=== PATIENT | female | born 1940 | race Caucasian/White ===

== ENCOUNTER 2022-10-08 09:03 | Outpatient (CLI) | payer MEDICARE, SELFPAY ==
--- OUTSIDE RECORDS SUMMARY | 2022-10-08 09:06 | XMS_ITS | Encounter Summary ---
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 [address] [place] [phone] Referral ID Status Reason Start Date Expiration Date Visits Requ ested Visits Authorized [id number] Closed 01/01/2022 01/01/2023 6 1 Encounter Details Date Type Department Care Team Description 01/09/2022 Hospital Encounter Department of Haresh Sims Neurocognitive Radiology, Efrain Ramirez M.D., Ph. D. Disorder Without Building, in [address] Behavior Disturbance [place], [place] ([facility]) [place] [address] 200 [facility] [phone] [place], [place] (Work) [phone] Social History Tobacco Use Types Packs/Day Years Used Date Smoking Tobacco: Former Smokeless Tobacco: Never Comments: in college years Alcohol Use Standard Drinks/Week Comments Yes 1 (1 standard drink = 0.6 oz pure alcoho l) per day Alcohol Habits Answer Date Recorded How often do you have a drink containing 4 or more times a w [place] 01/01/2022 alcohol? How many drinks containing alcohol do you have 1 or 2 01/01/2022 on a typical day when you are drinking? How often do you have six or more drinks on one Never 01/01/2022 occasion? Social Isolation Answer Date Recorded In a typical week, how many times do you More than three jack es a week 01/01/2022 talk on the phone with family, friends, or neighbors? How often do you get together with friends More than three t imes a week 01/01/2022 or relatives? How often do you attend pentecostalism or More than 4 times per year 01/01/2022 catholic services? Do you belong to any clubs or Yes 01/01/2022 organizations such as pentecostalism groups, unions, fraternal or athletic groups, or school groups? How often do you attend meetings of the 1 to 4 times per yea r 01/01/2022 clubs or organizations you belong to? Are you now , , , 01/01/2022 , never or living with a partner? Physical Activity Answer Date Recorded On average, how many days per week do you engage in moderate to 7 days 01/01/2022 strenuous exercise (like walking fast, running, jogging, dancing, swimming, biking, or other activities that cause a light or heavy sweat)? On average, how many minutes do you engage in exercise at th is 50 min 01/01/2022 level? Stress Answer Date Recorded Do you feel stress - tense, restless, nervous, or Only a lit tle 01/01/2022 anxious, or unable to sleep at night because your mind is troubled all the time - these days? Financial Resource Strain Answer Date Recorded How hard is it for you to pay for the very basics like Not h bindu at all 01/01/2022 food, housing, medical care, and heating? Intimate Partner Violence Answer Date Recorded Within the last year, have you been afraid of your partner o r No 01/01/2022 ex-partner? Within the last year, have you been humiliated or emotionall y No 01/01/2022 abused in other ways by your partner or ex-partner? Within the last year, have you been kicked, hit, slapped, or No 01/01/2022 otherwise physically hurt by your partner or ex-partner? Within the last year, have you been raped or forced to have any No 01/01/2022 kind of sexual activity by your partner or ex-partner? Food Insecurity Answer Date Recorded Within the past 12 months, you worried that your food would Never true 01/01/2022 run out before you got money to buy more. Within the past 12 months, the food you bought just didn't N ever true 01/01/2022 last and you didn't have money to get more. Transportation Needs Answer Date Recorded In the past 12 months, has lack of transportation kept you f rom Yes 01/01/2022 medical appointments or from getting medications? In the past 12 months, has lack of transportation kept you f rom Yes 01/01/2022 meetings, work, or getting things needed for daily living? Housing Stability Answer Date Recorded In the last 12 months, was there a time when you were not ab le No 01/01/2022 to pay the mortgage or rent on time? In the last 12 months, how many places have you lived? 1 01/01/2022 In the last 12 months, was there a time when you did not hav e a No 01/01/[address] or slept in a chcf (including now)? Education Answer Date Recorded What is the highest level of school Master's degree (e.g., M A, MS, 01/01/2022 you have completed or the highest Olivia, MEd, BI TRI OPERATOR, TUSHAR) degree you have received? 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 Take 2 tablets up to four times daily for pain albuterol 90 Inhale 2 puffs as 0 01/16/2015 mcg/actuation inhaler needed. ALPRAZolam (XANAX) 0.25 Take 0.25 mg by 0 015 mg tablet mouth as needed. aspirin [address] tablet Take 81 mg by mouth 0 10/2021 daily. donepeziL (ARICEPT) 5 mg Take 5 mg by mouth 0 tablet every morning. levothyroxine (SYNTHROID, Take 100 mcg by 0 LEVOTHROID) 100 mcg mouth every morning tablet before breakfast. mirtazapine (REMERON) 30 Take 60 mg by mouth 0 mg tablet at bedtime. multivitamin tablet Take 1 tablet by 0 01/16/2015 mouth daily. sennosides (senna) 8.6 mg Take 1 tablet (8.6 14 tablet 0 tablet mg total) by mouth daily. simvastatin (ZOCOR) 20 mg Take 20 mg by mouth 0 0 05/08/2021 tablet at bedtime. venlafaxine XR Take 225 mg by 0 03/04/2021 (EFFEXOR-XR) 150 mg 24 hr mouth daily. capsule tamoxifen (NOLVADEX) 20 Take 1 tablet (20 90 tablet 3 07/1708/17/2022 mg tablet mg total) by mouth daily for 100 doses. Take with or without food. Start 3-4 weeks after end of radiation. documented as of this encounter Plan of Treatment Not on filedocumented as of this encounter Procedures Procedure Name Priority Date/Time Associated Diagnosis Comme nts PET CT BRAIN RAD - Routine 01/09/2022 11:32 Major Neurocognitive Re sults for METABOLIC (most inpatients AM AERONAUTICAL ENGINEERING TECHNOLOGIST Disorder Without this pr ocedure EVALUATION and all Behavior Disturbance are in the outpatients) ([facility]) results section. documented in this encounter Results PET CT Brain Metabolic Evaluation (01/09/2022 11:32 AM AERONAUTICAL ENGINEERING TECHNOLOGIST) Anatomical Region Laterality Modality Brain, Nuclear Medicine PET RST LOS, N/A Pos itron Emission Tomography (PET), PET ARZ LOS, Nuclear Medicine PET FLA Po sitron Emission Tomography (PET) LOS, Nuclear Medicine Specimen (Source) Anatomical Collection Method Collection Time Re ceived Time Location / / Volume Laterality 01/09/2022 11:34 AM AERONAUTICAL ENGINEERING TECHNOLOGIST Impressions 01/09/2022 11:40 AM AERONAUTICAL ENGINEERING TECHNOLOGIST Diffuse cortical hypometabolism is a nonspecific finding. The worst areas including the superior parietal lobe and posterior pricila gulate gyri could indicate a superimposed pattern compatible with a clinical diagnosis of Alzheimer's disease. Narrative 01/09/2022 11:40 AM AERONAUTICAL ENGINEERING TECHNOLOGIST EXAM: ??PET CT BRAIN METABOLIC EVALUATION Serum glucose at time of F-18 FDG inject ion was 117 mg/dL. RADIOPHARMACEUTICAL/MEDS: Route: intravenous fludeoxyglucose F 18 injection RETIREMENT (FDG F-18),12.04 millicurie TECHNIQUE: F-18 FDG PET/CT scan was perf ormed of the brain with low dose, non-contrast, free-breathing CT images for attenuation correction and anatomic localization (AC/AL), with imaging beginning at approximately [address] radiotracer injection. Cortex ID performed. COMPARISON: ??No prior PET brain INDICATION: ??AD vs FTD FINDINGS: Diffuse severe cortical hypome tabolism, most pronounced in the superior parietal lobe including the posterior cingulate gyri. No unexpected CT findings. Procedure Note Casey Serna M.D. - 01/09/2022Formatti ng of this note might be different from the original. EXAM: PET CT BRAIN METABOLIC EVALUATION Serum glucose at time of F-18 FDG inject ion was 117 mg/dL. RADIOPHARMACEUTICAL/MEDS: Route: intravenous fludeoxyglucose F 18 injection RETIREMENT (FDG F-18),12.04 millicurie TECHNIQUE: F-18 FDG PET/CT scan was perf ormed of the brain with low dose, non-contrast, free-breathing CT images for attenuation correction and anatomic localization (AC/AL), with imaging beginning at approximately [address] radiotracer injection. Cortex ID performed. COMPARISON: No prior PET brain INDICATION: AD vs FTD FINDINGS: Diffuse severe cortical hypome tabolism, most pronounced in the superior parietal lobe including the posterior cingulate gyri. No unexpected CT findings. IMPRESSION: Diffuse cortical hypometabolism is a non specific finding. The worst areas including the superior parietal lobe and posterior pricila gulate gyri could indicate a superimposed pattern compatible with a clinical diagnosis of Alzheimer's disease. Haresh Sims M.D., Ph.D. 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
--- OUTSIDE RECORDS SUMMARY | 2022-10-08 09:06 | XMS_ITS | Clinical Summary ---
:1940 Author Organization [facility] [place] [address] Care Team Providers Name Role Phone Annie Rojas MD Primary Care Provider Allergies No known active allergies Medications Medication Sig Dispensed Refills Start Date End Date Status ALPRAZolam (XANAX) 0.25 Take 1 tablet by 0 5 Active mg tablet mouth at bedtime if needed. mirtazapine (REMERON) 30 Take 1 tablet by 0 01/16/20 15 Active mg tablet mouth at bedtime. albuterol HFA Inhale 2 Puffs 0 01/16/2015 Active (PRO-AIR,VENTOLIN,PROVEN by mouth 4 times TIL) 90 mcg/actuation daily if needed. inhaler multivitamin (MULTI-DAY) Take 1 tablet by 0 01/16/20 15 Active tablet mouth once daily. vitamin a-vitamin Take 1 tablet by 0 01/16/2015 Active c-vitamin e-minerals mouth once (OCUVITE) tablet daily. Ginkgo Biloba 120 mg Take by mouth. 0 01/16/2015 Active tablet omega-3 fatty Take by mouth. 0 01/16/2015 Active acids-vitamin E (FISH OIL) 1,000 mg cap [id number] Take by mouth. 0 01/16/2015 Active t c-mn (GLUCOSAMINE-CHONDROITIN COMPLX) cap Calcium Carb-Magnesium Take by mouth. 0 01/16/2015 Active Carb 250-300 mg tab cyanocobalamin (VITAMIN Take 1 tablet by 0 5 Active B-12) 1,000 mcg tablet mouth once daily. ascorbic acid (VITAMIN Take 1 tablet by 0 01/16/2015 Active C) 500 mg tablet mouth once daily. cholecalciferol (VITAMIN Take 1 capsule 0 01/16/2015 Active D) 1,000 unit capsule by mouth once daily. alendronate (FOSAMAX) 35 TK 1 T PO WEEKLY 0 03/07/20 19 Active mg tablet busPIRone (BUSPAR) 15 mg TK 1 T PO BID 0 08/23/2020 Active tablet Active Problems Not on file Immunizations Name Administration Dates Next Due Influenza, High-dose Inactivated 12/11/2017, 10/15/2016, , 08/26/2015, 01/02/2015 Influenza, Inactivated IIV3 (Age 65+ 10/18/2018 Years) Preserv Free Pneumococcal conj 13-Valent (Prevnar 08/26/2015, 01/02/2015 13) Tdap 08/26/2015 Zoster (Shingrix-RZV, recombinant) 12/14/2018, 08/10/2018 Social History Tobacco Use Types Packs/Day Years Used Date Never Smoker Smokeless Tobacco: Never Used Tobacco Cessation: Counseling Given: Yes Alcohol Use Standard Drinks/Week Comments Yes 0 (1 standard drink = 0.6 oz pure alcoho l) occas Alcohol Habits Answer Date Recorded How often do you have a drink containing alcohol? Not asked How many drinks containing alcohol do you have on a typical Not asked day when you are drinking? How often do you have six or more drinks on one occasion? No t asked Comment: occas 01/16/2015 Sex Assigned at Date Recorded Not on file Obstetrics History Last Filed Vital Signs Vital Sign Reading Time Taken Comments Blood Pressure 106/71 10/30/2020 10:44 AM RN LACTATION Pulse 80 10/30/2020 10:44 AM RN LACTATION Temperature 36.9 ??C (98.5 ??F) 04/13/2019 8:39 AM CDT Respiratory Rate - - Oxygen Saturation 99% 10/30/2020 10:44 AM RN LACTATION Inhaled Oxygen Concentration - - Weight 61.1 kg (134 lb 12.8 oz) 10/30/2020 10:44 AM RN LACTATION Height 160.5 cm (5' 3.19) 04/13/2019 8:39 AM CDT Body Mass Index 23.74 04/13/2019 8:39 AM CDT Plan of Treatment Health Maintenance Due Date Last Done Comments COVID-19 vaccine series (#1) 1940 DEXA/DXA scan for age 65+ 2005 Medicare Wellness for age 65+ 2005 Pneumococcal series for age 65+ (2 08/26/2016 08/26/2015, 0 01/02/2015 - PPSV23 if available, else PCV20) BMI (ht and wt on same day) for 04/13/2020 04/13/2019, 0201/2017 age 18+ Depression screening for age 12+ 04/13/2020 04/13/2019, 01/2017 Influenza for age 65+ 07/30/2022 10/18/2018, 12/11/2017, 10/15/2016, Additional history exists Tetanus booster 08/26/2025 08/26/2015 Tdap Completed 08/26/2015 Zoster (shingles) series for age Completed 12/14/2018, 10/2018 50+ Results Not on filefrom Last 3 Months Insurance Payer Benefit Plan / Subscriber ID Effective Dates Phone Addre ss Type Group MEDICARE PFFS MR AETNA MR [id number] 2018-Present [address] [place] [address] Care Teams Sharebroker Relationship Specialty Start Date End Date Annie Rojas MD PCP - General Internal Medicine 01/16/151999 [place] [address]
--- OUTSIDE RECORDS SUMMARY | 2022-10-08 09:06 | XMS_ITS | Encounter Summary ---
:1940 Author Organization [facility] Address [address] [place] [address] Care Team Providers Name Role Phone Unavailable Primary Care Provider Unavailable Reason for Visit Reason Comments Med Refill Tamoxifen Encounter Details Date Type Department Care Team Description 08/17/2022 Clinical Communication Department of Jose, Med Refill Oncology in [facility] Rivera (Tamoxifen ) Dorene Grissom [place] [address] [facility] [address] [place] [phone] Social History Tobacco Use Types Packs/Day Years Used Date Smoking Tobacco: Former Smokeless Tobacco: Never Comments: in college years Alcohol Use Standard Drinks/Week Comments Yes 1 (1 standard drink = 0.6 oz pure alcoho l) per day Alcohol Habits Answer Date Recorded How often do you have a drink containing 4 or more times a w [place] 01/01/2022 alcohol? How many drinks containing alcohol [...] or relatives? How often do you attend scientologist or More than 4 times per year 01/01/2022 shinto services? Do you belong to any clubs or Yes 01/01/2022 organizations such as scientologist groups, unions, fraternal or athletic groups, or [...] place to sleep or slept in a penitentiary (including now)? Education Answer Date Recorded What is the highest level of school Master's degree (e.g., M A, MS, 01/01/2022 you have completed or the highest Olivia, MEd, E BUSINESS CONSULTANT, TUSHAR) degree you have received? 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 - 08/26/2022 5:29 PM CDT Thanks for the heads up. Doesn't look like I need to take any action now and will see if another provider contacts us. Telephone Encounter - Usha Rubalcava R.N. - 08/17/2022 1:57 PM CDT Pt last seen by Dr. Garcia in September 2021. This message was sent to the pt. Huber afternoon, Luisito. We received a refill request for tamoxifen. In reviewing your records, I see that you are overdue for a follow up visit in the Breast [facility]. In order to provide the safest and most effective recommendations, it is necessary that you be seen from time to time. Please call our appointment office at [phone] to schedule at your earliest convenience. We will prescribe a small supply of tamoxifen to get you through to that visit. If you have any questions or concerns, please contact us at [phone] or through the patient portal. Thank you. Kind regards, Usha Rubalcava, RN Cancer Vibrator Equipment Tester [facility] Team Telephone Encounter - Annalee Muñoz C.Ph.T. - 08/17/2022 1:20 PM CDT Received refill request for: tamoxifen 20mg Previous dose prescribed: 20mg Last date prescribed: 07/17/2021 Last date filled: 07/15/2022 Pharmacy: [facility] [id number] [place] [address] ph#[phone] fax#[phone] documented in this encounter Plan of Treatment Not on filedocumented as of this encounter Visit Diagnoses Not on filedocumented in this encounter
--- OUTSIDE RECORDS SUMMARY | 2022-10-08 09:06 | XMS_ITS ---
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 Past Plans No past plan information found. Radiation Treatments Plan Last Treated Elapsed Days Fractions Prescribed Prescribed Total On Treated Fraction Dose Dose F1 Rt Breast 09/03/2021 35 25 of 25 200 cGy 5,000 cGy Reference Point Last Treated On Elapsed Days Session Dose Total Dos e [id number] 09/03/2021 35 200 cGy 5,000 cGy
--- OUTSIDE RECORDS SUMMARY | 2022-10-08 09:06 | XMS_ITS | Encounter Summary ---
:1940 Author Organization [facility] Address [address] [place] [id number] Care Team Providers Name Role Phone Unavailable Primary Care Provider Unavailable Reason for Referral Outpatient (Routine) - Closed Specialty Diagnoses / Procedures Referred By Contact Refer red To Contact Neurology Haresh Sims M. D., Ph.D. [facility] [address] [place], [place] [phone] Referral ID Status Reason Start Date Expiration Date Visits Requ ested Visits Authorized [id number] Closed 01/01/2022 01/01/2023 1 1 ON INSTALLER Outpatient (Routine) - Closed Specialty Diagnoses / Procedures Referred By Contact Refer red To Contact Diagnoses Unspecified Dementia Unspecified Severity Without Behavioral Disturbance Psychotic disturbance Mood Disturbance And Anxiety (HCC) Haresh Sims M.D., [facility] Procedures PET CT Brain Metabolic Evaluation PA PET BRAIN METABOLIC EVAL Ph.D. [address] [place] [phone] Referral ID Status Reason Start Date Expiration Date Visits Requ ested Visits Authorized [id number] Closed 01/01/2022 01/01/2023 6 1 ON INSTALLER Reason for Visit Outpatient (Routine) - Closed Specialty Diagnoses / Procedures Referred By Contact Refer red To Contact Neurology Diagnoses Impairment Cognitive Mild Jose, Benjamin V., M.D. [facility] [address] [place] [phone] Referral ID Status Reason Start Date Expiration Date Visits Requ ested Visits Authorized [id number] Closed 10/10/2021 10/10/2022 1 1 Encounter Details Date Type Department Care Team Description 01/01/2022 Comprehensive Visit Department of Desmond Sims eurocognitive Disorder Without Behavior Disturbance (HCC); Neurology in [place] Ospina M.D., Ph.D. [place] [address] [address] [facility] [address] [place] [phone] Social History Tobacco Use Types Packs/Day Years Used Date Smoking Tobacco: Former Smokeless Tobacco: Never Comments: in college years Alcohol Use Standard Drinks/Week Comments Yes 1 (1 standard drink = 0.6 oz pure alcoho l) per day Alcohol Habits Answer Date Recorded How often do you have a drink containing 4 or more times a w [place] 01/01/2022 alcohol? How many drinks containing alcohol [...] or relatives? How often do you attend pentecostal or More than 4 times per year 01/01/2022 mormonism services? Do you belong to any clubs or Yes 01/01/2022 organizations such as pentecostal groups, unions, fraternal or athletic groups, or [...] have completed or the highest Olivia, MEd, NEEDLE LOOM OPERATOR, TUSHAR) degree you have received? Sex Assigned at Date Recorded Female 01/01/2022 8:43 AM ACTION INSTALLER documented as of this encounter Last Filed Vital Signs Vital Sign Reading Time Taken Comments Blood Pressure 130/60 01/01/2022 8:58 AM ACTION INSTALLER Pulse 99 01/01/2022 8:58 AM ACTION INSTALLER Temperature - - Respiratory Rate - - Oxygen Saturation - - Inhaled Oxygen Concentration - - Weight 58.3 kg (128 lb 6.7 oz) 01/01/2022 8:58 AM ACTION INSTALLER Height 162.6 cm (5' 4.02) 01/01/2022 8:58 AM ACTION INSTALLER Body Mass Index 22.03 01/01/2022 8:58 AM ACTION INSTALLER documented in this encounter Consult Notes Haresh Sims M.D., Ph.D. - 01/01/2022 9:00 AM CST Supervisory note. I interviewed the patient, performed doyle elements of the examination, and reviewedand discussed the history and management plan with the resident and patient. Please see the resident's note of this date for additional details. This 81-year-old woman was referred by oncology providers (she has a right breast carcinoma and is on tamoxifen) for cognitive decline, present for 5-7 years and mostly related to short-term memory. She lives at home alone in [place] and reports handling IADLs without difficulty including driving loc ally, though friends have apparently commented on more memory troubles over time and her son (here today) lives in [place] and sees her intermittently. She has some anxiety and has been on daily Xanax. She was started on donepezil 5 mg daily previously which she seems to be tolerating. Other familymembers were felt to have dementia including her mother. She scored 23/38 on the Kokmen STMS. TSH was minimally elevated with normal T4. B12 was within normal range. Brain MRI shows T2/FLAIR white matter hyperintensities consistent with microvascular diseaseincluding some likely clinically silent lacunar infarcts, along with a few foci of microhemorrhage. To our review the MRI also shows atrophy in the parietal and temporal regions including the hippocampi (statistically estimated at 1st percentile for age). #1 Mild cognitive impairment versus mild dementia #2 Anxiety She had evident struggles on office cognitive screening which, as we discussed, would typically be in keeping with a dementia syndrome and as such I would have at least some concern about home functioning in instrumental activities of daily living. As to the etiology for her cognitive decline, she certainly has some signs of chronic cerebrovascular disease, but with the insidious course and signs of atrophy on MRI I would also have concern for anunderlying neurodegenerative process, with Alzheimer's disease and/or a frontotemporal disorder being well within the differential. To further evaluate this to guide counseling and management, I recommended obtaining a brain FDG PETscan to differentiate AD vs. FTD. We had some introductory discussions about aspects of safety including driving (I recommended that she have a formal evaluation through an organization such as [facility], and we discussed the rationale) and will return to these and pharmacologic and other management after her testing. ON INSTALLER Annalee Costa M.D., Ph.D. - 01/01/2022 9:00 AM CST BEHAVIORAL NEUROLOGY - NEW PATIENT CONSULTATION Patient Name: NURY JORGE Medical Record Number (MRN): [id number] Date of (): 1940 Encounter Date: 01/01/2022 Referring MD: Dr. Benjamin Garcia M.D. Primary Care Practitioner: Dr. Seymour primary care provider on file. CHIEF COMPLAINT Ms. Nury Jorge is referred by Dr. Benjamin Garcia M.D. for the assessment of progressive memory changes. INTRODUCTION Ms. Jorge is a 81 y.o. 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 The patient lives alone in her private town home (one level with a loft) with significant support from hervery close friends in [place]. She is in generally good health. SUBJECTIVE HISTORY OF PRESENTING ILLNESS Memory and thinking problems were first noticed at least 6-7 years ago. The first problems noted were repeating stories or statements during phone conversations or misplacing phones. Problems began gradually and have progressed gradually. These symptoms are now present consistently. Currently she has minimal difficulty managing medications, she has made several errors when medications have changed or new medications have been added, and per Ms. Jorge this is compounded by multiple providers managing different her prescriptions as well titration schedules. Her pillbox has been checked by son and found to be accurate. She does not require assistance managing appointments. She is reliable in recalling details of recent events. She will repeat questions, stories and statements. Concerning orientation, she usually knows the day of the week, month and year. She is able to navigate in familiar areas only. She has developed compensatory strategies for navigation, remembering landmarks to find her way around. She has to put more effort into remembering where the car. She does notwander. She has multiple strategies in place to assist with executive function. Her bills are on autopaymentand coordination between her savings and checking account is also automated to avoid overdrawing accounts. Son is a signer on her financial accounts and has been for several years, though this was reportedly not due to concerns with memory. She is not impulsive. She is not driving as frequently and only shorter distances to familiar places, though she is driving less because of COVID. She is appropriate in social situations. Her function at home is preserved, though she has assistance for many required tasks. She is able tomanage simple chores such as laundry. She has a cleaning service. Meals and the responsibility of making meals is shared with her close friends/near family. She eats dinner with others nightly. She generates a list of things for home maintenance for her son to do during his visits. Technology is hard,even with passwords written down, she sometimes locks herself out of accounts. She does remember common passwords. She is independent in personal care. She states that mood is good, though she occasionally in anxious and takes 0.25 mg of alprazolam several times a week for anxiety. She has also been taking donepezil 5 mg, though it unclear when this was started. She does not recall significant change in her cognition with this medication. No recent changes in her motor function. She has had longstanding difficulties with coordination of her right hand for multiple years. She has last seen in Neurology by Dr. 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 She continues to have difficulty with writing as well as opening jars that has been more frequent over recent years and also worsens with anxiety. Her gait is unchanged and she walks frequently. She cannot recall falls. She sleeps approximately 8-10 hours a night, she does snore. No reported dream enactment behavior. No hallucinations. No anosmia. No change in bowel or bladder habits. No constipation. REVIEW OF REFERRAL RECORDS Available referral records were personally reviewed in anticipation of today's assessment (01/01/22). Pertinent results are summarized below. Summary of referral records and diagnostic testing: Labs ??? B12 336 ??? TSH 10.1 Imaging ??? Bilateral hippocampal atrophy (1% for age) as well a parietal and temporal artery with several small areas of right frontal hemosiderin deposition. Bilateral leukoaraiosis with multiple areas concerning for small lacunar infarcts, such as right thalamus ACTIVE PROBLEMS Patient Active Problem List Diagnosis ??? 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 Anxiety ??? Cancer Lung Primary Personal History 2012 ??? Depression Personal History ??? Depressive Disorder ??? Malignant Primary Neoplasm (Unknown Site) Unspecified (HCC) breast, lung ??? Sickness Motion Personal History PAST SURGICAL HISTORY Past Surgical History: Procedure Laterality Date ??? BIOPSY SENTINEL LYMPH NODE AXILLARY - PREOPERATIVE LYMPHOSCINTIGRAPHY Right 05/29/2021 Procedure: RIGHT LYMPH NODE AXILLARY SENTINAL LYMPH NODE BIOPSY, PREOPERATIVE LYMPHOSCINTIGRAPHY.; Surgeon: Trini Cedillo D.O.; Location: [facility] OR ??? CATARACT EXTRACTION, BILATERAL Bilateral ??? INTRA-OPERATIVE ULTRASONOGRAPHY N/A 05/29/2021 Procedure: INTRA-OPERATIVE ULTRASONOGRAPHY.; Surgeon: Trini Cedillo D.O.; Location: [facility] OR ??? LUMPECTOMY BREAST Right 05/29/2021 Procedure: RIGHT BREAST LUMPECTOMY; Surgeon: Trini Cedillo D.O.; Location: [facility] OR ??? LUNG CANCER SURGERY Left 2013 ??? TONSILLECTOMY ALLERGIES No Known Allergies MEDICATIONS Current Outpatient Medications: ??? acetaminophen (TYLENOL) 500 mg tablet, Take 2 tablets (1,000 mg total) by mouth every 6 (six) hours as needed for pain (pain). Take 2 tablets up to four times daily for pain, Disp: 100 tablet, Rfl:0 ??? ALPRAZolam (XANAX) 0.25 mg tablet, Take 0.25 mg by mouth as needed., Disp: , Rfl: ??? aspirin [address] tablet, Take 81 mg by mouth daily., Disp: , Rfl: ??? donepeziL (ARICEPT) 5 mg tablet, Take 5 mg by mouth every morning., Disp: , Rfl: ??? levothyroxine (SYNTHROID, LEVOTHROID) 100 mcg tablet, Take 100 mcg by mouth every morning beforebreakfast., Disp: , Rfl: ??? mirtazapine (REMERON) 30 mg tablet, Take 60 mg by mouth at bedtime., Disp: , Rfl: ??? multivitamin tablet, Take 1 tablet by mouth daily., Disp: , Rfl: ??? simvastatin (ZOCOR) 20 mg tablet, Take 20 mg by mouth at bedtime., Disp: , Rfl: ??? venlafaxine XR (EFFEXOR-XR) 150 mg 24 hr capsule, Take 225 mg by mouth daily., Disp: , Rfl: ??? albuterol 90 mcg/actuation inhaler, Inhale 2 puffs as needed., Disp: , Rfl: ??? sennosides (senna) 8.6 mg tablet, Take 1 tablet (8.6 mg total) by mouth daily. (Patient not taking: Reported on 01/01/2022), Disp: 14 tablet, Rfl: 0 ??? tamoxifen (NOLVADEX) 20 mg tablet, Take 1 tablet (20 mg total) by mouth daily for 100 doses. Take with or without food. Start 3-4 weeks after end of radiation., Disp: 90 tablet, Rfl: 3 FAMILY & SOCIAL HISTORY Family History Problem Relation Age of Onset ??? Colon cancer Father ??? Liver cancer Brother ??? 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 Former smoker, minimal alcohol use. REVIEW OF SYSTEMS Constitutional: Positive for fatigue. Respiratory: Positive for dry cough. Neurological: Positive for light-headedness and excessive daytime sleepiness. Psychiatric/Behavioral: Positive for excessive daytime sleepiness/tiredness, snores loudly and feeling nervous, anxious, or on edge in past two weeks. The following systems were negative: Skin, Eyes, ENT, CV, GI, , Hematologic, Musculoskeletal OBJECTIVE PHYSICAL EXAMINATION Vitals: 01/01/22 0858 BP: 130/60 Pulse: 99 Short test of mental status (Kokmen) score: 23/38 Orientation: 07/06 Attention: 06/04 Registration: 03/02 (2 trials) Calculation: 0/4 Similarities: 3/3 Construction: 0/4 Knowledge: 2/4 Recall: 0/4; recalled apple when cued General Assessment The patient appeared of average build and of stated age. She was dressed appropriately, and behaved normally throughout the interview, with euthymic affect. Her thought process was tangential with multiple vague statements. She was not able to directly answer multiple questions. No sensory intrusions / misperceptions were noted (i.e., no delusions and/or hallucinations). Cranial Nerves Visual ramon were full with no extinction on double simultaneous stimulation. Pupils were equal, round and reactive to light. Extraocular movements were full with normal smooth pursuit and saccadic eye movements. Facial sensation was intact in all three divisions of the trigeminal nerve. Facial movement was symmetric. Hearing was intact. Palate elevation was symmetric. Shoulder shrug and head turning were symmetric. Tongue protrusion was midline. Motor Axial tone was normal. Motor exam revealed normal bulk, tone and strength throughout. Fine finger movements were symmetric. No involuntary movements were detected. Rapid-alternating movements were initially slowed at the right fingers, but improved with repetition; otherwise normal. No decrement. Reflexes Reflexes were symmetric at the biceps, triceps, brachioradialis and brisk at the knees with cross abductor spread. Sensation Sensation was intact to light touch. Coordination Jbolfl-cfjm-[id number] and shzy-bqbp-zjbb testing were normal. Higher Cortical Function and Special Tests Ideomotor apraxia was not noted. Gait Gait was normal, including tandem gait. ADDITIONAL SUMMARY OF RELEVANT MEDICAL RECORDS & TESTING Lab Results Component Value Date TSH 10.1 (H) 12/22/2021 THYROIDAB 0.7 12/22/2021 Lab Results Component Value Date WBC 9.3 12/22/2021 HGB 13.3 12/22/2021 HCT 40.7 12/22/2021 MCV 100.5 (H) 12/22/2021 Lab Results Component Value Date CREATININE 1.13 (H) 12/22/2021 EEG (Last result in the past 365 days) None DIAGNOSIS AND ASSESSMENT # Mild dementia vs mild cognitive impairment. Ms. Jorge is a 81 y.o. female with a family history of dementia (her mother), who presents with slowly progressive cognitive decline over the past 6-7 years most prominent in short term recall. The pattern of decline, neuroimaging, and exam today are suggestive of mild dementia vs mild cognitive impairment with most likely etiology of Alzheimer's disease. I do suspect that her strong local support network is likely assisting with her abilities to complete her daily responsibilities at home. She does have evidence of chronic vascular disease on her MRI, though her clinical course is most fitting with a neurodegenerative process. There may also be contributions of cognitive inefficiencies from benzo diazepine usage as well as obstructive sleep apnea. Her cerebrovascular risk factors can continue edie followed by her primary care provider and modified as needed. Her incoordination in the right hand is likely a manifestation of previous focal dystonia, no weakness, ataxia, or apraxia on exam. In order to further investigate will pursue FDG-PET scan with follow up with Dr. Sims. Given her impairment on the Kokmen testing today, we also discussed the importance of continued oversight for higher order functions such as money and medication management as well as driving. If she wishes to continue to drive, would recommend formal occupational therapy evaluation for driving. [facility]. This patient was seen with Dr. Sims. Annalee Costa M.D., Ph.D. ON INSTALLER documented in this encounter Plan of Treatment Scheduled Referrals Name Type Priority Associated Diagnoses Order S [facility] Neurology office Outpatient Referral Routine Expe cted: visit (clinic) 01/01/2022 (Approximate), Expires: 03/31/2023 documented as of this encounter Results PET CT Brain Metabolic Evaluation (01/09/2022 11:32 AM ACTION INSTALLER) Anatomical Region Laterality Modality Brain, Nuclear Medicine PET RST LOS, N/A Pos itron Emission Tomography (PET), PET ARZ LOS, Nuclear Medicine PET FLA Po sitron Emission Tomography (PET) LOS, Nuclear Medicine Specimen (Source) Anatomical Collection Method Collection Time Re ceived Time Location / / Volume Laterality 01/09/2022 11:34 AM ACTION INSTALLER Impressions 01/09/2022 11:40 AM ACTION INSTALLER Diffuse cortical hypometabolism is a nonspecific finding. The worst areas including the superior parietal lobe and posterior pricila gulate gyri could indicate a superimposed pattern compatible with a clinical diagnosis of Alzheimer's disease. Narrative 01/09/2022 11:40 AM ACTION INSTALLER EXAM: ??PET CT BRAIN METABOLIC EVALUATION Serum glucose at time of F-18 FDG inject ion was 117 mg/dL. RADIOPHARMACEUTICAL/MEDS: Route: intravenous fludeoxyglucose F 18 injection FCI (FDG F-18),12.04 millicurie TECHNIQUE: F-18 FDG PET/CT [...] RADIOPHARMACEUTICAL/MEDS: Route: intravenous fludeoxyglucose F 18 injection FCI (FDG F-18),12.04 millicurie TECHNIQUE: F-18 FDG PET/CT [...] Psychotic disturbance Mood Disturbance And Anxiety (HCC) Anxiety Unspecified Dementia Unspecified Severit y Without Behavioral Disturbance Psychotic disturbance Mood Disturbance And Anxiety (HCC) documented in this encounter
--- OUTSIDE RECORDS SUMMARY | 2022-10-08 09:06 | XMS_ITS | Encounter Summary ---
:1940 Author Organization [facility] Address [address] [place] [address] Care Team Providers Name Role Phone Unavailable Primary Care Provider Unavailable Reason for Visit Outpatient (Routine) - Closed Specialty Diagnoses / Procedures Referred By Contact Refer red To Contact Neurology Haresh Sims M. D., Ph.D. 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 [address] [place] [phone] Social History Tobacco Use Types Packs/Day Years Used Date Smoking Tobacco: Former Smokeless Tobacco: Never Comments: in college years Alcohol Use Standard Drinks/Week Comments Yes 1 (1 standard drink = 0.6 oz pure alcoho l) per day Alcohol Habits Answer Date Recorded How often do you have a drink containing 4 or more times a w [place] 01/01/2022 alcohol? How many drinks containing alcohol [...] or relatives? How often do you attend gnosticist or More than 4 times per year 01/01/2022 restorationist services? Do you belong to any clubs or [facility] 01/01/2022 organizations such as gnosticist groups, unions, fraternal or athletic groups, or [...] place to sleep or slept in a half-way (including now)? Education Answer Date Recorded What is the highest level of school Master's degree (e.g., M A, MS, 01/01/2022 you have completed or the highest Olivia, MEd, DIRECTOR NUR[employer]ERY [employer]CHO[employer], TUSHAR) degree you have received? 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 - 01/09/2022 3:00 PM CST Images from the original note were not included. Adrienne Jorge returns for follow-up of test results, with her longtime friend Berta (not present at our initial visit). Brain FDG PET was abnormal as below with left slightly worse than right parietal and temporal hypometabolism, including some mesial temporal hypometabolism. 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 woman seen for 5-7 years of amnestic-predominant cognitive decline, with clear impairment on office cognitive screening ( SMS) Given the extent of her troubles on office exam as discussed before I would have some concerns abouthome independent functioning. I recommended an occupational therapy evaluation to assist with clarifying this further to identify potential safety-relevant areas. As to the etiology for her cognitive decline, Alzheimer's disease would be very likely to be a driving force given the findings of focal patterned atrophy and hypometabolism on imaging. Coexistent cerebrovascular disease is likely to be a factor though not in isolation. At her age admixed other degenerative disease cannot be ruled out. We discussed the following about neurodegenerative diseases: -Alzheimer's disease is the most common, but many types/forms/variants exist, and it is not uncommonfor multiple degenerative pathologies to be present together in some cases -They develop over decades prior to symptom onset -They are expected to cause slow worsening of symptoms over time -More abrupt changes are typically not related to disease progression and more likely due to other factors (e.g., new medications/side effects, systemic infections, electrolyte abnormalities, dehydration, etc.) which should prompt a PCP/general medical evaluation -All patients are different and a wide range of features/progression can be seen -Past trajectory on an individualized basis is generally the best guide for future trajectory -At present there are no cures which reverse these diseases -Options exist to help manage some symptoms of these diseases and optimize function, and disease-modifying therapies are under active investigation -Although unequivocal diagnosis can only be made by post-mortem autopsy, clinical evaluation and diagnostic testing can often yield a high confidence diagnosis during life -Most cases of these diseases are thought due to a complex mix of multiple genetic and environmental/lifestyle factors, only some of which are known Plan 1. She was at one point started on donepezil 5 mg daily. Typically if tolerated the target dose is 10 mg every morning. If an EKG was not previously checked to evaluate for heart block or bradycardia Iwould recommend that this be done. If not tolerated due to nausea, diarrhea, or other side effects, the rivastigmine patch initiated at 4.6 mg/24 hrs and increased after 4 weeks to 9.5 mg/24 hrs could be utilized. We discussed the aim under best circumstances of a modest symptomatic effect on memory. She will follow up with local physicians in these regards. 2. For brain health, I recommended participating in cognitively and socially stimulating activities,regular physical exercise, ensuring quality sleep including treatment of any sleep apnea, control ofany cerebrovascular disease risk factors (such as blood pressure, diabetes, cholesterol, and avoidance of tobacco) and systemic medical and psychiatric conditions, at most moderate consumption of alcohol, modulation and management of stress, mindfulness techniques, and use of a healthy and balanced diet. 3. We discussed that individuals with this diagnosis are at a substantially higher risk for unsafe driving and thus it would be my recommendation that she stop driving. If they feel strongly that driving is potentially able to continue, then a formal driving safety evaluation (e.g., through an organization such as [employer]) should be obtained and repeated every 6 months. I would also recommend that a family member or other designated individual be available to assist with complex legal, medical, and financial decision-making, just to ensure no big items are missed and limit vulnerabilities, and that individual should also supervise medications to ensure adherence. 4. They had inquired about some generalized tremulousness intermittently observed and moreso over the last few months. Though not the focus of our evaluation, I would wonder about anxiety and/or medications (e.g., venlafaxine which can cause a fine tremulousness) as potential factors. I encouraged herto continue working with a local psychotherapist here. It would also be optimal from a cognitive standpoint if she were able to be weaned off benzodiazepines (in favor of other avenues to assist with symptom control) as these can have some negative effects in older individuals with cognitive impairment. 5. We briefly discussed the recent FDA approval of aducanumab for mild stages of Alzheimer's diseasebased on its ability to remove amyloid plaques from the brain (a hallmark feature of Alzheimer's disease). It is still not conclusively known whether this drug leads to any benefit on cognitive decline, and there are nontrivial potential side effects (including brain swelling and brain bleeding), needs for frequent MRI scans for safety monitoring, and other considerations (including patient-specific goals of care among others) in judging potential candidacy and fit of this option. Additional information regarding its precise indications and other details including cost and coverage are continuing to be clarified. We discussed that other similar agents are in late stages of clinical trials and thusthere may be additional options for certain patients with Alzheimer's disease over the coming years.In addition, biomarker testing (through lumbar puncture or amyloid PET) would be required for any ofthese agents if pursued at a later date. They greatly appreciated the visit and agreed with the plan. I have completed my evaluation and made my recommendations. The patient will follow up with their primary provider. NEY BUILDER BRICK documented in this encounter Plan of Treatment Not on filedocumented as of this encounter Visit Diagnoses Diagnosis Major Neurocognitive Disorder Due To Alz heimer's Without Behavior Disturbance (HCC) - Primary Anxiety documented in this encounter
--- OUTSIDE RECORDS SUMMARY | 2022-10-08 09:06 | XMS_ITS | Clinical Summary ---
:1940 Author Organization [facility] Address [address] [place] [address] Care Team Providers Name Role Phone Unavailable Primary Care Provider Unavailable Source Comments Patient records contain information from all sites at [facility]. For routine questions regarding patient records, call [phone] during business hours, M-F 8:00 AM - 5:00 PM Central Time. Record requests for emergency care only can be directed to [phone] at any time.[facility] Allergies No known active allergies Medications Medication Sig Dispensed Refills Start Date End Date Status albuterol 90 Inhale 2 puffs 0 01/16/2015 A ctive mcg/actuation inhaler as needed. ALPRAZolam (XANAX) 0.25 Take 0.25 mg by 0 01/16/2015 Active mg tablet mouth as needed. aspirin [address] tablet Take 81 mg by 0 05/10/2021 Active mouth daily. mirtazapine (REMERON) Take 60 mg by 0 05/06/2021 Active 30 mg tablet mouth at bedtime. multivitamin tablet Take 1 tablet by 0 01/16/2015 Active mouth daily. simvastatin (ZOCOR) 20 Take 20 mg by 0 05/08/2021 Active mg tablet mouth at bedtime. venlafaxine XR Take 225 mg by 0 03/04/2021 Active (EFFEXOR-XR) 150 mg 24 mouth daily. hr capsule acetaminophen (TYLENOL) Take 2 tablets 100 tablet 0 05/29/2021 Active 500 mg tablet (1,000 mg total) by mouth every 6 (six) hours as needed for pain (pain). Take 2 tablets up to four times daily for pain sennosides (senna) 8.6 Take 1 tablet 14 tablet 0 05/29/2021 Active mg tablet (8.6 mg total) by mouth daily. Additional Information Patient not taking. Reported on 01/01/2022 donepeziL (ARICEPT) 5 mg Take 5 mg by mouth 0 Active tablet every morning. levothyroxine (SYNTHROID, Take 100 mcg by 0 Active LEVOTHROID) 100 mcg mouth every morning tablet before breakfast. tamoxifen (NOLVADEX) 20 Take 1 tablet (20 90 tablet 0 08/17/20 22 08/17/2023 Active mg tablet mg total) by mouth daily. Take with or without food. 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 Cancer Staging: Pathologic stage from 05/29/2021: Stage IIA (pT2, pN1a(sn), cM0, G3, ER+, LA+, HER2-, Oncotype DX score: 15) - Unsigned Encounters Date Type Specialty Care Team Description 08/17/2022 Clinical Communication Oncology Benjamin Garcia Med Refill (Tamoxifen Doerne Rivera ) from Last 3 Months Immunizations Name Administration Dates Next Due Influenza TIV (IM) 10/18/2018 Influenza high dose QV(65 years or 10/31/2020 older) (PF) PCV13 08/26/2015, 01/02/2015 PPSV23 05/19/2021 (Deferred: Other - WILL CHECK WITH PCP) RZV (SHINGRIX) 12/14/2018, 08/10/2018 Tdap 08/26/2015 influenza high dose (65 years or 12/11/2017, 10/15/2016, , older) (PF) 08/26/2015, 01/02/2015 influenza vaccine QV(FLUBLOK) (18 09/18/2019 years or older) (PF) Family History Medical History Relation Name Comments Liver cancer Brother 1 Multiple myeloma Brother 2 Colon cancer Father Relation Name Status Comments Brother 1 Brother 2 Father Social History Tobacco Use Types Packs/Day Years Used Date Smoking Tobacco: Former Smokeless Tobacco: Never Comments: in college years Alcohol Use Standard Drinks/Week Comments Yes 1 (1 standard drink = 0.6 oz pure alcoho l) per day Alcohol Habits Answer Date Recorded How often do you have a drink containing 4 or more times a w [place] 01/01/2022 alcohol? How many drinks containing alcohol [...] or relatives? How often do you attend confucianism or More than 4 times per year 01/01/2022 muslim services? Do you belong to any clubs or Yes 01/01/2022 organizations such as confucianism groups, unions, fraternal or athletic groups, or [...] place to sleep or slept in a retirement (including now)? Education Answer Date Recorded What is the highest level of school Master's degree (e.g., M A, MS, 01/01/2022 you have completed or the highest Olivia, MEd, LAMINATING MACHINE OFFBEARER, TUSHAR) degree you have received? Sex Assigned at Date Recorded Female 01/01/2022 8:43 AM TOUR NARRATOR Last Filed Vital Signs Vital Sign Reading Time Taken Comments Blood Pressure 130/60 01/01/2022 8:58 AM TOUR NARRATOR Pulse 99 01/01/2022 8:58 AM TOUR NARRATOR Temperature 35.3 ??C (95.5 ??F) 10/10/2021 1:07 PM TOUR NARRATOR Respiratory Rate 16 07/16/2021 1:17 PM CDT Oxygen Saturation 96% 10/10/2021 1:07 PM TOUR NARRATOR Inhaled Oxygen Concentration - - Weight 58.3 kg (128 lb 6.7 oz) 01/01/2022 8:58 AM TOUR NARRATOR Height 162.6 cm (5' 4.02) 01/01/2022 8:58 AM TOUR NARRATOR Body Mass Index 22.03 01/01/2022 8:58 AM TOUR NARRATOR Plan of Treatment Health Maintenance Due Date Last Done Comments COVID-19 Vaccine (5 - Booster for 05/15/2022 03/20/2022, , Pfizer series) 01/25/2021, Additional history exists Influenza Vaccine (#1) 2022 11/20/2021, 10/31/2020, 09/18/2019, Additional history exists Thyroid Stimulating Hormone (TSH) 12/22/2022 12/22/2021 test for thyroid function DTaP,Tdap,and Td Vaccines (2 - Td 08/26/2025 08/26/2015 or Tdap) Zoster Vaccines Completed 12/14/2018, 08/10/2018 Pneumococcal vaccine (65+ years) Completed 05/19/2021, , 01/02/2015 Fall Risk Screen (Annual) Completed 01/01/2022 Medical Devices Implanted Type Area Founder Chairman And Chief Creative Officer Device Identifier Shelf Model / Expiration Serial / Date Lot Clp Hrzn Ti 6 Clp Sm Red - [id number] Hardware Telefl ex [employer] [id number] 10/01/2025 [id number] / Implanted: Qty: 1 on 05/29/2021 by Trini Black D.O. at [facility] e.g. / pins/screws [id number] /rods Imaging Marker-05/01/2021 Imaging Right: Implanted: 05/01/2021 (Quantity not on file) Marker Breast Insurance Payer Benefit Plan / Subscriber ID Effective Dates Phone Addre ss Type Group AETNA AETNA MEDICARE [id number] 2021-Present [phone] [address] PPO PLAN AVIL[place]OUSA [id number] Advance Directives For more information, please contact: [phone] Latest Code Status on File Code Status Date Activated Date Inactivated Comments Full Code 05/29/2021 7:25 AM 05/29/2021 5:02 PM Question Answer Comments Full Code: Not Discussed Due to: Not medically appropriate
--- OUTSIDE RECORDS SUMMARY | 2022-10-08 09:07 | XMS_ITS | Encounter Summary ---
:1940 Author Organization [facility] Address [address] [place] [address] Care Team Providers Name Role Phone Unavailable Primary Care Provider Unavailable Reason for Visit Radiation Therapy (Routine) - Closed Specialty Diagnoses / Procedures Referred By Contact Refer red To Contact Diagnoses Malignant Neoplasm Of Breast Upper Inner Quadrant Female Right (HCC) Hernan Mcwilliams M.D. [facility] Radiation Oncology Procedures Prior Auth Rad Tx [place] IMRT SIMPLE [address] [place] [phone] [facility] [place] [address] Referral ID Status Reason Start Date Expiration Date Visits Requ ested Visits Authorized [id number] Closed 07/28/2021 07/18/2022 30 30 Encounter Details Date Type Department Care Team Description 08/27/2021 Hospital Encounter Department of Radiation Derek Mcwilliams, [place]cology [place] [address] [facility] [address] [place] [phone] Social History Tobacco Use Types Packs/Day Years Used Date Smoking Tobacco: Former Smokeless Tobacco: Never Comments: in college years Alcohol Use Standard Drinks/Week Comments Yes 1 (1 standard drink = 0.6 oz pure alcoho l) per day Alcohol Habits Answer Date Recorded How often do you have a drink containing 4 or more times a w [place] 01/01/2022 alcohol? How many drinks containing alcohol [...] or relatives? How often do you attend orthodoxy or More than 4 times per year 01/01/2022 christian services? Do you belong to any clubs or Yes 01/01/2022 organizations such as orthodoxy groups, unions, fraternal or athletic groups, or [...] place to sleep or slept in a halfway (including now)? Sex Assigned at Date Recorded Female 01/01/2022 8:43 AM LATH TIER documented as of this encounter Medications at [...] 81 mg by mouth 0 10/2021 daily. mirtazapine (REMERON) 30 Take 60 mg by [...] Start 3-4 weeks after end of radiation. traMADoL (ULTRAM) 50 mg Take 1-2 tablets 12 tablet 0 202001/01/2022 tabletIndications: Acute (50-100 mg total) Pain by mouth 4 (four) times a day as needed for pain Indications: acute pain. venlafaxine XR Take 75 mg by mouth 0 04/18/2021 0 01/01/2022 (EFFEXOR-XR) 75 mg 24 hr daily. capsule documented as of this encounter Plan of Treatment Not on filedocumented as of this encounter Visit Diagnoses Not on filedocumented in this encounter
--- OUTSIDE RECORDS SUMMARY | 2022-10-08 09:07 | XMS_ITS | Encounter Summary ---
:1940 Author Organization [facility] Address [address] [place] [address] Care Team Providers Name Role Phone Unavailable Primary Care Provider Unavailable Reason for Visit Radiation Therapy (Routine) - Closed Specialty Diagnoses / Procedures Referred By Contact Refer red To Contact Diagnoses Malignant Neoplasm Of Breast Upper Inner Quadrant Female Right (HCC) Hernan Mcwilliams M.D. [facility] Radiation Oncology Procedures Prior Auth Rad Tx [place] IMRT SIMPLE [address] [place] [phone] [phone] [facility] [address] Referral ID Status Reason Start Date Expiration Date Visits Requ ested Visits Authorized [id number] Closed 07/28/2021 07/18/2022 30 30 Encounter Details Date Type Department Care Team Description 09/02/2021 Hospital Encounter Department of Radiation Deerk Mcwilliams, [place] [address] [facility] [address] [place] [phone] Social History Tobacco Use Types Packs/Day Years Used Date Smoking Tobacco: Former Smokeless Tobacco: Never Comments: in college years Alcohol Use Standard Drinks/Week Comments Yes 1 (1 standard drink = 0.6 oz pure alcoho l) per day Alcohol Habits Answer Date Recorded How often do you have a drink containing 4 or more times a w [place] 01/01/2022 alcohol? How many drinks containing alcohol [...] or relatives? How often do you attend gnosticism or More than 4 times per year 01/01/2022 mormonism services? Do you belong to any clubs or Yes 01/01/2022 organizations such as gnosticism groups, unions, fraternal or athletic groups, or [...] place to sleep or slept in a prison (including now)? 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
--- OUTSIDE RECORDS SUMMARY | 2022-10-08 09:07 | XMS_ITS | Encounter Summary ---
:1940 Author Organization [facility] Address [address] [place] [address] Care Team Providers Name Role Phone Unavailable Primary Care Provider Unavailable Reason for Visit Radiation Therapy (Routine) - Closed Specialty Diagnoses / Procedures Referred By Contact Refer red To Contact Diagnoses Malignant Neoplasm Of Breast Upper Inner Quadrant Female Right (HCC) Hernan Mcwilliams M.D. [facility] Radiation Oncology Procedures Prior Auth Rad Tx [place] IMRT SIMPLE [address] [place] [address] [address] [facility] [place] [address] Referral ID Status Reason Start Date Expiration Date Visits Requ ested Visits Authorized [id number] Closed 07/28/2021 07/18/2022 30 30 Encounter Details Date Type Department Care Team Description 09/03/2021 Hospital Encounter Department of Radiation Derek Mcwilliams, [place]cology [place] [address] [facility] [address] [place] [phone] Social History Tobacco Use Types Packs/Day Years Used Date Smoking Tobacco: Former Smokeless Tobacco: Never Comments: in college years Alcohol Use Standard Drinks/Week Comments Yes 1 (1 standard drink = 0.6 oz pure alcoho l) per day Alcohol Habits Answer Date Recorded How often do you have a drink containing 4 or more times a w [employer] [place] 01/01/2022 alcohol? How many drinks containing alcohol [...] or relatives? How often do you attend taoist or More than 4 times per year 01/01/2022 judaism services? Do you belong to any clubs or Yes 01/01/2022 organizations such as taoist groups, unions, fraternal or athletic groups, or [...] place to sleep or slept in a detention (including now)? Sex Assigned at Date Recorded Female 01/01/2022 8:43 AM RANGE MANAGER documented as of this encounter Medications at [...]
--- OUTSIDE RECORDS SUMMARY | 2022-10-08 09:07 | XMS_ITS | Encounter Summary ---
:1940 Author Organization [facility] Address [address] [place] [address] Care Team Providers Name Role Phone Unavailable Primary Care Provider Unavailable Reason for Visit Radiation Therapy (Routine) - Closed Specialty Diagnoses / Procedures Referred By Contact Refer red To Contact Diagnoses Malignant Neoplasm Of Breast Upper Inner Quadrant Female Right (HCC) Hernan Mcwilliams M.D. [facility] Radiation Oncology Procedures Prior Auth Rad Tx [place] IMRT SIMPLE [address] [place] [phone] [facility] [address] Referral ID Status Reason Start Date Expiration Date Visits Requ ested Visits Authorized [id number] Closed 07/28/2021 07/18/2022 30 30 Encounter Details Date Type Department Care Team Description 08/26/2021 Hospital Encounter Department of Radiation Derek Mcwilliams, [place] [address] [facility] [address] [place] [phone] Social History Tobacco Use Types Packs/Day Years Used Date Smoking Tobacco: Former Smokeless Tobacco: Never Comments: in college years Alcohol Use Standard Drinks/Week Comments Yes 1 (1 standard drink = 0.6 oz pure alcoho l) per day Alcohol Habits Answer Date Recorded How often do you have a drink containing 4 or more times a w [place] 01/01/2022 alcohol? How many drinks containing alcohol [...] or relatives? How often do you attend denominational or More than 4 times per year 01/01/2022 yazidi services? Do you belong to any clubs or Yes 01/01/2022 organizations such as denominational groups, unions, fraternal or athletic groups, or [...] or slept in a half-way (including now)? Sex Assigned at Date Recorded Female 01/01/2022 8:43 AM DRYWALL SANDER documented as of this encounter Medications at [...]
--- OUTSIDE RECORDS SUMMARY | 2022-10-08 09:07 | XMS_ITS | Encounter Summary ---
:1940 Author Organization [facility] Address [address] [place] [address] Care Team Providers Name Role Phone Unavailable Primary Care Provider Unavailable Reason for Visit Radiation Therapy (Routine) - Closed Specialty Diagnoses / Procedures Referred By Contact Refer red To Contact Diagnoses Malignant Neoplasm Of Breast Upper Inner Quadrant Female Right (HCC) Hernan Mcwilliams M.D. [facility] Radiation Oncology Procedures Prior Auth Rad Tx NM IMRT SIMPLE [address] [place] [address] [address] [place] [address] Referral ID Status Reason Start Date Expiration Date Visits Requ ested Visits Authorized [id number] Closed 07/28/2021 07/18/2022 30 30 Encounter Details Date Type Department Care Team Description 08/22/2021 Hospital Encounter Department of Radiation Derek Mcwilliams, Oncology in [place] [address] [facility] [address] [place] [phone] Social History Tobacco Use Types Packs/Day Years Used Date Smoking Tobacco: Former Smokeless Tobacco: Never Comments: in college years Alcohol Use Standard Drinks/Week Comments Yes 1 (1 standard drink = 0.6 oz pure alcoho l) per day Alcohol Habits Answer Date Recorded How often do you have a drink containing 4 or more times a w [place] 01/01/2022 alcohol? How many drinks containing alcohol [...] or relatives? How often do you attend islam or More than 4 times per year 01/01/2022 confucianist services? Do you belong to any clubs or Yes 01/01/2022 organizations such as islam groups, unions, fraternal or athletic groups, or [...] place to sleep or slept in a fpc (including now)? Sex Assigned at Date Recorded Female 01/01/2022 8:43 AM RECRUITING CONSULTANT documented as of this encounter Medications at [...]
--- OUTSIDE RECORDS SUMMARY | 2022-10-08 09:07 | XMS_ITS | Encounter Summary ---
:1940 Author Organization [facility] Address [address] [place] [address] Care Team Providers Name Role Phone Unavailable Primary Care Provider Unavailable Reason for Visit Reason Comments Intake Assessment Encounter Details Date Type Department Care Team Description 10/07/2021 Clinical Communication Department of Laureen Garcia Oncology in Jaciel Alberto M.D. [address] [place] [phone] Social History Tobacco Use Types Packs/Day Years Used Date Smoking Tobacco: Former Smokeless Tobacco: Never Comments: in college years Alcohol Use Standard Drinks/Week Comments Yes 1 (1 standard drink = 0.6 oz pure alcoho l) per day Alcohol Habits Answer Date Recorded How often do you have a drink containing 4 or more times a w [place] 01/01/2022 alcohol? How many drinks containing alcohol [...] or relatives? How often do you attend methodist or More than 4 times per year 01/01/2022 quaker services? Do you belong to any clubs or Yes 01/01/2022 organizations such as methodist groups, unions, fraternal or athletic groups, or [...] place to sleep or slept in a long-term (including now)? 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
--- OUTSIDE RECORDS SUMMARY | 2022-10-08 09:07 | XMS_ITS | Encounter Summary ---
:1940 Author Organization [facility] Address [address] [place] [address] Care Team Providers Name Role Phone Unavailable Primary Care Provider Unavailable Reason for Visit Reason Comments Appointment Encounter Details Date Type Department Care Team Description 10/10/2021 Clinical Communication Department of Benjamin Garcia Appointment Oncology klaus Rivera M.D. [place], [place] [address] [place] [address] [address] [place] [phone] [phone] Social History Tobacco Use Types Packs/Day Years Used Date Smoking Tobacco: Former Smokeless Tobacco: Never Comments: in college years Alcohol Use Standard Drinks/Week Comments Yes 1 (1 standard drink = 0.6 oz pure alcoho l) per day Alcohol Habits Answer Date Recorded How often do you have a drink containing 4 or more times a w [place] 01/01/2022 alcohol? How many drinks containing alcohol [...] or relatives? How often do you attend mormonism or More than 4 times per year 01/01/2022 holiness services? Do you belong to any clubs or Yes 01/01/2022 organizations such as mormonism groups, unions, fraternal or athletic groups, or [...] place to sleep or slept in a correction (including now)? 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 - 10/10/2021 11:57 AM MONUMENT MASON Fine to do as video, thanks! MENT MASON documented in this encounter Plan of Treatment Not on filedocumented as of this encounter Visit Diagnoses Not on filedocumented in this encounter
--- OUTSIDE RECORDS SUMMARY | 2022-10-08 09:07 | XMS_ITS | Encounter Summary ---
:1940 Author Organization [facility] Address [address] [place] [address] Care Team Providers Name Role Phone Unavailable Primary Care Provider Unavailable Encounter Details Date Type Department Care Team Description 09/10/2021 Clinical Communication Department of Oncology Usha Rubalcava in [facility] [address] [place] [address] Social History Tobacco Use Types Packs/Day Years Used Date Smoking Tobacco: Former Smokeless Tobacco: Never Comments: in college years Alcohol Use Standard Drinks/Week Comments Yes 1 (1 standard drink = 0.6 oz pure alcoho l) per day Alcohol Habits Answer Date Recorded How often do you have a drink containing 4 or more times a w [place] 01/01/2022 alcohol? How many drinks containing alcohol [...] or relatives? How often do you attend evangelical or More than 4 times per year 01/01/2022 alevism services? Do you belong to any clubs or Yes 01/01/2022 organizations such as evangelical groups, unions, fraternal or athletic groups, or [...] minutes do you engage in exercise at is 50 min 01/01/2022 level? 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 - 09/10/2021 5:18 PM CDT Will do this depending on my September visit, thanks! Telephone Encounter - Usha Rubalcava R.N. - 09/10/2021 4:26 PM CDT ----- Message from Layla Quick R.N. sent at 09/10/2021 1:30 PM CDT ----- Regarding: survivorship Hi Mrs. Luisito Kerr has completed radiation here in [place]. She will be seeing Med Onc in [place] in follow up, will survivorship be done during follow up as well? Layla Sharpe ----- Message ----- From: Shital Morgan P.A.-C., M.S. Sent: 06/20/2021 2:54 PM CDT To: Whitney Nelson, I just looked quickly, but it looks like she is ER+, so if she goes on hormone therapy then she willlikely be followed by Medical Oncology long-term. I would just wait for now and we will address follow-up during her treatment as we always do. Shital Sharpe ----- Message ----- From: Layla Quick R.N. Sent: 06/20/2021 2:48 PM CDT To: Shitalraffaele Morgan P.A.-C., M.S. Leah, I know I have seen HARPAL take over follow up on rare occasion after breast treatment. Something we could discuss further at time of consult visit? Thanks, Layla ----- Message ----- From: Nelly Hogue APRN C.N.PDavid, D.N.PDavid Sent: 06/12/2021 12:22 PM CDT To: Layla Quick R.N., Katie M Kallstrom, R.N. Thank you so much Layla Camarena does the survivorship visits in [place] so I am just letting her know. Thank you for much for the coordination, Nelly ----- Message ----- From: Nicol Madsen R.N. Sent: 06/12/2021 12:02 PM CDT To: Nelly Hogue APRN, C.N.PDavid, D.N.PDavid Hi Nelly, This jos lady is going to be receiving radiation in [place], she would like all her follow up done in [place]. I shared that you have a Survivorship program as well and would let you know she would like all her follow up with your team! Thank you, DEBRA Camarena documented in this encounter Plan of Treatment Not on filedocumented as of this encounter Visit Diagnoses Not on filedocumented in this encounter
--- OUTSIDE RECORDS SUMMARY | 2022-10-08 09:07 | XMS_ITS | Encounter Summary ---
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 [facility] Radiation Oncology Procedures Prior Auth Rad Tx OR IMRT SIMPLE [address] [place] [address] [address] [place] [address] Referral ID Status Reason Start Date Expiration Date Visits Requ ested Visits Authorized [id number] Closed 07/28/2021 07/18/2022 30 30 Encounter Details Date Type Department Care Team Description 08/20/2021 Hospital Encounter Department of Radiation Derek Mcwilliams, Oncology in [place] [address] [facility] [address] [place] [phone] Social History Tobacco Use Types Packs/Day Years Used Date Smoking Tobacco: Former Smokeless Tobacco: Never Comments: in college years Alcohol Use Standard Drinks/Week Comments Yes 1 (1 standard drink = 0.6 oz pure alcoho l) per day Alcohol Habits Answer Date Recorded How often do you have a drink containing 4 or more times a w [place] 01/01/2022 alcohol? How many drinks containing alcohol [...] or relatives? How often do you attend caodaism or More than 4 times per year 01/01/2022 baptist services? Do you belong to any clubs or Yes 01/01/2022 organizations such as caodaism groups, unions, fraternal or athletic groups, or [...] place to sleep or slept in a intermediate (including now)? 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
--- OUTSIDE RECORDS SUMMARY | 2022-10-08 09:07 | XMS_ITS | Encounter Summary ---
:1940 Author Organization [facility] Address [address] [place] [address] Care Team Providers Name Role Phone Unavailable Primary Care Provider Unavailable Encounter Details Date Type Department Care Team Description 09/03/2021 Documentation Department of Radiation Hernan Mcwilliams, Oncology in [facility] [address] [facility] [address] [place] [phone] (Wo rk) Social History Tobacco Use Types Packs/Day Years Used Date Smoking Tobacco: Former Smokeless Tobacco: Never Comments: in college years Alcohol Use Standard Drinks/Week Comments Yes 1 (1 standard drink = 0.6 oz pure alcoho l) per day Alcohol Habits Answer Date Recorded How often do you have a drink containing 4 or more times a w [place] 01/01/2022 alcohol? How many drinks containing alcohol [...] or relatives? How often do you attend scientology or More than 4 times per year 01/01/2022 restorationist services? Do you belong to any clubs or Yes 01/01/2022 organizations such as scientology groups, unions, fraternal or athletic groups, or [...] place to sleep or slept in a fci (including now)? 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 - 09/03/2021 11:59 PM CDT DIAGNOSIS: 1. 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 Attending Physician: Hernan Mcwilliams M.D. ([phone]) Treatment Intent: Curative Concomitant Therapy: None Single Plan Treatment Course: 1x R BREAST Plan ID Fractions Dose / Fraction (cGy) Dose Treated (cGy) Dose Planned (cGy) First Treatment Last Treatment Elapsed Days F1 Rt Breast / 200 5000 5000 07/30/2021 09/03/2021 35 Course Summary 07/30/2021 09/03/2021 35 Radiation Modality: Photons Whole right breast and regional rush radiation CLINICAL SUMMARY Ms. Adrienne Jorge completed radiation treatment as planned without interruptions. The course of treatment was tolerated well. The patient experienced toxicities of grade grade 2 radiation dermatitis,grade 1 non-cardiac chest pain, and grade 1 hyperpigmentation during radiation treatment. TREATMENT RESPONSE: Response to treatment will be determined by post-treatment imaging and/or laboratory work. RECOMMENDED FOLLOW UP: Primary Medical Oncologist. She will follow-up with Dr. Garcia on October 10, 2021. Signed by: Christine Benson R.N., 09/23/2021 1:31 PM CDT [facility] [address] [place] [id number] documented in this encounter Plan of Treatment Not on filedocumented as of this encounter Visit Diagnoses Not on filedocumented in this encounter
--- OUTSIDE RECORDS SUMMARY | 2022-10-08 09:07 | XMS_ITS | Encounter Summary ---
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 [facility] Procedures Management Visit [address] [place], [place] [address] Referral ID Status Reason Start Date Expiration Date Visits Requ ested Visits Authorized [id number] Closed 07/18/2021 07/18/2022 1 1 Encounter Details Date Type Department Care Team Description 08/27/2021 Hospital Encounter Department of Natalie Ortiz Neoplasm Radiation Oncology [facility] in [place], [address] [place], [place] Female Right (HCC) [address] [facility] [address] [place], [place] [phone] [address] (Work) [phone] Social History Tobacco Use Types Packs/Day Years Used Date Smoking Tobacco: Former Smokeless Tobacco: Never Comments: in college years Alcohol Use Standard Drinks/Week Comments Yes 1 (1 standard drink = 0.6 oz pure alcoho l) per day Alcohol Habits Answer Date Recorded How often do you have a drink containing 4 or more times a w [place] 01/01/2022 alcohol? How many drinks containing alcohol [...] or relatives? How often do you attend synagogue or More than 4 times per year 01/01/2022 lutheran services? Do you belong to any clubs or Yes 01/01/2022 organizations such as synagogue groups, unions, fraternal or athletic groups, or [...] place to sleep or slept in a senior living (including now)? 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 capsule documented as of this encounter Progress Notes Natalie Ortiz M.D. - 08/27/2021 11:30 AM CDT Diagnosis: Right breast cancer Radiation Treatment Progress Summary Treatment Course: 1x R BREAST Plan ID Fractions Dose / Fraction (cGy) Dose Treated (cGy) Dose Planned (cGy) First Treatment Last Treatment Elapsed Days F1 Rt Breast 200 4000 5000 07/30/2021 08/27/2021 28 Course Summary 07/30/2021 08/27/2021 28 SUBJECTIVE Ms. Adrienne Jorge a 81 y.o. reports that she feels well with no complaints. She notes no pain, itching, fevers/chills, or cough. She is using lotion on her skin. OBJECTIVE There were no vitals taken for this visit. PHYSICAL EXAM General appearance: alert, appears stated age, cooperative, no distress and she was seen on the treatment machine. Breasts: She has moderate erythema and a slight maculopapular rash medially in the upper right breast. 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 The patient is tolerating radiotherapy well. We discussed using either Benadryl cream or a 1% OTC steroid cream if her rash would get itchy. It is not itchy now. She is doing very well and will see next week as she completes her treatments. We will continue as planned. Signed by: Natalie Ortiz M.D. 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
--- OUTSIDE RECORDS SUMMARY | 2022-10-08 09:07 | XMS_ITS | Encounter Summary ---
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 [facility] Radiation Oncology Procedures Prior Auth Rad Tx ID IMRT SIMPLE [address] [place] [address] [address] [facility] [address] Referral ID Status Reason Start Date Expiration Date Visits Requ ested Visits Authorized [id number] Closed 07/28/2021 07/18/2022 30 30 Encounter Details Date Type Department Care Team Description 08/19/2021 Hospital Encounter Department of Radiation Derek Mcwilliams, Oncology in [place] [address] [facility] [address] [place] [phone] Social History Tobacco Use Types Packs/Day Years Used Date Smoking Tobacco: Former Smokeless Tobacco: Never Comments: in college years Alcohol Use Standard Drinks/Week Comments Yes 1 (1 standard drink = 0.6 oz pure alcoho l) per day Alcohol Habits Answer Date Recorded How often do you have a drink containing 4 or more times a w [place] 01/01/2022 alcohol? How many drinks containing alcohol [...] or relatives? How often do you attend oriental orthodox or More than 4 times per year 01/01/2022 episcopalian services? 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
--- OUTSIDE RECORDS SUMMARY | 2022-10-08 09:07 | XMS_ITS | Encounter Summary ---
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 [facility] Procedures Management Visit [address] [place], [place] [phone] Referral ID Status Reason Start Date Expiration Date Visits Requ ested Visits Authorized [id number] Closed 07/18/2021 07/18/2022 1 1 Encounter Details Date Type Department Care Team Description 08/20/2021 Hospital Encounter Department of Hernan Mcwilliams Neoplasm Radiation Oncology [facility] [place], [address] [place], [place] Female Right (HCC) [address] [facility] [id number] KRISTIN TELLO [phone] (Work) [phone] Social History Tobacco Use Types Packs/Day Years Used Date Smoking Tobacco: Former Smokeless Tobacco: Never Comments: in college years Alcohol Use Standard Drinks/Week Comments Yes 1 (1 standard drink = 0.6 oz pure alcoho l) per day Alcohol Habits Answer Date Recorded How often do you have a drink containing 4 or more times a w [place] 01/01/2022 alcohol? How many drinks containing alcohol [...] or relatives? How often do you attend sabianism or More than 4 times per year 01/01/2022 confucianism services? Do you belong to any clubs or Yes 01/01/2022 organizations such as sabianism groups, unions, fraternal or athletic groups, or [...] place to sleep or slept in a snf (including now)? 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 - 08/20/2021 10:00 AM CDT SUBJECTIVE REASON FOR VISIT Evaluation for side effects while receiving radiation treatment for 1. 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 Adrienne Jorge is an 81 y.o. female with stage IIA (pT2, pN1a(sn), cM0, G3, ER+, DC+, HER2-, Oncotype DX score: 15) right breast cancer. She is currently undergoing adjuvant whole breast and regional rush radiation. Treatment Course: 1x R BREAST Plan ID Fractions Dose / Fraction (cGy) Dose Treated (cGy) Dose Planned (cGy) First Treatment Last Treatment Elapsed Days F1 Rt Breast 200 3000 5000 07/30/2021 08/20/2021 21 Course Summary 07/30/2021 08/20/2021 21 The patient reports she is tolerating radiation well overall. She rates her a fatigue at a 0/10 overall. She is applying topical moisturizing cream to her right breast in armpit area 2 to 3 times a day. She has noted some very mild discomfort in her right axilla that she rates at 1/10 in severity. Shedenies any pruritus, shortness of breath, or pain with swallowing. PATIENT REPORTED SYMPTOM SCREEN FATIGUE (Scale: 0 = no fatigue; 10 = worst fatigue you can imagine): 0 PAIN (Scale: 0 = no pain; 10 = worst pain you can imagine): 1 in the right axilla OVERALL QUALITY OF LIFE (Scale: 0 = as bad as can be; 10 = as good as can be): 10 OBJECTIVE Temp 36.3 ??C (Temporal) Wt 61.4 kg BMI 23.40 kg/m?? PHYSICAL EXAM General: Alert and oriented in no apparent distress. She was examined with the satellite communications operator of [address] [place]. Skin: Mild erythema of the right breast with some areas of punctate folliculitis in the upper medialaspect of the right breast. No areas of desquamation. ASSESSMENT / PLAN #1 Stage IIA (pT2, [...] 2021; anticipated completion on September 03, 2021 The patient is tolerating radiation treatment well. She can apply topical hydrocortisone or Benadrylcream to the areas of folliculitis if they become pruritic. She will continue with treatment as planned. Signed by: Hernan Mcwilliams M.D. 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
--- OUTSIDE RECORDS SUMMARY | 2022-10-08 09:07 | XMS_ITS | Encounter Summary ---
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 [address] [place] [address] Referral ID Status Reason Start Date Expiration Date Visits V isits Requested Authorized [id number] Authorized 10/10/2021 10/10/2022 1 1 ION FORMER MRI/CAT/PET Scan (Routine) - Closed Specialty Diagnoses / Procedures Referred By Contact Refer red To Contact Radiology Diagnoses Impairment Cognitive Mild Benjamin Garcia M.D. [facility] Procedures MR Brain Dementia without IV Contrast KS MRI BRAIN WO CNTRST [address] [place], [place] [phone] Referral ID Status Reason Start Date Expiration Date Visits Requ ested Visits Authorized [id number] Closed 10/10/2021 10/10/2022 1 1 ION FORMER Outpatient (Routine) - Closed Specialty Diagnoses / Procedures Referred By Contact Refer red To Contact Neurology Diagnoses Impairment Cognitive Mild Benjamin Garcia M.D. [facility] [address] [place] [phone] Referral ID Status Reason Start Date Expiration Date Visits Requ ested Visits Authorized [id number] Closed 10/10/2021 10/10/2022 1 1 ION FORMER Reason for Visit Outpatient (Routine) - Closed Specialty Diagnoses / Procedures Referred By Contact Refer red To Contact Oncology Benjamin Garcia M.D. 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 Impairment Cognitive Mild [address] [place] [phone] Social History Tobacco Use Types Packs/Day Years Used Date Smoking Tobacco: Former Smokeless Tobacco: Never Comments: in college years Alcohol Use Standard Drinks/Week Comments Yes 1 (1 standard drink = 0.6 oz pure alcoho l) per day Alcohol Habits Answer Date Recorded How often do you have a drink containing 4 or more times a w [place] 01/01/2022 alcohol? How many drinks containing alcohol [...] or relatives? How often do you attend temple or More than 4 times per year 01/01/2022 restorationism services? Do you belong to any clubs or Yes 01/01/2022 organizations such as temple groups, unions, fraternal or athletic groups, or [...] at Date Recorded Female 01/01/2022 8:43 AM CUSHION FORMER documented as of this encounter Last Filed Vital Signs Vital Sign Reading Time Taken Comments Blood Pressure 122/78 10/10/2021 1:07 PM CUSHION FORMER Pulse 93 10/10/2021 1:07 PM CUSHION FORMER Temperature 35.3 ??C (95.5 ??F) 10/10/2021 1:07 PM CUSHION FORMER Respiratory Rate - - Oxygen Saturation 96% 10/10/2021 1:07 PM CUSHION FORMER Inhaled Oxygen Concentration - - Weight 59.2 kg (130 lb 8.2 oz) 10/10/2021 1:07 PM CUSHION FORMER Height 159.5 cm (5' 2.8) 10/10/2021 1:07 PM CUSHION FORMER Body Mass Index 23.27 10/10/2021 1:07 PM CUSHION FORMER documented in this encounter Progress Notes Benjamin Garcia M.D. - 10/10/2021 1:20 PM CST SUBJECTIVE REFERRAL Benjamin Garcia M.D. CHIEF COMPLAINT / REASON FOR VISIT Primary Staff: Dr. Benjamin Garcia Hormone receptor positive breast cancer HISTORY OF PRESENT ILLNESS Adrienne Jorge is a 81 y.o. female with the following history. Oncology History Overview Note 80-year-old female from [place], [place], who presented with an abnormal screening mammogram on 04/23/21. She did not have one in 2019 because of the COVID pandemic. The mammogram identified a mass in theUIQ of the right breast. Calcifications located anterior to the mass appeared to have benign characte ristics but were new and were not further evaluated with diagnostic mammography. 05/01/21 Focused right breast US revealed a 1.3 x 1.9 x 1.5-cm hypoechoic irregular mass at 2 o'clock4 cm from the nipple. US of the right axilla was negative. 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 Therewas associated DCIS. 05/06/21 Bilateral breast MRI showed the following: Right Breast: Non-mass enhancement with associated clip artifact in the upper inner right breast middle depth measuring 1.7 cm transverse by 3.4 cm AP by 1.3 cm SI. This represents the biopsy-proven malignancy, though by mammography the AP extent is somewhat less (~1.8 cm). No other abnormal enhancement within the right breast. Right Axilla: No lymphadenopathy. Left Breast: No masses or abnormal enhancement. Left Axilla: No lymphadenopathy. Chest Wall: Possible enlarged right internal mammary lymph node measuring 1.2 cm near the first rib.Possible left supraclavicular/cervical lymphadenopathy partially included in the [id number] on some series. Questionable left lung nodule anteriorly (series 5, image 79). 05/19/20 CT of the neck and chest showed: 1. No convincing left supraclavicular/cervical lymphadenopathy. 2. Irregular intramedullary right greater than left subclavian veins consistent with small varices. 3. A few scattered indeterminate solid noncalcified 1 mm pulmonary nodules. 4. Patchy ill-defined posterior medial left lower lobe opacities, likely of infectious/inflammatory etiology, such as from aspiration given small sliding esophageal hiatal hernia and patulous esophagus. 5. Additional peripheral right upper lobe infectious/inflammatory bronchiolitis. 6. Scattered mucous plugs. 05/29/21: Right breast lumpectomy and SLNBx. Final pathology revealed grade 3 IDC, measuring 2.6 cm. No LVI. Margins negative to 0.[address] cm[address] positive, the largest measuring 0.5 cm without extranodal extension. Surgical stage: pT2, N1a. Oncotype score returned at 15. 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 Adrienne Jorge is a 81 year-old woman accompanied by her friend from [place], [place] presenting in follow-up for hormone receptor positive, HER2 negative, node positive breast cancer. Since our last visit, she finished adjuvant radiation started tamoxifen approximately 2 weeks ago. She is not having any hot flashes or any clear symptoms related to tamoxifen. She does not have medication bottles with her. She was unable to recall the name of the medication, but was aware the reason s he is taking this is for her breast cancer. She continues to have memory changes that her friend notes are worsening. She has not followed up with neurology closer to home. She does not have a clear diagnosis. She shared and experience well at the grocery store, she suddenly fell loss and like she was wondering. She does live independently. There is no on else in the home. She does manage household in daily activities. This is been a major concern for her. In terms of prior neurology assessment: I was able to see the brain MRI which showed [id number] chronic microvascular ischemic changesand chronic lacunar infarcts. Additionally noted were mild diffuse cerebral volume loss with slightly more pronounced atrophy of the frontoparietal convexities. I see in office note dated April 22, 2021. Here at highlights the details of her cognitive decline in short-term memory loss for the past 8 months. The following were reviewed and updated as appropriate: allergies, current medications, family history, medical history, social history, surgical history, and problem list. MEDICATIONS Current Outpatient Medications Medication Sig Dispense Refill ??? acetaminophen (TYLENOL) 500 mg tablet Take 2 tablets (1,000 mg total) by mouth every 6 (six) hours as needed for pain (pain). Take 2 tablets up to four times daily for pain 100 tablet 0 ??? albuterol 90 mcg/actuation inhaler Inhale 2 puffs as needed. ??? ALPRAZolam (XANAX) 0.25 mg tablet Take 0.25 mg by mouth as needed. ??? aspirin [address] tablet Take 81 mg by mouth daily. ??? mirtazapine (REMERON) 30 mg tablet Take 60 mg by mouth at bedtime. ??? multivitamin tablet Take 1 tablet by mouth daily. ??? sennosides (senna) 8.6 mg tablet Take 1 tablet (8.6 mg total) by mouth daily. 14 tablet 0 ??? simvastatin (ZOCOR) 20 mg tablet Take 20 mg by mouth at bedtime. ??? tamoxifen (NOLVADEX) 20 mg tablet Take 1 tablet (20 mg total) by mouth daily for 100 doses. Takewith or without food. Start 3-4 weeks after end of radiation. 90 tablet 3 ??? traMADoL (ULTRAM) 50 mg tablet Take 1-2 tablets (50-100 mg total) by mouth 4 (four) times a day as needed for pain Indications: acute pain. 12 tablet 0 ??? venlafaxine XR (EFFEXOR-XR) 150 mg 24 hr capsule Take 150 mg by mouth daily. ??? venlafaxine XR (EFFEXOR-XR) 75 mg 24 hr capsule Take 75 mg by mouth daily. Vitals: 10/10/21 1307 BP: 122/78 Pulse: 93 Temp: (!) 35.3 ??C SpO2: 96% General: Pleasant, well-appearing woman, ECOG 1. Skin: No rashes, ecchymosis or petechia. HEENT: Anicteric sclerae. Extremities: No lower extremity edema. Neuro: Oriented to date as 2020, September, , Wednesday. Aware she is in [facility], noted flooras 6th floor (we are on 10th floor). 3/3 immediate recall, 1/3 delayed recall. Inaccurate clock draw. ASSESSMENT / PLAN #1 ER-positive (100%), KS-weak(2%), HER-2 negative, grade III invasive ductal carcinoma of the RIGHTbreast, (pT2, pN1, cMX), Ki-67 24%, Oncotype 15 #2 Cognitive impairment, query vascular demetnia #3 Osteopenia previously on alendronate Ms. Jorge returns accompanied by friend Berta. We did this short-term visit to make sure there is no significant toxicity from tamoxifen. This is reasonable to continue while her health is okay and she will follow up in future with breast clinic. She failed a minimental exam today. I will place a referral to neurology. As she lives independently, though with good friend support, this is my highest concern today. I've not placed planned follow up in medical oncology. TOTAL TIME: 20 minutes ION FORMER documented in this encounter Plan of Treatment Scheduled Referrals Name Type Priority Associated Diagnoses Order S chedule Neurology - Outpatient Referral Routine Impairment Cognitive Expected: Cognitive and Mild 10/10/2021 dementia consult (Approximat e), (clinic) Expires: 10/10/2024 Breast Clinic - Outpatient Referral Routine Malignant Neoplasm Expected: General consult Of Breast Upper 2 (clinic) Inner Quadrant (Approximate) , Female Right (HCC) Expires: 10/10/2024 documented as of this encounter Results MR Brain Dementia without IV Contrast (12/22/2021 2:05 PM CUSHION FORMER) Anatomical Region Laterality Modality Head, Brain, Neuroradiology RST LOS, Neuroradiology ARZ N/A Magnetic Resonance LOS Specimen (Source) Anatomical Collection Method Collection Time Re ceived Time Location / / Volume Laterality 12/22/2021 2:18 PM CUSHION FORMER Impressions 12/22/2021 2:40 PM CUSHION FORMER No acute intracranial findings. Quantita tive analysis, as described. Narrative 12/22/2021 2:40 PM CUSHION FORMER EXAM: MR BRAIN DEMENTIA WITHOUT IV CONTRAST COMPARISON: No recent relevant priors av ailable for comparison FINDINGS: Age commensurate brain parench ymal volume loss. Chronic microvascular angiopathic change. Chronic right thalam ic and bilateral deep white matter lacunar infarcts. No acute infarct, acut e hemorrhage, or mass effect. There are foci of hemosiderin involving the right superior frontal gyrus and the right middle frontal gyrus, possibly reflectiv e of chronic hypertensive related microhemorrhages. No siderosis. Pontine chronic microvascular angiopathic change. Remote bilateral cerebellar sascha sphere infarcts. Mild volume loss the cerebellar vermis and hemispheres. Brain stem and cerebellum otherwise intact. Suspected hypoplastic right V4 segment. Remaining intracranial arterial flow voids intact. Minor mucosal thickening i nvolving the frontal sinuses, ethmoid air cells, and left maxillary sinus. Lef t middle turbinate aryan bullosa. No significant intrasinus fluid evident. Image post-processing for quantitative s egmental volume reporting and assessment was performed on an independent computer seismic prospecting observer using NeuroQuant software. The clinical indication for performing the p ost-processing was memory impairment. Review of the quality control lab tech images dem onstrates good segmentation of the hippocampi. ?? Left hippocampal volume: ??1.95cm3 Right hippocampal volume: ??2.22cm3 Hippocampal asymmetry index: ??-13.15% ? ? Combined hippocampal volume: ??4.17cm3 ? ? Combined hippocampal volume age-adjusted percentile: ??1 Combined inferior lateral ventricles (te mporal horns) volume: ??3.32cm3 Combined inferior lateral ventricles (te mporal horns) age-adjusted percentile: 77 Procedure Note Ryan Nuno M.D. - 12/22/2021Form atting of this note might be different from the original. EXAM: MR BRAIN DEMENTIA WITHOUT IV CONTR AST COMPARISON: No recent relevant priors av ailable for comparison FINDINGS: Age commensurate brain parench ymal volume loss. Chronic microvascular angiopathic change. Chronic right thalam ic and bilateral deep white matter lacunar infarcts. No acute infarct, acut e hemorrhage, or mass effect. There are foci of hemosiderin involving the right superior frontal gyrus and the right middle frontal gyrus, possibly reflectiv e of chronic hypertensive related microhemorrhages. No siderosis. Pontine chronic microvascular angiopathic change. Remote bilateral cerebellar sascha sphere infarcts. Mild volume loss the cerebellar vermis and hemispheres. Brain stem and cerebellum otherwise intact. Suspected hypoplastic right V4 segment. Remaining intracranial arterial flow voids intact. Minor mucosal thickening i nvolving the frontal sinuses, ethmoid air cells, and left maxillary sinus. Lef t middle turbinate aryan bullosa. No significant intrasinus fluid evident. Image post-processing for quantitative s egmental volume reporting and assessment was performed on an independent computer seismic prospecting observer using NeuroQuant software. The clinical indication for performing the p ost-processing was memory impairment. Review of the quality control lab tech images dem onstrates good segmentation of the hippocampi. Left hippocampal volume: 1.95cm3 Right hippocampal volume: 2.22cm3 Hippocampal asymmetry index: -13.15% Combined hippocampal volume: 4.17cm3 Combined hippocampal volume age-adjusted percentile: 1 Combined inferior lateral ventricles (te mporal horns) volume: 3.32cm3 Combined inferior lateral ventricles (te mporal horns) age-adjusted percentile: 77 IMPRESSION: No acute intracranial findings. Quantita tive analysis, as described. Benjamin Garcia M.D. IMG MRI PROCEDURES (ABNORMAL) CBC with Differential, Blood (12/22/2021 12:42 PM CUSHION FORMER) [facility] gist Method Time Signature Hemoglobin 13.3 11.6 - 12/22/2021 DTL 15.0 g/dL 1:11 PM CUSHION FORMER Hematocrit 40.7 35.5 - 12/22/2021 DTL 44.9 % 1:11 PM CUSHION FORMER Erythrocytes 4.05 3.92 - 12/22/2021 DTL 5.13 1:11 PM CUSHION FORMER x10(12)/L MCV 100.5 (H) 78.2 - 12/22/2021 DTL 97.9 fL 1:11 PM CUSHION FORMER RBC Distrib Width 13.3 12.2 - 12/22/2021 DTL 16.1 % 1:11 PM CUSHION FORMER Platelet Count 279 157 - 371 12/22/2021 DTL x10(9)/L 1:11 PM CUSHION FORMER Leukocytes 9.3 3.4 - 9.6 12/22/2021 DTL x10(9)/L 1:11 PM CUSHION FORMER Neutrophils 7.11 (H) 1.56 - 12/22/2021 DTL 6.45 1:11 PM CUSHION FORMER x10(9)/L Lymphocytes 1.35 0.95 - 12/22/2021 DTL 3.07 1:11 PM CUSHION FORMER x10(9)/L Monocytes 0.77 0.26 - 12/22/2021 DTL 0.81 1:11 PM CUSHION FORMER x10(9)/L Eosinophils 0.04 0.03 - 12/22/2021 DTL 0.48 1:11 PM CUSHION FORMER x10(9)/L Basophils 0.06 0.01 - 12/22/2021 DTL 0.08 1:11 PM CUSHION FORMER x10(9)/L Specimen Anatomical Collection Method Collection Time Receive d Time (Source) Location / / Volume Laterality Blood (Blood, 12/22/2021 12:42 12/22/2021 1:00 Venous) PM CUSHION FORMER PM CUSHION FORMER Benjamin Garcia M.D. LAB BLOOD ADD-ON Performing Organization Address City/[facility]/ZIP Code Phon e Number [facility] - [address] [place], [place] [address] [place] [address] [place], [place] [id number] [place] [address] (ABNORMAL) Creatinine with Estimated GFR (12/22/2021 12:41 PM CUSHION FORMER) Analysis Performed At Patho logist Time Signature Creatinine 1.13 (H) 0.59 - 12/22/2021 DTL 1.04 mg/dL 1:48 PM CUSHION FORMER eGFR-Non 46 (L) >=60 12/22/2021 DTL Black/ mL/min/BSA 1:48 PM CUSHION FORMER [place]ian Comment: ----ADDITIONAL INFORMATION---- Estimated GFR calculated using the 2009 CKD_EPI creatinine equation. eGFR-Black/ 53 (L) >=60 mL/min/BSA 2021 1:48 PM CUSHION FORMER DTL Comment: ----ADDITIONAL INFORMATION---- Estimated GFR calculated using the 2009 CKD_EPI creatinine equation. Specimen Anatomical Collection Method Collection Time Receive d Time (Source) Location / / Volume Laterality Blood (Blood, 12/22/2021 12:41 12/22/2021 1:18 Venous) PM CUSHION FORMER PM CUSHION FORMER Benjamin Garcia M.D. LAB BLOOD ADD-ON Performing Organization Address City/[facility]/ZIP Code Phon e Number [facility] - [address] [place], [place] [address] [address] [facility] [place] [address] [facility] Folate (12/22/2021 12:41 PM CUSHION FORMER) P athologist Signature Folate, S 14.2 >=4.0 mcg/L 12/23/2021 7:47 DTL AM CUSHION FORMER Specimen Anatomical Collection Method Collection Time Receive d Time (Source) Location / / Volume Laterality Blood (Blood, 12/22/2021 12:41 12/22/2021 1:18 Venous) PM CUSHION FORMER PM CUSHION FORMER Benjamin Garcia M.D. LAB BLOOD ADD-ON Performing Organization Address City/[facility]/ZIP Code Phon e Number [facility] - [address] Vitamin B12 Assay (12/22/2021 12:41 PM CUSHION FORMER) [facility] Vitamin B12 336 180 - 914 12/23/2021 DT Assay, S ng/L 7:48 AM CUSHION FORMER Comment: ----ADDITIONAL INFORMATION---- In patients being evaluated for vitamin B12 deficiency who have intrinsic factor blocking antibodie s (IFBA), false elevations of B12 may occur due to IFBA interference thus potentially obscuring a physiological de ficiency of B12. If observed B12 concentrations are disco rdant with clinical presentation, measurement of methylmalon ic acid (MMA) should be considered. Specimen Anatomical Collection Method Collection Time Receive d Time (Source) Location / / Volume Laterality Blood (Blood, 12/22/2021 12:41 12/22/2021 1:18 Venous) PM CUSHION FORMER PM CUSHION FORMER Benjamin Garcia M.D. LAB BLOOD ADD-ON Performing Organization Address City/State/ZIP Code Phon e Number [facility] - [phone] [place] [address] (ABNORMAL) Thyroid Function [place] (12/22/2021 12:41 PM CUSHION FORMER) [facility] TSH, Sensitive 10.1 (H) 0.3 - 4.2 12/22/2021 [facility] mIU/L 1:48 PM CUSHION FORMER Specimen Anatomical Collection Method Collection Time Receive d Time (Source) Location / / Volume Laterality Blood (Blood, 12/22/2021 12:41 12/22/2021 1:18 Venous) PM CUSHION FORMER PM CUSHION FORMER Benjamin Garcia M.D. LAB BLOOD ADD-ON Performing Organization Address City/State/ZIP Code Phon e Number [facility] - [phone] [place] [address] Potassium (12/22/2021 12:41 PM CUSHION FORMER) [facility] Potassium, S 4.3 3.6 - 5.2 12/22/2021 DTL mmol/L 1:48 PM CUSHION FORMER Specimen Anatomical Collection Method Collection Time Receive d Time (Source) Location / / Volume Laterality Blood (Blood, 12/22/2021 12:41 12/22/2021 1:18 Venous) PM CUSHION FORMER PM CUSHION FORMER Benjamin Garcia M.D. LAB BLOOD ADD-ON Performing Organization Address City/[facility] Phon e Number [facility] - [address] Sodium (12/22/2021 12:41 PM CUSHION FORMER) P athologist Signature Sodium, S 141 135 - 145 12/22/2021 1:48 DTL mmol/L PM CUSHION FORMER Specimen Anatomical Collection Method Collection Time Receive d Time (Source) Location / / Volume Laterality Blood (Blood, 12/22/2021 12:41 12/22/2021 1:18 Venous) PM CUSHION FORMER PM CUSHION FORMER Benjamin Garcia M.D. 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
--- OUTSIDE RECORDS SUMMARY | 2022-10-08 09:07 | XMS_ITS | Encounter Summary ---
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 [facility] Radiation Oncology Procedures Prior Auth Rad Tx [place] IMRT SIMPLE [address] [place] [phone] [facility] [place] [address] Referral ID Status Reason Start Date Expiration Date Visits Requ ested Visits Authorized [id number] Closed 07/28/2021 07/18/2022 30 30 Encounter Details Date Type Department Care Team Description 08/29/2021 Hospital Encounter Department of Radiation Derek Mcwilliams, [place] [address] [facility] [address] [place] [phone] Social History Tobacco Use Types Packs/Day Years Used Date Smoking Tobacco: Former Smokeless Tobacco: Never Comments: in college years Alcohol Use Standard Drinks/Week Comments Yes 1 (1 standard drink = 0.6 oz pure alcoho l) per day Alcohol Habits Answer Date Recorded How often do you have a drink containing 4 or more times a w [place] 01/01/2022 alcohol? How many drinks containing alcohol [...] or relatives? How often do you attend mandaeism or More than 4 times per year 01/01/2022 scientology services? 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
--- OUTSIDE RECORDS SUMMARY | 2022-10-08 09:07 | XMS_ITS | Encounter Summary ---
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 [facility] Radiation Oncology Procedures Prior Auth Rad Tx [place] IMRT SIMPLE [address] [place] [address] [address] [facility] [place] [address] Referral ID Status Reason Start Date Expiration Date Visits Requ ested Visits Authorized [id number] Closed 07/28/2021 07/18/2022 30 30 Encounter Details Date Type Department Care Team Description 08/21/2021 Hospital Encounter Department of Radiation Derek Mcwilliams, [place]cology [place] [address] [facility] [address] [place] [phone] [phone] Social History Tobacco Use Types Packs/Day Years Used Date Smoking Tobacco: Former Smokeless Tobacco: Never Comments: in college years Alcohol Use Standard Drinks/Week Comments Yes 1 (1 standard drink = 0.6 oz pure alcoho l) per day Alcohol Habits Answer Date Recorded How often do you have a drink containing 4 or more times a w [place] 01/01/2022 alcohol? How many drinks containing alcohol [...] or relatives? How often do you attend jainism or More than 4 times per year 01/01/2022 druze services? Do you belong to any clubs or Yes 01/01/2022 organizations such as jainism groups, unions, fraternal or athletic groups, or [...] place to sleep or slept in a group home (including now)? 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
--- OUTSIDE RECORDS SUMMARY | 2022-10-08 09:07 | XMS_ITS | Encounter Summary ---
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 [facility] Radiation Oncology Procedures Prior Auth Rad Tx [place] IMRT SIMPLE [address] [place] [address] [address] [facility] [place] [address] Referral ID Status Reason Start Date Expiration Date Visits Requ ested Visits Authorized [id number] Closed 07/28/2021 07/18/2022 30 30 Encounter Details Date Type Department Care Team Description 08/28/2021 Hospital Encounter Department of Radiation Derek Mcwilliams, [place]cology [place] [address] [facility] [address] [place] [phone] Social History Tobacco Use Types Packs/Day Years Used Date Smoking Tobacco: Former Smokeless Tobacco: Never Comments: in college years Alcohol Use Standard Drinks/Week Comments Yes 1 (1 standard drink = 0.6 oz pure alcoho l) per day Alcohol Habits Answer Date Recorded How often do you have a drink containing 4 or more times a w [place] 01/01/2022 alcohol? How many drinks containing alcohol [...] More than 4 times per year 01/01/2022 sabianism services? Do you belong to any clubs [...] place to sleep or slept in a nursing home (including now)? 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
--- OUTSIDE RECORDS SUMMARY | 2022-10-08 09:07 | XMS_ITS | Encounter Summary ---
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 [facility] Radiation Oncology Procedures Prior Auth Rad Tx [place] IMRT SIMPLE [address] [place] [address] [address] [facility] [place] [address] Referral ID Status Reason Start Date Expiration Date Visits Requ ested Visits Authorized [id number] Closed 07/28/2021 07/18/2022 30 30 Encounter Details Date Type Department Care Team Description 08/25/2021 Hospital Encounter Department of Radiation Derek Mcwilliams, [place]cology [place] [address] [facility] [address] [place] [phone] Social History Tobacco Use Types Packs/Day Years Used Date Smoking Tobacco: Former Smokeless Tobacco: Never Comments: in college years Alcohol Use Standard Drinks/Week Comments Yes 1 (1 standard drink = 0.6 oz pure alcoho l) per day Alcohol Habits Answer Date Recorded How often do you have a drink containing 4 or more times a w [place] 01/01/2022 alcohol? How many drinks containing alcohol [...] or relatives? How often do you attend amish or More than 4 times per year 01/01/2022 voodoo services? Do you belong to any clubs or Yes 01/01/2022 organizations such as amish groups, unions, fraternal or athletic groups, or [...] place to sleep or slept in a [facility] (including now)? 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
--- OUTSIDE RECORDS SUMMARY | 2022-10-08 09:07 | XMS_ITS | Encounter Summary ---
:1940 Author Organization [facility] Address [address] [place] [address] Care Team Providers Name Role Phone Unavailable Primary Care Provider Unavailable Reason for Referral MRI/CAT/PET Scan (Routine) - Closed Specialty Diagnoses / Procedures Referred By Contact Refer red To Contact Radiology Diagnoses Impairment Cognitive Mild Benjamin Garcia M.D. [facility] Procedures MR Brain Dementia without IV Contrast SD MRI BRAIN WO CNTRST [address] [place] [phone] Referral ID Status Reason Start Date Expiration Date Visits Requ ested Visits Authorized [id number] Closed 10/10/2021 10/10/2022 1 1 PRESIDENT OF NEWS Reason for Visit MRI/CAT/PET Scan (Routine) - Closed Specialty Diagnoses / Procedures Referred By Contact Refer red To Contact Radiology Diagnoses Impairment Cognitive Mild Benjamin Garcia M.D. [facility] Procedures MR Brain Dementia without IV Contrast SD MRI BRAIN WO CNTRST [address] [place] [phone] Referral ID Status Reason Start Date Expiration Date Visits Requ ested Visits Authorized [id number] Closed 10/10/2021 10/10/2022 1 1 Encounter Details Date Type Department Care Team Description 12/22/2021 Hospital Encounter Department of Heena Garcia Cognitive Radiology, [place] Xie, in [address] [facility] [address] 200 [facility] [phone] [place], [place] (Work) [address] [phone] Social History Tobacco Use Types Packs/Day Years Used Date Smoking Tobacco: Former Smokeless Tobacco: Never Comments: in college years Alcohol Use Standard Drinks/Week Comments Yes 1 (1 standard drink = 0.6 oz pure alcoho l) per day Alcohol Habits Answer Date Recorded How often do you have a drink containing 4 or more times a w [place] 01/01/2022 alcohol? How many drinks containing alcohol [...] or relatives? How often do you attend religion or More than 4 times per year 01/01/2022 rastafari services? 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 documented in this encounter Results MR Brain Dementia without IV Contrast (12/22/2021 2:05 PM VICE PRESIDENT OF NEWS) Anatomical Region Laterality Modality Head, Brain, Neuroradiology RST LOS, Neuroradiology ZENA N/A Magnetic Resonance LOS Specimen (Source) Anatomical Collection Method Collection Time Re ceived Time Location / / Volume Laterality 12/22/2021 2:18 PM VICE PRESIDENT OF NEWS Impressions 12/22/2021 2:40 PM VICE PRESIDENT OF NEWS No acute intracranial findings. Quantita tive analysis, as described. Narrative 12/22/2021 2:40 PM VICE PRESIDENT OF NEWS EXAM: MR BRAIN DEMENTIA WITHOUT IV CONTRAST [...] on an independent computer seismic prospecting observer helper using [employer]Fi[employer] software. The clinical indication for performing the p ost-processing was memory impairment. Review of the lead quality control technician images dem onstrates good segmentation of the [...] on an independent computer seismic prospecting observer helper using HiFiKidd[employer] software. The clinical indication for performing the p ost-processing was memory impairment. Review of the lead quality control technician images dem onstrates good segmentation of the hippocampi. Left hippocampal volume: 1.95cm3 Right hippocampal volume: 2.22cm3 Hippocampal asymmetry index: -13.15% Combined hippocampal volume: 4.17cm3 Combined hippocampal volume age-adjusted percentile: 1 Combined inferior lateral ventricles (te mporal horns) volume: 3.32cm3 Combined inferior lateral ventricles (te mporal horns) age-adjusted percentile: 77 IMPRESSION: No acute intracranial findings. Quantita tive analysis, as described. Benjamin LOBO MRI PROCEDURES documented in this encounter Visit Diagnoses Diagnosis Impairment Cognitive Mild documented in this encounter
--- OUTSIDE RECORDS SUMMARY | 2022-10-08 09:07 | XMS_ITS | Encounter Summary ---
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 [facility] Procedures Management Visit [address] [place], [place] [address] Referral ID Status Reason Start Date Expiration Date Visits Requ ested Visits Authorized [id number] Closed 07/18/2021 07/18/2022 1 1 Encounter Details Date Type Department Care Team Description 09/03/2021 Hospital Encounter Department of Hernan Mcwilliams Neoplasm Radiation Oncology [place]ne Avendaño Of Breast [facility] [address] in [place], [address] [place], [place] Female Right (HCC) [address] [facility] [address] KRISTIN TELLO [phone] [address] (Work) [phone] Social History Tobacco Use Types Packs/Day Years Used Date Smoking Tobacco: Former Smokeless Tobacco: Never Comments: in college years Alcohol Use Standard Drinks/Week Comments Yes 1 (1 standard drink = 0.6 oz pure alcoho l) per day Alcohol Habits Answer Date Recorded How often do you have a drink containing 4 or more times a w [place] 01/01/2022 alcohol? How many drinks containing alcohol [...] or relatives? How often do you attend mandaen or More than 4 times per year 01/01/2022 spiritism services? Do you belong to any clubs or Yes 01/01/2022 organizations such as mandaen groups, unions, fraternal or athletic groups, or [...] place to sleep or slept in a jail (including now)? 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 - 09/03/2021 11:30 AM CDT SUBJECTIVE SUPERVISED BY: Dr. Mcwilliams REASON FOR VISIT Evaluation for side effects while receiving radiation treatment for 1. 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 Adrienne Jorge is an 81 y.o. female with stage IIA (pT2, pN1a(sn), cM0, G3, ER+, WI+, HER2-, Oncotype DX score: 15) right breast cancer. She is completed adjuvant whole breast and regional rush radiation today, September 03, 2021. Treatment Course: 1x R BREAST Plan ID Fractions Dose / Fraction (cGy) Dose Treated (cGy) Dose Planned (cGy) First Treatment Last Treatment Elapsed Days F1 Rt Breast 200 5000 5000 07/30/2021 09/03/2021 35 Course Summary 07/30/2021 09/03/2021 35 Her oncologic history is as follows: 1. April 23, 2021: ??Bilateral screening mammogram demonstrated scattered fibroglandular densities present bilaterally. ??There was a spiculated mass within the medial right breast, 4 cm from the nipple,measuring 1.1 cm. ??Associated architectural distortion was present. ??Left breast mammogram was normal. ??BI-RADS 0. ?? 2. May 01, 2021: ??Ultrasound of the right breast at the 2 o'clock position, 4 cm from the nipple demonstrated a solid, hypoechoic, taller than wide, spiculated mass with distal acoustic shadowing measuring 1.5 x 1.3 x 1.9 cm. ??Normal right axillary lymph node. ??BI-RADS 5. 3. May 01, 2021: ??Ultrasound-guided core biopsy of the right breast at the 2 o'clock position, 4 cmfrom the nipple was performed. ??Pathology demonstrated invasive ductal carcinoma, Costa grade 3. ??Angiolymphatic invasion was absent. ??Associated DCIS was present, solid, grade 3. ??Estrogen receptor positive (100%). ??Progesterone receptor positive (2%). ??HER2 by IHC negative (1+). ??KI-67 24% 4. May 06, 2021: ??MRI of the bilateral breasts demonstrated in the right breast at the 1-2 o'clock position, middle depth, there was an irregular mass and heterogeneous non mass enhancement which spanned approximately 2.6 x 1.5 x 1.6 cm. ??There were no additional suspicious areas of enhancement in the right breast. ??There were no suspicious areas of enhancement in the left breast. ??There was no suspicious lymphadenopathy. ??BI-RADS 6. ?? 5. May 16, 2021: ??[facility] review of outside imaging demonstrated calcifications located approximately 1.3 cm anterior to the known malignancy. ??Possible enlarged right internal mammary lymph node measuring 1.2 cm near the first rib. ??Possible left supraclavicular/cervical lymphadenopathy partially included in the field of view. ??Questionable left lung nodule anteriorly. 6. May 19, 2021: ??CT scan of the neck soft tissue demonstrated no convincing cervical adenopathy in the visualized neck. ??Irregular intramedullary right greater than left subclavian veins consistentwith small varices. ??Additional suspected varix arising from the lateral right external jugular vein. 7. May 19, 2021: ??CT scan of the chest demonstrated a few scattered solid noncalcified 1 mm pulmonary nodules, indeterminate. ??Patchy ill-defined posterior medial left lower lobe opacities, likely of infectious/inflammatory etiology. ??Additional peripheral right upper lobe infectious/inflammatory b ronchiolitis. ??Scattered mucus plugs. 8. May 26, 2021: ??PET/CT scan demonstrated focal FDG uptake associated with the small right breastnodule which contained a metallic biopsy clip, SUV max 1.7. ??No additional FDG avid lesions within the breast tissue. ??Low level uptake in nonenlarged bilateral axillary lymph nodes should be physiolo gic/reactive. ??No convincing FDG avid internal mammary lymph nodes. ??Mild FDG uptake in the previously noted clustered nodularity of the peripheral right upper lobe, consistent with infectious/inflammatory process. ??Likewise, probable infectious/inflammatory opacities in the medial left lower lobe. 9. May 29, 2021: ??Right breast lumpectomy and right axillary sentinel lymph node biopsy was performed by Dr. Trini Cedillo. ??Pathology of the right breast demonstrated invasive ductal carcinoma with lobular growth pattern, Fely grade 3, measuring 26 x 23 x 16 mm. ??Ductal carcinoma in situ was not identified. ??Invasive carcinoma was located 4 mm from the closest anterior margin. ??Two of four right axillary sentinel lymph nodes were positive for macrometastatic carcinoma measuring 3 mm and 5 mm, extranodal extension was not identified (2/4). ??pT2 pN1a(sn) 10. June 12, 2021: ??Radiation Oncology appointment with Dr. Vivek Perez who recommended adjuvant radiotherapy including targeting the right internal mammary lymph node noted on outside MRI scan measuring 1.2 cm. ??Referral to Radiation Oncology in [place]. 11. July 08, 2021: ??Oncotype DX recurrence score result 15. ??No apparent benefit for chemotherapy. 12. July 16, 2021: ??Appointment with Dr. Benjamin Garcia who did not recommend chemotherapy. ??Tentative plan for tamoxifen to start after radiation therapy. ??If her neurology notes indicate worryfor large vessel stroke, they may re-assess. ??Follow-up in 3-4 months. 13. July 30, 2021 through September 03, 2021: Patient treated with radiotherapy to the right breastand regional lymph nodes to a dose of 5000 cGy in 25 fractions. Patient seen and evaluated today with Dr. Mcwilliams The patient reports she is tolerating radiation well overall. She is applying topical moisturizing cream and Aquaphor to her right breast in armpit area 2 to 3 times a day. She has noted some very milddiscomfort in her right axilla/chest that she rates at 2/10 in severity. She denies any pruritus, shortness of breath, or pain with swallowing. PATIENT REPORTED SYMPTOM SCREEN FATIGUE (Scale: 0 = no fatigue; 10 = worst fatigue you can imagine): 9 PAIN (Scale: 0 = no pain; 10 = worst pain you can imagine): 2 OVERALL QUALITY OF LIFE (Scale: 0 = as bad as can be; 10 = as good as can be): 9 OBJECTIVE Temp 36.7 ??C (Temporal) Wt 60.5 kg BMI 23.05 kg/m?? PHYSICAL EXAM General: Alert and oriented in no apparent distress. Skin: Brisk erythema of the right breast with large area of punctate folliculitis in the upper medial aspect of the right breast and to small area to the right upper back. No areas of desquamation. Slight darkening of the skin to the upper medial aspect of the right breast. 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 Radiation related skin changes should start to heal in the coming weeks. I have reviewed Breast Self Examination [id number] and Moist Skin Reaction [id number] pamphlets with patient today. I have provided her samples of skin care products today as well as ordering information. She will meet with our scheduling desk today to schedule Medical Oncology follow up appointment for September 2021. We will not order formal Radiation Oncology follow up. We can be contacted at anytime for any questions or concerns. Toxicities reviewed with Dr. Mcwilliams today. Signed by: Layla Quick R.N. 09/03/2021 1:00 PM CDT I saw and evaluated the patient and participated in the doyle portions of the service. I reviewed the documentation of Layla Quick R.N. and agree with the findings and plan. The patient appears well onexam. She has tolerated treatment well. Treatment side effects include grade 2 radiation dermatitis,grade 1 non- cardiac chest pain, and grade 1 hyperpigmentation. She will follow-up with Dr. Garcia on October 10, 2021. She verbalized satisfaction with this plan. Signed by: Hernan Mcwilliams M.D. 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
--- OUTSIDE RECORDS SUMMARY | 2022-10-08 09:07 | XMS_ITS | Encounter Summary ---
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 [facility] Radiation Oncology Procedures Prior Auth Rad Tx [place] IMRT SIMPLE [address] [place] [phone] [facility] [place] [address] Referral ID Status Reason Start Date Expiration Date Visits Requ ested Visits Authorized [id number] Closed 07/28/2021 07/18/2022 30 30 Encounter Details Date Type Department Care Team Description 09/01/2021 Hospital Encounter Department of Radiation Derek Mcwilliams, [place] [address] [facility] [address] [place] [phone] Social History Tobacco Use Types Packs/Day Years Used Date Smoking Tobacco: Former Smokeless Tobacco: Never Comments: in college years Alcohol Use Standard Drinks/Week Comments Yes 1 (1 standard drink = 0.6 oz pure alcoho l) per day Alcohol Habits Answer Date Recorded How often do you have a drink containing 4 or more times a w [place] 01/01/2022 alcohol? How many drinks containing alcohol [...] or relatives? How often do you attend bahai or More than 4 times per year 01/01/2022 zoroastrian services? 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
--- OUTSIDE RECORDS SUMMARY | 2022-10-08 09:08 | XMS_ITS | Encounter Summary ---
:1940 Author Organization [facility] Address [address] [place] [address] Care Team Providers Name Role Phone Unavailable Primary Care Provider Unavailable Reason for Referral Specialty Diagnoses / Procedures Referred By Contact Refer red To Contact Shital Morgan P.A.-C ., M.S. [facility] Region [address] [place] [phone] Referral ID Status Reason Start Date Expiration Date Visits Requ ested Visits Authorized Encounter Details Date Type Department Care Team Description 08/11/2021 Hospital Encounter Department of Hernan Mcwilliams Neoplasm Radiation Oncology Dorene Avendaño Of Breast Upper in [address] Female Right (HCC) [address] [facility] [address] [place], [place] [phone] [address] (Work) [phone] Social History Tobacco Use Types Packs/Day Years Used Date Smoking Tobacco: Former Smokeless Tobacco: Never Comments: in college years Alcohol Use Standard Drinks/Week Comments Yes 1 (1 standard drink = 0.6 oz pure alcoho l) per day Alcohol Habits Answer Date Recorded How often do you have a drink containing 4 or more times a w [place] 01/01/2022 alcohol? How many drinks containing [...] or relatives? How often do you attend jewish or More than 4 times per year 01/01/2022 druze services? 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 Take 2 tablets up to four times daily for pain albuterol 90 mcg/actuation Inhale 2 puffs as 0 inhaler needed. ALPRAZolam (XANAX) 0.25 mg Take 0.25 mg by 0 12/30 tablet mouth as needed. aspirin [address] tablet Take 81 mg by 0 1 mouth daily. mirtazapine (REMERON) 30 Take 60 mg by 0 05/06/20 21 mg tablet mouth at bedtime. multivitamin tablet Take 1 tablet by 0 01/16/2015 mouth daily. sennosides (senna) 8.6 mg Take 1 tablet (8.6 14 tablet 0 tablet mg total) by mouth daily. simvastatin (ZOCOR) 20 mg Take 20 mg by 0 021 tablet mouth at bedtime. venlafaxine XR Take 225 mg by 0 03/04/2021 (EFFEXOR-XR) 150 mg 24 hr mouth daily. capsule ascorbic acid, vitamin C, Take 1 tablet by 0 12/3008/15/2021 (VITAMIN C) 500 mg tablet mouth daily. cholecalciferol (VITAMIN Take 1,000 Units 0 01/1608/15/2021 D3) 25 mcg (1,000 Unit) by mouth daily. capsule cyanocobalamin (VITAMIN Take 1 tablet by 0 201408/15/2021 B12) 1,000 mcg tablet mouth daily. tamoxifen (NOLVADEX) 20 mg Take 1 tablet (20 90 tablet 3 08/17/2022 tablet mg total) by mouth daily for 100 doses. Take with or without food. Start 3-4 weeks after end of radiation. traMADoL (ULTRAM) 50 mg Take 1-2 tablets 12 tablet 0 202001/01/2022 tabletIndications: Acute (50-100 mg total) Pain by mouth 4 (four) times a day as needed for pain Indications: acute pain. venlafaxine XR Take 75 mg by 0 04/18/2021 022 (EFFEXOR-XR) 75 mg 24 hr mouth daily. 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
--- OUTSIDE RECORDS SUMMARY | 2022-10-08 09:08 | XMS_ITS | Encounter Summary ---
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 [facility] Radiation Oncology Procedures Prior Auth Rad Tx [place] IMRT SIMPLE [address] [place] [address] [address] [facility] [place] [address] Referral ID Status Reason Start Date Expiration Date Visits Requ ested Visits Authorized [id number] Closed 07/28/2021 07/18/2022 30 30 Encounter Details Date Type Department Care Team Description 08/15/2021 Hospital Encounter Department of Radiation Derek Mcwilliams, [place] [address] [facility] [address] [place] [address] [phone] Social History Tobacco Use Types Packs/Day Years Used Date Smoking Tobacco: Former Smokeless Tobacco: Never Comments: in college years Alcohol Use Standard Drinks/Week Comments Yes 1 (1 standard drink = 0.6 oz pure alcoho l) per day Alcohol Habits Answer Date Recorded How often do you have a drink containing 4 or more times a w [place] 01/01/2022 alcohol? How many drinks containing alcohol [...] clubs or Yes 01/01/2022 organizations such as gnosticist groups, unions, [...] to sleep or slept in a senior care (including now)? 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
--- OUTSIDE RECORDS SUMMARY | 2022-10-08 09:08 | XMS_ITS | Encounter Summary ---
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 [facility] Radiation Oncology Procedures Prior Auth Rad Tx [place] IMRT SIMPLE [address] [place] [address] [address] [facility] [place] [address] Referral ID Status Reason Start Date Expiration Date Visits Requ ested Visits Authorized [id number] Closed 07/28/2021 07/18/2022 30 30 Encounter Details Date Type Department Care Team Description 08/07/2021 Hospital Encounter Department of Radiation Derek Mcwilliams, [place]cology [place] [address] [facility] [address] [place] [phone] Social History Tobacco Use Types Packs/Day Years Used Date Smoking Tobacco: Former Smokeless Tobacco: Never Comments: in college years Alcohol Use Standard Drinks/Week Comments Yes 1 (1 standard drink = 0.6 oz pure alcoho l) per day Alcohol Habits Answer Date Recorded How often do you have a drink containing 4 or more times a w [place] 01/01/2022 alcohol? How many drinks containing alcohol [...] or relatives? How often do you attend alevism or More than 4 times per year 01/01/2022 roman catholic services? Do you belong to any clubs or Yes 01/01/2022 organizations such as alevism groups, unions, fraternal or athletic groups, or [...] or slept in a retirement (including now)? 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
--- OUTSIDE RECORDS SUMMARY | 2022-10-08 09:08 | XMS_ITS | Encounter Summary ---
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 [facility] Procedures Management Visit [address] [place], [place] [address] Referral ID Status Reason Start Date Expiration Date Visits Requ ested Visits Authorized [id number] Closed 07/18/2021 07/18/2022 1 1 Encounter Details Date Type Department Care Team Description 08/12/2021 Hospital Encounter Department of Natalie Ortiz Neoplasm Radiation Oncology Dorene [facility] in [place], [address] [place], [place] Female Right (HCC) [address] [facility] [address] [place], [place] [phone] (Work) [phone] Social History Tobacco Use Types Packs/Day Years Used Date Smoking Tobacco: Former Smokeless Tobacco: Never Comments: in college years Alcohol Use Standard Drinks/Week Comments Yes 1 (1 standard drink = 0.6 oz pure alcoho l) per day Alcohol Habits Answer Date Recorded How often do you have a drink containing 4 or more times a w [place] 01/01/2022 alcohol? 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 - 08/12/2021 1:45 PM CDT Diagnosis: Right sided breast cancer Radiation Treatment Progress Summary Treatment Course: 1x R BREAST Plan ID Fractions Dose / Fraction (cGy) Dose Treated (cGy) Dose Planned (cGy) First Treatment Last Treatment Elapsed Days F1 Rt Breast [phone] 07/30/2021 08/12/2021 13 Course Summary 07/30/2021 08/12/2021 13 SUBJECTIVE Ms. Adrienne Jorge a 81 y.o. reports that she feels fairly well except for some fatigue. She deniesfevers/chills, pain or lumps/masses. She has no other concerns today. OBJECTIVE There were no vitals taken for this visit. PHYSICAL EXAM General appearance: alert, appears stated age, cooperative, no distress and she was seen on the treatment machine. Breasts: No erythema in the treatment field. 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 We will continue as planned. Signed by: Natalie Ortiz M.D. 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
--- OUTSIDE RECORDS SUMMARY | 2022-10-08 09:08 | XMS_ITS | Encounter Summary ---
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 [facility] Radiation Oncology Procedures Prior Auth Rad Tx [place] IMRT SIMPLE [address] [place] [address] [address] [facility] [place] [address] Referral ID Status Reason Start Date Expiration Date Visits Requ ested Visits Authorized [id number] Closed 07/28/2021 07/18/2022 30 30 Encounter Details Date Type Department Care Team Description 08/11/2021 Hospital Encounter Department of Radiation Derek Mcwilliams, [place]cology [place] [address] [facility] [address] [place] [phone] Social History Tobacco Use Types Packs/Day Years Used Date Smoking Tobacco: Former Smokeless Tobacco: Never Comments: in college years Alcohol Use Standard Drinks/Week Comments Yes 1 (1 standard drink = 0.6 oz pure alcoho l) per day Alcohol Habits Answer Date Recorded How often do you have a drink containing 4 or more times a w [place] 01/01/2022 alcohol? How many drinks containing alcohol [...] place to sleep or slept in a alf (including now)? 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
--- OUTSIDE RECORDS SUMMARY | 2022-10-08 09:08 | XMS_ITS | Encounter Summary ---
:1940 Author Organization [facility] Address [address] [place] [address] Care Team Providers Name Role Phone Unavailable Primary Care Provider Unavailable Reason for Visit Reason Comments Care Coordination Covid-19 Vaccine Encounter Details Date Type Department Care Team Description 07/23/2021 Clinical Communication Department of [place], Care Coordination Oncology in Usha Reed R.N. (Covid-19 Vacc ine) [place], [place] [address] [place] [address] Social History Tobacco Use Types Packs/Day Years Used Date Smoking Tobacco: Former Smokeless Tobacco: Never Comments: in college years Alcohol Use Standard Drinks/Week Comments Yes 1 (1 standard drink = 0.6 oz pure alcoho l) per day Alcohol Habits Answer Date Recorded How often do you have a drink containing 4 or more times a w [place] 01/01/2022 alcohol? How many drinks containing alcohol [...] or relatives? How often do you attend sikhism or More than 4 times per year 01/01/2022 scientologist services? Do you belong to any clubs or Yes 01/01/2022 organizations such as sikhism groups, unions, fraternal or athletic groups, or [...] at Date Recorded Female 01/01/2022 8:43 AM RN ADVICE documented as of this encounter Miscellaneous Notes Telephone Encounter - Melba Almendarez - 07/23/2021 1:53 PM CDT Do we have a valid auth to speak with caller? patient Reason for call: She returned the call and I relayed the message. She was appreciative and did not have any further questions. Thank you, Melba Almnedarez Rst Onc [facility] Med AA Pod 2 Telephone Encounter - Usha Rubalcava R.N. - 07/23/2021 1:41 PM CDT Left generic message on unidentified voicemail. She recently received the portal message indicating that she was a candidate to a receive a COVID vaccine booster shot. She was included in this group as she was noted as currently receiving ???active cancer treatment?? . However, she is on tamoxifen and this is not known to cause immunosuppression. We apologize for the confusion. The recommendation for the booster vaccine would be the same as recommended for the general public. Telephone Encounter - Melba Almendarez - 07/23/2021 12:06 PM CDT Do we have a valid auth to speak with caller? patient Reason for call: She is calling to see if Dr. Garcia thinks she needs/should get the third covid-19 vaccine. She has not received a portal notice stating she was a candidate. She will be starting radiation on 07/30 and thinks she should get it due to this, but is wanting input. She wants oncology's input. Thank you, Melba Almendarez Rst Onc [facility] Med AA Pod 2 documented in this encounter Plan of Treatment Not on filedocumented as of this encounter Visit Diagnoses Not on filedocumented in this encounter
--- OUTSIDE RECORDS SUMMARY | 2022-10-08 09:08 | XMS_ITS | Encounter Summary ---
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 [facility] Radiation Oncology Procedures Prior Auth Rad Tx [place] IMRT SIMPLE [address] [place] [address] [address] [place] [address] Referral ID Status Reason Start Date Expiration Date Visits Requ ested Visits Authorized [id number] Closed 07/28/2021 07/18/2022 30 30 Encounter Details Date Type Department Care Team Description 08/18/2021 Hospital Encounter Department of Radiation Derek Mcwilliams, [place]cology [place] [address] [facility] [address] [place] [phone] [phone] Social History Tobacco Use Types Packs/Day Years Used Date Smoking Tobacco: Former Smokeless Tobacco: Never Comments: in college years Alcohol Use Standard Drinks/Week Comments Yes 1 (1 standard drink = 0.6 oz pure alcoho l) per day Alcohol Habits Answer Date Recorded How often do you have a drink containing 4 or more times a w [place] 01/01/2022 alcohol? 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
--- OUTSIDE RECORDS SUMMARY | 2022-10-08 09:08 | XMS_ITS | Encounter Summary ---
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 [facility] Radiation Oncology Procedures Prior Auth Rad Tx [place] IMRT SIMPLE [address] [place] [address] [address] [facility] [place] [place] [address] Referral ID Status Reason Start Date Expiration Date Visits Requ ested Visits Authorized [id number] Closed 07/28/2021 07/18/2022 30 30 Encounter Details Date Type Department Care Team Description 07/31/2021 Hospital Encounter Department of Radiation Deerk Mcwilliams, [place]cology [place] [address] [facility] [address] [place] [phone] [phone] Social History Tobacco Use Types Packs/Day Years Used Date Smoking Tobacco: Former Smokeless Tobacco: Never Comments: in college years Alcohol Use Standard Drinks/Week Comments Yes 1 (1 standard drink = 0.6 oz pure alcoho l) per day Alcohol Habits Answer Date Recorded How often do you have a drink containing 4 or more times a w [place] 01/01/2022 alcohol? How many drinks containing alcohol [...] More than 4 times per year 01/01/2022 adventism services? Do you belong to any clubs [...] place to sleep or slept in a assisted (including now)? 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
--- OUTSIDE RECORDS SUMMARY | 2022-10-08 09:08 | XMS_ITS | Encounter Summary ---
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 [facility] Radiation Oncology Procedures Prior Auth Rad Tx [place] IMRT SIMPLE [address] [place] [address] [address] [facility] [place] [address] Referral ID Status Reason Start Date Expiration Date Visits Requ ested Visits Authorized [id number] Closed 07/28/2021 07/18/2022 30 30 Encounter Details Date Type Department Care Team Description 07/30/2021 Hospital Encounter Department of Radiation Derek Mcwilliams, Oncology in [place] [address] [facility] [address] [place] [phone] [phone] Social History Tobacco Use Types Packs/Day Years Used Date Smoking Tobacco: Former Smokeless Tobacco: Never Comments: in college years Alcohol Use Standard Drinks/Week Comments Yes 1 (1 standard drink = 0.6 oz pure alcoho l) per day Alcohol Habits Answer Date Recorded How often do you have a drink containing 4 or more times a w [place] 01/01/2022 alcohol? 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
--- OUTSIDE RECORDS SUMMARY | 2022-10-08 09:08 | XMS_ITS | Encounter Summary ---
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 [facility] Radiation Oncology Procedures Prior Auth Rad Tx [place] IMRT SIMPLE [address] [place] [address] [address] [place] [address] Referral ID Status Reason Start Date Expiration Date Visits Requ ested Visits Authorized [id number] Closed 07/28/2021 07/18/2022 30 30 Encounter Details Date Type Department Care Team Description 08/12/2021 Hospital Encounter Department of Radiation Derek Mcwilliams, [place]cology [place] [address] [facility] [address] [place] [phone] [phone] Social History Tobacco Use Types Packs/Day Years Used Date Smoking Tobacco: Former Smokeless Tobacco: Never Comments: in college years Alcohol Use Standard Drinks/Week Comments Yes 1 (1 standard drink = 0.6 oz pure alcoho l) per day Alcohol Habits Answer Date Recorded How often do you have a drink containing 4 or more times a w [place] 01/01/2022 alcohol? 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
--- OUTSIDE RECORDS SUMMARY | 2022-10-08 09:08 | XMS_ITS | Encounter Summary ---
:[address] 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 [facility] Procedures Management Visit [address] [place], [place] [address] Referral ID Status Reason Start Date Expiration Date Visits Requ ested Visits Authorized [id number] Closed 07/18/2021 07/18/2022 1 1 Encounter Details Date Type Department Care Team Description 08/06/2021 Hospital Encounter Department of Hernan Mcwilliams Neoplasm Radiation Oncology Dorene Avendaño Of Breast [facility] in [place], [address] [place], [place] Female Right (HCC) [address] [facility] [address] (Primary Dx) KRISTIN TELLO [phone] [address] (Work) [phone] Social History Tobacco Use Types Packs/Day Years Used Date Smoking Tobacco: Former Smokeless Tobacco: Never Comments: in college years Alcohol Use Standard Drinks/Week Comments Yes 1 (1 standard drink = 0.6 oz pure alcoho l) per day Alcohol Habits Answer Date Recorded How often do you have a drink containing 4 or more times a w [place] 01/01/2022 alcohol? How many drinks containing alcohol [...] More than 4 times per year 01/01/2022 yarsanism services? 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 mirtazapine (REMERON) 30 Take 60 [...] encounter Progress Notes Hernan Mcwilliams M.D. - 08/06/2021 2:15 PM CDT SUBJECTIVE SUPERVISED BY: Hernan Mcwilliams M.D. REASON FOR VISIT Evaluation for side effects while receiving radiation treatment for 1. 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 Adrienne Jorge is a 81 y.o. 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 She is currently undergoing adjuvant whole breast and regional rush radiation. Treatment Course: 1x R BREAST Plan ID Fractions Dose / Fraction (cGy) Dose Treated (cGy) Dose Planned (cGy) First Treatment Last Treatment Elapsed Days F1 Rt Breast 200 1000 5000 07/30/2021 08/06/2021 7 Course Summary 07/30/2021 08/06/2021 7 The patient was seen and examined today with Dr. Mcwilliams. The patient reports she is tolerating radiation well overall. She rates her a fatigue at a 6/10 overall. She states she takes one or two naps during the day and they are less than 1 hour in length. Shestates that she usually walks up to 2 miles a day but has not felt like walking since the start of radiation. She has not been putting lotion on the treatment field. She denies pain, fever or chills. She states that she has been eating well but is not very consistent with drinking adequate fluids. Today she complains that she feels constipated although she had a large soft bowel movement this morning. PATIENT REPORTED SYMPTOM SCREEN FATIGUE (Scale: 0 = no fatigue; 10 = worst fatigue you can imagine): 6 PAIN (Scale: 0 = no pain; 10 = worst pain you can imagine): 0-4 OVERALL QUALITY OF LIFE (Scale: 0 = as bad as can be; 10 = as good as can be): 8 OBJECTIVE Temp 36.4 ??C (Temporal) Wt 61.8 kg BMI 23.55 kg/m?? PHYSICAL EXAM General: Alert and oriented in no apparent distress. Skin: slight erythema to right breast treatment field. ASSESSMENT / PLAN #1 Stage IIA (pT2, pN1a(sn), cM0, G3, ER+, [place]+, HER2-, Oncotype DX score: 15) invasive ductal [...] The patient is tolerating radiation treatment well. Patient was instructed to apply lotion to the treatment field three times a day. She was encouraged to continue her walking routine or break it into 2 shorter walks a day. We discussed options for constipation including walking, adequate fluid intakeand high fiber foods. She was also provided with instructions on how to take 2 tablets of Senna-S daily or MiraLAX once daily as needed for constipation. She will continue with radiation treatment as planned. Patient states understanding of the plan of care discussed today. Signed by: Inna Victor R.N. 08/06/21 2:26 PM CDT I saw and evaluated the patient and participated in the doyle portions of the service. I reviewed the documentation of Inna Victor R.N. and agree with the findings and plan. The patient appears well on exam. She is tolerating treatment well. She will continue with treatment as planned. Signed by: Hernan Mcwilliams M.D. 08/06/2021 7:[address] 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
--- OUTSIDE RECORDS SUMMARY | 2022-10-08 09:08 | XMS_ITS | Encounter Summary ---
:1940 Author Organization 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 [facility] Radiation Oncology Procedures Prior Auth Rad Tx [place] IMRT SIMPLE [address] [place] [phone] [facility] [place] [address] Referral ID Status Reason Start Date Expiration Date Visits Requ ested Visits Authorized [id number] Closed 07/28/2021 07/18/2022 30 30 Encounter Details Date Type Department Care Team Description 08/08/2021 Hospital Encounter Department of Radiation Derek Mcwilliams, [place]cology [place] [address] [facility] [address] [place] [address] [phone] Social History Tobacco Use Types Packs/Day Years Used Date Smoking Tobacco: Former Smokeless Tobacco: Never Comments: in college years Alcohol Use Standard Drinks/Week Comments Yes 1 (1 standard drink = 0.6 oz pure alcoho l) per day Alcohol Habits Answer Date Recorded How often do you have a drink containing 4 or more times a w [place] 01/01/2022 alcohol? How many drinks containing alcohol [...] or relatives? How often do you attend adventism or More than 4 times per year 01/01/2022 episcopalian services? Do you belong to any clubs or Yes 01/01/2022 organizations such as adventism groups, unions, fraternal or athletic groups, or [...] place to sleep or slept in a residential (including now)? 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
--- OUTSIDE RECORDS SUMMARY | 2022-10-08 09:08 | XMS_ITS | Encounter Summary ---
:1940 Author Organization [facility] Address [address] [place] [address] Care Team Providers Name Role Phone Unavailable Primary Care Provider Unavailable Encounter Details Date Type Department Care Team Description 08/15/2021 Hospital Encounter Department of Loki Mcwilliams M.D. [address] [place] [phone] Malignant Neoplasm Radiation Oncology Layla Quick R.N. [address] [place] [phone] Of Breast Upper in [facility] Female Right (HCC) [address] [facility] (Primary Dx) [place] [phone] Social History Tobacco Use Types Packs/Day Years [...] More than 4 times per year 01/01/2022 religion services? Do you belong to any clubs [...] or slept in a [facility] (including now)? 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
--- OUTSIDE RECORDS SUMMARY | 2022-10-08 09:08 | XMS_ITS | Encounter Summary ---
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 [facility] Radiation Oncology Procedures Prior Auth Rad Tx [place] IMRT SIMPLE [address] [place] [phone] [facility] [place] [address] Referral ID Status Reason Start Date Expiration Date Visits Requ ested Visits Authorized [id number] Closed 07/28/2021 07/18/2022 30 30 Encounter Details Date Type Department Care Team Description 08/14/2021 Hospital Encounter Department of Radiation Derek Mcwilliams, Oncology [place] [address] [facility] [address] [place] [phone] Social History Tobacco Use Types Packs/Day Years Used Date Smoking Tobacco: Former Smokeless Tobacco: Never Comments: in college years Alcohol Use Standard Drinks/Week Comments Yes 1 (1 standard drink = 0.6 oz pure alcoho l) per day Alcohol Habits Answer Date Recorded How often do you have a drink containing 4 or more times a w [place] 01/01/2022 alcohol? How many drinks containing alcohol [...] More than 4 times per year 01/01/2022 advent services? 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
--- OUTSIDE RECORDS SUMMARY | 2022-10-08 09:08 | XMS_ITS | Encounter Summary ---
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 [facility] Radiation Oncology Procedures Prior Auth Rad Tx [place] IMRT SIMPLE [address] [place] [address] [address] [facility] [place] [address] Referral ID Status Reason Start Date Expiration Date Visits Requ ested Visits Authorized [id number] Closed 07/28/2021 07/18/2022 30 30 Encounter Details Date Type Department Care Team Description 08/13/2021 Hospital Encounter Department of Radiation Derek Mcwilliams, Oncology in [place] [address] [facility] [address] [place] [phone] Social History Tobacco Use Types Packs/Day Years Used Date Smoking Tobacco: Former Smokeless Tobacco: Never Comments: in college years Alcohol Use Standard Drinks/Week Comments Yes 1 (1 standard drink = 0.6 oz pure alcoho l) per day Alcohol Habits Answer Date Recorded How often do you have a drink containing 4 or more times a w [place] 01/01/2022 alcohol? How many drinks containing alcohol [...] or relatives? How often do you attend taoism or More than 4 times per year 01/01/2022 yazidism services? 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
--- OUTSIDE RECORDS SUMMARY | 2022-10-08 09:08 | XMS_ITS | Encounter Summary ---
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 [facility] Radiation Oncology Procedures Prior Auth Rad Tx [place] IMRT SIMPLE [address] [place] [phone] [facility] [address] Referral ID Status Reason Start Date Expiration Date Visits Requ ested Visits Authorized [id number] Closed 07/28/2021 07/18/2022 30 30 Encounter Details Date Type Department Care Team Description 08/05/2021 Hospital Encounter Department of Radiation Derek Mcwilliams, Oncology [place] [address] [facility] [address] [place] [phone] Social History Tobacco Use Types Packs/Day Years Used Date Smoking Tobacco: Former Smokeless Tobacco: Never Comments: in college years Alcohol Use Standard Drinks/Week Comments Yes 1 (1 standard drink = 0.6 oz pure alcoho l) per day Alcohol Habits Answer Date Recorded How often do you have a drink containing 4 or more times a w [place] 01/01/2022 alcohol? How many drinks containing alcohol [...] or relatives? How often do you attend hoahaoism or More than 4 times per year 01/01/2022 baptist services? Do you belong to any clubs or Yes 01/01/2022 organizations such as hoahaoism groups, unions, fraternal or athletic groups, or [...] place to sleep or slept in a fdc (including now)? 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
--- OUTSIDE RECORDS SUMMARY | 2022-10-08 09:08 | XMS_ITS | Encounter Summary ---
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 [facility] Radiation Oncology Procedures Prior Auth Rad Tx [place] IMRT SIMPLE [address] [place] [phone] [place] [address] Referral ID Status Reason Start Date Expiration Date Visits Requ ested Visits Authorized [id number] Closed 07/28/2021 07/18/2022 30 30 Encounter Details Date Type Department Care Team Description 08/06/2021 Hospital Encounter Department of Radiation Derek Mcwilliams, [place]cology [place] [address] [facility] [address] [place] [phone] Social History Tobacco Use Types Packs/Day Years Used Date Smoking Tobacco: Former Smokeless Tobacco: Never Comments: in college years Alcohol Use Standard Drinks/Week Comments Yes 1 (1 standard drink = 0.6 oz pure alcoho l) per day Alcohol Habits Answer Date Recorded How often do you have a drink containing 4 or more times a w [place] 01/01/2022 alcohol? How many drinks containing alcohol [...] or relatives? How often do you attend mosque or More than 4 times per year 01/01/2022 advent services? 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
--- OUTSIDE RECORDS SUMMARY | 2022-10-08 09:08 | XMS_ITS | Encounter Summary ---
:1940 Author Organization [facility] Address [address] [place] [address] Care Team Providers Name Role Phone Unavailable Primary Care Provider Unavailable Encounter Details Date Type Department Care Team Description 08/08/2021 Orders Only [facility] Sa pepito Bonilla M.D. [address] [place], [place] [phone] (Wo rk) Social History Tobacco Use Types Packs/Day Years Used Date Smoking Tobacco: Former Smokeless Tobacco: Never Comments: in college years Alcohol Use Standard Drinks/Week Comments Yes 1 (1 standard drink = 0.6 oz pure alcoho l) per day Alcohol Habits Answer Date Recorded How often do you have a drink containing 4 or more times a w [place] 01/01/2022 alcohol? How many drinks containing alcohol [...] More than 4 times per year 01/01/2022 gnosticism services? 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
--- OUTSIDE RECORDS SUMMARY | 2022-10-08 09:08 | XMS_ITS | Encounter Summary ---
:1940 Author Organization [facility] Address [address] [place] [address] Care Team Providers Name Role Phone Unavailable Primary Care Provider Unavailable Reason for Referral Outpatient (Routine) - Canceled Specialty Diagnoses / Procedures Referred By Contact Refer red To Contact Hernan Cordero M .D. [facility] Region [address] [place] [phone] Referral ID Status Reason Start Date Expiration Date Visits V isits Requested Authorized [id number] Canceled 07/22/2021 07/22/2022 1 1 Reason for Visit Outpatient (Routine) - Canceled Specialty Diagnoses / Procedures Referred By Contact Refer red To Contact Hernan Cordero M .D. [facility] Region [address] [place] [phone] Referral ID Status Reason Start Date Expiration Date Visits V isits Requested Authorized [id number] Canceled 07/22/2021 07/22/2022 1 1 Encounter Details Date Type Department Care Team Description 08/06/2021 Hospital Encounter Department of Ara Araiza Malign ant Neoplasm Of Radiation Oncology L.G.S.W. Breast Upper Inner in [place], Quadrant Fema le Right [place] (Work) (HCC) (Primary Dx) [address] [place] [phone] Social History Tobacco Use Types Packs/Day Years Used Date Smoking Tobacco: Former Smokeless Tobacco: Never Comments: in college years Alcohol Use Standard Drinks/Week Comments Yes 1 (1 standard drink = 0.6 oz pure alcoho l) per day Alcohol Habits Answer Date Recorded How often do you have a drink containing 4 or more times a w [place] 01/01/2022 alcohol? How many drinks containing alcohol [...] or relatives? How often do you attend jain or More than 4 times per year 01/01/2022 pentecostalism services? 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 capsule documented as of this encounter Consult Notes Ara Araiza L.G.S.W. - 08/06/2021 2:45 PM CDT Psychosocial Assessment SUBJECTIVE DEMOGRAPHIC INFORMATION Referral by: Dr. Mcwilliams Person(s) present during interview: Ms. Jorge and her friend, Berta Primary care clinic and provider: No primary care provider on file. 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 Radiation therapy was initiated on 07/22/21, with an anticipated completion after 25 treatments. Past Medical History: Diagnosis Date ??? Anxiety ??? Cancer Lung Primary Personal History 2012 ??? Depression Personal History ??? Depressive Disorder ??? Malignant Primary Neoplasm (Unknown Site) Unspecified breast, lung ??? Sickness Motion Personal History Past Surgical History: Procedure Laterality Date ??? [...] BREAST LUMPECTOMY; Surgeon: Trini Cedillo D.O.; Location: [facility] ??? LUNG CANCER SURGERY Left 2013 ??? TONSILLECTOMY SOCIAL HISTORY Marital Status / Family / Household Status: Support Systems: friends in [place] and [place], family Primary caregiver: Berta Handley We have not received permission to contact them. 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 Past: None reported. ENVIRONMENTAL SUPPORTS Current Living Situation: Ms. Jorge resides in [facility] in [place] Patient's Home Environment: No concerns noted FUNCTIONAL STATUS (ADL's and IADL's) It is anticipated that the patient will need assistance with tasks appropriate to the patient's age/development, but there are no concerns noted by Ms. Jorge or her friend. MANAGER TRANSPORTATION Formal and Informal Resources: FriendBerta, is a psychologist, and has a family that she shares with Ms. Jorge. FINANCES/INSURANCE Primary insurance: [employer] MEDICARE PLAN Secondary insurance: N/A ADVANCE DIRECTIVES Ms. Jorge reports that she believes she created one in [place] but may want to look into creating a new document. OBJECTIVE MENTAL HEALTH Mental Health History: Ms. Jorge reports history of depression, and there is also a history of anxiety and panic disorder documented in her chart. Mental Status Exam: Appearance: Dressed appropriately in street clothing. Well groomed. Good eye contact. Appears statedage. Behavior: Calm and interactive. Cooperation: Cooperative and forthcoming. Appears reliable. Consciousness/Orientation: Alert and oriented to person, place and time. Memory/Attention: Conversationally intact. Fund of knowledge: Consistent with education and experiences as evidenced by vocabulary. Insight: Good. Judgment: Good. Safety: Denies current suicidal or homicidal ideation. No safety concerns. Motivation to pursue treatment: Good. Current psychological symptoms: No significant symptoms noted. Other Mental Health Assessments PHQ 2 Score: 2 SUBSTANCE USE Alcohol: yes a few drinks per week Tobacco: no Ms. Jorge reports no history of nor present concerns related to alcohol or other substance use. Current Stressors: Stressors noted related to restraints of pandemic. Coping skills/strengths: Self-talk, Distraction through reading books, [place], Family support, Time with friends and Time with pets Discussion: Ms. Jorge met with this social media strategist today for an initial social work consult and psychosocial assessment. She was open and forthright in sharing her overall life context and current experience with radiation therapy. She has lived in [place] for 7-8 years. She states she is well supported by [facility]/family/psychologists in both [place] and [place], is feeling as well as possible through her treatment, but is interested in completing a new health care directive if she determines that she is not satisfied with hers. Ms. Jorge was receptive to the packet of information offered and intends to review the materials. IMPRESSION Ms. Jorge understands her diagnosis, prognosis and recommended treatment, and demonstrates motivation to comply with her treatment plan. She is self- sufficient and able to communicate her own wishes, questions, and concerns. Friend, Berta, appears quite supportive, and Ms. Jorge appears aware of coping strategies that are helpful. INTERVENTIONS Introduction to medical social work services, assessment of coping, support, and resources, reflective listening, and supportive counseling were provided. Patient is coping well with treatment, is well-supported by family and community resources, and identifies only one gap in resources related to a health care directive (of which two copies are being left for her at the motel front desk attendant per her request). She is aware of the availability of social work assistance throughout radiation treatment, and is aware how to request this assistance if any needs or concerns arise. PLAN Written materials regarding medical social work services, online information and support resources, adjustment/coping with treatment, and caregiving were provided. 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
--- OUTSIDE RECORDS SUMMARY | 2022-10-08 09:08 | XMS_ITS | Encounter Summary ---
:1940 Author Organization [facility] Address [address] [place] [address] Care Team Providers Name Role Phone Unavailable Primary Care Provider Unavailable Reason for Visit Radiation Therapy (Routine) - Closed Specialty Diagnoses / Procedures Referred By Contact Refer red To Contact Diagnoses Malignant Neoplasm Of Breast Upper Inner Quadrant Female Right (HCC) Hernan Mcwilliams M.D. [facility] Radiation Oncology Procedures Prior Auth Rad Tx [place] IMRT SIMPLE [address] [place] [phone] [address] [facility] [place] [address] Referral ID Status Reason Start Date Expiration Date Visits Requ ested Visits Authorized [id number] Closed 07/28/2021 07/18/2022 30 30 Encounter Details Date Type Department Care Team Description 08/01/2021 Hospital Encounter Department of Radiation Derek Mcwilliams, [place] [address] [facility] [address] [place] [phone] Social History Tobacco Use Types Packs/Day Years Used Date Smoking Tobacco: Former Smokeless Tobacco: Never Comments: in college years Alcohol Use Standard Drinks/Week Comments Yes 1 (1 standard drink = 0.6 oz pure alcoho l) per day Alcohol Habits Answer Date Recorded How often do you have a drink containing 4 or more times a w [place] 01/01/2022 alcohol? How many drinks containing alcohol [...] or relatives? How often do you attend religious or More than 4 times per year 01/01/2022 alevism services? Do you belong to any clubs or Yes 01/01/2022 organizations such as religious groups, unions, fraternal or athletic groups, or [...] place to sleep or slept in a [place] [facility] [place] (including now)? 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
--- OUTSIDE RECORDS SUMMARY | 2022-10-08 09:09 | XMS_ITS | Encounter Summary ---
:1940 Author Organization [facility] Address [address] [place] [address] Care Team Providers Name Role Phone Unavailable Primary Care Provider Unavailable Encounter Details Date Type Department Care Team Description 06/12/2021 Education Breast Diagnostic Trini Cedillo D.O. [address] [place] [phone] Malignant Neoplasm Of Clinic in [place], Nicol Madsen, RDavidN. [address] [place] [phone] Breast Female Right [place] (HCC) [address] [place] [phone] Social History Tobacco Use Types Packs/Day Years Used Date Smoking Tobacco: Former Smokeless Tobacco: Never Comments: in college years Alcohol Use Standard Drinks/Week Comments Yes 1 (1 standard drink = 0.6 oz pure alcoho l) per day Alcohol Habits Answer Date Recorded How often do you have a drink containing 4 or more times a w [place] 01/01/2022 alcohol? How many drinks containing alcohol [...] or relatives? How often do you attend shinto or More than 4 times per year 01/01/2022 uatsdin services? 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 - 06/12/2021 10:30 AM CDT SUBJECTIVE CHIEF COMPLAINT/REASON FOR VISIT Introduction to Survivorship Consult RN Visit OBJECTIVE Discussion included: purpose and goals of Breast Cancer Survivorship Clinic; future appointment withadvanced practice provider; survivorship care plan document which is encouraged to be shared with primary provider; Patient Online Services; monitoring of additional treatment recommendations by BreastClinic RN; how and when future Survivorship Clinic appointment will be scheduled (approximately 3 to6 months following completion of treatment); review of Menu for Breast Cancer Survivorship supportive care appointments; calling the Breast Clinic appointment line ([phone]) to request appointments. Patient would like to have all her follow up in [place] as it is more convenient for her. I didsend Nelly Hoyt DIGITAL LIBRARIAN a message to relay she would like all her follow up in [place] as she doesSurvivorship Clinic. Patient also shared she was having cognitive issues with word finding and memory worse after anesthesia. I shared she could have her PCP evaluate and refer appropriately and that Iwould send her PCP Dr. Rojas regarding her concerns. documented in this encounter Plan of Treatment Not on filedocumented as of this encounter Visit Diagnoses Diagnosis Malignant Neoplasm Of Breast Female Righ t (HCC) documented in this encounter
--- OUTSIDE RECORDS SUMMARY | 2022-10-08 09:09 | XMS_ITS | Encounter Summary ---
:1940 Author Organization [facility] Address [address] [place] [address] Care Team Providers Name Role Phone Unavailable Primary Care Provider Unavailable Reason for Referral Outpatient (Routine) - Closed Specialty Diagnoses / Procedures Referred By Contact Refer red To Contact Oncology Benjamin Gacria M.D. [facility] [address] [place] [phone] Referral ID Status Reason Start Date Expiration Date Visits Requ ested Visits Authorized [id number] Closed 07/09/2021 07/09/2022 1 1 Scheduling Instructions Please use open slot, thanks! Encounter Details Date Type Department Care Team Description 07/09/2021 Orders Only Department of Oncology in [place], [place] Dorene [address] [place] [address] [place] [phone] [place], [place] [phone] (Wo rk) Social History Tobacco Use Types Packs/Day Years Used Date Smoking Tobacco: Former Smokeless Tobacco: Never Comments: in college years Alcohol Use Standard Drinks/Week Comments Yes 1 (1 standard drink = 0.6 oz pure alcoho l) per day Alcohol Habits Answer Date Recorded How often do you have a drink containing 4 or more times a w [place] 01/01/2022 alcohol? How many drinks containing alcohol [...] or relatives? How often do you attend buddhist or More than 4 times per year 01/01/2022 sabianism services? Do you belong to any clubs or Yes 01/01/2022 organizations such as buddhist groups, unions, fraternal or athletic groups, or [...] place to sleep or slept in a care home (including now)? 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
--- OUTSIDE RECORDS SUMMARY | 2022-10-08 09:09 | XMS_ITS | Encounter Summary ---
:1940 Author Organization [facility] Address [address] [place] [address] Care Team Providers Name Role Phone Unavailable Primary Care Provider Unavailable Reason for Visit Reason Comments Care Coordination Encounter Details Date Type Department Care Team Description 07/15/2021 Clinical Communication Department of Usha Rubalcava Coordination Oncology in J, R.N. [place], [place] [address] [place] [address] Social History Tobacco Use Types Packs/Day Years Used Date Smoking Tobacco: Former Smokeless Tobacco: Never Comments: in college years Alcohol Use Standard Drinks/Week Comments Yes 1 (1 standard drink = 0.6 oz pure alcoho l) per day Alcohol Habits Answer Date Recorded How often do you have a drink containing 4 or more times a w [place] 01/01/2022 alcohol? How many drinks containing alcohol [...] or relatives? How often do you attend congregational or More than 4 times per year 01/01/2022 caodaism services? Do you belong to any clubs or Yes 01/01/2022 organizations such as congregational groups, unions, fraternal or athletic groups, or [...] place to sleep or slept in a [facility] (including now)? 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 patient Reason for call: She has an upcoming visit and is trying to have her neurology visit notes sent to us. She was having a difficult time and asked for assistance. She can't remember the timeframes but remembers that she only went to [facility] twice between 2019 and 2020. I called [facility] and was asked to fax a request. I have faxed that request for all visit notes from to them. Thank you, Melba Almendarez Rst Onc Rogo Med AA Pod 2 documented in this encounter Plan of Treatment Not on filedocumented as of this encounter Visit Diagnoses Not on filedocumented in this encounter
--- OUTSIDE RECORDS SUMMARY | 2022-10-08 09:09 | XMS_ITS | Encounter Summary ---
:1940 Author Organization [facility] Address [address] [place] [address] Care Team Providers Name Role Phone Unavailable Primary Care Provider Unavailable Encounter Details Date Type Department Care Team Description 06/25/2021 Lab RST RO Augustin Monae M.D., Malignant Neoplasm Of [address] [place] [address] Ph.D. Breast Female Right (HCC) [place] [address] [place] [phone] (Wo rk) Social History Tobacco Use Types Packs/Day Years Used Date Smoking Tobacco: Former Smokeless Tobacco: Never Comments: in college years Alcohol Use Standard Drinks/Week Comments Yes 1 (1 standard drink = 0.6 oz pure alcoho l) per day Alcohol Habits Answer Date Recorded How often do you have a drink containing 4 or more times a w [place] 01/01/2022 alcohol? 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 documented in this encounter Results Oncotype DX Breast Cancer Assay-Sent Out Lab (05/29/2021 11:22 AM CDT) [facility] gist Method Time Signature Oncotype DX SEE COMMENT 07/23/2021 [facility] Breast Cancer 8:41 AM CDT Assay Comment: For final report, select Lab-Send Out L ab Results hyperlink below. Specimen Anatomical Collection Method Collection Time Receive d Time (Source) Location / / Volume Laterality Varies (Breast) 05/29/2021 11:22 07/01/20 9:10 AM CDT AM CDT Narrative This result has an attachment that is no t available. Augustin Ortega M.D., Ph.D. LAB GENETIC TESTING Performing Organization Address City/State/ZIP Code Phon e Number [facility] [address] [place] [phone] [facility] [place] [address] [phone] documented in this encounter Visit Diagnoses Diagnosis Malignant Neoplasm Of Breast Female Rig[place] t (HCC) documented in this encounter
--- OUTSIDE RECORDS SUMMARY | 2022-10-08 09:09 | XMS_ITS | Encounter Summary ---
:1940 Author Organization [facility] Address [address] [place] [address] Care Team Providers Name Role Phone Unavailable Primary Care Provider Unavailable Reason for Visit Outpatient (Routine) - Closed Specialty Diagnoses / Procedures Referred By Contact Refer red To Contact Oncology Benjamin Garcia M.D. [facility] [address] [place], [place] [phone] Referral ID Status Reason Start Date Expiration Date Visits Requ ested Visits Authorized [id number] Closed 06/20/2021 06/20/2022 1 1 Encounter Details Date Type Department Care Team Description 07/09/2021 Virtual Visit Department of Benjamin Garcia Neoplasm Of Oncology klaus Rivera M.D. Breast Upper [place], [place] [address] [facility] Quadrant Female Right [address] [place], [place] ([facility] [place] [phone] Social History Tobacco Use Types Packs/Day Years [...] More than 4 times per year 01/01/2022 anglican services? Do you belong to any clubs or Yes 01/01/2022 organizations such as alevism groups, unions, fraPowertech Technology or athletic groups, or school groups? 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 Jorge to share we did not have the results of the Oncotype back yet. We will postpone our planned visit today. I answered her questions about the Oncotype timeline and reiterated the rationale. We will plan to see her back on 07/21 to review results. Total time spent: 5 minutes, no charge filed. documented in this encounter Plan of Treatment Not on filedocumented as of this encounter Visit Diagnoses Diagnosis Malignant Neoplasm Of Breast Upper Inner Quadrant Female Right (HCC) documented in this encounter
--- OUTSIDE RECORDS SUMMARY | 2022-10-08 09:09 | XMS_ITS | Encounter Summary ---
:1940 Author Organization [facility] Address [address] [place] [address] Care Team Providers Name Role Phone Unavailable Primary Care Provider Unavailable Reason for Visit Outpatient (Routine) - Closed Specialty Diagnoses / Procedures Referred By Contact Refer red To Contact General Surgery Trini Cdeillo D.O. [place] [facility] [address] [place], [place] [address] Referral ID Status Reason Start Date Expiration Date Visits Requ ested Visits Authorized [id number] Closed 05/22/2021 05/22/2022 1 1 Encounter Details Date Type Department Care Team Description 06/12/2021 Office Visit Division of Breast and Nedra Mclaughlin Ma lignant Neoplasm Of Melanoma Surgical Violetta Avendaño, M. S. 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 - 06/12/2021 2:30 PM CDT SUBJECTIVE CHIEF COMPLAINT/REASON FOR VISIT Breast Carcinoma Post Operative Visit Source of consultation: Trini Cedillo D.O. HISTORY OF PRESENT ILLNESS Adrienne Jorge is a 81 y.o. female seen in postoperative follow-up. The operation performed was right lumpectomy with right sentinel lymph node biopsy. Final histology showed: Laterality: right Size: 2.6 (With lobular growth patern) cm Histology: Invasive ductal carcinoma Closest final margin (mm): 4-4.9 Lymph nodes: 2/4 sentinel lymph nodes positive for metastasis. History well, she denies any pain. Patient states that she does have some areas of discomfort underneath her arm. Patient is wearing a sports bra for support. Patient denies any erythema or drainage at the incision site. OBJECTIVE PHYSICAL EXAM Incision findings: Clean and intact Incisions are clean, dry, intact, and well approximated. There is no erythema, increased skin warmth, drainage from the incisions or odor noted. No obvious signs of hematoma, seroma, cellulitis or necrosis. Area of ecchymosis measuring 5 cm on the superior medial edge of the incision site. 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 We discussed the use of a supportive bra, which may be a sports bra, regular bra or a prescription bra. Patient will continue to monitor her incisions and operative sites for signs and symptoms concerningfor infection or fluid collection. If she would note erythema, warmth, drainage or order, a rapid onset of swelling or firmness, note the presence of fluid collection, develop a fever over 100.4?? F, or note any other concerning findings she needs to contact our surgical team. We recommend no soaking in hot tubs, pools or lakes for 3 weeks after surgery. We discussed the recommended follow-up and surveillance and she expressed understanding. All of her questions were answered to her stated satisfaction. She will contact us if she has any questions or concerns. 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
--- OUTSIDE RECORDS SUMMARY | 2022-10-08 09:09 | XMS_ITS | Encounter Summary ---
:1940 Author Organization [facility] Address [address] [place] [address] Care Team Providers Name Role Phone Unavailable Primary Care Provider Unavailable Reason for Referral Outpatient (Routine) - Closed Specialty Diagnoses / Procedures Referred By Contact Refer red To Contact Oncology Benjamin Garcia M.D. [facility] [address] [place] [phone] Referral ID Status Reason Start Date Expiration Date Visits Requ ested Visits Authorized [id number] Closed 07/17/2021 07/17/2022 1 1 Scheduling Instructions Return in 3-4 months, thanks! Reason for Visit Outpatient (Routine) - Closed Specialty Diagnoses / Procedures Referred By Contact Devin red To Contact Oncology Benjamin Garcia M.D. [address] [phone] Referral ID Status Reason Start Date Expiration Date Visits Requ ested Visits Authorized [id number] Closed 07/09/2021 07/09/2022 1 1 Encounter Details Date Type Department Care Team Description 07/16/2021 Office Visit Department of Benjamin Garcia Malignant Neoplasm Of Oncology klaus Rivera M.D. Breast Upper [place], [place] [address] [facility] Quadrant Female Right [address] [place], [place] (HCC) (Primary Dx) [place] [address] [phone] Social History Tobacco Use Types Packs/Day Years Used Date Smoking Tobacco: Former Smokeless Tobacco: Never Comments: in college years Alcohol Use Standard Drinks/Week Comments Yes 1 (1 standard drink = 0.6 oz pure alcoho l) per day Alcohol Habits Answer Date Recorded How often do you have a drink containing 4 or more times a w [place] 01/01/2022 alcohol? How many drinks containing alcohol [...] or relatives? How often do you attend restorationist or More than 4 times per year 01/01/2022 faith services? 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 - 07/16/2021 1:20 PM CDT SUBJECTIVE REFERRAL Benjamin Garcia M.D. CHIEF COMPLAINT / REASON FOR VISIT Primary Staff: Dr. Benjamin Garcia Hormone receptor positive breast cancer HISTORY OF PRESENT ILLNESS Adrienne Jorge is a 81 y.o. female with the following history. Oncology History Overview Note 80-year-old female from [place], [place], who presented with an abnormal screening [...] grade 3 invasive ductal carcinoma, ER 100%, HI 2%, HER2 negative (1+), Ki-67 pending. Therewas [...] left supraclavicular/cervical lymphadenopathy partially included in the [id number] on some series. Questionable left lung nodule [...] Breast Upper Inner Quadrant Female Right (HCC) Interval History Ms. Adrienne Jorge is a 81 year-old woman accompanied by her friend from [place], [place] presenting in follow-up for hormone receptor positive, HER2 negative, node positive breast cancer. Most of Ms. Jorge's questions were surrounding memory changes. She has been undergoing assessment in [place] and I don't have these results. We looked in the media files at more than 100 records and could not find the MRI. She shares that for the last several months she has been having word finding difficulties. This has been a gradual decline. This had not come out did any of our prior visits. She does live independently. There is no on else in the home. She does manage household in daily activities. This is been a major concern for her. The following were reviewed and updated as [...] Take 81 mg by mouth daily. ??? cholecalciferol (VITAMIN D3) 25 mcg (1,000 Unit) capsule Take 1,000 Units by mouth daily. ??? mirtazapine (REMERON) 30 mg tablet Take 60 mg by mouth at bedtime. ??? multivitamin tablet Take 1 tablet by mouth daily. ??? sennosides (senna) 8.6 mg tablet Take 1 tablet (8.6 mg total) by mouth daily. 14 tablet 0 ??? simvastatin (ZOCOR) 20 mg tablet Take 20 mg by mouth at bedtime. ??? traMADoL (ULTRAM) 50 mg tablet Take 1-2 tablets (50-100 mg total) by mouth 4 (four) times a day as needed for pain Indications: acute pain. (Patient not taking: Reported on 07/07/2021 ) 12 tablet 0 ??? venlafaxine XR (EFFEXOR-XR) 150 mg 24 hr capsule Take 150 mg by mouth daily. ??? venlafaxine XR (EFFEXOR-XR) 75 mg 24 hr capsule Take 75 mg by mouth daily. 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 Jorge returns accompanied by friend Berta. We shared the good news that the Oncotype score returned at 15. This means there is no role for adjuvant chemotherapy. We had a lengthy discussion aboutthe role for adjuvant endocrine therapy. We utilized the Oncotype score to estimate her risk of distant recurrence at 9 years to be 14%. That is assuming she is taking endocrine therapy. Without endocrine therapy, that number would be closer to 30%. Given her cognitive impairment, existing osteopenia, I did not want to utilize an aromatase inhibitor. I viewed either observation or tamoxifen as reasonable. She is quite interested in trialing tamoxifen. I want to make sure she did not have any contraindications to as there is a possible small stroke risk. She will move forward with connecting to radiation oncologists in [place]. We will tentatively plan for tamoxifen to start after radiation. If her neurology notes indicate worry for large vessel stroke, we may reassess. We'll plan to see her back once in 3-4 months. IF things are going well, we will transition to breast clinic at that time. ADDENDUM ON 07/17 I was able to see the brain MRI which showed halg-jp-unlignbr chronic microvascular ischemic changesand chronic lacunar infarcts. Additionally noted were mild diffuse cerebral volume loss with slightly more pronounced atrophy of the frontoparietal convexities. I see in office note dated April 22, 2021. Here at highlights the details of her cognitive decline in short-term memory loss for the past 8 months. I don't see a diagnosis labeled, but the MRI descriptions seems consistent with vascular dementia. 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
--- OUTSIDE RECORDS SUMMARY | 2022-10-08 09:09 | XMS_ITS | Encounter Summary ---
:1940 Author Organization [facility] Address [address] [place] [address] Care Team Providers Name Role Phone Unavailable Primary Care Provider Unavailable Reason for Visit Reason Comments Intake Assessment Encounter Details Date Type Department Care Team Description 07/07/2021 Clinical Communication Department of Laureen Garcia Oncology in Jaciel Alberto M.D. [address] [place] [phone] Social History Tobacco Use Types Packs/Day Years Used Date Smoking Tobacco: Former Smokeless Tobacco: Never Comments: in college years Alcohol Use Standard Drinks/Week Comments Yes 1 (1 standard drink = 0.6 oz pure alcoho l) per day Alcohol Habits Answer Date Recorded How often do you have a drink containing 4 or more times a w [place] 01/01/2022 alcohol? How many drinks containing alcohol [...] or relatives? How often do you attend yazdanism or More than 4 times per year 01/01/2022 anabaptist services? 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
--- OUTSIDE RECORDS SUMMARY | 2022-10-08 09:09 | XMS_ITS | Encounter Summary ---
:1940 Author Organization [facility] Address [address] [place] [address] Care Team Providers Name Role Phone Unavailable Primary Care Provider Unavailable Encounter Details Date Type Department Care Team Description 07/16/2021 Clinical Communication Department of Hernan Mcwilliams Radiation Oncology Dorene [facility] [address] [facility] [address] [place] [address] [phone] Social History Tobacco Use Types Packs/Day Years Used Date Smoking Tobacco: Former Smokeless Tobacco: Never Comments: in college years Alcohol Use Standard Drinks/Week Comments Yes 1 (1 standard drink = 0.6 oz pure alcoho l) per day Alcohol Habits Answer Date Recorded How often do you have a drink containing 4 or more times a w [place] 01/01/2022 alcohol? How many drinks containing alcohol [...] or relatives? How often do you attend mu-ism or More than 4 times per year 01/01/2022 anabaptist services? 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
--- OUTSIDE RECORDS SUMMARY | 2022-10-08 09:09 | XMS_ITS | Encounter Summary ---
:1940 Author Organization [facility] Address [address] [place] [address] Care Team Providers Name Role Phone Unavailable Primary Care Provider Unavailable Encounter Details Date Type Department Care Team Description 06/12/2021 Orders Only Department of Oncology Bailey Rivas Clinical Research Exam in [place] [address] [facility] (Primary Dx) [place], [place] [address] [facility] [address] [place], [place] [phone] (Work) [phone] Social History Tobacco Use Types Packs/Day Years Used Date Smoking Tobacco: Former Smokeless Tobacco: Never Comments: in college years Alcohol Use Standard Drinks/Week Comments Yes 1 (1 standard drink = 0.6 oz pure alcoho l) per day Alcohol Habits Answer Date Recorded How often do you have a drink containing 4 or more times a w [place] 01/01/2022 alcohol? How many drinks containing alcohol [...] or relatives? How often do you attend christianity or More than 4 times per year 01/01/2022 lutheran services? Do you belong to any clubs or Yes 01/01/2022 organizations such as christianity groups, unions, fraternal or athletic groups, or [...] place to sleep or slept in a longterm (including now)? Sex Assigned at Date Recorded Female 01/01/2022 8:43 AM REHAB AID documented as of this encounter Plan of Treatment Not on filedocumented as of this encounter Results Miscellaneous Research, B (06/12/2021 12:12 PM CDT) athologist Signature Number of 1 06/12/2021 [facility] Specimens 12:12 PM CDT Specimen Anatomical Collection Method Collection Time Receive d Time (Source) Location / / Volume Laterality Varies (Blood, 06/12/2021 12:12 1 Venous) PM CDT 12:12 PM CDT Kandy Low M.D. LAB RESEARCH NO RESULT KEISHA WARNER Performing Organization Address City/State/ZIP Code Phon e Number [facility] - [address] [place], [place] [address] [place] [address] [facility] [place] [address] documented in this encounter Visit Diagnoses Diagnosis Clinical Research Exam - Primary documented in this encounter
--- OUTSIDE RECORDS SUMMARY | 2022-10-08 09:09 | XMS_ITS | Encounter Summary ---
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 [facility] Procedures Initial Rad Onc Treatment Planning CT Simulation [address] [place] [address] Referral ID Status Reason Start Date Expiration Date Visits Requ ested Visits Authorized [id number] Closed 07/18/2021 07/18/2022 1 1 Encounter Details Date Type Department Care Team Description 07/22/2021 Hospital Encounter Department of Hernan Mcwilliams Neoplasm Radiation Oncology Dorene Avendaño [facility], [address] [facility] [place] Female Right (HCC) [address] [facility] [address] [place], [place] [phone] (Work) [phone] Social History Tobacco Use Types Packs/Day Years Used Date Smoking Tobacco: Former Smokeless Tobacco: Never Comments: in college years Alcohol Use Standard Drinks/Week Comments Yes 1 (1 standard drink = 0.6 oz pure alcoho l) per day Alcohol Habits Answer Date Recorded How often do you have a drink containing 4 or more times a w [place] 01/01/2022 alcohol? How many drinks containing alcohol [...] or relatives? How often do you attend baptism or More than 4 times per year 01/01/2022 confucianist services? 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 Authorized by: Hernan Mcwilliams M.D. Simulation was performed under physician supervision based on physician order in preparation for radiation therapy. Physician was immediately available to provide assistance and direction throughout the procedure. Written consent for treatment was completed or confirmed. The patient was appropriately identified and placed in the treatment position using the necessary immobilization to ensure a reproducible treatment position. Reference goodrich were placed to facilitate marking of isocenter. Area scanned:Chest Contrast used for the simulation procedure: None Patient position: Head first supine Custom immobilization: Vac-haley Motion management: None Bolus: No CT guidance: Following positioning of the patient, a series of slices was obtained to be utilized intreatment planning. CT images were transferred to the Health Data Minder treatment planning system, after a reference isocenter was determined and marked. Segmentation and treatment planning will take place priorto treatment delivery. Patient set up and imaging was appropriate and completed without incident. Mass Communications Professor use:No documented in this encounter Plan of Treatment Not on filedocumented as of this encounter Procedures Procedure Name Priority Date/Time Associated Comments Diagnosis INITIAL RAD ONC Routine 07/22/2021 10:09 AM Malignant Neoplasm Results for this TREATMENT PLANNING CDT Of Breast Upper proced ure are in CT SIMULATION Inner Quadrant the results Female Right (HCC) section. documented in this encounter Results Initial Rad Onc Treatment Planning CT Simulation (07/22/2021 10:09 AM CDT) Specimen (Source) Anatomical Location Collection Method / Collectio n Time Received Time / Laterality Volume Narrative PHOEBE ELIZONDO - 07/22/2021 10:09 AM CDT Carleen Cha, RTT ? 07/22/2021 10:09 AM Initial Rad Onc Treatment Planning CT Si mulation Date/Time: 07/22/2021 10:09 AM Performed by: Hernan Mcwilliams M.D. Authorized by: Hernan Mcwilliams M.D. Hernan Mcwilliams M.D. 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
--- OUTSIDE RECORDS SUMMARY | 2022-10-08 09:09 | XMS_ITS | Encounter Summary ---
:1940 Author Organization [facility] Address [address] [place] [address] Care Team Providers Name Role Phone Unavailable Primary Care Provider Unavailable Reason for Referral Specialty Diagnoses / Procedures Referred By Contact Refer red To Contact Shital Morgan P.A.-C ., M.S. 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 [facility] Procedures Initial Rad Onc Treatment Planning CT Simulation [address] [place] [address] Referral ID Status Reason Start Date Expiration Date Visits Requ ested Visits Authorized [id number] Closed 07/18/2021 07/18/2022 1 1 Encounter Details Date Type Department Care Team Description 07/18/2021 Orders Only Department of Radiation Shital Morgan Mal ignant Neoplasm Of Oncology in [place], P.Hawk., M.S. Breast Upper [facility] [address] [facility] Quadrant Female Right [address] [place], [place] (HCC) (Primary Dx) [place] [phone] Social History Tobacco Use Types Packs/Day Years Used Date Smoking Tobacco: Former Smokeless Tobacco: Never Comments: in college years Alcohol Use Standard Drinks/Week Comments Yes 1 (1 standard drink = 0.6 oz pure alcoho l) per day Alcohol Habits Answer Date Recorded How often do you have a drink containing 4 or more times a w [place] 01/01/2022 alcohol? How many drinks containing alcohol [...] or relatives? How often do you attend faith or More than 4 times per year 01/01/2022 baptism services? 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 Plan of Treatment Scheduled Orders Name Type Priority Associated Order Schedule Diagnoses Prior Auth Rad Tx Radiation Oncology Routine Malignant Neoplas m Ordered: 07/18/2021 Of Breast Upper Inner Quadrant Female Right (HCC) Management Visit Radiation Oncology Routine Malignant Neoplasm 10 Occurrences Of Breast Upper starting Inner Quadrant until 022 Female Right (HCC) Scheduled Referrals Name Type Priority Associated Diagnoses Order S chedule Radiation Oncology Outpatient Referral Routine Malignant Neopl asm Expected: - Nurse education Of Breast Upper 021 visit (clinic) Inner Quadrant (Approximat e), Female Right (HCC) Expires: 07/18/2022 documented as of this encounter Results Initial Rad Onc Treatment Planning CT Simulation (07/22/2021 10:09 AM CDT) Specimen (Source) Anatomical Location Collection Method / Collectio n Time Received Time / Laterality Volume Narrative SANDHU JUNIORA - 07/22/2021 10:09 AM CDT Carleen Cha, RTT ? 07/22/2021 10:09 AM Initial Rad Onc Treatment Planning CT Si mulation Date/Time: 07/22/2021 10:09 AM Performed by: Hernan Mcwilliams M.D. Authorized by: Hernan Mcwilliams M.D. Hernan Mcwilliams M.D. 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
--- OUTSIDE RECORDS SUMMARY | 2022-10-08 09:09 | XMS_ITS | Encounter Summary ---
:1940 Author Organization [facility] Address [address] [place] [address] Care Team Providers Name Role Phone Unavailable Primary Care Provider Unavailable Reason for Visit Reason Comments Follow-up Encounter Details Date Type Department Care Team Description 06/04/2021 Clinical Communication Division of Breast, [place], [place] a Follow-up Endocrine, Metabolic, and A, D.O . Gastrointestinal Surgery [address] [facility] in [place], [place] [address] [place] [phone] [place] [address] [phone] Social History Tobacco Use Types Packs/Day Years Used Date Smoking Tobacco: Former Smokeless Tobacco: Never Comments: in college years Alcohol Use Standard Drinks/Week Comments Yes 1 (1 standard drink = 0.6 oz pure alcoho l) per day Alcohol Habits Answer Date Recorded How often do you have a drink containing 4 or more times a w [place] 01/01/2022 alcohol? How many drinks containing alcohol [...] or relatives? How often do you attend moravian or More than 4 times per year 01/01/2022 jainism services? 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 - 06/04/2021 10:36 AM CDT PLAN The following information was provided: Patient questioned when she would be able to return back to the chiropractor and have full body massages. Informed patient that it is important to reduce trauma to the area of the incisions and that she can receive palliative care physician as long as she is not placed on her chest. Instructed patient to avoid massage to the breast and axilla, but she can receive massages to the surrounding areas of her body. Patient questioned how long these restrictions would be in place to which I informed her is typically 2-3 weeks or when the incisions are fully healed. Patient stated she had no additional questions or concerns and was appreciative of the phone call. Information/Education: patient/caller able to teach back The following references were used: nursing clinical judgement documented in this encounter Plan of Treatment Not on filedocumented as of this encounter Visit Diagnoses Not on filedocumented in this encounter
--- OUTSIDE RECORDS SUMMARY | 2022-10-08 09:09 | XMS_ITS | Encounter Summary ---
:1940 Author Organization [facility] Address [address] [place] [address] Care Team Providers Name Role Phone Unavailable Primary Care Provider Unavailable Encounter Details Date Type Department Care Team Description 06/12/2021 Hospital Encounter Department of [facility] Research Laboratory Medicine Dorene Reed Exam and Pathology, [address] [place] [address] [phone] [place] [address] (Work) [place], [place] [phone] (Fax) [phone] Social History Tobacco Use Types Packs/Day Years Used Date Smoking Tobacco: Former Smokeless Tobacco: Never Comments: in college years Alcohol Use Standard Drinks/Week Comments Yes 1 (1 standard drink = 0.6 oz pure alcoho l) per day Alcohol Habits Answer Date Recorded How often do you have a drink containing 4 or more times a w [place] 01/01/2022 alcohol? 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 traMADoL (ULTRAM) 50 mg Take 1-2 tablets [...] Name Priority Date/Time Associated Diagnosis Comme nts [facility] RESEARCH Routine 06/12/2021 12:12 PM Clinical Research Re sults for this ORDER, B CDT Exam procedure are i n the results section. documented in this encounter Results Miscellaneous Research, B (06/12/2021 12:12 PM CDT) athologist Signature Number of 1 06/12/2021 [facility] Specimens 12:12 PM CDT Specimen Anatomical Collection Method Collection Time Receive d Time (Source) Location / / Volume Laterality Varies (Blood, 06/12/2021 12:12 Venous) PM CDT 12:12 PM CDT Kandy Low M.D. LAB RESEARCH NO RESULT KEISHA WARNER Performing Organization Address City/State/ZIP Code Phon e Number [facility] [address] [place], [place] [address] [facility] [place] [address] [facility] [address] documented in this encounter Visit Diagnoses Diagnosis Clinical Research Exam documented in this encounter
--- OUTSIDE RECORDS SUMMARY | 2022-10-08 09:09 | XMS_ITS | Encounter Summary ---
:1940 Author Organization [facility] Address [address] [place] [address] Care Team Providers Name Role Phone Unavailable Primary Care Provider Unavailable Reason for Referral Outpatient (Routine) - Closed Specialty Diagnoses / Procedures Referred By Contact Refer red To Contact Radiation Oncology Hernan Mcwilliams M .D. [facility] [address] [place] [address] Referral ID Status Reason Start Date Expiration Date Visits Requ ested Visits Authorized [id number] Closed 07/21/2021 07/21/2022 1 1 Scheduling Instructions Prior to sim to answer questions and sig n consent Outpatient (Routine) - Closed Specialty Diagnoses / Procedures Referred By Contact Refer red To Contact Radiation Oncology Diagnoses Malignant Neoplasm Of Breast Upper Inner Quadrant Female Right (HCC) Shital Christian [facility] P.[facility] [address] [place] [address] Referral ID Status Reason Start Date Expiration Date Visits Requ ested Visits Authorized [id number] Closed 06/12/2021 06/12/2022 1 1 Scheduling Instructions Schedule in [place] Reason for Visit Outpatient (Routine) - Closed Specialty Diagnoses / Procedures Referred By Contact Refer red To Contact Radiation Oncology Diagnoses Malignant Neoplasm Of Breast Upper Inner Quadrant Female Right (HCC) Sameera Christianah Saturnino, [facility] [address] [place] [address] Referral ID Status Reason Start Date Expiration Date Visits Requ ested Visits Authorized [id number] Closed 06/12/2021 06/12/2022 1 1 Encounter Details Date Type Department Care Team Description 07/21/2021 Hospital Encounter Department of Hernan Mcwilliams Neoplasm Radiation Oncology Dorene Avendaño Of Breast Upper in [place], [address] [place], [place] Female Right (HCC) [address] [facility] [address] (Primary Dx) [place], [place] [phone] [address] (Work) [phone] Social History Tobacco Use Types Packs/Day Years Used Date Smoking Tobacco: Former Smokeless Tobacco: Never Comments: in college years Alcohol Use Standard Drinks/Week Comments Yes 1 (1 standard drink = 0.6 oz pure alcoho l) per day Alcohol Habits Answer Date Recorded How often do you have a drink containing 4 or more times a w [place] 01/01/2022 alcohol? How many drinks containing alcohol [...] More than 4 times per year 01/01/2022 gnosticist services? 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 capsule cholecalciferol (VITAMIN Take 1,000 Units 0 01/1608/15/2021 D3) 25 mcg (1,000 Unit) by mouth daily. capsule tamoxifen (NOLVADEX) 20 mg Take 1 tablet [...] 75 mg 24 hr mouth daily. capsule ascorbic acid, vitamin C, Take 1 tablet by 0 12/3008/15/2021 (VITAMIN C) 500 mg tablet mouth daily. cyanocobalamin (VITAMIN Take 1 tablet by 0 201408/15/2021 B12) 1,000 mcg tablet mouth daily. documented as of this encounter Consult Notes Hernan Mcwilliams M.D. - 07/21/2021 9:15 AM CDT SUBJECTIVE REQUESTING PROVIDER Shital Christian P.A.-C. REASON FOR CONSULT 1. 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 Adrienne Jorge is a 81 y.o. female with stage IIA (pT2, pN1a(sn), cM0, G3, ER+, DC+, HER2-) invasive ductal carcinoma of the right breast. I am asked by Shital Christian P.A.-C. and Dr. Perez to evaluate the patient for radiotherapy. Her oncologic history is as follows: 1. April 23, 2021: Bilateral screening mammogram demonstrated scattered fibroglandular densities present bilaterally. There was a spiculated mass within the medial right breast, 4 cm from the nipple, measuring 1.1 cm. Associated architectural distortion was present. Left breast mammogram was normal. BI-RADS 0. 2. May 01, 2021: Ultrasound of the right breast at the 2 o'clock position, 4 cm from the nipple demonstrated a solid, hypoechoic, taller than wide, spiculated mass with distal acoustic shadowing measuring 1.5 x 1.3 x 1.9 cm. Normal right axillary lymph node. BI-RADS 5. 3. May 01, 2021: Ultrasound-guided core biopsy of the right breast at the 2 o'clock position, 4 cm from the nipple was performed. Pathology demonstrated invasive ductal carcinoma, [place] grade 3. Angiolymphatic invasion was absent. Associated DCIS was present, solid, grade 3. Estrogen receptor positive (100%). Progesterone receptor positive (2%). HER2 by IHC negative (1+). KI-67 24% 4. May 06, 2021: MRI of the bilateral breasts demonstrated in the right breast at the 1-2 o'clock position, middle depth, there was an irregular mass and heterogeneous non mass enhancement which spanned approximately 2.6 x 1.5 x 1.6 cm. There were no additional suspicious areas of enhancement in the right breast. There were no suspicious areas of enhancement in the left breast. There was no suspicious lymphadenopathy. BI-RADS 6. 5. May 16, 2021: [facility] review of outside imaging demonstrated calcifications located approximately 1.3 cm anterior to the known malignancy. Possible enlarged right internal mammary lymph node measuring 1.2 cm near the first rib. Possible left supraclavicular/cervical lymphadenopathy partially in cluded in the field of view. Questionable left lung nodule anteriorly. 6. May 19, 2021: CT scan of the neck soft tissue demonstrated no convincing cervical adenopathy in the visualized neck. Irregular intramedullary right greater than left subclavian veins consistent with small varices. Additional suspected varix arising from the lateral right external jugular vein. 7. May 19, 2021: CT scan of the chest demonstrated a few scattered solid noncalcified 1 mm pulmonary nodules, indeterminate. Patchy ill-defined posterior medial left lower lobe opacities, likely of infectious/inflammatory etiology. Additional peripheral right upper lobe infectious/inflammatory bronchiolitis. Scattered mucus plugs. 8. May 26, 2021: PET/CT scan demonstrated focal FDG uptake associated with the small right breast nodule which contained a metallic biopsy clip, SUV max 1.7. No additional FDG avid lesions within the breast tissue. Low level uptake in nonenlarged bilateral axillary lymph nodes should be physiologic/reactive. No convincing FDG avid internal mammary lymph nodes. Mild FDG uptake in the previously notedclustered nodularity of the peripheral right upper lobe, consistent with infectious/inflammatory process. Likewise, probable infectious/inflammatory opacities in the medial left lower lobe. 9. May 29, 2021: Right breast lumpectomy and right axillary sentinel lymph node biopsy was performedby Dr. Trini Cedillo. Pathology of the right breast demonstrated invasive ductal carcinoma with lobular growth pattern, [place] grade 3, measuring 26 x 23 x 16 mm. Ductal carcinoma in situ was not identified. Invasive carcinoma was located 4 mm from the closest anterior margin. Two of four right axillary sentinel lymph nodes were positive for macrometastatic carcinoma measuring 3 mm and 5 mm, extranodal extension was not identified (2/4). pT2 pN1a(sn) 10. June 12, 2021: Radiation Oncology appointment with Dr. Vivek Perez who recommended adjuvant radiotherapy including targeting the right internal mammary lymph node noted on outside MRI scan measuring 1.2 cm. Referral to Radiation Oncology in [place]. 11. July 08, 2021: Oncotype DX recurrence score result 15. No apparent benefit for chemotherapy. 12. July 16, 2021: Appointment with Dr. Benjamin Garcia who did not recommend chemotherapy. Tentative plan for tamoxifen to start after radiation therapy. If her neurology notes indicate worry for large vessel stroke, they may re-assess. Follow-up in 3-4 months. INTERVAL HISTORY The patient reports that she is currently feeling well. She has occasional discomfort in her right axilla that she rates at up to 6/10 in severity. It lasts for just a few seconds and then resolves. She is not taking any analgesics for it. She has no pain currently. The pain had occurred approximately5 times in the past week. Otherwise she is feeling well. She had no antecedent breast symptoms priorto her mammography. She denies any current fever, chills, nausea, vomiting, or shortness of breath. She denies a history of prior radiation therapy, connective tissue disorders, or inflammatory bowel disease. Her ECOG performance status is 0. REVIEW OF SYSTEMS Review of systems was negative except as documented above. PATIENT REPORTED SYMPTOM SCREEN PAIN (Scale: 0 = no pain; 10 = worst pain you can imagine): 0 PAST MEDICAL HISTORY 1. 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 EGFR and KRAS wild type, ALK negative. 2. Anxiety 3. Depression 4. Asthma 5. Insomnia 6. Osteopenia 7. Panic disorder 8. GERD 9. Adenoma of colon 10. Hyperlipidemia 11. GI bleed 12. Hiatal hernia 13. Cognitive impairment 14. Stage IIA (pT2, pN1a(sn), cM0, G3, ER+, DC+, HER2-) invasive ductal carcinoma of the right breast PAST SURGICAL HISTORY Past Surgical History: Procedure [...] SURGERY Left 2013 ??? TONSILLECTOMY SOCIAL HISTORY She lives in [place], [place]. She lives independently and alone. She is . 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 She has one child in [place]. She is a never smoker. She did have secondhand smoke exposure for 11 years or more. She is not currently exposed. She drinks 3-5 alcoholic beverages per week. She has a number of supportive friends in the area. FAMILY HISTORY Negative for breast cancer. Family History Problem Relation Age of Onset ??? Colon cancer Father ??? Liver cancer Brother ??? Multiple myeloma Brother OBJECTIVE BP (!) 104/45 (BP Location: Right arm, Patient Position: Sitting, Cuff Size: Small) Pulse 100 Temp 36.9 ??C (Temporal) Ht 162 cm Wt 61 kg BMI 23.24 kg/m?? PHYSICAL EXAM General: Patient is awake, alert, and oriented to person, place, and time. She admitted to feeling quite anxious at the beginning of our visit but seemed calm by visit completion. She is here today by herself. Exam was chaperoned by LANE [place]. ENT: Pupils equal, round, and reactive to light with changes of cataract extractions bilateral. Sclera anicteric. Oral cavity inspection reveals moist mucous membranes and no visible lesions. Neck: Supple. Lymph: No palpable cervical, supraclavicular, infraclavicular, or axillary adenopathy. Spine: There is no tenderness to palpation of the spine. Lungs: Clear to auscultation bilaterally. Heart: Regular rate and rhythm. Normal S1 and S2. No murmurs. Abdomen: Soft, non-tender, non-distended. Normal active bowel sounds are present. Extremities: No edema. Neurologic: Gait is normal. Breasts: Examined in the sitting and supine positions. The right breast has an everted nipple with well-healed surgical incisional scar in the upper inner aspect from the 1:00 to 2:00 positions a.m. some scarring deep to this but no palpable masses, no overlying skin changes, and no expressible nippledischarge. There was also well-healed incisional scar in the right axilla. The left breast has an everted nipple with no palpable masses, no overlying skin changes, and no expressible nipple discharge. DIAGNOSTICS I reviewed the patient's imaging as listed above in the numbered items of the HPI. I specifically went over her PET/CT imaging with her and her MRI. I also reviewed her pathology reports. 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 I reviewed the NCCN guidelines in formulating my recommendations. I went over these with the patient. We discussed standard fractionation whole breast radiotherapy to a dose [id number] cGy in 25 fractions with or without a boost of 1000 cGy in 4 fractions to the lumpectomy cavity. I recommend treatment to the right breast and regional lymph nodes to a dose of 5000 cGy in 25 fractions with an integrated boost of 5625 cGy in 25 fractions to the enlarged internal mammary lymph node seen on the preoperative MRI and no boost to the lumpectomy cavity. I discussed the logistics as well as the acute and chronic side effects of treatment in detail. The acute side effects are common and include breast erythema, swelling, discomfort, and possible peelingof the skin, possible mild sore throat, and fatigue. Long-term side effects could include radiation p neumonitis (lung inflammation, <1% risk), pulmonary scarring (typically of no clinical significance), skin changes and texture changes of the breast, possible breast asymmetry, increased risk of ribfracture with significant trauma, lymphedema (12% risk), hypothyroidism, and a very small risk of secondary malignancy (less than 0.2%). After this discussion, I provided the patient with a written summary of my recommendations. Her questions were answered to her verbalized satisfaction. The patient would like to contemplate treatment overnight tonight. I will meet with her tomorrow to go over the consent form. If she agrees, she will undergo a CT simulation tomorrow. We will endeavor to begin treatment on Thursday, July 29, 2021. My thanks to Ms. Christian and Drs. Perez, Jose, Nguyen, and Bob for the opportunity to participate in this patient's care. EDUCATION Ready to learn, no apparent learning barriers were identified; learning preferences include listening. Explained diagnosis and treatment plan; patient expressed understanding of the content. CONSENT Discussed the risks, benefits, alternatives, and the necessity of other members of the healthcare team participating in the procedure. All questions answered and consent given. I have spent 60 minutes with this patient today with 55 minutes spent in counseling the patient. Signed by: Hernan Mcwilliams M.D. 07/21/2021 5:30 PM CDT Radiation Oncology [facility] [address] [place] [address] documented in this encounter Miscellaneous Notes Addendum Note - Lata Rosario - 07/21/2021 9:15 AM CDT Encounter addended by: Lata Rosario on: 07/22/2021 8:26 AM Actions taken: Letter saved documented in this encounter Plan of Treatment Scheduled Referrals Name Type Priority Associated Order Schedule Diagnoses Radiation Oncology Outpatient Referral Routine Malignant Neopl asm Once for 1 - Breast consult Of Breast Upper Occurren mina starting (clinic) Inner Quadrant 07/21/2021 un til Female Right (HCC) Radiation Oncology Outpatient Referral Routine Ex pected: office visit 07/22/2021, Exp ires: (clinic) 07/21/2022 documented as of this encounter Visit Diagnoses Diagnosis Malignant Neoplasm Of Breast Upper Inner Quadrant Female Right (HCC) - Primary documented in this encounter
--- OUTSIDE RECORDS SUMMARY | 2022-10-08 09:09 | XMS_ITS | Encounter Summary ---
:1940 Author Organization [facility] Address [address] [place] [address] Care Team Providers Name Role Phone Unavailable Primary Care Provider Unavailable Encounter Details Date Type Department Care Team Description 07/10/2021 Clinical Communication Department of Benjamin Garcia Oncology klaus Rivera M.D. [place], [place] [address] [facility] [address] [place] [phone] [phone] Social History Tobacco Use Types Packs/Day Years Used Date Smoking Tobacco: Former Smokeless Tobacco: Never Comments: in college years Alcohol Use Standard Drinks/Week Comments Yes 1 (1 standard drink = 0.6 oz pure alcoho l) per day Alcohol Habits Answer Date Recorded How often do you have a drink containing 4 or more times a w [place] 01/01/2022 alcohol? How many drinks containing alcohol [...] or relatives? How often do you attend hinduism or More than 4 times per year 01/01/2022 oriental orthodox services? 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 - 07/14/2021 11:47 AM CDT Appt moved to 07/16. DOS to notify pt. Telephone Encounter - Benjamin Garcia M.D. - 07/14/2021 9:02 AM CDT Looks like I have an opening on Wednesday, let's try to use this, thanks! documented in this encounter Plan of Treatment Not on filedocumented as of this encounter Visit Diagnoses Not on filedocumented in this encounter
--- OUTSIDE RECORDS SUMMARY | 2022-10-08 09:09 | XMS_ITS | Encounter Summary ---
:1940 Author Organization [facility] Address [address] [place] [address] Care Team Providers Name Role Phone Unavailable Primary Care Provider Unavailable Encounter Details Date Type Department Care Team Description 07/08/2021 Clinical Communication Department of Benjamin Garcia Oncology klaus Rivera M.D. [place], [place] [address] [facility] [address] [place] [address] [phone] Social History Tobacco Use Types Packs/Day Years Used Date Smoking Tobacco: Former Smokeless Tobacco: Never Comments: in college years Alcohol Use Standard Drinks/Week Comments Yes 1 (1 standard drink = 0.6 oz pure alcoho l) per day Alcohol Habits Answer Date Recorded How often do you have a drink containing 4 or more times a w [place] 01/01/2022 alcohol? How many drinks containing [...] or relatives? How often do you attend christian or More than 4 times per year 01/01/2022 buddhism services? 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 - 07/09/2021 12:36 PM CDT Rhiannonterosy -- we need to postpone this visit. Hope you can check [employer] portal for timeline onthis. Audra-- hope you can change visit for 4:20 today for a phone visit. I've already spoken to the patient and she is aware not to come in, thanks! Please see new order for visit that we will tentatively plan for next week, thanks! documented in this encounter Plan of Treatment Not on filedocumented as of this encounter Visit Diagnoses Not on filedocumented in this encounter
--- OUTSIDE RECORDS SUMMARY | 2022-10-08 09:09 | XMS_ITS | Encounter Summary ---
:1940 Author Organization [facility] Address [address] [place] [address] Care Team Providers Name Role Phone Unavailable Primary Care Provider Unavailable Encounter Details Date Type Department Care Team Description 06/09/2021 Clinical Communication Department of Vivek Perez Radiation Oncology in [place], [place] [address] [facility] [address] [place] [phone] Social History Tobacco Use Types Packs/Day Years [...] More than 4 times per year 01/01/2022 nondenominational services? Do you belong to any clubs [...] place to sleep or slept in a skilled nursing (including now)? 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
--- OUTSIDE RECORDS SUMMARY | 2022-10-08 09:09 | XMS_ITS | Encounter Summary ---
:1940 Author Organization [facility] Address [address] [place] [address] Care Team Providers Name Role Phone Unavailable Primary Care Provider Unavailable Reason for Visit Reason Comments Follow-up Encounter Details Date Type Department Care Team Description 07/01/2021 Documentation Division of Breast, Endocrine, [place], M hamida A, Follow-up Metabolic, and D.O. Gastrointestinal Surgery in [address] [place] [address] [place] [address] [place] [address] [phone] Social History Tobacco Use Types Packs/Day Years Used Date Smoking Tobacco: Former Smokeless Tobacco: Never Comments: in college years Alcohol Use Standard Drinks/Week Comments Yes 1 (1 standard drink = 0.6 oz pure alcoho l) per day Alcohol Habits Answer Date Recorded How often do you have a drink containing 4 or more times a w [place] 01/01/2022 alcohol? How many drinks containing alcohol [...] More than 4 times per year 01/01/2022 moravian services? 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 - 07/01/2021 1:52 PM CDT 30 Day Breast Surgery Follow-Up: Source of information: Chart review and phone call to patient Did patient have any complication(s)?: No Information Discussed Standard postoperative follow-up phone call. Surgical service of [facility]. Status post right breast lumpectomy and right axillary sentinel lymph node biopsy on 05/29/2021. Patient was contacted to follow-up on postoperative status >30 days after surgery. Patient states overall she is doing well. She denies any signs or symptoms of infection at this time. She denies any pain and is thus not taking anything for it. She reports she has almost returned back to her normal activities. She questions if she is able to have her information from her local primary care provider transferred to [facility] as this is where she would like to proceed with all of her care. Informed patient that she will ask her PCP to send the information to [place] using Dr. Cedillo'sfax number and our workers compensation legal secretary will upload the information directly to her chart. Encouraged patient to contact Dr. Cedillo's team with any future surgical questions or concerns. Patient denies any at this time and is appreciative of the phone call. The following potential postoperative complications were discussed: surgical site infection, wound dehiscence, hematoma, skin necrosis, seroma, and other potential postoperative issues including respiratory complications, urinary tract infection, and DVT. PLAN Disposition/Recommendation: self-care is appropriate at this time, patient encouraged to call back with questions Information/Education: patient/caller able to teach back Caller agreeable to plan of care: yes The following references were used: nursing clinical judgement documented in this encounter Plan of Treatment Not on filedocumented as of this encounter Visit Diagnoses Not on filedocumented in this encounter
--- OUTSIDE RECORDS SUMMARY | 2022-10-08 09:09 | XMS_ITS | Encounter Summary ---
:1940 Author Organization [facility] Address [address] [place] [address] Care Team Providers Name Role Phone Unavailable Primary Care Provider Unavailable Reason for Referral Outpatient (Routine) - Closed Specialty Diagnoses / Procedures Referred By Contact Refer red To Contact Radiation Oncology Hernan Mcwilliams M .D. [facility] [address] [phone] Referral ID Status Reason Start Date Expiration Date Visits Requ ested Visits Authorized [id number] Closed 07/21/2021 07/21/2022 1 1 Scheduling Instructions Prior to sim to answer questions and sig n consent Reason for Visit Outpatient (Routine) - Closed Specialty Diagnoses / Procedures Referred By Contact Refer red To Contact Radiation Oncology Hernan Mcwilliams M .D. [address] [phone] Referral ID Status Reason Start Date Expiration Date Visits Requ ested Visits Authorized [id number] Closed 07/21/2021 07/21/2022 1 1 Encounter Details Date Type Department Care Team Description 07/22/2021 Hospital Encounter Department of Hernan Mcwilliams Neoplasm Radiation Oncology Dorene Tripp Of Breast Upper in [address] Female Right (HCC) [address] 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 documented as of this encounter Progress Notes Hernan Mcwilliams M.D. - 07/22/2021 9:00 AM CDT SUBJECTIVE REASON FOR VISIT 1. 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 Adrienne Jorge is a 81 y.o. female with stage IIA (pT2, pN1a(sn), cM0, G3, ER+, VA+, HER2-) invasive ductal carcinoma of the right breast. I saw her in consultation yesterday. She returns for CT simulation today. She is doing well. OBJECTIVE BP (!) 113/51 (BP Location: Right arm, Patient Position: Sitting, Cuff Size: Regular) Pulse 93 Temp 36.3 ??C (Temporal) Wt 60.8 kg BMI 23.17 kg/m?? PHYSICAL EXAM General: Patient is awake, alert, and oriented to person, place, and time. She is in no apparent distress. 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 The patient's questions were answered to her verbalized satisfaction. She stated that she would liketo proceed with treatment and signed the consent form. We will endeavor to begin treatment on Friday July 30, 2021. CONSENT Discussed the risks, benefits, alternatives, and the necessity of other members of the healthcare team participating in the procedure. All questions answered and consent given. I have spent 10 minutes with this patient today with 10 minutes spent in counseling the patient. Signed by: Hernan Mcwilliams M.D. 07/22/2021 11:21 AM CDT Radiation Oncology [facility] Radiation Therapy [facility] documented in this encounter Miscellaneous Notes Addendum Note - Hernan Mcwilliams M.D. - 07/22/2021 9:00 AM CDT Encounter addended by: Hernan Mcwilliams M.D. on: 07/24/2021 12:57 PM Actions taken: Flowsheet accepted documented in this encounter Plan of Treatment Scheduled Referrals Name Type Priority Associated Order Schedule Diagnoses Radiation Oncology Outpatient Referral Routine On ce for 1 office visit Occurrences sta rting (clinic) 07/22/2021 untjessica tripp 07/22/2021 documented as of this encounter Visit Diagnoses Diagnosis Malignant Neoplasm Of Breast Upper Inner Quadrant Female Right (HCC) - Primary documented in this encounter
--- OUTSIDE RECORDS SUMMARY | 2022-10-08 09:09 | XMS_ITS | Encounter Summary ---
:1940 Author Organization [facility] Address [address] [place] [address] Care Team Providers Name Role Phone Unavailable Primary Care Provider Unavailable Reason for Referral Outpatient (Routine) - Closed Specialty Diagnoses / Procedures Referred By Contact Refer red To Contact Oncology Benjamin Garcia M.D. [facility] [address] [place] [phone] Referral ID Status Reason Start Date Expiration Date Visits Requ ested Visits Authorized [id number] Closed 06/20/2021 06/20/2022 1 1 Scheduling Instructions Please use open virt, thanks! Reason for Visit Outpatient (Routine) - Closed Specialty Diagnoses / Procedures Referred By Contact Refer red To Contact Medical Oncology / Diagnoses Malignant Neoplasm Of Breast Female Right (HCC) Trini Cedillo D.O. [facility] Oncology [address] [place] [phone] Referral ID Status Reason Start Date Expiration Date Visits Requ ested Visits Authorized [id number] Closed 05/22/2021 05/22/2022 1 1 Encounter Details Date Type Department Care Team Description 06/20/2021 Office Visit Department of Benjamin Garcia Malignant Neoplasm Of Oncology in [place] Breast Female Right [place], [place] [address] [facility] (HCC) [address] [place] [phone] Social History Tobacco Use Types Packs/Day Years [...] or relatives? How often do you attend sabianist or More than 4 times per year 01/01/2022 scientology services? 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 - 06/20/2021 1:20 PM CDT SUBJECTIVE REFERRAL Trini Cedillo D.O. CHIEF COMPLAINT / REASON FOR VISIT Primary Staff: Dr. Benjamin Garcia Hormone receptor positive breast cancer HISTORY OF PRESENT ILLNESS Adrienne Jorge is a 81 y.o. female with the following history. Oncology History Overview Note 80-year-old female from [place], [place], who presented with an abnormal screening [...] grade 3 invasive ductal carcinoma, ER 100%, NJ 2%, HER2 negative (1+), Ki-67 pending. Therewas [...] left supraclavicular/cervical lymphadenopathy partially included in the [id number] on some series. Questionable left lung nodule [...] without extranodal extension. Surgical stage: pT2, N1a. RIGHT (UIQ) cT2 ?N2b grade 3 invasive ductal carcinoma, ER 100%, NJ 2%, HER2 negative (1+), Ki-67 pending BREAST CANCER RISK PROFILE: She has had 1 with 1 live . She was 30 at first parity. She did breast feed. She was 14 at menarche and 50 at menopause. She maintains her uterus and ovaries. She has not taken control. She denies hormone replacement therapy. She has not taken fertility medications. She is unsure of JAIMIE exposure. She is having breast pain from the biopsy. She has only had the biopsy for this diagnosis. She has not received radiation. She is a never smoker but did have secondhand smoke exposure for 11 years or more. She is not currently exposed. She drinks 3-5 alcoholic beverages per week. She exercises 30 minutes or more at least 3 days per week by walking. Weight is stable at 134 pounds. Maximum adult height is 5 feet 4 inches. She describes herself as white, not , and not adopted. 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 Family history: Her father had colon cancer over the age of 50. She had 1 brother with multiple myeloma over the age of 50, and another brother with liver cancer over the age of 50. No other family history of cancer. Social history: No tobacco. She drinks 3-5 alcoholic beverages per week. Malignant Neoplasm Of Breast Upper Inner Quadrant Female Right (HCC) 05/21/2021 Initial Diagnosis Malignant Neoplasm Of Breast Upper Inner Quadrant Female Right (HCC) Interval History Ms. Adrienne Jorge is a 81 year-old woman accompanied by her friend from [place], [place] presenting in follow-up for hormone receptor positive, HER2 negative, node positive breast cancer. She reports feeling quite well after her surgery on May 29. She notes some ongoing discomfort in herright axillary area but denies any drainage or warmth at the site or constitutional symptoms. The following were reviewed and updated as [...] mg by mouth daily. REVIEW OF SYSTEMS REVIEW OF SYSTEMS Reviewed encounter review of systems and pertinent responses are noted in the history. PAST MEDICAL/SURGICAL HISTORY Patient Active Problem List Diagnosis ??? Malignant Neoplasm Of Breast Upper Inner Quadrant Female Right (HCC) SOCIAL HISTORY Social History Tobacco Use ??? Smoking status: Former Smoker ??? Smokeless tobacco: Never Used ??? Tobacco comment: in college years Vaping Use ??? Vaping Use: never used Substance Use Topics ??? Alcohol use: Yes Alcohol/week: 1.0 standard drink Types: 1 Glasses of wine per week Comment: per day ??? Drug use: Never FAMILY HISTORY family history includes Colon cancer in her father; Liver cancer in her brother; Multiple myeloma inher brother. VITALS Vitals: 06/20/21 1312 BP: 122/81 Pulse: 86 Resp: 16 Temp: 36.2 ??C SpO2: 99% Wt Readings from Last 3 Encounters: 06/20/21 60.9 kg 06/12/21 61.3 kg 05/29/21 59.8 kg BMI Readings from Last 3 Encounters: 06/20/21 23.03 kg/m?? 06/12/21 24.25 kg/m?? 05/29/21 23.65 kg/m?? PHYSICAL EXAM General: Patient is in no acute distress, sitting comfortably on the couch, very pleasant HEENT: Pupils are equal and reactive to light, extraocular movements intact, sclera are clear Skin: Sites of right axillary dissection and lumpectomy are clean, dry and intact. The right axillary site has minimal erythema, is not cold to touch and does not have any significant underlying induration or fluctuance. Lymph: No cervical or supraclavicular lymphadenopathy Cardiovascular: Regular rate and rhythm, no murmurs appreciated, no pedal edema. Respiratory: No increased work of breathing, clear to auscultation bilaterally. Gastrointestinal: Abdomen is non-distended, non-tender to palpation, normoactive bowel sounds with no organomegaly. Musculoskeletal: No evidence of active synovitis Psychiatric: Alert and oriented with appropriate mood and affect. ECOG Performance Status: 0 ASSESSMENT / PLAN #1 ER-positive (100%), NJ-weak(2%), HER-2 negative, grade III invasive ductal carcinoma of the RIGHTbreast, (pT2, pN1, cMX), Ki-67 24% Ms. Adrienne Jorge is a 81 year-old woman accompanied by her friend from [place], [place] presenting in follow-up for hormone receptor positive, HER2 negative, node positive breast cancer. Clinically, Ms. Jorge is doing quite well. She was a bit unsure what she was meeting with us for today and understandably overwhelmed when discussing the role of systemic therapy for the management ofher breast cancer. We extensively discussed her pathology results from surgery. The more concerning features include the fact that her disease is node positive, Ki-67 is rather high and she has grade III disease. These all point to a more aggressive phenotype. To that end, we recommended adjuvant endocrine therapy with either anastrozole or letrozole after completion of her radiation therapy, which she plans to receive locally in [place]. However, it is possible that adjuvant chemotherapy may also be beneficial especially given Ms. Jorge's lack of signif icant comorbidities and excellent performance status. To more precisely determine its potential benefit we will perform Oncotype testing. PLAN ?? We will send her tumor sample for Oncotype DX testing to assess benefit of adjuvant chemotherapy.We would not anticipate offering chemotherapy unless her score is 30 or greater. ?? We will see her back in approximately three weeks to discuss these results and implications. - Oncology - Medical, breast consult (clinic) - Oncotype DX Breast Cancer Assay-Sent Out Lab; Future; Expected date: 06/20/2021 Other orders - Oncology office visit (clinic); Future; Expected date: 07/09/2021 This case was discussed with Dr. Benjamin Garcia who agrees with the above plan. PATIENT EDUCATION: Ready to learn, no apparent learning barriers were identified; learning preferences include listening. Explained diagnosis and treatment plan; patient expressed understanding of the content. I personally spent >50% of a total 45 minutes with the patient in counseling and coordination of care. Benjamin Garcia M.D. - 06/20/2021 1:20 PM CDT I have seen the patient and concur with the assessment, evaluation, and recommendations of Dr. Ortega,PGY-6. We will see her back with Oncotype in 3 weeks on July 09. documented in this encounter Plan of Treatment Scheduled Referrals Name Type Priority Associated Diagnoses Order S [facility] Oncology office Outpatient Referral Routine Expec gayle: visit (clinic) 07/09/2021 (Approximate), Expires: 06/20/2024 documented as of this encounter Results Oncotype DX Breast Cancer Assay-Sent Out Lab (05/29/2021 11:22 AM CDT) [facility] gist Method Time Signature Oncotype DX SEE COMMENT 07/23/2021 [facility] Breast Cancer 8:41 AM CDT Assay Comment: For final report, select Lab-Send Out L ab Results hyperlink below. Specimen Anatomical Collection Method Collection Time Receive d Time (Source) Location / / Volume Laterality Varies (Breast) 05/29/2021 11:22 07/01/20 21 9:10 AM CDT AM CDT Narrative This result has an attachment that is no t available. Augustin Ortega M.D., Ph.D. LAB GENETIC TESTING Performing Organization Address City/State/ZIP Code Phon e Number [employer] [address] [place] [id number] [facility] [employer] [address] [phone] documented in this encounter Visit Diagnoses Diagnosis Malignant Neoplasm Of Breast Female Righ t (HCC) documented in this encounter
--- OUTSIDE RECORDS SUMMARY | 2022-10-08 09:09 | XMS_ITS | Encounter Summary ---
:1940 Author Organization 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 Mutter, Robert W, [address] [place] [address] [place] [phone] [place] [address] Phone: Fax: Referral ID Status Reason Start Date Expiration Date Visits Requ ested Visits Authorized [id number] Closed 05/22/2021 05/22/2022 1 1 Reason for Visit Outpatient (Routine) - Closed Specialty Diagnoses / Procedures Referred By Contact Refer red To Contact Radiation Oncology Trini Cedillo D.O. Mutter, Robert W, [address] [facility] [place], [place] [address] [place] [phone] [place] [address] Phone: Fax: Referral ID Status Reason Start Date Expiration Date Visits Requ ested Visits Authorized [id number] Closed 05/22/2021 05/22/2022 1 1 Encounter Details Date Type Department Care Team Description 06/12/2021 - Hospital Encounter Department of Vivek Perez Malign ant Neoplasm 06/13/2021 Radiation Oncology Dorene Hannah Of Breast Upper in [address] Female Right (HCC) [address] [facility] [phone] (Primary Dx) [place], [place] [phone] (Work) [phone] Social History Tobacco Use Types Packs/Day Years Used Date Smoking Tobacco: Former Smokeless Tobacco: Never Comments: in college years Alcohol Use Standard Drinks/Week Comments Yes 1 (1 standard drink = 0.6 oz pure alcoho l) per day Alcohol Habits Answer Date Recorded How often do you have a drink containing 4 or more times a w council 01/01/2022 alcohol? How many drinks containing alcohol [...] or relatives? How often do you attend zoroastrianism or More than 4 times per year 01/01/2022 christianity services? 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 Perez ?? SUBJECTIVE ?? REQUESTING PROVIDER Trini Cedillo D.O. ?? REASON FOR CONSULT There were no encounter diagnoses. ?? STAGING: pT2N1a ?? HISTORY OF PRESENT ILLNESS Ms. Adrienne Jorge is a 81 y.o. female who presents today to discuss radiotherapy for her condition. She is accompanied by her son, Blas. ?? Cancer History 04/23/2021: Bilateral screening mammogram identified a mass in the upper inner quadrant of the rightbreast middle to posterior depth. Calcifications located anterior to the mass appeared to have benign characteristics but were new and were not further evaluated with diagnostic mammography. 05/01/2021: Focused right breast ultrasound revealed a hypoechoic irregular mass in the 2 o'clock position of the right breast 4 cm from the nipple measuring 1.3 x 1.9 x 1.5 cm and corresponding with the mammographic mass. Images labeled right axilla showed normal lymph nodes. 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 There was associated DCIS. 05/06/2021: Bilateral breast MRI revealed non-mass enhancement with associated clip artifact in the upper inner right breast middle depth measuring 1.7 cm transverse by 3.4 cm AP by 1.3 cm SI. This represented the biopsy-proven malignancy, though by mammography the AP extent was somewhat less (~1.8 cm). No other abnormal enhancement within the right breast. No lymphadenopathy of right or left axilla.No masses or abnormal enhancement in the left breast. Possible enlarged right internal mammary lymphnode measuring 1.2 cm near the first rib. Possible left supraclavicular/cervical lymphadenopathy partially included in the [id number] on some series. Questionable left lung nodule anteriorly. 05/19/2021: CT neck soft tissue demonstrated no convincing cervical adenopathy in the visualized neck. Irregular intramedullary right greater than left subclavian veins consistent with small varices. Additional suspected varix arising from the lateral right external jugular vein. 05/19/2021: CT chest demonstrated a few scattered solid noncalcified 1 mm pulmonary nodules that were indeterminate. Patchy ill-defined posterior medial left lower lobe opacities, likely of infectious/inflammatory etiology, such as from aspiration given small sliding esophageal hiatal hernia and patulous esophagus. Additional peripheral right upper lobe infectious/inflammatory bronchiolitis. Scattered mucous plugs. 05/26/2021: Focal FDG uptake in biopsy-proven right breast malignancy. No convincing evidence for FDG avid metastatic disease. Probable infectious/inflammatory uptake in the right upper and left lower lobes. 05/29/2021: Right breast lumpectomy and sentinel lymph node biopsy were performed under the supervision of Dr. Trini Cedillo. Final pathology confirmed invasive ductal carcinoma, grade III, ER positive (100%), MT positive (2%), HER2 negative, Ki67 24%, measuring 2.6 cm in greatest dimension. 2 of 4 sentinel lymph nodes were positive for macrometastatic carcinoma (3 mm and 5 mm). All margins were negative for tumor. Distance from closest margin was 4 mm. Pathologically staged as pT2N1a. ?? Ms. Jorge was seen in our department on 05/22 for discussion of her disease. At that time, the decision was made to see her back following surgery once final pathology was available. She is scheduled to see Medical Oncology on 06/20. ?? Upon evaluation today, Ms. Jorge states that she is recovering well from surgery. She has started taking walks again. She is hoping to undergo radiation therapy in [place]. ?? Ms. Jorge declines any history of scleroderma or lupus. 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 She declines any prior radiation history. She denies tobacco use. She consumes 3-5 alcoholic drinks per week. Family history is significant for colon cancer in her father, multiple myeloma in her brother, and liver cancer in another brother. ?? REVIEW OF SYSTEMS Review of systems as noted in HPI. ?? Medications, Allergies, Pertinent Past Medical History, Past Surgical History, Social History, and Family History were reviewed. ?? PRIOR RADIOTHERAPY: None. ?? OBJECTIVE Wt 61.3 kg BMI 24.25 kg/m? PHYSICAL EXAM ECOG score: 0 - Fully active, able to carry on all pre-disease performance without restriction. General: Pleasant, in no acute distress. Head: Normocephalic, atraumatic. Eyes: Sclera anicteric, extraocular movements intact. Breast: Surgical scars healing nicely without discharge. Mild swelling and induration of the right breast around the incision sites. No redness of erythema. Right breast feels slightly warmer than leftbreast. Breasts appear symmetrical. Lungs: Normal work of breathing on room air. Skin: Warm, dry. Neuro: Alert and oriented. Mental: Appropriate mood and affect. Extremities: No significant edema. ?? ASSESSMENT AND PLAN Ms. Jorge is a 81 y.o. female with right breast invasive ductal carcinoma, grade III; ER positive (100%), MT positive (2%), HER2 negative, Ki67 24%; pT2N1a s/p right breast lumpectomy and sentinel lymph node biopsy under the supervision of Dr. Trini Cedillo on 05/29/2021. She presents to the Departmentof Radiation Oncology to discuss radiation treatment. ?? It was a pleasure to meet with Ms. Jorge and her son today regarding the role of radiotherapy in the management of her condition. We reviewed the pertinent clinical, radiographic, and pathologic features of her disease. ?? We discussed with Ms. Jorge the role of radiation therapy in the management of her disease. We discussed the role of protons vs. photons given the anatomic location of a suspicious right internal mammary lymph node. Given her preference to undergo radiation therapy in [place], we recommend whole breast with comprehensive regional lymph node irradiation with 15 or 25 total photon treatments over 3or [address] Perez will reach out to the [place] team to discuss the right internal mammary lymph node. If photon planning proves to be challenging, we can revisit proton planning here in [place]. ?? We discussed the logistics of radiation simulation, planning, and daily treatment. We discussed techniques to minimize toxicities to non-targeted tissues. ?? We also reviewed the acute toxicities associated with treatment including, but not limited to fatigue, radiation skin changes, and damage to surrounding structures. The risk of late toxicities and expected long-term oncologic outcomes were also discussed. ?? After the above discussion, Ms. Jorge??indicated her desire to proceed with the radiation planning session followed by treatment as discussed in [place]. ?? The patient and her son asked several questions which were answered to their satisfaction. Our departmental contact information was provided and she was encouraged to contact the Department of Radiation Oncology with further questions or concerns. ?? Consent We discussed the goals, risks, alternatives, and the necessity of other members of the healthcare team participating in the procedure. A course of radiation therapy planning and treatment is to be performed by radiation therapists, physician(s) and other health care providers including dosimetrists and physicists, under the direction of the radiation oncologist.??Other physicians or health care providers may provide supervision in the primary radiation oncologist's absence.??The parts of this consent form that refer to surgery and related procedures are not applicable to patients that will not havesurgery. All questions answered. Ms. Jorge would like to proceed with treatment as recommended. Patient seen for the service of Dr. Perez. ?? Maxim Yen, MS4 Department of Radiation Oncology Pager [phone] Associated attestation - Vivek Perez M.D. - 06/12/2021 12:24 PM CDT I saw and evaluated the patient and participated in the doyle portions of the service. I reviewed the documentation of Maxim Yen and agree with the findings and plan. Mrs. Jorge returns to clinic with her son, Mario, having undergone a right breast wide local excision on May 29, 2021, and right sentinel lymph node biopsy. Final pathology revealed grade 3 invasive ductal carcinoma with lobular features measuring 2.6 cm, and 2 of 4 lymph nodes were positive for metastatic carcinoma. The patient's postoperative course has been unremarkable today. On physical exam the axillary and lumpectomy incisionsare healing well with expected postoperative change in bruising. No extremity edema. In summary, this is an 80-year-old woman with pT2 N1a M0 grade 3 invasive ductal carcinoma. Of note,on the outside MRI scan there is a possible enlarged right internal mammary lymph node measuring 1.2cm near the first rib. Given the positive axillary nodes and upper inner quadrant location of the primary I favor targeting this node. The patient lives in [place] and is interested in receiving hercare there. Therefore, we are facilitating a consultation with 1 of my colleagues there. If normal tissue exposure is prohibitive due to the location of the internal mammary node we could certainly consider proton therapy however this would be much more burdensome logistically on the patient. We discussed the potential option of conventional or hypofractionated breast and regional radiation and that I would defer to Dr. Mcwilliams and Dr. Ortiz in that regard. All questions were answered to the best my abilities. It has been a privilege and honor playing a small role in Mrs. Jorge's care. She has my contact information knows to be in touch in the future should any questions or concerns arise. 40 minutes were spent in the care of this patient today. This includes both [id number] in on [id number] patient care. 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
--- OUTSIDE RECORDS SUMMARY | 2022-10-08 09:09 | XMS_ITS | Encounter Summary ---
:1940 Author Organization [facility] Address [address] [place] [id number] Care Team Providers Name Role Phone Unavailable Primary Care Provider Unavailable Reason for Visit Reason Comments Breast Cancer Chart Review Encounter Details Date Type Department Care Team Description 06/19/2021 Clinical Communication Division of Yaya Osman Breast Cancer Chart Internal Medicine [facility] Review in [address] [place] [phone] [place], [place] [phone] (Work) [phone] Social History Tobacco Use Types Packs/Day Years Used Date Smoking Tobacco: Former Smokeless Tobacco: Never Comments: in college years Alcohol Use Standard Drinks/Week Comments Yes 1 (1 standard drink = 0.6 oz pure alcoho l) per day Alcohol Habits Answer Date Recorded How often do you have a drink containing 4 or more times a w [place] 01/01/2022 alcohol? How many drinks containing alcohol [...] or relatives? How often do you attend quaker or More than 4 times per year 01/01/2022 yarsani services? 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 - 06/19/2021 10:13 AM CDT SUBJECTIVE REASON FOR COMMUNICATION Chart Review OBJECTIVE Date of surgery: 05/29/21 Type of procedure: Procedure(s): Right breast procedure: Lumpectomy Right axilla procedure: SLN Biopsy Medical Oncology Consultation: Done 05/22/21 Follow up plan: Per Benjamin Garcia M.D. they are planning to Oncotype the surgical specimen toclarify the value of adjuvant chemotherapy. He explained to the patient that they will be planning for adjuvant endocrine therapy. He did view the patient fit enough to handle chemotherapy if there is a benefit. Radiation Oncology Consultation: Done 05/22/21 Follow up plan: ??Per Radiation Oncology, they recommend whole breast with comprehensive regional lymph node irradiation with 15 or 25 total photon treatments over 3 or 5 weeks. Ms.??Hollen??would liketo proceed with treatment as recommended. ??She would like to undergo radiation therapy in [place]. RN survivorship appointment: Done 06/12/21 documented in this encounter Plan of Treatment Not on filedocumented as of this encounter Visit Diagnoses Not on filedocumented in this encounter
--- OUTSIDE RECORDS SUMMARY | 2022-10-08 09:09 | XMS_ITS | Encounter Summary ---
:1940 Author Organization [facility] Address [address] [place] [address] Care Team Providers Name Role Phone Unavailable Primary Care Provider Unavailable Encounter Details Date Type Department Care Team Description 06/03/2021 Clinical Communication Division of Breast and Piltin, Trini A, Melanoma Surgical D.O. Oncology in [place] [address] [address] [place], [place] [address] [facility] [address] [place], [place] [phone] (Work) [phone] Social History Tobacco Use Types Packs/Day Years Used Date Smoking Tobacco: Former Smokeless Tobacco: Never Comments: in college years Alcohol Use Standard Drinks/Week Comments Yes 1 (1 standard drink = 0.6 oz pure alcoho l) per day Alcohol Habits Answer Date Recorded How often do you have a drink containing 4 or more times a w [place] 01/01/2022 alcohol? How many drinks containing alcohol [...] or relatives? How often do you attend presybeterian or More than 4 times per year 01/01/2022 hinduism services? 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 - 06/03/2021 6:31 PM CDT Called and spoke with the patient. She states that she is currently healing well. She has no concerns or questions regarding her incision. Her pain is well controlled. I was able to review her final pathology. All questions were answered. She was appreciative of the phone call. documented in this encounter Plan of Treatment Not on filedocumented as of this encounter Visit Diagnoses Not on filedocumented in this encounter
--- OUTSIDE RECORDS SUMMARY | 2022-10-08 09:10 | XMS_ITS | Encounter Summary ---
:1940 Author Organization [facility] Address [address] [place] [address] Care Team Providers Name Role Phone Unavailable Primary Care Provider Unavailable Reason for Referral Outpatient (Routine) - Closed Specialty Diagnoses / Procedures Referred By Contact Refer red To Contact Diagnoses Malignant Neoplasm Of Breast Female Right (HCC) Trini Cedillo D.O. [facility] Procedures NM Sunny Side Node Injection Only [address] [place] [address] [phone] Referral ID Status Reason Start Date Expiration Date Visits Requ ested Visits Authorized [id number] Closed 05/22/2021 05/22/2022 6 6 Reason for Visit Outpatient (Routine) - Closed Specialty Diagnoses / Procedures Referred By Contact Refer red To Contact Diagnoses Malignant Neoplasm Of Breast Female Right (HCC) Trini Cedillo D.O. [facility] Procedures NM Sunny Side Node Injection Only [address] [place] [address] [phone] Referral ID Status Reason Start Date Expiration Date Visits Requ ested Visits Authorized [id number] Closed 05/22/2021 05/22/2022 6 6 Encounter Details Date Type Department Care Team Description 05/28/2021 Hospital Encounter Department of Trini Cedillo Neoplasm Of Radiology, Efrain Terrazas D.O. Breast Female Right Building, in [address] [place] [address] ([facility]ERLY [facility]) [place], [place] [address] [place] [phone] [place], [place] [phone] (Work) [phone] Social History Tobacco Use Types Packs/Day Years Used Date Smoking Tobacco: Former Smokeless Tobacco: Never Comments: in college years Alcohol Use Standard Drinks/Week Comments Yes 1 (1 standard drink = 0.6 oz pure alcoho l) per day Alcohol Habits Answer Date Recorded How often do you have a drink containing 4 or more times a w [place] 01/01/2022 alcohol? How many drinks containing alcohol [...] or relatives? How often do you attend tenriism or More than 4 times per year 01/01/2022 jewish services? 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 calcium carb-magnesium Take by mouth. 0 5 05/29/2021 carb 250-300 mg tablet cholecalciferol (VITAMIN Take 1,000 Units 0 01/1608/15/2021 D3) 25 mcg (1,000 Unit) by mouth daily. capsule cyanocobalamin (VITAMIN Take 1 tablet by 0 201408/15/2021 B12) 1,000 mcg tablet mouth daily. ginkgo biloba 120 mg Take by mouth. 0 01/16/2015 05/29/2021 tablet traMADoL (ULTRAM) 50 mg Take 1-2 tablets 12 tablet 0 202001/01/2022 tabletIndications: Acute (50-100 mg total) Pain by mouth 4 (four) times a day as needed for pain Indications: acute pain. venlafaxine XR Take 75 mg by 0 04/18/2021 022 (EFFEXOR-XR) 75 mg 24 hr mouth daily. capsule vitamin A-vitamin C-vit Take 1 tablet by 0 201405/29/2021 E-min tablet mouth as needed. documented as of this encounter Plan of Treatment Not on filedocumented as of this encounter Procedures Procedure Name Priority Date/Time Associated Comments Diagnosis NM SENTINEL NODE RAD - Routine 05/28/2021 1:22 Malignant Results for this INJECTION ONLY (most inpatients PM CDT Neoplasm Of procedure are in and all Breast Female the results outpatients) Right (HCC) section. documented in this encounter Results NM Sunny Side Node Injection Only (05/28/2021 1:22 PM CDT) Anatomical Region Laterality Modality Body, Nuclear Medicine RST LOS, Nuclear Medicine ARZ LOS, N/ A Nuclear Medicine Nuclear Medicine FLA LOS, Nuclear Medicine Specimen (Source) Anatomical Collection Method Collection Time Re ceived Time Location / / Volume Laterality 05/28/2021 1:26 PM CDT Impressions 05/28/2021 1:27 PM CDT Right breast injection for intraoperative sentinel lymph node localization. Narrative 05/28/2021 1:27 PM CDT EXAM: ??NM SENTINEL NODE INJECTION ONLY RADIOPHARMACEUTICAL/MEDS: Route: intradermal lidocaine-sodium bicarbonate (buffered) 0.9%-8.4% injection 2 mL,2 mL Route: intradermal technetium Tc 99m filtered sulfur colloi d injection (Tc-99m FILTERED SULFUR COLLOID) , 1.9 millicurie TECHNIQUE: Following injection of a smal l amount of lidocaine for local anesthetic, the patient was injected int radermally with Tc-99m filtered sulfur colloid in the right breast(s) for probe localization of lymph nodes in surgery. No images obtained per Dr. TRINI CEDILLO. The location for the sentinel lymph node injections was confirmed with the patien t during a preprocedural pause. Injections performed by KB. ?? INDICATION: ?? Breast Cancer, Surgical Guidance sentinel lymph node biopsy Procedure Note Jhonathan Gilbert M.D., Ph.D. - 021 EXAM: NM SENTINEL NODE INJECTION ONLY RADIOPHARMACEUTICAL/MEDS: Route: intradermal lidocaine-sodium bicarbonate (buffered) 0.9%-8.4% injection 2 mL,2 mL Route: intradermal technetium Tc 99m filtered sulfur colloi d injection (Tc-99m FILTERED SULFUR COLLOID) , 1.9 millicurie TECHNIQUE: Following injection of a smal l amount of lidocaine for local anesthetic, the patient was injected int radermally with Tc-99m filtered sulfur colloid in the right breast(s) for probe localization of lymph nodes in surgery. No images obtained per Dr. TRINI CEDILLO. The location for the sentinel lymph node injections was confirmed with the augustin darling during a preprocedural pause. Injections performed by MONIQUE. INDICATION: Breast Cancer, Surgical Guidance sentinel lymph node biopsy IMPRESSION: Right breast injection for intraoperativ e sentinel lymph node localization. Trini Cedillo D.O. IMG NM PROCEDURES documented in this encounter Visit Diagnoses Diagnosis Malignant Neoplasm Of Breast Female Righ t (HCC) documented in this encounter Administered Medications Inactive Administered Medications - up to 3 most recent administrations Medication Order MAR Action Action Date Dose Rate Site lidocaine-sodium bicarbonate Given 05/28/2021 1:24 PM CDT 2 mL (buffered) 0.9%-8.4% injection 2 mL 2 mL, intradermal, Once, On Wed05/28/21 at 1330, For 1 dose, Final lidocaine concentration is 0.9% (9 mg/mL) technetium Tc 99m filtered sulfur Given 05/28/2021 1:24 PM CDT 1 .9 millicuries colloid injection (Tc-99m FILTERED SULFUR COLLOID) 1.9 millicurie, intradermal, Once, On Wed05/28/21 at 1330, For 1 dose documented in this encounter
--- OUTSIDE RECORDS SUMMARY | 2022-10-08 09:10 | XMS_ITS | Encounter Summary ---
:1940 Author Organization [facility] Address [address] [place] [address] Care Team Providers Name Role Phone Unavailable Primary Care Provider Unavailable Reason for Visit Outpatient (Routine) - Closed Specialty Diagnoses / Procedures Referred By Contact Refer red To Contact Medical Oncology / Diagnoses Malignant Neoplasm Of Breast Female Right (HCC) Eun Summers [facility] [place] [address] [place] [address] Referral ID Status Reason Start Date Expiration Date Visits Requ ested Visits Authorized [id number] Closed 05/19/2021 05/19/2022 1 1 Encounter Details Date Type Department Care Team Description 05/22/2021 Comprehensive Visit Department of Petrona Garcia Neoplasm Oncology in Benjamin Rivera M.D. Of Breast Female Tell, [address] [place] [address] Right (HCC) [place], [place] [address] [place] [phone] [place], [place] [phone] (Work) [phone] Social History Tobacco Use Types Packs/Day Years [...] place to sleep or slept in a usp (including now)? Sex Assigned at Date Recorded Female 01/01/2022 8:43 AM SOLE TIER documented as of this encounter Consult Notes Giorgio Alejandre M.D., Ph.D. - 05/22/2021 8:30 AM CDT PRIMARY CARE PHYSICIAN No primary care provider on file. LOCAL ONCOLOGIST No care care team assistant to display PRIMARY [place] ONCOLOGIST Benjamin Garcia MD Advanced Breast Fellow Giorgio Alejandre M.D., Ph.D. CHIEF COMPLAINT / REASON FOR VISIT Adrienne Jorge is a 80 y.o. female who presents for evaluation of her recently diagnosed right breast cancer HISTORY OF PRESENT ILLNESS Oncology History Overview Note 80-year-old female from [place], [place], who presented with an abnormal screening [...] grade 3 invasive ductal carcinoma, ER 100%, NV 2%, HER2 negative (1+), Ki-67 pending. Therewas [...] left supraclavicular/cervical lymphadenopathy partially included in the levcm-sd-elcl on some series. Questionable left lung nodule [...] lobe infectious/inflammatory bronchiolitis. 6. Scattered mucous plugs. RIGHT (UIQ) cT2 ?N2b grade 3 invasive ductal carcinoma, ER 100%, NV 2%, HER2 negative (1+), Ki-67 pending BREAST [...] Breast Upper Inner Quadrant Female Right (HCC) The following portions of the patient's history were reviewed and updated as appropriate: allergies,current medications, family history, medical history, social history, surgical history and problem list. REVIEW OF SYSTEMS Constitutional: No weight loss, fatigue, fevers, weakness or chills. Eyes and Vision: No pain, redness, double vision, blurred vision, flashing lights. Ears and Hearing: No decreased hearing, vertigo, tinnitus. Nose and Sinuses: No rhinorrhea, epistaxis. Mouth and Throat: No sore throat, dry mouth, hoarseness. Cardiovascular: No chest pain, palpitations, paroxysmal nocturnal dyspnea, orthopnea, dyspnea, or edema. Respiratory: No cough, shortness of breath, wheezing, hemoptysis, sputum. Gastrointestinal: No nausea, vomiting, melena, change in bowel habits, or abdominal pain. Genitourinary: No urinary pain, incontinence, or frequency. Musculoskeletal: No muscle, joint or back pain. Skin: No rashes or skin changes Neurologic: No headaches, syncope, seizures, focal weakness or neuropathies Psychiatric: No depression or anxiety. Hematologic: No easy bruisability, easy bleeding, swollen glands in neck. All other systems reviewed and negative. PAST MEDICAL HISTORY Past Medical History: Diagnosis Date ??? Anxiety ??? Cancer Lung Primary Personal History 2012 ??? Depression Personal History Current Outpatient Medications on File Prior to Visit Medication Sig Dispense Refill ??? albuterol 90 mcg/actuation inhaler Inhale 2 [...] Take 1 tablet by mouth daily. ??? simvastatin (ZOCOR) 20 mg tablet Take 20 mg by mouth at bedtime. ??? venlafaxine XR (EFFEXOR-XR) 150 mg 24 hr capsule Take 150 mg by mouth daily. ??? venlafaxine XR (EFFEXOR-XR) 75 mg 24 hr capsule Take 75 mg by mouth daily. ??? vitamin A-vitamin C-vit E-min tablet Take 1 tablet by mouth as needed. No current facility-administered medications on file prior to visit. SOCIAL HISTORY Social History Social History Narrative ??? Not on file FAMILY HISTORY Breast-Relevant Family History Problem Relation Age of Onset Comments Colon cancer Father VITALS There were no vitals taken for this visit. No data recorded PHYSICAL EXAM General: Pleasant, well appearing woman, ECOG 0 Skin: No rashes, ecchymosis or petechia. HEENT: Oral and pharyngeal mucosa moist and clear. No thyromegaly or jugular venous distention. Nodes: No cervical, supraclavicular, infraclavicular or axillary lymphadenopathy. Breasts: Tthe breasts appear symmetric in size. Nipples are everted. No significant skin discoloration, lesions, retractions or dimpling. No dominant mass in the left breast. In the right breast at 02:00 o'clock, 3 cm from the nipple is a 3.5 cm palpable mass with extensive bruising over it. No nipple discharge elicited from either side. Lungs: Clear to auscultation bilaterally without wheezes, rubs or crackles. Heart: Regular rate and rhythm. Normal S1/S2. No murmurs, rubs or gallops. Abdomen: Soft, nontender, nondistended. No hepatosplenomegaly or palpable masses. Extremities: No pedal edema bilaterally. Neuro: Normal gait. Normal strength and sensation in all limbs. Psych: Normal mood and affect. LABORATORY DATA Lab data as charted in the EMR and reviewed in detail. RADIOLOGICAL DATA Radiology data personally reviewed in QReads. ASSESSMENT AND PLAN RIGHT (UIQ) cT2 ?cN2b grade 3 invasive ductal carcinoma, ER 100%, NV 2%, HER2 negative (1+), Ki-67 pending I had a long discussion with Mrs. Jorge about her diagnosis and therapeutic options. At this point, we would recommend biopsying the right internal mammary lymph node. If a biopsy is not possible, she should at least have a PET CT. Regardless of what the biopsy or PET CT show, we would recommend surgery first. We will meet again after surgery to review the pathology and decide the next steps in treatment. She wants to have a lumpectomy. She understands that after that has been done, she may need radiation therapy. If the axillary and/or internal mammary lymph nodes are involved, she may also need regional node irradiation. She has an appointment with Dr. Perez later this morning. If she needs chemotherapy, she will receive it before radiation therapy. After radiation therapy is complete, she will receive endocrine therapy with an aromatase plus or minus Zometa. All questions answered. ADMINISTRATIVE BILLING I personally spent over half of a total 90 minutes face to face with the patient in counseling and discussion and/or coordination of care as described above. Benjamin Garcia M.D. - 05/22/2021 8:30 AM CDT I have seen the patient and concur with the assessment, evaluation, and recommendations as outlined by Advanced Breast Oncology Fellow, Dr. Giorgio Alejandre. Brief History Ms. Adrienne Jorge is a 80 y.o. female who presents for evaluation of grade 3 invasive ductal carcinoma, luminal B-like and history of prior lung cancer. I agree with the PMH, Social History, Family History, Review of Systems, and Exam performed by Advanced Breast Oncology Fellow, Dr. Giorgio Alejandre . The patient lives independently and alone. She has one child in [place]. She is active, manages all her household activities and drives. She shares she mows her lawn and can walk 2 miles without difficulty. She does note longevity in her family, her mother lived until age 92. Assessment #1 ER-positive (100%), NV-weak(2%), HER-2 negative, grade III invasive ductal carcinoma of the RIGHTbreast, cT2Nx, Ki-67 pending #2 Indeterminate right internal mammary lymph node We have the pleasure of seeing Ms. Adrienne Jorge for the diagnosis of early stage, hormone receptor positive, HER2-negative breast cancer. She presented with a screen detected mass. We reviewed her case with Dr. Cedillo and Dr. Perez. The tumor size is up to 3.4 cm on MRI end where clinically calling this a T2. We note the luminal B like phenotype, with grade 3 and low NV expression, with a Ki-67 that is pending. Critical to our systemic therapy decision making is indeterminate internal mammary ipsilateral node.On MRI, done locally, this measured 1.2 cm. This did not appear particularly abnormal on the CT scan. If this were positive, she would into disease, and would heavily influence our systemic therapy and radiation oncology approach here. Dr. Cedillo noted that this seemed contiguous with the vessel, and would be challenging to try an axis during surgery. We will see if this is amenable to ultrasound-guided biopsy, and Dr. Angy BarnettDavid Shasta looking into this. If we do not think ultrasound-guided biopsy is possible, we will try for a PET-CT to make a clinical decision on this. If the PET-CT shows avidityin this lymph node, we would have enough suspicion that this truly represents disease to warrant further intervention. In either case, we are planning for an approach of upfront surgery as neoadjuvant systemic therapy is not necessarily going to influence her surgical plan for lumpectomy. We will plan to Oncotype the surgical specimen to clarify the value of adjuvant chemotherapy. I explained to the patient that we will be planning for adjuvant endocrine therapy. I do view her fit enough to handle chemotherapy if there is a benefit. ADMINISTRATIVE BILLING Per Dr. Alejandre. documented in this encounter Plan of Treatment Not on filedocumented as of this encounter Visit Diagnoses Diagnosis Malignant Neoplasm Of Breast Female Righ t (HCC) documented in this encounter
--- OUTSIDE RECORDS SUMMARY | 2022-10-08 09:10 | XMS_ITS | Encounter Summary ---
:1940 Author Organization [facility] Address [address] [place] [address] Care Team Providers Name Role Phone Unavailable Primary Care Provider Unavailable Reason for Referral Outpatient (Routine) - Closed Specialty Diagnoses / Procedures Referred By Contact Refer red To Contact Radiation Oncology Diagnoses Malignant Neoplasm Of Breast Female Right (HCC) Eun Summers [place] [facility] [place] M.D. [address] [place] [address] Referral ID Status Reason Start Date Expiration Date Visits Requ ested Visits Authorized [id number] Closed 05/20/2021 05/20/2022 1 1 Encounter Details Date Type Department Care Team Description 05/20/2021 Orders Only Breast Diagnostic Eun Summers [facility] Neoplasm Of Clinic in [place] Breast Female Right [place] 200 [facility] (HCC) (Primary Dx) [address] [place] [phone] Social History Tobacco Use Types Packs/Day Years Used Date Smoking Tobacco: Former Smokeless Tobacco: Never Comments: in college years Alcohol Use Standard Drinks/Week Comments Yes 1 (1 standard drink = 0.6 oz pure alcoho l) per day Alcohol Habits Answer Date Recorded How often do you have a drink containing 4 or more times a w [place] 01/01/2022 alcohol? How many drinks containing alcohol [...] or relatives? How often do you attend samaritan or More than 4 times per year 01/01/2022 latter-day services? Do you belong to any clubs or Yes 01/01/2022 organizations such as samaritan groups, unions, fraM-Factor or athletic groups, or school groups? How [...] at Date Recorded Female 01/01/2022 8:43 AM FINANCIAL SPECIALIST documented as of this encounter Plan of Treatment Scheduled Referrals Name Type Priority Associated Diagnoses Order S [facility] Radiation Oncology Outpatient Referral Routine Malignant Neopl asm Expected: - Of Breast Female 05/20/2021 Multi-Disiciplinary Right (HCC) (Approxi mate), breast clinic Expires: consult (clinic) 05/20/2024 documented as of this encounter Visit Diagnoses Diagnosis Malignant Neoplasm Of Breast Female Lluvia darling (HCC) - Primary documented in this encounter
--- OUTSIDE RECORDS SUMMARY | 2022-10-08 09:10 | XMS_ITS | Encounter Summary ---
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 [address] [place] [address] [place], [place] [phone] (Wo rk) Anesthesia Record Procedure Summary Procedure Name Responsible Anesthesia Start Anesthesia Stop Anesthesiologist Time Time RIGHT LYMPH NODE Urban Barber M.D. 05/29/21 0808 05/29/21 104 5 AXILLARY SENTINAL LYMPH NODE BIOPSY, PREOPERATIVE LYMPHOSCINTIGRAPHY. (Right) Events Date Time Event Comment 05/29/2021 0808 An Start Machine/Equipmen t Checked Infection Precautions Foll owed Procedure/Site Verified NPO Sta tus Verified Supine Standard ASA Mon itors Applied 0815 An Induction 0817 An Intubation 0819 Turnover to Proceduralist 0853 Proc Start 1013 Proc Fin 1013 Turnover to ANE Staff 1027 Airway Removal Criteria Met 1027 Extubation/Airway Removed 1029 an stop data 1045 An End I completed my h andoff to the receiving staff during [facility] we 1. Identified the patient 2. Ident ified the responsible provider 3. Revi ewed the pertinent medical history 4. Discussed the surgical course 5. Review ed intra-op anesthesia management and i ssues during anesthesia 6. Set expectati ons for post-procedure period 7. Allowe d opportunity for questions and ac knowledgement of understanding. Name Total fentanyl injection 50 mcg/mL 100 mcg lidocaine 2% (mg) injection 100 mg propofol 10 mg/mL 220 mg propofol 10 mg/mL infusion 716.4 mg succinylcholine 20 mg/mL injection 100 mg phenylephrine 100 mcg/mL injection 600 mcg ePHEDrine PF 5 mg/mL syringe injection 70 mg ondansetron 4 mg/2 mL injection 4 mg ceFAZolin injection 2,000 mg (ANCEF) 2 g albumin human bottle 5% 250 mL dexamethasone 4 mg/mL injection 4 mg Lactated Ringers Free Drip 900 mL Agents No agents on file. Blood No blood administrations on file. Lines, Drains, and Airways Type Details Placement Removal Peripheral IV Placement Date: 05/29/21; 05/29/21 0740 by 05/29 1456 by Placement Time: 0740; Lorie Mcintosh, Blas Bernard, R.N. Catheter Size: 22 G; R.N. Orientation: Left; Location: Forearm; Removal Date: 05/29/21; Removal Time: 1456 ETT Placement Date: 05/29/21; 05/29/21 0817 by 05/29 1027 by Placement Time: 0817 Lorie Mcintosh Willia ms, Jessica L, (created via procedure R.N. R.N. documentation); Mask Ventilation: Oral/Nasal airway needed; Type: Standard ETT; Single Lumen Tube Size: 6.5 mm; Cuffed: Yes; Location: Oral; Grade View: Grade 1; Insertion Attempts: 1; Placement Verification: Bilateral breath sounds, Positive ETCO2, Symmetrical chest wall movement; Removal Date: 05/29/21; Removal Time: 1027 (RETIRED) Incision 05/29/21; 1005; No; 05/29/21 1005 by 10/09/21 1140 by Breast; Lower, Right; Wendy Bryan Mayo-Cli yoel-Backgroun Mastisol, Steri-strips, R.N. d, Sched uling Fluffs, Binder; 10/09/21 Automat ed Batch Job (Removed Automatically via Background Job); 1140 (Removed Automatically via Background Job) (RETIRED) Incision 05/29/21; 1006; No; 05/29/21 1006 by 10/09/21 1140 by Axilla; Lateral, Right; Wendy Bryan, Baljinder linic-Backgroun Mastisol, Steri-strips, R.N. d, Sched uling Fluffs, Binder; 10/09/21 Automat ed Batch Job (Removed Automatically via Background Job); 1140 (Removed Automatically via Background Job) documented in this encounter Social History Tobacco Use Types Packs/Day Years Used Date Smoking Tobacco: Former Smokeless Tobacco: Never Comments: in college years Alcohol Use Standard Drinks/Week Comments Yes 1 (1 standard drink = 0.6 oz pure alcoho l) per day Alcohol Habits Answer Date Recorded How often do you have a drink containing 4 or more times a w [place] 01/01/2022 alcohol? 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 - 05/29/2021 11:03 AM CDT Patient: Adirenne Jorge Procedure Summary Date: 05/29/21 Room / Location: [place] [address] / [facility] [place] in [place], [place] Anesthesia Start: 08 Anesthesia Stop: 1044 Procedures: RIGHT LYMPH NODE AXILLARY SENTINAL LYMPH NODE BIOPSY, PREOPERATIVE LYMPHOSCINTIGRAPHY. (Right ) INTRA-OPERATIVE ULTRASONOGRAPHY. 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 Responsible Provider: Urban Barber M.D. Anesthesia Type: general ASA Status: 3 Anesthesia Type: general Last vitals Vitals Value Taken Time BP 120/65 05/29/21 1100 Temp 36.3 ??C 05/29/21 1045 Pulse 73 05/29/21 1103 Resp 15 05/29/21 1103 SpO2 99 % 05/29/21 1103 Vitals shown include unvalidated device data. Please reference Vitals flowsheet for most recent vital signs. Anesthesia Post Evaluation Patient Disposition: dismissal Cardiovascular status: hemodynamics (HR & BP) acceptable Respiratory status: patent airway with spontaneous effort Temperature: normothermic Oxygen requirements: room air Level of consciousness: awake Pain score: pain adequately controlled and/or at baseline Post Op nausea/vomiting: none Hydration status: euvolemic Comments: Pt pleased with anesthetic today. Such a nice patient! Anesthesia Procedure Notes - Lorie Mcintosh RAda - 05/29/2021 8:35 AM CDT Associated Order(s): Airway Airway Date/Time: 05/29/2021 8:17 AM Performed by: Lorie Mcintosh R.N. Authorized by: Urban Barber M.D. Patient location during procedure: OR / Procedure Area PROCEDURE DETAILS: Mask difficulty assessment: oral/nasal airway needed Final airway type: video laryngoscope Laryngeal Manipulation: no Final best view of glottic structures - Cormack/Lehane Score: grade 1 ETT location: oral VL device: glide scope [place] scope blade size: 3 Adult tube size: 6.5 Adult ETT distance at teeth/gum: 23 Oral tube type: standard ETT Cuffed: yes Number of attempt to successful placement: 1 Airway confirmation: bilateral breath sounds, positive ETCO2 and bilateral chest rise Other previous techniques attempted: none PRE PROCEDURE DETAILS: Pre evaluation for airway management: procedure Urgency: elective Preop assessment of probable difficulty: no difficulty anticipated Preoxygenation: bag valve mask SEDATION / ANESTHESIA Anesthesia method: anesthesia POST PROCEDURE DETAILS: Procedure outcome: successful Airway event: no complications Anesthesia Preprocedure Evaluation - Urban Barber M.D. - 05/29/2021 6:23 AM CDT Preprocedure Anesthesia & H&P Assessment Procedure Summary Date/Time: 05/29/21 0800 Procedures: SIMPLE MASTECTOMY. (Right ) RIGHT LYMPH NODE AXILLARY SENTINAL LYMPH NODE BIOPSY, PREOPERATIVE LYMPHOSCINTIGRAPHY. (Right ) DISSECTION LYMPH NODE AXILLARY, POSSIBLE RIGHT. (Right ) INTRA-OPERATIVE ULTRASONOGRAPHY. 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 Location: [place] [address] / [facility] [place] in [place], [place] Providers: Trini Cedillo D.O. Pertinent components of the patient's history including current problem list, medical history, surgical history, family history, social history, medications and allergies were reviewed. Present illnessand pre-op diagnosis were confirmed. The planned surgery / procedure was verified with the patient /legal guardian. 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 Risks/Benefits/Alternatives of Blood transfusion discussed with patient / legal guardian, including an opportunity to ask questions and/or decline some or all transfusion therapies. The patient / legalguardian consented to the use of all blood products, as deemed medically necessary Approval to Proceed: approved for anesthesia documented in this encounter Plan of Treatment Not on filedocumented as of this encounter Procedures Procedure Name Priority Date/Time Associated Comments Diagnosis LDA ANE ENDOTRACHEAL Routine 05/29/2021 8:17 AM R esults for this AIRWAY CDT procedure are i n the results section. documented in this encounter Results LDA ANE ENDOTRACHEAL AIRWAY (05/29/2021 8:17 AM CDT) Narrative Lorie Mcintosh R.N. - 05/29/2021 8 :17 AM CDT Lorie Mcintosh R.N. ? 05/29/2021 ??8:43 AM Airway Date/Time: 05/29/2021 8:17 AM Performed by: Lorie Mcintosh R.N. Authorized by: Urban Barber M.D. Patient location during procedure: OR / Procedure Area PROCEDURE DETAILS: Mask difficulty assessment: oral/nasal a irway needed Final airway type: video laryngoscope Laryngeal Manipulation: no ?? Final best view of glottic structures - Cormack/Lehane Score: grade 1 ETT location: oral VL device: glide scope [place] scope blade size: 3 Adult tube size: 6.5 Adult ETT distance at teeth/gum: 23 Oral tube type: standard ETT Cuffed: yes Number of attempt to successful placemen t: 1 Airway confirmation: bilateral breath so unds, positive ETCO2 and bilateral chest rise Other previous techniques attempted: non e PRE PROCEDURE DETAILS: Pre evaluation for airway management: pr ocedure Urgency: elective Preop assessment of probable difficulty: no difficulty anticipated Preoxygenation: bag valve mask SEDATION / ANESTHESIA Anesthesia method: anesthesia POST PROCEDURE DETAILS: ? Procedure outcome: successful ?? Airway event: no complications Urban Barber M.D. ANESTHESIA ORDERABLES documented in this encounter Visit Diagnoses Not on filedocumented in this encounter Administered Medications Inactive Administered Medications - up to 3 most recent administrations Medication Order MAR Action Action Date Dose Rate Site albumin human 5 % injection Given 05/29/2021 9:08 AM CDT 250 mL intravenous, As needed, Starting on Celine 05/29/21 at 0908, Anesthesia Intra-op ceFAZolin injection 2,000 mg (ANCEF) Given 05/29/2021 8:35 AM CDT 2 g 2,000 mg (rounded from 1,520 mg = 25 mg/ kg ? 60.8 kg), intravenous, Once, On Celine 05/29/21 at 0715, For 1 dose, Intra-Op, Preoperatively within 1 hour prior to surgical incision If needed, reconstitute vial per package insert instructions. See IVAG for administration guidelines. , Drug Monitoring Program: Pharmacist to adjust medication dosing based on indication and drug clearance factors., Indications: Prophylaxis, surgical dexAMETHasone injection (DECADRON) Given 05/29/2021 8:50 AM CDT 4 mg intravenous, As needed, Starting on Celine 05/29/21 at 0850, Anesthesia Intra-op ePHEDrine (PF) injection Given 05/29/2021 10:17 AM CDT 15 mg intravenous, As needed, Starting on Celine 05/29/21 at 0826, Anesthesia Intra-op Given 05/29/2021 10:11 AM CDT 5 mg Given 05/29/2021 9:43 AM CDT 5 mg fentaNYL injection (SUBLIMAZE) Given 05/29/2021 8:53 AM CDT 25 mcg intravenous, As needed, Starting on Celine 05/29/21 at 0816, Anesthesia Intra-op Given 05/29/2021 8:16 AM CDT 75 mcg lactated ringers New Bag 05/29/2021 8:15 AM CDT intravenous, Continuous Infusion: Per Instructions PRN, Starting on Celine 05/29/21 at 0815, Anesthesia Intra-op lidocaine (PF) (cardiac) injection Given 05/29/2021 8:16 AM CDT 100 mg intravenous, As needed, Starting on Celine 05/29/21 at 0816, Anesthesia Intra-op ondansetron (PF) injection (ZOFRAN) Given 05/29/2021 10:25 AM CDT 4 mg intravenous, As needed, Starting on Celine 05/29/21 at 1025, Anesthesia Intra-op phenylephrine injection Given 05/29/2021 10:17 AM CDT 100 mcg intravenous, As needed, Starting on Celine 05/29/21 at 0839, Anesthesia Intra-op Given 05/29/2021 9:43 AM CDT 100 mcg Given 05/29/2021 9:00 AM CDT 100 mcg propofol 10 mg/mL infusion Rate/Dose 05/29/2021 100 mcg/kg/min 35.88 (DIPRIVAN) Change 10:09 AM CDT mL/hr intravenous, Continuous Infusion: Per Instructions PRN, Starting on Celine 05/29/21 at 0830, Anesthesia Intra-op Rate/Dose Change 05/29/2021 10:04 AM CDT 60 mcg/kg/min 21.528 mL/hr Rate/Dose Change 05/29/2021 9:58 AM CDT 80 mcg/kg/min 28.704 mL/hr propofoL injection (DIPRIVAN) Given 05/29/2021 10:09 AM CDT 50 mg intravenous, As needed, Starting on Celine 05/29/21 at 0816, Anesthesia Intra-op Given 05/29/2021 8:40 AM CDT 10 mg Given 05/29/2021 8:30 AM CDT 10 mg succinylcholine (PF) injection (ANECTINE ) Given 05/29/2021 8:16 AM CDT 100 mg intravenous, As needed, Starting on Celine 05/29/21 at 0816, Anesthesia Intra-op documented in this encounter
--- OUTSIDE RECORDS SUMMARY | 2022-10-08 09:10 | XMS_ITS | Encounter Summary ---
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
--- OUTSIDE RECORDS SUMMARY | 2022-10-08 09:10 | XMS_ITS | Encounter Summary ---
:1940 Author Organization [facility] Address [address] [place] [address] Care Team Providers Name Role Phone Unavailable Primary Care Provider Unavailable Encounter Details Date Type Department Care Team Description 05/20/2021 Clinical Communication Breast Diagnostic Joy Summers [facility] [place] M.D. [place] [address] [facility] [address] [place] [phone] Social History Tobacco Use Types Packs/Day Years Used Date Smoking Tobacco: Former Smokeless Tobacco: Never Comments: in college years Alcohol Use Standard Drinks/Week Comments Yes 1 (1 standard drink = 0.6 oz pure alcoho l) per day Alcohol Habits Answer Date Recorded How often do you have a drink containing 4 or more times a w [place] 01/01/2022 alcohol? How many drinks containing alcohol [...] or relatives? How often do you attend zoroastrian or More than 4 times per year 01/01/2022 yarsani services? 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 - 05/20/2021 11:31 AM CDT I was able to reach Ms. Jorge . I gave her the results of the CT scan. Telephone Encounter - Eun Summers M.D. - 05/20/2021 10:15 AM CDT I called Ms. Jorge to go over results. Everything looks okay. She is in a restaurant I will call her back later today to go over more details. documented in this encounter Plan of Treatment Not on filedocumented as of this encounter Visit Diagnoses Not on filedocumented in this encounter
--- OUTSIDE RECORDS SUMMARY | 2022-10-08 09:10 | XMS_ITS | Encounter Summary ---
:1940 Author Organization [facility] Address [address] [place] [address] Care Team Providers Name Role Phone Unavailable Primary Care Provider Unavailable Reason for Visit Auth/Cert Specialty Diagnoses / Procedures Referred By Contact Refer red To Contact Diagnoses Malignant Neoplasm Of Breast Female Right (HCC) Malignant Neoplasm Of Breast Female Right (HCC) [C50.911] Procedures TX MASTECT RADICAL MODIFIED TX INTRAOP SENTINL LYMPH NODE INJ SIMPLE MASTECTOMY RIGHT LYMPH NODE AXILLARY SENTINAL LYMPH NODE BIOPSY - PREOPERATIVE LYMPHOSCINTIGRAPHY DISSECTION LYMPH NODE AXILLARY; POSSIBLE RIGHT Referral ID Status Reason Start Date Expiration Date Visits Requ ested Visits Authorized [id number] 1 1 Encounter Details Date Type Department Care Team Description 05/29/2021 Surgery [facility]ST YANIRA GRANADO OR Trini Cedillo, RIGHT LYMPH NODE AXILLARY [address] SENTIN[place] [address] [address] [facility] BIOPSY, PREOPERATIVE [phone] [place], [place] LYMPHOSCINTIGR APHY. [id number] Social History Tobacco Use Types Packs/Day Years Used Date Smoking Tobacco: Former Smokeless Tobacco: Never Comments: in college years Alcohol Use Standard Drinks/Week Comments Yes 1 (1 standard drink = 0.6 oz pure alcoho l) per day Alcohol Habits Answer Date Recorded How often do you have a drink containing 4 or more times a w wainwright 01/01/2022 alcohol? How many drinks containing alcohol [...] 01/01/2022 organizations such as shinto groups, unions, fraIntoo or athletic groups, or school groups? How [...] at Date Recorded Female 01/01/2022 8:43 AM [employer] documented as of this encounter Last Filed Vital Signs Vital Sign Reading Time Taken Comments Blood Pressure 110/53 05/29/2021 6:00 AM CDT Pulse 76 05/29/2021 6:00 AM CDT Temperature 36.6 ??C (97.9 ??F) 05/29/2021 6:00 AM CDT Respiratory Rate 16 05/29/2021 6:00 AM CDT Oxygen Saturation 100% 05/29/2021 6:00 AM CDT Inhaled Oxygen Concentration - - Weight 59.8 kg (131 lb 13.4 oz) 05/29/2021 6:00 AM CDT Height 159 cm (5' 2.6) 05/29/2021 6:00 AM CDT Body Mass Index 23.65 05/29/2021 6:00 AM CDT documented in this [...] daily. capsule documented as of this encounter OR Notes Op Note - Trini Cedillo D.O. - 05/29/2021 8:53 AM CDT Pre-op Diagnosis Malignant Neoplasm Of Breast Female Right (HCC) Post-op Diagnosis Malignant Neoplasm Of Breast Female Right (HCC) Breast Cancer Op Note: A digital assistant actively participated and was necessary for one or more of the following: opening,exposure and visualization during the case, maintaining hemostasis, wound closure resulting in its safe and expeditious completion. Cobb Operative Findings: Margins: Negative by intraoperative pathology Lymph nodes: Positive by frozen section Complications: None Indications for Operation: Neoadjuvant therapy: None Procedure(s): Right breast procedure: Lumpectomy Right axilla procedure: SLN Biopsy Right Segmental Mastectomy: Localization: Ultrasound Incision type: Along skin lines Incision Location: Upper-inner quadrant Extent of dissection: Wide excision and including portion skin Specimen orientation by surgeon: Marked with suture and oriented in person for pathologist Specimen radiograph: Demonstrated clip, microcalcifications and mass Intraoperative pathologic margin assessment: Negative Cavity management: Marked with clips for radiation, breast parenchyma closed and after mobilizationof surrounding breast tissue Skin closure: Multiple layers with absorbable suture Local anesthetic: Bupivacaine and lidocaine Additional incision care: SteriStrip(s) Right Opp Lymph Node Biopsy: SLN mapping agents: Tc-99 sulfur colloid periareolar by radiology day prior to operation and methylene blue (diluted 1 to 7 with dextrose and injected subareolar by surgeon intraoperatively Incision: Separate axillary incision Number of axillary sentinel lymph nodes identified and resected from the deep tissues of the axilla: 4 Number and description of the axillary sentinel lymph nodes identified and resected from the deep tissues of the axilla: 4 #1: Blue and radioactive Ex vivo gamma count: 543 #2: Blue and radioactive Ex vivo gamma count: 2221 #3: Blue and radioactive Ex vivo gamma count: 243 #4: Radioactive Ex vivo gamma count: 271 Analysis of sentinel nodes: Frozen section positive Frozen section positive for SLN(s) numbered: 2 Largest SLN metastasis: 3 mm Skin closure: Multiple layers with absorbable suture Additional incision care: SteriStrip(s) Comments: After informed consent was obtained, the patient was taken to the operating room, placed supine on the operating room table and placed under general endotracheal anesthesia. The patient received preoperative antibiotics. Under sterile conditions, 0.5 cc of methylene blue mixed with 3.5 cc of dextrose was injected in the right subareolar location. The right breast and axilla were prepped and draped inthe usual sterile fashion. The patient had undergone preoperative biopsy with clip placement of the lesion in the right breast upper inner quadrant. Ultrasound guidance was utilized to identify the depth and location of the lesion and seed and 2 orthogonal views were submitted to the patient's chart. Local anesthesia of 1% lidocaine with 0.25% bupivacaine was infiltrated in the skin overlying the lesion, and an incision was made with a scalpel. Bovie cautery was used to dissect circumferentially around the lesion. Orienting sutures were placed and the resection completed. Ultrasound was utilized toexamine the specimen to evaluate margins. Image was taken and stored to the chart. Specimen radiograph revealed that the the clip, the calcifications and the mass lesion were contained within the specimen. Pathological analysis revealed a 2.4 cm invasive ductal carcinoma, all margins were negative. Final closest margins 4 mm anterior and 10 mm lateral. After irrigating and assuring hemostasis, clips were placed to cora the lumpectomy cavity and closure was performed with interrupted 3-0 Vicryl sutures in the deep tissue of the breast to close down the space. The skin was then closed with interrupted 3-0 Vicryl in the deep dermis and running subcuticular 4-0 Monocryl. Attention was then turned to the right axilla where an area of increased radioactivity was detected with the gamma probe at the inferior aspect of the axillary hair line. Local anesthesia was infiltrated and an incision made. Focused dissection was performed directed by the gamma probe to identify the sentinel lymph nodes. Opp lymph node No. 1 was blue in color and had a radioactivity count of 543. Opp lymph node No. 2 was blue in color and had a radioactivity count of 2221. Opp lymphnode No. 3 was blue in color and had a radioactivity count of 243. Opp lymph node No. 4 was notblue in color and had a radioactivity count of 271. Further evaluation of the axilla confirmed therewere no other radioactive nodes, no blue lymph nodes and no palpably abnormal lymph nodes. The sentinel nodes were submitted to Pathology for intraoperative frozen section analysis. This revealed that sentinel lymph node 2 was positive with a macro metastasis measuring greater than 2 mm, no extranodal extension identified. The remaining lymph nodes were negative for tumor. The wound was irrigated, hemostasis obtained, and the incision was closed with interrupted 3-0 Vicryl and a running subcuticular 4-0 Monocryl. The patient tolerated the procedure well and was transferred to the recoveryroom in satisfactory condition. The patient's family was updated on the intraoperative findings. Trini Cedillo D.O. Brief Op Note - Farzana Cardenas M.D., M.P.H. - 05/29/2021 8:53 AM CDT Pre-op Diagnosis Malignant Neoplasm Of Breast Female Right (HCC) Post-op Diagnosis Malignant Neoplasm Of Breast Female Right (HCC) Ms. Jorge is s/p right US guided lumpectomy and SLNB for IDC, margins clear on intraop pathology and 1/4 lymph nodes positive for malignancy. No complications. Patient tolerated the procedure well. Pain control prn Dc home later today Follow up as scheduled Farzana Cardenas M.D., M.P.H. documented in this encounter Plan of Treatment Not on filedocumented as of this encounter Procedures Procedure Name Priority Date/Time Associated Comments Diagnosis ADULT OXYGEN THERAPY Routine 05/29/2021 10:49 AM CDT DX SURGICAL SPECIMEN RAD - Routine 05/29/2021 9:18 Res ults for (most inpatients AM CDT this proced ure and all are in the outpatients) results section. SURGICAL PATHOLOGY, Routine 05/29/2021 9:10 Malignant Resul ts for [facility] AM CDT Neoplasm Of this procedure Breast Female are in the Right (HCC) results section. LUMPECTOMY BREAST 05/29/2021 7:48 Malignant AM CDT Neoplasm Of Breast Female Right (HCC) INTRA-OPERATIVE 05/29/2021 7:48 Malignant ULTRASONOGRAPHY AM CDT Neoplasm Of Breast Female Right (HCC) BIOPSY SENTINEL LYMPH 05/29/2021 7:48 Malignant NODE AXILLARY - AM CDT Neoplasm Of PREOPERATIVE Breast Female LYMPHOSCINTIGRAPHY Right (HCC) documented in this encounter Results DX Surgical Specimen (05/29/2021 9:18 AM CDT) Anatomical Region Laterality Modality N/A Computed Tomography Specimen (Source) Anatomical Collection Method Collection Time Re ceived Time Location / / Volume Laterality 05/29/2021 9:23 AM CDT Impressions 05/29/2021 9:26 AM CDT Surgical specimen radiograph demonstrates the clipped mass and calcifications within the surgical speci men. Results called to the OR and discussed with Dr. Cedillo on 05/29/2021 a t 9:24 am. Narrative 05/29/2021 9:26 AM CDT EXAM: ??DX SURGICAL SPECIMEN Procedure Note Eun Terrazas M.D., J.D. - 11/2020 EXAM: DX SURGICAL SPECIMEN IMPRESSION: Surgical specimen radiograph demonstrate s the clipped mass and calcifications within the surgical speci men. Results called to the OR and discussed with Dr. Cedillo on 05/29/2021 a t 9:24 am. Trini Cedillo D.O. IMG DIAGNOSTIC IMAGING [facility] Surgical Pathology, Frozen Lab (05/29/2021 9:10 AM CDT) Component Value Ref Test Analysis Performed Pathologis t Range Method Time At Signature 06/03/2021 [facility] 4:31 PM CDT Participated in BOWEN [place], 06/03/2021 [facility] the [facility].-Pathology 4:31 PM Interpretation Resident CDT Report Henry MccarthyB.S., Ph.D. [phone] 06/03/2021 [facility] electronically 4:31 PM signed by CDT I verify that I have examined all relevant slides/materials for the specimen(s) and rendered or confirmed the diagnosis. Frozen A. ??Breast, right, lumpectomy: ??Invasive ductal carc inoma. 06/03/2021 [facility] Intraoperative All margins negative for tumor (closest margin is an terior 4:31 PM Report at 4 mm). ??Lateral margin is 10 mm from tumor. CDT B. ??Lymph node, right axillary No. 1, sentinel biopsy: ??A single (1) lymph node is negative for metastatic carcinoma. C. ??Lymph node, right axillary No. 2, sentinel biopsy: ??A single (1 of 1) lymph node is positive for macrometastatic carcinoma. D. ??Lymph node, right axillary No. 3, sentinel biopsy: ??A single (1) lymph node is negative for metastatic carcinoma. E. ??Lymph node, right axillary No. 4, sentinel biopsy: ??A single (1) lymph node is negative for metastatic carcinoma. Signed by Cristina MccarthyS., Ph.D. [phone] 05/29/2021 2:17 PM Gross Description A. ??Received fresh labeled right breast lumpect graciela is a 06/03/2021 [facility] 5.8 (M-L) x 5.5 (A-P) x 5.4 (S-I) cm oriented wide local 4:31 PM excision breast specimen with a 3.3 x 0.7 cm skin ellipse. CDT The specimen is inked and margins are taken perpendicularly. Grossly, there is a 1.9 x 1.4 x 1.3 cm mass with embedded twirl biopsy clip located 0.6 cm to the anterior margin. The next nearest margin is the medial by 1.3 cm . Additionally, fibrosis extends superior and inferior to the mass over approximately 1.5 cm, over a total area of 2.6 x 2.3 x 1.6 cm. ??Statistician Applied tissue submitted for frozen and permanent sections. ??After clinical evaluation, residual tissue is procured for IRB No. [id number]. ??Grossed by MAP. B. ??Received fresh labeled right axillary sentinel lymph node No. 1 is a single 1.0 x 0.6 x 0.6 cm lymph node. Blue dye is identified. ??All submitted for frozen and permanent sections. ??Grossed by [facility]. C. ??Received fresh labeled right axillary sentinel lymph node No. 2 is a single 1.1 x 0.8 x 0.6 cm lymph node. Blue dye is identified. ??All submitted for frozen and permanent sections. ??Grossed by LAB. D. ??Received fresh labeled right axillary sentinel lymph node No. 3 is a single 1.3 x 1.0 x 0.8 cm lymph node. Blue dye is not identified. ??All submitted for frozen and permanent sections. ??Grossed by LAB. E. ??Received fresh labeled right axillary sentinel lymph node No. 4 is a single 0.8 x 0.8 x 0.5 cm lymph node. Blue dye is not identified. ??All submitted for frozen and permanent sections. ??Grossed by LAB. Block Summary A Right breast lumpectomy 06/03/2021 [facility] A1 Right breast mass to anterior-superior to skin - Frozen 4:31 PM A2 Right breast mass to anterior- medial to skin CDT A3 Right breast mass to anterior- medial to skin - Frozen A4 Right breast fibrous anterior inferior to mass-1 A5 Right breast fibrous anterior inferior to [id number] A6 Right breast fibrous anterior inferior to mass-2 A7 Right breast fibrous to lateral-frozen A8 Right breast fibrous superior to mass to anterior A9 Right breast fibrous superior to mass to anterior-frozen A10 Right breast mass B Right axillary sentinel lymph node #1 B1 Right axillary sentinel lymph node #1 - Frozen C Right axillary sentinel lymph node #2 C1 Right axillary sentinel lymph node #2 - Frozen D Right axillary sentinel lymph node #3 D1 Right axillary sentinel lymph node #3-frozen E Right axillary sentinel lymph node #4 E1 Right axillary sentinel lymph node #4-frozen Addendum Oncotype DX Breast Cancer Assay-Invasive breast cancer has 07/01/2021 [facility] been requested by Dr. Benjamin Garcia and will be 9:02 AM performed on block A1 at [facility], [place], [place]. CDT Signed by Sheri Giron M.D. 07/01/2021 9:02 AM Comment: REVISED RESULTS Interpretation FINAL DIAGNOSIS 07/01/2021 9:02 AM CDT [facility] A. 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 All margins are negative for carcinoma. ??See synoptic report. Immunostaining (block A1) for E-cadherin demonstrates intact membranous staining pattern within the neoplastic cells, supporting a ductal phenotype. B. ??Lymph node, right axillary No. 1, sentinel biopsy: ??A single (1) lymph node is positive for macrometastatic carcinoma. ??Size of metastatic deposit, 3 mm. ??Extranodal extension is not identified. C. ??Lymph node, right axillary No. 2, sentinel biopsy: ??A single (1 of 1) lymph node is positive for macrometastatic carcinoma. ??Size of metastatic deposit, 5 mm. ??Extranodal extension is not identified. D. ??Lymph node, right axillary No. 3, sentinel biopsy: ??A single (1) lymph node is negative for metastatic carcinoma. E. ??Lymph node, right axillary No. 4, sentinel biopsy: ??A single (1) lymph node is negative for metastatic carcinoma. SYNOPTIC REPORT: Breast - Invasive Carcinoma Procedure: Excision Specimen Laterality: Right Tumor Site: Invasive Carcinoma: Not specified Tumor Size: ? Greatest dimension of largest invasive focus >1 mm: 26 mm ?Additional dimensions of largest invasive foc us: 23 x 16 mm Histologic Type: Invasive carcinoma of no special type (ductal) Histologic Grade ? Glandular (Acinar)/Tubular Differentiation: Score 3 ? Nuclear Pleomorphism: Score 2 ? Mitotic Rate: Score 3 ? Overall Grade: Grade 3 Tumor Focality: Single focus of invasive carcinoma Ductal Carcinoma In Situ (DCIS): Not identified ? Size (Extent) of DCIS: Not applicable ? Architectural Patterns: Not applicable ? Nuclear Grade: Not applicable ? Necrosis: Not applicable Treatment Effect in the Breast: No known presurgical therapy Tumor Extension ? Skin: Skin is present and uninvolved ? Nipple: Nipple is not present ? Skeletal Muscle: No skeletal muscle is present Margins ? Invasive Carcinoma Margins: Uninvolved by invasive carcinoma ?Distance from closest margin: ??4 mm ?Specify closest margin: ??Anterior ? DCIS Margins: Not applicable (no DCIS in specimen) Regional Lymph Nodes Involved by tumor cells ? Total Number of Lymph Nodes Examined: 4 ? Number of Opp Lymph Nodes Examined: 4 ? Number of Lymph Nodes with Macrometastases (greater than 2 mm): 2 ? Number of Lymph Nodes with Micrometastases (greater than 0.2 mm to 2 mm and/or greater than 200 cells): 0 ? Number of Lymph Nodes with Isolated Tumor Cells(less than or equal to 0.2 mm and less than or equal to 200 cells):0 ? Size of Largest Metastatic Deposit: 5 mm ? Extranodal Extension: Not identified Treatment Effect in the Lymph Nodes: Not applicable Lymphovascular Invasion: Not identified Dermal Lymphovascular Invasion: Not identified Pathologic Stage Classification (AJCC, 8th edition) ? TNM Descriptors: Not applicable ? Primary Tumor: pT2 ? Regional Lymph Node Modifier: sn ? Regional Lymph Nodes: pN1a ? Distant Metastasis: Not applicable Ancillary Studies: Previously reported Microcalcifications: Not identified The synoptic report incorporates information from all relevant surgical material and includes all required data elements of the current [facility] Cancer Protocol. Specimen (Source) Anatomical Collection Method Collection Time Re ceived Time Location / / Volume Laterality Tissue (Breast, 05/29/2021 9:10 AM Right) CDT Comment: 2 short superior 2 long lateral Skin goodrich anterior Tissue (Lymph Node, Opp) 05/29/2021 9:19 AM CDT Tissue (Lymph Node, Opp) 05/29/2021 9:25 AM CDT Tissue (Lymph Node, Opp) 05/29/2021 9:25 AM CDT Tissue (Lymph Node, Opp) 05/29/2021 9:35 AM CDT Narrative This result has an attachment that is no t available. Trini Cedillo D.O. LAB SURG PATH ORDERABLES Performing Organization Address City/State/ZIP Code Phon e Number [facility] [address] [place], [place] [address] [facility] [place] [address] [facility] [address] documented in this encounter Visit Diagnoses Diagnosis Malignant Neoplasm Of Breast Upper Inner Quadrant Female Right (HCC) - Primary Malignant Neoplasm Of Breast Female Righ t (HCC) Malignant Neoplasm Of Breast Female Righ t (HCC) documented in this encounter Admitting Diagnoses Diagnosis Malignant Neoplasm Of Breast Upper Inner Quadrant Female Right (HCC) documented in this encounter Administered Medications Inactive Administered Medications - up to 3 most recent administrations Medication Order MAR Action Action Date Dose Rate Site acetaminophen tablet 1,000 mg Given 05/29/2021 7:27 AM CDT 1,000 mg (TYLENOL) 1,000 mg, oral, Once, On Celine 05/29/21 at 0730, For 1 dose, Pre-Op, Preprocedure on unit with sips fentaNYL injection 25 mcg (SUBLIMAZE) Given 05/29/2021 11:51 AM CDT 25 mcg 25 mcg, intravenous, Every 2 min PRN, moderate pain or score 4-6 of 10, severe pain or score 7-10 of 10, Starting on Celine 05/29/21 at 1048, PACU (only), Up to maximum total dose of 200 mcg Given 05/29/2021 11:45 AM CDT 25 mcg Given 05/29/2021 11:30 AM CDT 25 mcg lactated ringers New Bag 05/29/2021 11:47 AM CDT 20 mL/hr 20 mL/hr 20 mL/hr, intravenous, Continuous, Starting on Celine 05/29/21 at 1000, PACU & Post-Op Continued from OR 05/29/2021 10:47 AM CDT 20 mL/hr 20 mL/hr lidocaine-bupivacaine 1%-0.25% Given 05/29/2021 9:42 AM CDT 60 m L Other infiltration injection As needed, Starting on Celine 05/29/21 at 0942, Intra-Op meperidine (PF) injection 12.5 mg (DEMER OL) Given 05/29/2021 12:16 PM CDT 12.5 mg 12.5 mg, intravenous, Every 2 min PRN, severe pain or score 7-10 of 10, shivering, May repeat once, Starting on Celine 05/29/21 at 1159, For 2 doses, PACU (only), Restriction Criteria (Pharmacy will review and approve if criteria met): Prevention or treatment of post-anesthesia shivering Given 05/29/2021 12:02 PM CDT 12.5 mg methylene blue 0.5 % (5 mg/mL) injection Given 05/29/2021 8:34 AM CDT 0.5 mL Other As needed, Starting on Celine 05/29/21 at 0840, Intra-Op oxyCODONE IR tablet 5 mg (ROXICODONE) Given 05/29/2021 10:53 AM CDT 5 mg 5 mg, oral, Once as needed, For pain 4 or greater, Starting on Celine 05/29/21 at 1048, For 1 dose, PACU (only) traMADoL tablet 100 mg (ULTRAM) 100 mg, oral, Every 6 hours PRN, severe pain or score 7-10 of 10, Starting on Celine 05/29/21 at 1314 traMADoL tablet 50 mg (ULTRAM) Given 05/29/2021 1:22 PM CDT 50 mg 50 mg, oral, Every 6 hours PRN, moderate pain or score 4-6 of 10, Starting on Celine 05/29/21 at 1314 documented in this encounter Active and Recently Administered Medications Times are shown in CDT. Scheduled Medication Order 05/27/2021 05/28/2021 05/29/2021 acetaminophen tablet 1,000 mg (TYLENOL) (COMPLETED) 726 (Given - Provider: Carole Singh RDavidNDavid) 1,000 mg, oral, Once, On Celine 05/29/21 at 0 730, For 1 dose, Pre-Op, Preprocedure on unit with sips bupivacaine liposome (PF) 266 mg/20 mL (13.3 mg/mL) injection 20 mL (EXPAREL) 0715 (Due) 20 mL, infiltration, Once, On Celine 05/29/21 at 0715, For 1 dose, In tra-Op ceFAZolin injection 2,000 mg (ANCEF) (COMPLETED) 834 (Given - Provider: Lorie Mcintosh R.N.) 2,000 mg (rounded from 1,520 mg = 25 mg/ kg ? 60.8 kg), intravenous, Once, On Celine 05/29/21 at 0715, For 1 dose, Intra-Op, Preoperatively within 1 hour prior to surgical incision If needed, reconstitute vi al per package insert instructions. See IVAG for administration guidelines. , Drug Monitoring Program: Pharmacist to adjust medication dosing based on indication and drug clearance factors., Indications: Prophylaxis, surgical heparin (porcine) injection 5,000 Units 0715 (Due) 5,000 Units, subcutaneous, Once, On Celine 05/29/21 at 0715, For 1 dose, Intra-Op, Administer prior to induction of anesthesia. Continuous Medication Order 05/27/2021 05/28/2021 05/29/2021 lactated ringers 0730 (Due) 20 mL/hr, intravenous, at 20 mL/hr, Cont inuous, Starting on Celine 05/29/21 at 0730, Pre-Op lactated ringers 1047 (Continued from OR - Provider: Jessica Garcia R.N. - Comment: 100 in bag)1147 (New Bag - Provider: Jessica Garcia R.N.)1302 (Continue to Inpatient Floor - Provider: Jessica Garcia RRubio.) 20 mL/hr, intravenous, at 20 mL/hr, Cont inuous, Starting on Celine 05/29/21 at 1000, PACU & Post-Op PRN Medication Order 05/27/2021 05/28/2021 05/29/2021 acetaminophen tablet 1,000 mg (TYLENOL) 1,000 mg, oral, Every 6 hours PRN, mild pain or score 1-3 of 10, Starting on Celine 05/29/21 at 1327 fentaNYL injection 25 mcg (SUBLIMAZE) (CANCELED) 1057 (Given - Provider: Jessica Garcia R.N.)1059 (Given - Provider: Jessica Garcia R.N.)1111 (Given - Provider: Jessica Garcia R.N.)1130 (Given - Provider: Jessica Garcia R.N.)1145 (Given - Provider: Jessica Garcia R.N.) 25 mcg, intravenous, Every 2 min PRN, mo derate pain or score 4-6 of 10, severe pain or score 7-10 of 10, Starting on Celine 05/29/21 at 1048, PACU (only), Up to maximum total dose of 200 mcg 1151 (Give n - Provider: Jessica Gacria R.N.) haloperidol lactate injection 1 mg (HALDOL) 1 mg, intravenous, Every 6 hours PRN, na usea, vomiting, Starting on Celine 05/29/21 at 1314, For 48 hours, Total of 3 doses in 24 hour period. RASS must be -2 or higher to administer. Reassess for nausea or vomiting after at least 10 minutes. If n ausea or vomiting persists administer next ordered antiemetic medications (order for antiemetic medication administration ondansetron then haloperidol then promethazine) lidocaine-bupivacaine 1%-0.25% infiltration injection (CANCELED) 0942 (Given - Provider: Trini Cedillo D.O. - Comment: Right Breast Tissue and Right Axilla) As needed, Starting on Celine 05/29/21 at 0942, Intra-Op meperidine (PF) injection 12.5 mg (DEMEROL) (COMPLETED) 1202 (Given - Provider: Jessica Garcia R.N.)1216 (Given - Provider: Jessica Garcia R.N.) 12.5 mg, intravenous, Every 2 min PRN, s evere pain or score 7-10 of 10, shivering, May repeat once, Starting on Celine 05/29/21 at 1159, For 2 doses, PACU (only), Restriction Criteria (Pharmacy will review a nd approve if criteria met): Prevention or treatment of post-anesthesia shivering methylene blue 0.5 % (5 mg/mL) injection (CANCELED) 0834 (Given - Provider: Trini Cedillo D.O. - Comment: 0.5mL Methylene Blue mixed with 3.5mL Dextrose Injected into area around Right nipple) As needed, Starting on Celine 05/29/21 at 0840, Intra-Op naloxone injection 0.2 mg (NARCAN) 0.2 mg, intravenous, As needed, respirat ory depression, Starting on Celine 05/29/21 at 1314, For RASS Score -4 or less, respiratory rate of less than 8 breaths/min. Notify provider/service and rapid response team (if available at institution). ondansetron (PF) injection 4 mg (ZOFRAN) 4 mg, intravenous, Every 6 hours PRN, na usea, vomiting, Starting on Celine 05/29/21 at 1314, For 48 hours, Reassess for nausea or vomiting after at least 10 minutes. If nausea or vomiting persists administer next ordered antiemetic medications (or ellie for antiemetic medication administration ondansetron then droperidol then promethazine). oxyCODONE IR tablet 5 mg (ROXICODONE) (COMPLETED) 1053 (Given - Provider: Jessica Garcia R.N.) 5 mg, oral, Once as needed, For pain 4 o r greater, Starting on Celine 05/29/21 at 1048, For 1 dose, PACU (only) promethazine injection 6.25 mg (PHENERGAN) 6.25 mg, intravenous, Every 6 hours PRN, nausea, vomiting, Starting on Celine 05/29/21 at 1314, For 48 hours, RASS must be -2 or higher to administer. Reassess for nausea/vomiting after at least 10 minutes. If nausea or vomiting persists administe r next ordered antiemetic medications (order for antiemetic medication administration ondansetron then droperidol then promethazine). traMADoL tablet 100 mg (ULTRAM)(Linked Group 1) 1322 (See Alternative - Provider: Carmen Noe R.N.) 100 mg, oral, Every 6 hours PRN, severe pain or score 7-10 of 10, Starting on Celine 05/29/21 at 1314 traMADoL tablet 50 mg (ULTRAM)(Linked Group 1) 1322 (Given - Provider: Carmen Noe R.N.) 50 mg, oral, Every 6 hours PRN, moderate pain or score 4-6 of 10, Starting on Celine 05/29/21 at 1314 Linked Groups Order Group 1: traMADoL tablet 50 mg (ULTRAM)Jump to med 50 mg, oral, Every 6 hours PRN, moderate pain or score 4-6 of 10, Starting on Celine 05/29/21 at 1314 Or traMADoL tablet 100 mg (ULTRAM)Jump to med 100 mg, oral, Every 6 hours PRN, severe pain or score 7-10 of 10, Starting on Celine 05/29/21 at 1314 documented in this encounter
--- OUTSIDE RECORDS SUMMARY | 2022-10-08 09:10 | XMS_ITS | Encounter Summary ---
:1940 Author Organization [facility] Address [address] [place] [address] Care Team Providers Name Role Phone Unavailable Primary Care Provider Unavailable Encounter Details Date Type Department Care Team Description 05/22/2021 Education Breast Diagnostic Hector Summers M.D. [address] [place] [phone] Malignant Neoplasm Of Clinic in [place], Mary Lou Arias, R.N. Breast Female Right [place] (HCC) [address] [place] [phone] Social History Tobacco Use Types Packs/Day Years [...] or relatives? How often do you attend hindu or More than 4 times per year 01/01/2022 synagogue services? 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 - 05/22/2021 1:00 PM CDT SUBJECTIVE CHIEF COMPLAINT/REASON FOR VISIT Patient education for multidisciplinary team consultation review ASSESSMENT/PLAN Resources: Breast Cancer Guide ([id number]) Discussion: We discussed plan of care for sentinel lymph node mapping, possible lymph node dissection and unilateral mastectomy. We reviewed expectations for day of surgery and the days following including: surgical incision care, length of hospital stay, pain management, constipation, drainage tube care, lymphedema precautions,post-operative exercises, long-term follow-up, survivorship and follow-up with surgical/oncology/radiation, as needed.. I demonstrated and discussed: FRANK drain and post operative binder. Psychosocial: Patient appears to be coping adequately at this time. She has a network of support including family and friends. We reviewed resources for additional education opportunities, coping, and support. I offered encouragement and my continued support at this time. documented in this encounter Plan of Treatment Not on filedocumented as of this encounter Visit Diagnoses Diagnosis Malignant Neoplasm Of Breast Female Righ t (HCC) documented in this encounter
--- OUTSIDE RECORDS SUMMARY | 2022-10-08 09:10 | XMS_ITS | Encounter Summary ---
:1940 Author Organization [facility] Address [address] [place] [address] Care Team Providers Name Role Phone Unavailable Primary Care Provider Unavailable Reason for Referral Outpatient (Routine) - Closed Specialty Diagnoses / Procedures Referred By Contact Refer red To Contact Diagnoses Malignant Neoplasm Of Unspecified Site Of Laterality Unknown Female Breast (HCC) Eun Summers M.D. [facility] Procedures PET CT Skull to Thigh FDG AK PET/CT TRUNK [address] [place] [address] Referral ID Status Reason Start Date Expiration Date Visits Requ ested Visits Authorized [id number] Closed 05/22/2021 05/22/2022 1 1 Reason for Visit Outpatient (Routine) - Closed Specialty Diagnoses / Procedures Referred By Contact Refer red To Contact Diagnoses Malignant Neoplasm Of Unspecified Site Of Laterality Unknown Female Breast (HCC) Eun Summers M.D. [facility] Procedures PET CT Skull to Thigh FDG AK PET/CT TRUNK [address] [place], [place] [address] Referral ID Status Reason Start Date Expiration Date Visits Requ ested Visits Authorized [id number] Closed 05/22/2021 05/22/2022 1 1 Encounter Details Date Type Department Care Team Description 05/26/2021 Hospital Encounter Department of Eun Summers ignant Neoplasm Radiology, Efrain Terrazas M.D. Of Unspecified Site Building, in [address] [place], [place] Unknown [place] [address] Breast (HCC) [address] [facility] [phone] [place], [place] (Work) [phone] Social History Tobacco Use Types Packs/Day Years Used Date Smoking Tobacco: Former Smokeless Tobacco: Never Comments: in college years Alcohol Use Standard Drinks/Week Comments Yes 1 (1 standard drink = 0.6 oz pure alcoho l) per day Alcohol Habits Answer Date Recorded How often do you have a drink containing 4 or more times a w [place] 01/01/2022 alcohol? How many drinks containing alcohol [...] More than 4 times per year 01/01/2022 worship services? 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 documented as of this encounter Miscellaneous Notes Result Encounter Note - Lexi Friedman M.D. - 05/28/2021 3:20 PM CDT Called and spoke to the patient over the phone and reviewed the results of her PET-CT completed on 05/26/2021 Focal FDG uptake in the biopsy-proven right breast malignancy. Otherwise there was no convincing evidence of FDG avid metastatic disease. Probable infectious/inflammatory uptake in the right upper and left lower lobes was noted similar tothe CT scan findings from 05/19/2021. The patient has a prior history of lung cancer in the left lower lobe and has undergone surgery previously. She denies any symptoms of recent cough, fevers/chills. She has not reported any symptoms of aspiration. She denies any chest pain, shortness of breath, fever, cough recently. She is scheduled for mastectomy tomorrow. documented in this encounter Plan of Treatment Not on filedocumented as of this encounter Procedures Procedure Name Priority Date/Time Associated Comments Diagnosis PET CT SKULL TO RAD - Routine 05/26/2021 4:54 Malignant Neoplasm Re sults for this THIGH (most inpatients PM CDT Of Unspecified procedure are in and all Site Of Laterality the resul ts outpatients) Unknown Female section. Breast (HCC) documented in this encounter Results PET CT Skull to Thigh FDG (05/26/2021 4:54 PM CDT) Anatomical Region Laterality Modality Body, Nuclear Medicine PET RST LOS, N/A Posi juliette Emission Tomography (PET), PET ARZ LOS, Nuclear Medicine PET FLA Po sitron Emission Tomography (PET) LOS, Nuclear Medicine Specimen (Source) Anatomical Collection Method Collection Time Re ceived Time Location / / Volume Laterality 05/27/2021 9:30 AM CDT Impressions 05/27/2021 5:13 PM CDT 1. Focal FDG uptake in biopsy-proven right breast malignancy. 2. No convincing evidence for FDG avid m etastatic disease. 3. Probable infectious/inflammatory upta ke in the right upper and left lower lobes. Narrative 05/27/2021 5:13 PM CDT EXAM: ??PET CT SKULL TO THIGH FDG Serum glucose at time of F-18 FDG inject ion was 85 mg/dL. Patient followed standard dietary/fasting requirements fo r this exam. RADIOPHARMACEUTICAL/MEDS: Route: intravenous fludeoxyglucose F 18 injection GROUP HOME (FDG F-18),15 millicurie TECHNIQUE: ??F-18 FDG PET/CT scan was pe rformed from the orbits through the thighs with low dose, non-contrast, free -breathing CT images for attenuation correction and anatomic localization (AC /AL), with imaging beginning at approximately 60 minutes after radiotrac er injection. COMPARISON: ??CT neck and chest 05/19/20 21. Outside breast MR 05/06/2021. INDICATION: ??Biopsy-proven left breast cancer. MR imaging suggests possible metastatic left internal mammary node. T umor staging. Initial treatment strategy. FINDINGS: Focal FDG uptake associated with the sma ll right breast nodule which contains a metallic biopsy clip (SUV max 1.7, image 109). No additional FDG avid lesions within the breast tissue. Low-level uptake in nonenlarged bilatera l axillary lymph nodes should be physiologic/reactive. No convincing FDG- avid internal mammary lymph nodes to correspond with possible findings on com parison MR. Mild FDG uptake in the previously noted clustered nodularity of the peripheral right upper lobe, consistent with infect ious/inflammatory process. Likewise, probable infectious/inflammatory opaciti es in the medial left lower lobe. Mild presumed inflammatory uptake in the distal esophagus. Scattered musculoskeletal uptake with a degenerati ve appearance. Probable usage-related uptake in the right thoracic paraspinous musculature. Significant incidental findings on the l ow-dose unenhanced CT fusion images: Findings above the diaphragm are not sig nificantly changed since recent diagnostic CTs. Colonic diverticula. Vas cular calcification. Procedure Note Dimitri Lombardo M.D. - 05/27/2021Forma tting of this note might be different from the original. EXAM: PET CT SKULL TO THIGH FDG Serum glucose at time of F-18 FDG inject ion was 85 mg/dL. Patient followed standard dietary/fasting requirements fo r this exam. RADIOPHARMACEUTICAL/MEDS: Route: intravenous fludeoxyglucose F 18 injection GROUP HOME (FDG F-18),15 millicurie TECHNIQUE: F-18 FDG PET/CT scan was perf ormed from the orbits through the thighs with low dose, non-contrast, free -breathing CT images for attenuation correction and anatomic localization (AC /AL), with imaging beginning at approximately 60 minutes after radiotrac er injection. COMPARISON: CT neck and chest 05/19/2021 . Outside breast MR 05/06/2021. INDICATION: Biopsy-proven left breast ca ncer. MR imaging suggests possible metastatic left internal mammary node. T umor staging. Initial treatment strategy. FINDINGS: Focal FDG uptake associated with the sma ll right breast nodule which contains a metallic biopsy clip (SUV max 1.7, image 109). No additional FDG avid lesions within the breast tissue. Low-level uptake in nonenlarged bilatera l axillary lymph nodes should be physiologic/reactive. No convincing FDG- avid internal mammary lymph nodes to correspond with possible findings on com parison MR. Mild FDG uptake in the previously noted clustered nodularity of the peripheral right upper lobe, consistent with infect ious/inflammatory process. Likewise, probable infectious/inflammatory opaciti es in the medial left lower lobe. Mild presumed inflammatory uptake in the distal esophagus. Scattered musculoskeletal uptake with a degenerati ve appearance. Probable usage-related uptake in the right thoracic paraspinous musculature. Significant incidental findings on the l ow-dose unenhanced CT fusion images: Findings above the diaphragm are not sig nificantly changed since recent diagnostic CTs. Colonic diverticula. Vas cular calcification. IMPRESSION: 1. Focal FDG uptake in biopsy-proven rig ht breast malignancy. 2. No convincing evidence for FDG avid m etastatic disease. 3. Probable infectious/inflammatory upta ke in the right upper and left lower lobes. Eun LOBO NM PROCEDURES documented in this encounter Visit Diagnoses Diagnosis Malignant Neoplasm Of Unspecified Site O f Laterality Unknown Female Breast (HCC) documented in this encounter Administered Medications Inactive Administered Medications - up to 3 most recent administrations Medication Order MAR Action Action Date Dose Rate Site fludeoxyglucose F 18 Given 05/26/2021 15 millicuries Left Antecubital injection GROUP HOME (FDG 3:20 PM CDT F-18) 15 millicurie, intravenous, Once, On 05/26/21 at 1545, For 1 dose documented in this encounter Additional Health Concerns Infection Onset Date Last Indicated Resolved Time COVID19 Pending 05/26/2021 05/26/2021 05/26/2021 7:04 PM CDT documented as of this encounter
--- OUTSIDE RECORDS SUMMARY | 2022-10-08 09:10 | XMS_ITS | Encounter Summary ---
:1940 Author Organization [facility] Address [address] [place] [id number] Care Team Providers Name Role Phone Unavailable Primary Care Provider Unavailable Reason for Visit Outpatient (Routine) - Closed Specialty Diagnoses / Procedures Referred By Contact Refer red To Contact Radiation Oncology Diagnoses Malignant Neoplasm Of Breast Female Right (HCC) Eun Summers [address] [place] M.D. [address] [place] [address] Referral ID Status Reason Start Date Expiration Date Visits Requ ested Visits Authorized [id number] Closed 05/20/2021 05/20/2022 1 1 Encounter Details Date Type Department Care Team Description 05/22/2021 Comprehensive Visit Breast Diagnostic [facility] in [place] Of Breast Female [place], [address] [place] [address] Right (HCC) [place], [place] [address] [place] [address] [place], [place] [phone] (Work) [phone] Social History Tobacco Use Types Packs/Day Years Used Date Smoking Tobacco: Former Smokeless Tobacco: Never Comments: in college years Alcohol Use Standard Drinks/Week Comments Yes 1 (1 standard drink = 0.6 oz pure alcoho l) per day Alcohol Habits Answer Date Recorded How often do you have a drink containing 4 or more times a w [place] 01/01/2022 alcohol? How many drinks containing alcohol [...] or relatives? How often do you attend holiness or More than 4 times per year 01/01/2022 anabaptist services? Do you belong to any clubs or Yes 01/01/2022 organizations such as holiness groups, unions, fraThingy Club or athletic groups, or school groups? 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 - 05/22/2021 11:00 AM CDT SUBJECTIVE REQUESTING PROVIDER Eun Summers M.D. REASON FOR CONSULT Asked to see Ms. Adrienne Jorge by Eun Summers M.D. for consultation regarding the role ofadjuvant radiotherapy for treatment of right breast cancer. Collaborating physician: Dr. Perez ([id number]) HISTORY OF PRESENT ILLNESS Ms. Adrienne Jorge a 80 y.o. woman with a recent diagnosis of right breast invasive ductal carcinoma. Her oncologic history is as follows: Oncology History Overview Note 80-year-old female from [place], [place], who presented with an abnormal screening [...] grade 3 invasive ductal carcinoma, ER 100%, CA 2%, HER2 negative (1+), Ki-67 pending. Therewas [...] left supraclavicular/cervical lymphadenopathy partially included in the [id number] on some series. Questionable left lung nodule [...] grade 3 invasive ductal carcinoma, ER 100%, CA 2%, HER2 negative (1+), Ki-67 pending BREAST [...] (LLL), pT2aN0 (stage IB), s/p VATS in 2014 Hiatal hernia GI bleed Asthma Insomnia Anxiety. [...] Breast Upper Inner Quadrant Female Right (HCC) Prior radiation therapy: No Prior cancer: yes, left lower lobe of lung OBJECTIVE There were no vitals taken for this visit. ASSESSMENT / PLAN #1 Malignant Neoplasm Of Breast Female Right (HCC) Clinical stage: T2, N2b Pathologic stage: TBD Current treatment plan: evaluation of the IMN node and then surgery followed by discussion of chemotherapy and radiotherapy. EDUCATION Ready to learn, no apparent learning barriers were identified. Signed by: Shital Christian P.A.-C. 05/22/2021 12:00 PM CDT Associated attestation - Vivek Perez M.D. - 05/22/2021 3:05 PM CDT I saw and evaluated the patient and participated in the doyle portions of the service. I reviewed the documentation of Shital Christian and agree with the findings and plan. Mrs. Jorge is a delightful 80-year-old woman with a recent diagnosis of right breast cancer. I was asked to see discussed the potential role radiotherapy. Her care was discussed at our multidisciplinary clinic earlier today. 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 She presented with a screen detected abnormality in the upper inner quadrant of the right breast. On MRI there was non mass enhancement extending up to 3.4 cm noted was a 1.2 cm internal mammary node. A biopsy of the primary demonstratesgrade 3 invasive ductal carcinoma, ER positive, CA positive, HER2 negative. She is scheduled for a PET-CT scan next week for systemic staging and to better evaluate the internal mammary chain. Symptomatically that, the patient reports to be well. On exam, she is well appearing. There is no extremity edema. Breast exam was deferred today. In summary, this is a 80-year-old woman with [id number] vs [id number] grade 3 invasive ductal carcinoma of the right breast which is ER positive CA positive and HER2 negative. We had long discussion regarding the diagnosis, natural history, staging and treatment of breast cancer. We discussed the potentialrole of radiotherapy in reducing the risk of recurrence in the setting of breast conserving therapy or following mastectomy. Much of our conversation was spent discussing the potential pros and cons ofbreast conserving therapy versus mastectomy with or without radiotherapy. Both Dr. Cedillo and I believe that she is a excellent breast conserving therapy candidate if she so desires. The potential advantage of breast conserving therapy incorporating adjuvant whole breast radiotherapy would be the ability to target the internal mammary chain with minimal additional risk of adverse effects. I reiterated that there is no evidence that mastectomy would provide a better chance of cure and in fact in her particular situation the breast conserving therapy approach may be consider more comprehensive than mastectomy alone given the ability to target the internal mammary chain as the sensitivity of the PET/CT scan in this context is far 100%. At age 80 there are also other competing risk sick must be considered as well. All of the patient's questions were answered to the best my abilities. I would be happy to talk to her further regarding breast conserving therapy options should she so desire after the findings from the PET-CT scan are available prior to surgery. She knows to be in touch any point should additional questions or concerns arise. 60 minutes were spent the care of this patient today. This includes both [id number] not [id number] patient care. documented in this encounter Plan of Treatment Not on filedocumented as of this encounter Visit Diagnoses Diagnosis Malignant Neoplasm Of Breast Female Righ t (HCC) documented in this encounter
--- OUTSIDE RECORDS SUMMARY | 2022-10-08 09:10 | XMS_ITS | Encounter Summary ---
:1940 Author Organization [facility] Address [address] [place] [address] Care Team Providers Name Role Phone Unavailable Primary Care Provider Unavailable Reason for Visit Auth/Cert Specialty Diagnoses / Procedures Referred By Contact Refer red To Contact Diagnoses Malignant Neoplasm Of Breast Female Right (HCC) Malignant Neoplasm Of Breast Female Right (HCC) [C50.911] Procedures VA MASTECT RADICAL MODIFIED VA INTRAOP SENTINL LYMPH NODE INJ SIMPLE MASTECTOMY RIGHT LYMPH NODE AXILLARY SENTINAL LYMPH NODE BIOPSY - PREOPERATIVE LYMPHOSCINTIGRAPHY DISSECTION LYMPH NODE AXILLARY; POSSIBLE RIGHT Referral ID Status Reason Start Date Expiration Date Visits Requ ested Visits Authorized [id number] 1 1 Encounter Details Date Type Department Care Team Description 05/29/2021 Hospital Encounter Outpatient Surgery Tirni Cedillo ignant Neoplasm Of Unit in [place], A, D.O. Breast Female Right [place] [address] [facility] (HCC) [address] [place] [phone] Social History Tobacco Use Types Packs/Day Years Used Date Smoking Tobacco: Former Smokeless Tobacco: Never Comments: in college years Alcohol Use Standard Drinks/Week Comments Yes 1 (1 standard drink = 0.6 oz pure alcoho l) per day Alcohol Habits Answer Date Recorded How often do you have a drink containing 4 or more times a w [place] 01/01/2022 alcohol? How many drinks containing alcohol [...] 01/01/2022 organizations such as scientology groups, unions, [employer]us [employer] or athletic groups, or school groups? 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 [place] lymph node No. 1 was blue in color and had a radioactivity count of 543. [place] lymph node No. 2 was blue in color and had a radioactivity count of 2221. [place] lymphnode No. 3 was blue in color and had a radioactivity count of 243. [place] lymph node No. 4 was notblue in [...] am. Trini Cedillo D.O. IM[facility] Surgical Pathology, Frozen Lab (05/29/2021 9:10 AM CDT) Component Value Ref Test Analysis Performed Pathologis t Range Method Time At Signature 06/03/2021 M[facility] 4:31 PM CDT Participated in BOWEN [place], 06/03/2021 [facility].-Pathology 4:31 PM Interpretation Resident CDT Report Juan Carlos Mccarthy.B.S., Ph.D. [phone] 06/03/2021 METH electronically 4:31 PM signed by [...] metastatic carcinoma. Signed by Cristina MccarthyS., Ph.D. [phone] 05/29/2021 2:17 PM Gross Description A. ??Received [...] of 2.6 x 2.3 x 1.6 cm. ??Elementary Ell Teacher tissue submitted for frozen and permanent sections. ??After clinical evaluation, residual tissue is procured for IRB No. [id number]. ??Grossed by MAP. B. ??Received fresh labeled [...] A5 Right breast fibrous anterior inferior to [id number] A6 Right breast fibrous anterior inferior to [...] 9:02 AM performed on block A1 at [facility], [place], [place]. CDT Signed by Sheri Giron M.D. 07/01/2021 9:02 AM Comment: REVISED RESULTS Interpretation FINAL DIAGNOSIS 07/01/2021 9:02 AM CDT METH A. 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 All margins are [...] Lymph Nodes Examined: 4 ? Number of [place] Lymph Nodes Examined: 4 ? Number of [...] lateral Skin goodrich anterior Tissue (Lymph Node, [place]) 05/29/2021 9:19 AM CDT Tissue (Lymph Node, [place]) 05/29/2021 9:25 AM CDT Tissue (Lymph Node, [place]) 05/29/2021 9:25 AM CDT Tissue (Lymph Node, [place]) 05/29/2021 9:35 AM CDT Narrative This result has an attachment that is no t available. Trini Cedillo D.O. LAB SURG PATH ORDERABLES Performing Organization Address City/State/ZIP Code Phon e Number [facility] - [address] [place], [place] [address] [place] [address] [facility] [place] [address] documented in this [...] 10:47 AM CDT 20 mL/hr 20 mL/hr meperidine (PF) injection 12.5 mg (DEMER OL) [...] Given 05/29/2021 12:02 PM CDT 12.5 mg oxyCODONE IR tablet 5 mg (ROXICODONE) Given [...] 05/29/2021 acetaminophen tablet 1,000 mg (TYLENOL) (COMPLETED) 07 (Given - Provider: Carole Singh R.N.) 1,000 mg, oral, Once, On Celine 05/29/21 at 0 730, For 1 dose, Pre-Op, Preprocedure on unit with sips bupivacaine liposome (PF) 266 mg/20 mL (13.3 mg/mL) injection 20 mL (EXPAREL) 0715 (Due) 20 mL, infiltration, Once, On Celine 05/29/21 at 0715, For 1 dose, In tra-Op ceFAZolin injection 2,000 mg (ANCEF) (COMPLETED) 0835 (Given - Provider: oLrie Mcintosh RAda) 2,000 mg (rounded from 1,520 mg = [...] (Continued from OR - Provider: Jessica Garcia RRubio. - Comment: 100 in bag)1147 (New Bag - Provider: Jessica Garcia RDavidN.)1302 (Continue to Inpatient Floor - Provider: Jessica Garcia RDavidN.) 20 mL/hr, intravenous, at 20 mL/hr, Cont inuous, Starting on Celine 05/29/21 at 1000, PACU & Post-Op PRN Medication Order 05/27/2021 05/28/2021 05/29/2021 acetaminophen tablet 1,000 mg (TYLENOL) 1,000 mg, oral, Every 6 hours PRN, mild pain or score 1-3 of 10, Starting on Celine 05/29/21 at 1327 fentaNYL injection 25 mcg (SUBLIMAZE) (CANCELED) 1057 (Given - Provider: Jessica Garcia RDavidN.)1059 (Given - Provider: Jessica Garcia R.N.)1111 (Given [...] mcg 1151 (Give n - Provider: Jessica Garcia R.N.) haloperidol lactate injection 1 mg (HALDOL) [...] injection (CANCELED) 0834 (Given - Provider: Trini A Piltin, D.O. - Comment: 0.5mL Methylene Blue mixed [...]
--- OUTSIDE RECORDS SUMMARY | 2022-10-08 09:10 | XMS_ITS | Encounter Summary ---
:1940 Author Organization [facility] Address [address] [place] [address] Care Team Providers Name Role Phone Unavailable Primary Care Provider Unavailable Reason for Referral Outpatient (Routine) - Closed Specialty Diagnoses / Procedures Referred By Contact Refer red To Contact Radiation Oncology Trini Cedillo D.O. Mutter, Robert W, [address] [place], [place] [address] [place] [phone] [place] [address] Phone: Fax: Referral ID Status Reason Start Date Expiration Date Visits Requ ested Visits Authorized [id number] Closed 05/22/2021 05/22/2022 1 1 utpatient (Routine) - Closed Specialty Diagnoses / Procedures Referred By Contact Refer red To Contact Medical Oncology / Diagnoses Malignant Neoplasm Of Breast Female Right (HCC) Trini Cedillo D.O. [facility] Oncology [address] [place] [phone] Referral ID Status Reason Start Date Expiration Date Visits Requ ested Visits Authorized [id number] Closed 05/22/2021 05/22/2022 1 1 Scheduling Instructions Please schedule with Dr. Garcia Specialty Diagnoses / Procedures Referred By Contact Refer red To Contact [facility] [address] [place], [place] [address] Referral ID Status Reason Start Date Expiration Date Visits Requ ested Visits Authorized Scheduling Instructions Combine w/ other postops if poss pls utpatient (Routine) - Closed Specialty Diagnoses / Procedures Referred By Contact Refer red To Contact General Surgery rTini Cedillo D.O. [facility] [address] [place] [address] Referral ID Status Reason Start Date Expiration Date Visits Requ ested Visits Authorized [id number] Closed 05/22/2021 05/22/2022 1 1 Scheduling Instructions With Nedra utpatient (Routine) - Closed Specialty Diagnoses / Procedures Referred By Contact Refer red To Contact Diagnoses Malignant Neoplasm Of Breast Female Right (HCC) Trini Cedillo D.O. [facility] Procedures NM [place] Node Injection Only [address] [place], [place] [address] Referral ID Status Reason Start Date Expiration Date Visits Requ ested Visits Authorized [id number] Closed 05/22/2021 05/22/2022 6 6 Reason for Visit Outpatient (Routine) - Closed Specialty Diagnoses / Procedures Referred By Contact Refer red To Contact General Surgery Diagnoses Malignant Neoplasm Of Breast Female Right (HCC[facility] [address] [place] [address] Referral ID Status Reason Start Date Expiration Date Visits Requ ested Visits Authorized [id number] Closed 05/19/2021 05/19/2022 1 1 Encounter Details Date Type Department Care Team Description 05/22/2021 Comprehensive Visit Division of Breast Trini Cedillo Ma lignant Neoplasm and Melanoma A, RiddhiODavid Of Breast Female Surgical Oncology in [address] [facility] Right (HCC) [place], [place] [address] [facility] [address] [place], [place] [phone] (Work) [phone] Social History Tobacco Use Types Packs/Day Years Used Date Smoking Tobacco: Former Smokeless Tobacco: Never Comments: in college years Alcohol Use Standard Drinks/Week Comments Yes 1 (1 standard drink = 0.6 oz pure alcoho l) per day Alcohol Habits Answer Date Recorded How often do you have a drink containing 4 or more times a w [place] 01/01/2022 alcohol? 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 - 05/22/2021 10:00 AM CDT SUBJECTIVE REASON FOR CONSULT Breast Carcinoma Source of consultation: Eun Summers M.D. HISTORY OF PRESENT ILLNESS Adrienne Jorge is a 80 y.o. female seen for surgical consultation regarding her breast carcinoma diagnosis. The initial presentation was a mammogram abnormality. She denies palpable mass, skin change and breast discharge. On screening mammogram, a right breast upper inner quadrant mass was found in March 2021. There were also calcifications anterior to the mass that seemed to have benign characteristics. Focused breast ultrasound May 01 showed hypoechoic irregular mass at the 2 o'clock position of the right breast, 4 cm from the nipple, measuring 1.3 x 1.9 x 1.5 cm. Right axillary ultrasound was normal. Ultrasound-guided biopsy was performed, and a twirl clip was left. Pathology shows IDC with DCIS, ER LA positive, HER2 negative. Bilateral breast MRI was done , and in the right breast there is non mass enhancement surrounding the previous clip in the upper inner breast measuring 3.4 cm by AP dimension, by 1.7 transfers by 1.3SI. The left breast was negative, as were the bilateral axilla. The chest wall did have a possibly enlarged right antrum might lymph node measuring 0.2 cm near the 1st rib, as well as a questionable left lung nodule and possible left supraclavicular, cervical lymphadenopathy. In addition, there were calcifications 1.3 cm anterior to the known right breast malignancy, and these have not been biopsied. CT neck did not Re demonstrate this possible adenopathy. In addition it showed small varices, in radiology interpretation was that the previously visualized and large internal mammary node could be a varix. CT chest did show scattered noncalcified 1 mL pulmonary nodules that are indeterminate. Patient's preference is currently unilateral mastectomy without reconstruction. Medical history notable for history of left lung cancer treated with VATS. The patient smoked socially during college, not recently. Site #1: The location is the right breast upper inner quadrant. 2 o'clock position Mammography demonstrated a mass and calcifications Breast US demonstrated a mass measuring 1.9 centimeters. MRI demonstrated non-mass enhancement measuring 3.4 centimeters. Histology: invasive ductal carcinoma Grade: 3 ER: positive LA: positive HER-2: negative Breast-Relevant Surgical History No breast surgical history. Breast-Relevant Family History Problem Relation Age of Onset Comments Colon cancer Father Ashkenazi Mandaen descent: No Personal history genetic counseling: No Personal history genetic testing: No The following portions of the patient's history were reviewed and updated as appropriate: family history, medical history, social history and surgical history REVIEW OF SYSTEMS Skin: Negative for breast lump. OBJECTIVE PHYSICAL EXAM Physical Exam General: well appearing, no acute distress HEENT: No palpable cervical, supraclavicular or infraclavicular lymphadenopathy Axilla: No palpable axillary lymphadenopathy Breasts: Bilateral nipples are everted. In the right breast at the 2 o'clock position, there is a 2.5 x 2.5 cm mass located 4 cm from the nipple. There is mild surrounding bruising from prior biopsy. No palpable masses of the left breast. ASSESSMENT / PLAN Staging: right breast carcinoma, clinical stage [id number]. Discussion/Plan: She is currently a candidate for breast-conserving therapy and mastectomy. We discussed both breast-conserving therapy (BCT) or mastectomy and the equivalent overall and disease free survival associated with each of these approaches We discussed the role of sentinel lymph node mapping and biopsy (SLN) and possible axillary lymph node dissection including the circumstances in which completion ALND would be indicated. We discussed the risks and benefits and pros and cons of breast conserving therapy versus mastectomy. We discussed that either way sentinel lymph node biopsy to be performed. In the case of lumpectomy for postoperative radiation is planned, if 1-2 nodes are positive on sentinel lymph node biopsy, it is possible to avoid axillary lymph node dissection, however if mastectomy is the preferred choice, with a positive sentinel node we would proceed with axillary dissection. We also discussed management of the enlarged internal mammary node. After multidisciplinary discussion, we will proceed with PET-CT to further characterize the node. We will tentatively list the patient for next week for unilateral mastectomy with sentinel lymph node biopsy, knowing treatment plan maychange based on those results. After considering all of her options and having her questions answered to her satisfaction, she wishes to proceed with mastectomy. We will plan to perform unilateral mastectomy. Regarding her lymph nodes, we will plan to perform sentinel lymph node biopsy and possible axillary dissection. We discussed this planned operation in detail including risks, benefits, and alternatives. She expressed understanding, that her questions had been answered to her satisfaction, and that she gives herconsent to proceed. We will assure appropriate preoperative evaluation, arrange surgical scheduling,and pre- operative instructions were given. Associated attestation - Trini Cedillo D.O. - 05/28/2021 11:03 AM CDT I saw and evaluated the patient, participating in the doyle portions of the service. I reviewed the resident/fellow???s note. I agree with the resident/fellow???s findings and plan. The patient is a pleasant 80-year-old female seen in multidisciplinary fashion for new diagnosis right breast cancer. The patient has a history of a left lung carcinoma treated with VATS and resection in 2012. She had a mammogram detected abnormality within the right breast upper inner quadrant without associated palpable abnormality. At the 2 o'clock position located 4 cm from the nipple, a 1.9 cm mass on ultrasound was identified. This correlated to a 3.4 cm area on MRI in the AP dimension while prone. Biopsy was undertaken of marked by a twirl shaped clip. Pathology indicated a right invasive ductal carcinoma, grade 3, ER 100%, LA 2%, HER2 negative (1+), Ki 67 24% with associated DCIS (Ki 67 was pending at the time of consultation). Additional finding of unbiopsied calcifications located anterior to the mass were also noted. On MRI, which was performed outside, our interpretation suggested a possible 1.2 cm internal mammary lymph node located near the 1st rib space. Axillary imaging was negative for lymphadenopathy by both MRI and ultrasound. Incidental findings include questionable left lung nodule, possible left (contralateral) supraclavicular and cervical lymphadenopathy. CT of the neck was performed and did not redemonstrate the adenopathy. In addition, small varices were noted. Follow-up CT chest performed for pulmonary nodules found them to be indeterminate. On physical examination, there is no cervical, supraclavicular, infraclavicular, axillary adenopathybilaterally. Bilateral nipples everted. No nipple discharge. In the right breast 2 o'clock position,a 2.5 x 2.5 cm masses palpated approximately 4 cm from the nipple with mild resolving ecchymosis. Nopalpable contralateral breast masses. Right breast invasive ductal carcinoma, cT2N0 with associated DCIS, luminal B subtype In light of the possible internal mammary lymph node that is enlarged versus vascular abnormality, adiscussion with radiology is plan for further workup and imaging. We discussed the options for breast conservation versus mastectomy. She understands that while the local recurrence rate is higher with breast conserving therapy than with mastectomy, approximately 0.1 to 0.5% per year, data from multiple randomized clinical trials with more than 20 years of follow- up demonstrates that overall survival is equivalent. We reviewed the types of mastectomy that may be performed with or without immediate or delayed reconstruction. We briefly discussed her reconstructive options including autologous tissue reconstructionand tissue filter tip inspector/implant- based reconstruction. We discussed that simple (total) mastectomy is removal of the entire breast and nipple-areola complex. We discussed that when immediate reconstruction is planned, other types of mastectomy such as skin-sparing mastectomy with removal of the entire breast and nipple-areola complex but preservation of a skin envelope and nipple-sparing and areolar-sparing mastectomy, with preservation of a skin envelope and the nipple and/or areola may be considered. We discussed the indications for post-mastectomy adjuvant radiotherapy. We further discussed that her treatment would include axillary staging and treatment to include sentinel lymph node biopsy following a preoperative injection of Technetium-sulfur colloid and intraoperative injection of blue dye, with frozen section examination of the lymph node(s) and possible axillary lymph node dissection (levels I & II, unless previously unsuspected disease is encountered at the time of the operation in which case a level III dissection might be performed). We discussed that clinical trial data suggests some patients with low volume axillary lymph node disease may not benefit from completion axillary lymph node dissection. We focused our discussion on right breast total mastectomy with sentinel lymph node biopsy, possibleaxillary lymph node dissection . The risks and benefits of these procedures were discussed with the patient. Specific risks reviewed included bleeding, infection, alteration in cosmesis, neuropathy, lymphedema, cancer recurrence, the potential need for secondary operation(s), and cardiac, pulmonary and thromboembolic complications. W We reviewed the rationale for these treatment recommendations and logistics. The patient was given the opportunity to ask questions and all of her questions were answered to enhance medical understanding and facilitate informed consent. Preoperative teaching done with the assistance of Bud Gutierres RN. Visit time 45 minutes of which >50% was spent in counseling and coordination of care. documented in this encounter Plan of Treatment Scheduled Referrals Name Type Priority Associated Order Schedule Diagnoses General Surgery Post Outpatient Referral Routine Expected: Op (clinic) 06/09/2021 (Approximate), Expires: 05/22/2024 Breast Clinic - Outpatient Referral Routine Malignant Neoplasm Expected: Cancer survivorship Of Breast Female 05/29 education (clinic) Right (HCC) (Approxim ate), Expires: 05/22/2024 Oncology - Medical, Outpatient Referral Routine Malignant Neop lasm Expected: breast consult Of Breast Female (clinic) Right (HCC) (Approximate), Expires: 05/22/2024 Return to provider in Outpatient Referral Routine Expected: another specialty 06/09/2021 (Approximate), Expires: 05/22/2024 documented as of this encounter Results NM [place] Node Injection Only (05/28/2021 1:22 PM CDT) [...] a preprocedural pause. Injections performed by MONIQUE. ?? INDICATION: ?? Breast Cancer, Surgical Guidance [...] a preprocedural pause. Injections performed by KB. INDICATION: Breast Cancer, Surgical Guidance sentinel lymph node biopsy IMPRESSION: Right breast injection for intraoperativ e sentinel lymph node localization. Trini Cedillo D.O. IMG NM PROCEDURES SARS CoV-2 RNA, PCR, Varies Asymptomatic (05/26/2021 2:41 PM CDT) [facility] Method Time Signature SARS CoV-2 Swab, 05/26/2021 DTL RNA, PCR, Nasopharynx 7:04 PM CDT Source SARS CoV-2 Undetected Undetected 05/26/2021 DTL RNA, PCR 7:04 PM CDT Comment: SARS-CoV-2 RNA absent. This result does not rule out COVID-19 in the patient, as the sensitivity of the test depends o n the timing of the specimen collection and quality of the specimen. Result should be correlated with patient's history and clinical presentat ion. ----ADDITIONAL INFORMATION---- This RT-PCR test has received Emergency Use Authorization (EUA) by the U.S. Food and Drug Administration an d is used per general production manager's instructions. Performance characteristics were verified by [facility] in a manner consistent with CLIA requirements. Visit the CDC website: https://www.cdc.g ov/coronavirus/ for the most recent guidelines on Coron avirus testing. Fact Sheet for Healthcare Providers: https://www.fda.gov/media/595890/downloa d Fact Sheet for Patients: https://www.fda.gov/media/922491/downloa d Specimen Anatomical Collection Method Collection Time Receive d Time (Source) Location / / Volume Laterality Varies 05/26/2021 2:41 PM 3:30 (Nasopharynx) CDT PM CDT Trini Cedillo D.O. LAB MICROBIOLOGY - GENERAL O RDERABLES Performing Organization Address City/State/ZIP Code Phon e Number [facility] - [address] [place], [place] [address] [facility] [place] [address] Laboratories-[facility] [address] documented in this encounter Visit Diagnoses Diagnosis Malignant Neoplasm Of Breast Female Righ t (HCC) Malignant Neoplasm Of Breast Female Righ t (HCC) documented in this encounter
--- OUTSIDE RECORDS SUMMARY | 2022-10-08 09:10 | XMS_ITS | Encounter Summary ---
:1940 Author Organization [facility] Address [address] [place] [address] Care Team Providers Name Role Phone Unavailable Primary Care Provider Unavailable Reason for Referral Outpatient (Routine) - Closed Specialty Diagnoses / Procedures Referred By Contact Refer red To Contact Diagnoses Malignant Neoplasm Of Unspecified Site Of Laterality Unknown Female Breast (HCC) Eun Summers M.D. [facility] Procedures PET CT Skull to Thigh FDG ME PET/CT TRUNK [address] [place] [address] Referral ID Status Reason Start Date Expiration Date Visits Requ ested Visits Authorized [id number] Closed 05/22/2021 05/22/2022 1 1 Encounter Details Date Type Department Care Team Description 05/22/2021 Orders Only Breast Diagnostic Pruthi, Rashmi, Malign ant Neoplasm Of Clinic in [place] Unspecified Site Of [place] [address] [facility] Laterality Unknown [address] [place] [address] Female Breast (HCC) [place] [address] (Primary Dx) [address] [phone] Social History Tobacco Use Types Packs/Day Years [...] or relatives? How often do you attend episcopal or More than 4 times per year 01/01/2022 shinto services? 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
--- OUTSIDE RECORDS SUMMARY | 2022-10-08 09:10 | XMS_ITS | Encounter Summary ---
:1940 Author Organization [facility] Address [address] [place] [address] Care Team Providers Name Role Phone Unavailable Primary Care Provider Unavailable Reason for Visit Reason Comments Appointment post op Encounter Details Date Type Department Care Team Description 05/23/2021 Clinical Communication Department of Keena Garcia (post Oncology in [place], op ) Dorene Grissom [place] [address] [facility] [address] [place] [address] [phone] Social History Tobacco Use Types Packs/Day Years Used Date Smoking Tobacco: Former Smokeless Tobacco: Never Comments: in college years Alcohol Use Standard Drinks/Week Comments Yes 1 (1 standard drink = 0.6 oz pure alcoho l) per day Alcohol Habits Answer Date Recorded How often do you have a drink containing 4 or more times a w [place] 01/01/2022 alcohol? How many drinks containing alcohol [...] or relatives? How often do you attend yazidism or More than 4 times per year 01/01/2022 catholic services? 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 Currently set up for 06/20. Please advise Thank you, Cori Trinidad [facility] routing- P Rst Onc Scheduling Patient Appointment Tram Driver Medical Oncology Appointment Office Phone:?[phone] documented in this encounter Plan of Treatment Not on filedocumented as of this encounter Visit Diagnoses Not on filedocumented in this encounter Additional Health Concerns Infection Onset Date Last Indicated Resolved Time COVID19 Pending 05/26/2021 05/26/2021 05/26/2021 7:04 PM CDT documented as of this encounter
--- OUTSIDE RECORDS SUMMARY | 2022-10-08 09:10 | XMS_ITS | Encounter Summary ---
:1940 Author Organization [facility] Address [address] [place] [address] Care Team Providers Name Role Phone Unavailable Primary Care Provider Unavailable Encounter Details Date Type Department Care Team Description 05/28/2021 Orders Only Breast Diagnostic Clinic in Lexi Friedman M.D. [place], [place] [address] [facility] [address] [place] [address] [phone] (Wo rk) Social History Tobacco Use Types Packs/Day Years Used Date Smoking Tobacco: Former Smokeless Tobacco: Never Comments: in college years Alcohol Use Standard Drinks/Week Comments Yes 1 (1 standard drink = 0.6 oz pure alcoho l) per day Alcohol Habits Answer Date Recorded How often do you have a drink containing 4 or more times a w [place] 01/01/2022 alcohol? How many drinks containing alcohol [...] or relatives? How often do you attend jehovah's witness or More than 4 times per year 01/01/2022 synagogue services? Do you belong to any clubs or Yes 01/01/2022 organizations such as jehovah's witness groups, unions, fraternal or athletic groups, or [...] at Date Recorded Female 01/01/2022 8:43 AM KILN PUSHER documented as of this encounter Plan of Treatment Not on filedocumented as of this encounter Visit Diagnoses Not on filedocumented in this encounter
--- OUTSIDE RECORDS SUMMARY | 2022-10-08 09:10 | XMS_ITS | Encounter Summary ---
:1940 Author Organization [facility] Address [address] [place] [address] Care Team Providers Name Role Phone Unavailable Primary Care Provider Unavailable Reason for Visit Reason Comments Appointment Encounter Details Date Type Department Care Team Description 05/23/2021 Clinical Communication Department of Vivek Perez Appointment Radiation Oncology in [place], [place] [address] [facility] [address] [place] [phone] Social History Tobacco Use Types Packs/Day Years Used Date Smoking Tobacco: Former Smokeless Tobacco: Never Comments: in college years Alcohol Use Standard Drinks/Week Comments Yes 1 (1 standard drink = 0.6 oz pure alcoho l) per day Alcohol Habits Answer Date Recorded How often do you have a drink containing 4 or more times a w [place] 01/01/2022 alcohol? How many drinks containing alcohol [...] or relatives? How often do you attend latter day or More than 4 times per year 01/01/2022 baptist services? 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
--- OUTSIDE RECORDS SUMMARY | 2022-10-08 09:10 | XMS_ITS | Encounter Summary ---
:1940 Author Organization [facility] Address [address] [place] [address] Care Team Providers Name Role Phone Unavailable Primary Care Provider Unavailable Encounter Details Date Type Department Care Team Description 06/03/2021 Clinical Communication Division of Breast and Nedra Mclaughlin Melanoma Surgical Violetta Avendaño, M. S. Oncology in [address] [place] [address] [place], [place] [phone] (Work) [phone] Social History Tobacco Use Types Packs/Day Years Used Date Smoking Tobacco: Former Smokeless Tobacco: Never Comments: in college years Alcohol Use Standard Drinks/Week Comments Yes 1 (1 standard drink = 0.6 oz pure alcoho l) per day Alcohol Habits Answer Date Recorded How often do you have a drink containing 4 or more times a w [place] 01/01/2022 alcohol? 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 They are just wanting a call if an earlier appointment opens up between and the . documented in this encounter Plan of Treatment Not on filedocumented as of this encounter Visit Diagnoses Not on filedocumented in this encounter
--- OUTSIDE RECORDS SUMMARY | 2022-10-08 09:10 | XMS_ITS | Encounter Summary ---
:1940 Author Organization [facility] Address [address] [place] [address] Care Team Providers Name Role Phone Unavailable Primary Care Provider Unavailable Encounter Details Date Type Department Care Team Description 05/21/2021 Office Visit Breast Diagnostic Eun Summers Neoplasm Of Clinic in Mk Grissom M.D. Unspecified Site Of [place] [address] [facility] Laterality Unknown 200 [place], [place] Female Breast (HCC) [place] [address] (Primary Dx) [address] [phone] Social History Tobacco Use Types Packs/Day Years Used Date Smoking Tobacco: Former Smokeless Tobacco: Never Comments: in college years Alcohol Use Standard Drinks/Week Comments Yes 1 (1 standard drink = 0.6 oz pure alcoho l) per day Alcohol Habits Answer Date Recorded How often do you have a drink containing 4 or more times a w [place] 01/01/2022 alcohol? How many drinks containing alcohol [...] More than 4 times per year 01/01/2022 taoist services? Do you belong to any clubs [...] at Date Recorded Female 01/01/2022 8:43 AM SHIELD RUNNER documented as of this encounter Progress Notes Eun Summers M.D. - 05/21/2021 5:00 PM CDT Patient not seen. Note created for multidisciplinary conference purposes. History in brief: Patient is a 80 y.o. woman diagnosed with a right breast cancer. Patient is from [address] [facility] [address]. She underwent screening mammogram after a lag year from [facility]. They identified a mass in the upper inner right breast, which subsequently was biopsied. She denies any other breast concerns. She does have a history of a left lung cancer treated with VATS. Clinical findings: BMI Readings from Last 1 Encounters: 05/19/21 23.00 kg/m?? Cup size: B-C Imaging: Interpretation of outside breast imaging: FINDINGS: Bilateral screening mammogram with tomosynthesis 04/23/2021. Nothing for malignancy in the left breast. Mass in the upper inner quadrant of the right breast middle to posterior depth. Calcifications located anterior to the mass appear to have benign characteristics but are new, and were not further evaluated with diagnostic mammography. ?? Focused right breast ultrasound 05/01/2021. Hypoechoic irregular mass in the 2 o'clock position of the right breast 4 cm from the nipple measuring 1.3 x 1.9 x 1.5 cm corresponds with the mammographic mass. Images labeled right axilla show normal lymph nodes. ?? Right ultrasound-guided biopsy and post-clip mammogram 05/01/2021 shows appropriate needle placementwithin the mass in the 2 o'clock position 4 cm from the nipple under ultrasound guidance. A twirl clip is in good position within the mass in the upper inner right breast on the post-clip mammogram. 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 ?? Bilateral breast MRI without and with IV contrast dated 05/06/2021 includes pre-contrast water-weighted images as well as post-contrast dynamic imaging. Exam reviewed without the benefit of CAD. Scattered fibroglandular tissue. Mild background parenchymal enhancement. ?? Right Breast: Non-mass enhancement with associated clip artifact in the upper inner right breast middle depth measuring 1.7 cm transverse by 3.4 cm AP by 1.3 cm SI. This represents the biopsy-proven malignancy, though by mammography the AP extent is somewhat less (~1.8 cm). No other abnormal enhancement within the right breast. ?? Right Axilla: No lymphadenopathy. ?? Left Breast: No masses or abnormal enhancement. ?? Left Axilla: No lymphadenopathy. ?? Chest Wall: Possible enlarged right internal mammary lymph node measuring 1.2 cm near the first rib. Possible left supraclavicular/cervical lymphadenopathy partially included in the [id number] on some series. Questionable left lung nodule anteriorly (series 5, image 79). IMPRESSION: ?? Known Malignant Findings: 1. Right breast 2:00 at 4 cm, invasive ductal carcinoma, with twirl clip in good position. ?? Indeterminate Findings: 1. Calcifications located approximately 1.3 cm anterior to the known malignancy. Of note, there is agreater extend of enhancement in the AP dimension on MRI than expected given the AP measurement of the mammographic mass, which may reflect enhancement of the area of calcifications. 2. Partially visualized findings in the neck and chest on MRI. ?? RECOMMENDATION: 1. If breast conservation therapy is planned and it would affect management, recommend right diagnostic mammogram for further evaluation of the calcifications. Alternatively, the calcifications could be localized along with the mass prior to surgery. 2. Recommend CT of the neck and chest. CT Neck (05/19/21): IMPRESSION: 1. No convincing cervical adenopathy in the visualized neck. 2. Irregular intramedullary right greater than left subclavian veins consistent with small varices. Additional suspected varix arising from the lateral right external jugular vein. CT Chest (05/19/21): IMPRESSION: 1. A few scattered solid noncalcified 1 mm pulmonary nodules are indeterminate, detailed in the bodyof the report. 2. Patchy ill-defined posterior medial left lower lobe opacities, likely of infectious/inflammatory etiology, such as from aspiration given small sliding esophageal hiatal hernia and patulous esophagus. 3. Additional peripheral right upper lobe infectious/inflammatory bronchiolitis. 4. Scattered mucous plugs, detailed in the body of the report. Summary of imaging: Right breast with a 3.4 x 1.3 x 1.7 cm mass in the right upper inner breast (MRI sizing) with no axillary adenopathy. Negative CT scans of other findings on MRI. Systemic Staging: Nothing additional done Pathology: Breast, right, 2 o'clock 4 cm from nipple, ultrasound-guided core biopsy ([id number]; 05/01/2021): Invasive ductal carcinoma, [place] grade III of III. Immunohistochemistry studies were performed at the outside institution, and reviewed at [facility]. ??The neoplastic cells revealed the following: ER status: ??Positive (100%); intensity is strong. CT status: ??Positive (2%); intensity is moderate HER2 status: ??Negative (1+) Ki-67 stain will be ordered and the result will be reported separately. Patient factors: ??? Surgical Preference: Mastectomy without reconstruction ??? Prefer surgery here: Yes ??? Plans to get chemo here (if advised): Likely ??? Co-Morbidities/Anesthesia/SHAHID: No ??? Salient psychological factors:None. ??? Family history (genetics referred: Yes/No):Not referred ??? Social factors (if relevant): None. Good support ??? Fertility preservation (referred yes/no):No ??? Tobacco use: None ??? Menopause status:Post ??? PCN allergy: No ??? Clip in mass: Yes, twirl Past Medical History: Diagnosis Date ??? Anxiety ??? Cancer Lung Primary Personal History 2012 ??? Depression Personal History Past Surgical History: Procedure Laterality Date ??? LUNG CANCER SURGERY Left 2012 Current Outpatient Medications on File Prior to [...] facility-administered medications on file prior to visit. documented in this encounter Plan of Treatment Not on filedocumented as of this encounter Visit Diagnoses Diagnosis Malignant Neoplasm Of Unspecified Site O f Laterality Unknown Female Breast (HCC) - Primary documented in this encounter
--- OUTSIDE RECORDS SUMMARY | 2022-10-08 09:10 | XMS_ITS | Encounter Summary ---
:1940 Author Organization [facility] Address [address] [place] [address] Care Team Providers Name Role Phone Unavailable Primary Care Provider Unavailable Encounter Details Date Type Department Care Team Description 05/26/2021 Lab Department of Laboratory Trini Cedillo, Malignant Neoplasm Of Medicine and Pathology, D.O. Breast Female Right (HCC) [facility], in [address] [place] [address] [place] [address] [phone] Social History Tobacco Use Types Packs/Day Years Used Date Smoking Tobacco: Former Smokeless Tobacco: Never Comments: in college years Alcohol Use Standard Drinks/Week Comments Yes 1 (1 standard drink = 0.6 oz pure alcoho l) per day Alcohol Habits Answer Date Recorded How often do you have a drink containing 4 or more times a w [place] 01/01/2022 alcohol? How many drinks containing alcohol [...] or relatives? How often do you attend protestant or More than 4 times per year 01/01/2022 anabaptism services? 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 documented in this encounter Results SARS CoV-2 RNA, PCR, Varies Asymptomatic (05/26/2021 2:41 PM CDT) [facility] gist Method Time Signature SARS CoV-2 Swab, 05/26/2021 [...] Drug Administration an d is used per superintendent maintenance airports's instructions. Performance characteristics were verified by [facility] in a manner consistent with CLIA requirements. Visit the CDC website: https://www.cdc.g ov/coronavirus/ for the most recent guidelines on Coron avirus testing. Fact Sheet for Healthcare Providers: https://www.fda.gov/media/976410/downloa d Fact Sheet for Patients: https://www.fda.gov/media/338328/downloa d Specimen Anatomical Collection Method Collection Time Receive d Time (Source) Location / / Volume Laterality Varies 05/26/2021 2:41 PM 3:30 (Nasopharynx) CDT PM CDT Trini Cedillo D.O. LAB MICROBIOLOGY - GENERAL O RDERABLES Performing Organization Address City/State/[facility] Code Phon e Number [facility] - [address] [place], [place] [address] [facility] [address] Laboratories-[facility] [address] documented in this encounter Visit Diagnoses Diagnosis Malignant Neoplasm Of Breast Female Righ t (HCC) documented in this encounter Additional Health Concerns Infection Onset Date Last Indicated Resolved Time COVID19 Pending 05/26/2021 05/26/2021 05/26/2021 7:04 PM CDT documented as of this encounter
--- OUTSIDE RECORDS SUMMARY | 2022-10-08 09:10 | XMS_ITS | Encounter Summary ---
:1940 Author Organization [facility] Address [address] [place] [address] Care Team Providers Name Role Phone Unavailable Primary Care Provider Unavailable Encounter Details Date Type Department Care Team Description 05/29/2021 Ancillary Procedure Department of Gastroenterology Social History Tobacco Use Types Packs/Day Years Used Date Smoking Tobacco: Former Smokeless Tobacco: Never Comments: in college years Alcohol Use Standard Drinks/Week Comments Yes 1 (1 standard drink = 0.6 oz pure alcoho l) per day Alcohol Habits Answer Date Recorded How often do you have a drink containing 4 or more times a w [place] 01/01/2022 alcohol? How many drinks containing alcohol [...] or relatives? How often do you attend roman catholic or More than 4 times per year 01/01/2022 sikh services? 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 documented in this encounter Results Ultrasound-GI And General Surgery Image Exam (05/29/2021 8:45 AM CDT) Specimen (Source) Anatomical Collection Method Collection Time Re ceived Time Location / / Volume Laterality 05/29/2021 8:45 AM CDT Narrative [facility] - 05/29/2021 9:47 AM CDT This order has been created and auto-finalized to support the import of images acquired without order. The clini tori documentation to support these images can be found on the encounter tommy t produced images. Provider Not In System IMG NON RAD IMAGING PROCEDUR ES Performing Organization Address City/State/ZIP Code Phon e Number [facility] NA documented in this encounter Visit Diagnoses Not on filedocumented in this encounter
--- OUTSIDE RECORDS SUMMARY | 2022-10-08 09:11 | XMS_ITS | Encounter Summary ---
:1940 Author Organization [facility] Address [address] [place] [id number] Care Team Providers Name Role Phone Unavailable Primary Care Provider Unavailable Reason for Referral Outpatient (Routine) - Closed Specialty Diagnoses / Procedures Referred By Contact Refer red To Contact Medical Oncology / Diagnoses Malignant Neoplasm Of Breast Female Right (HCC) Eun Summers [facility] [place] [address] [place] [phone] Referral ID Status Reason Start Date Expiration Date Visits Requ ested Visits Authorized [id number] Closed 05/19/2021 05/19/2022 1 1 Outpatient (Routine) - Closed Specialty Diagnoses / Procedures Referred By Contact Refer red To Contact General Surgery Diagnoses Malignant Neoplasm Of Breast Female Right (HCC) Eun Summers [facility] M.D. [address] [place] [phone] Referral ID Status Reason Start Date Expiration Date Visits Requ ested Visits Authorized [id number] Closed 05/19/2021 05/19/2022 1 1 Specialty Diagnoses / Procedures Referred By Contact Refer red To Contact Eun Summers M.D. [facility] [address] [place] [phone] Referral ID Status Reason Start Date Expiration Date Visits Requ ested Visits Authorized MRI/CAT/PET Scan (Routine) - Closed Specialty Diagnoses / Procedures Referred By Contact Refer red To Contact Radiology Diagnoses Malignant Neoplasm Of Breast Female Right (HCC) Eun Summers M.D. [facility] Procedures CT Chest without IV Contrast [address] [place] [address] Referral ID Status Reason Start Date Expiration Date Visits Requ ested Visits Authorized [id number] Closed 05/19/2021 05/19/2022 1 1 MRI/CAT/PET Scan (Routine) - Closed Specialty Diagnoses / Procedures Referred By Contact Refer red To Contact Radiology Diagnoses Malignant Neoplasm Of Breast Female Right (HCC) Eun Summers M.D. [facility] Procedures CT Neck Soft Tissue without IV Contrast [address] [place], [place] [phone] Referral ID Status Reason Start Date Expiration Date Visits Requ ested Visits Authorized [id number] Closed 05/19/2021 05/19/2022 1 1 Reason for Visit Reason Comments Breast Cancer Appointment Request (Routine) - Closed Specialty Diagnoses / Procedures Referred By Contact Refer red To Contact Breast Clinic Diagnoses Infiltrating Duct Carcinoma Of Breast Eun Summers M.D. 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 Discussion: Reviewed with patient the findings from the breast pathology and specifically, the difference between in situ and invasive carcinomas. Discussed type of cancer, grading and staging of breast cancer. Discussed estrogen and progesterone receptor status. Discussed Patient Online Services. Explained the process for clinical evaluation which will be outlined today along with recommendations utilizing a team of providers for breast cancer treatment. Psychosocial: Patient appears to be coping adequately at this time. She has a network of support including family and friends. I offered encouragement and my continued support at this time. Nicol Madsen R.N. - 05/19/2021 8:00 AM CDT SUBJECTIVE CHIEF COMPLAINT/REASON FOR VISIT Review of resources related to breast cancer consultation. OBJECTIVE Discussion included: Resource List, [facility] Mentorship program, [facility]. documented in this encounter Consult Notes Eun Summers M.D. - 05/19/2021 8:00 AM CDT SUBJECTIVE CHIEF COMPLAINT / REASON FOR VISIT New diagnosis breast cancer HISTORY OF PRESENT ILLNESS The patient is a very pleasant 80 y.o. woman who comes in today for further evaluation and recommendations in regards to a new diagnosis of breast cancer. Ms. Jorge is a very pleasant 80-year-old woman who is accompanied by her friend Berta today. She had a screening mammogram performed in March of 2021 after missing a year because of COVID. This identified a mass in the upper inner quadrant of the right breast. Subsequent diagnostic imaging showed a hypoechoic mass. She underwent right ultrasound-guided biopsy. Subsequently, she had an MRI. She is here today seeking a second opinion and evaluation for her new diagnosis of breast cancer. She has not detected any lumps herself. She did miss her mammogram during 2019 because of the COVID pandemic. She is active physically and walks regularly. She recently moved to [place] approximately 7 years ago with her friend. BREAST CANCER RISK PROFILE: She has had [...] as white, not , and not adopted. FAMILY CANCER HISTORY: Her father had colon cancer over the age of 50. She had 1 brother with multiple myeloma over the ageof 50, and another brother with liver cancer over the age of 50. No other family history of cancer. OBJECTIVE PHYSICAL EXAM BP 125/76 (BP Location: Right arm, Patient Position: Sitting, Cuff Size: Regular) Pulse 77 Ht 163.1 cm Wt 60.7 kg BMI 22.84 kg/m?? General: Pleasant. No acute distress. Lymph: No facial, cervical, supraclavicular or axillary lymphadenopathy. Breasts: On inspection, the breasts appear symmetric in size. Nipples are everted. No significant skin discoloration, lesions, retractions or dimpling. No dominant mass in the left breast. In the rightbreast at 02:00 o'clock, 3 cm from the nipple is a 3.5 cm palpable mass with extensive bruising overtop. No nipple discharge elicited from either side. Heart:: Regular rate and rhythm without murmurs. No edema Lungs: Clear to auscultation bilaterally without wheezes or crackles. Skin: Skin is warm and dry. No rash noted. Psychiatric: She has a normal mood and affect. ASSESSMENT / PLAN #1 Malignant Neoplasm Of Unspecified Site Of Laterality Unknown Female Breast (HCC) It was a pleasure to meet with Ms. Jorge and her friend today. We did have the opportunity to review the interpretation of the outside imaging as listed below. FINDINGS: Bilateral screening mammogram with tomosynthesis 04/23/2021. [...] left supraclavicular/cervical lymphadenopathy partially included in the [id number] on some series. Questionable left lung nodule [...] Recommend CT of the neck and chest. We discussed the recommendation for CT of the chest and neck and I have made those arrangements. We discussed that barring those findings, we could continue with the plan. I have recommended that she undergo multidisciplinary consultation. We reviewed the findings from the breast pathology and specifically, the difference between in situ and invasive breast carcinomas. We reviewed grading and staging of breast cancer. We discussed estrogen, progesterone and HER2/elvira receptor status and their impact in determining the utility of adjuvanttreatment options. We reviewed the breast imaging done thus far and discussed the potential need for additional diagnostic imaging and testing. We discussed surgical treatment options, including wide local excision and mastectomy. Equivalent survival with breast conserving surgery and mastectomy was discussed. Risks of local recurrence relatedto both procedures discussed. We discussed the risk of contralateral breast cancer. We reviewed contralateral risk reducing mastectomy. We discussed that there is no survival advantage with the addition of this procedure. The advantages of frozen section pathology used during surgery discussed. I haveadvised surgical consultation with the breast surgeon to discuss surgical management options. We reviewed the role of sentinel lymph node biopsy and techniques to assess lymph node involvement in breast cancer as well the role of a complete axillary node dissection if the sentinel lymph node ispositive. We discussed complications of sentinel lymph node biopsy and axillary node dissection, incl uding the potential for lymphedema. The role and schedule of radiation therapy was discussed with the patient. The benefits and side effects of radiation therapy were reviewed. We discussed options for breast radiation, including whole breast and partial breast radiation. I have advised consultation with breast radiation oncology to review radiation therapy options. We discussed that further discussion regarding the role of chemotherapy and adjuvant endocrine therapy would take place with the medical oncologist after surgery. We reviewed the role of adjuvant endocrine treatment (anti-estrogens). Specifically, we discussed the risks, benefits and side effects of tamoxifen and the aromatase inhibitors. The patient was informed that clinical trials and research studies are available at [facility] and that she may participate in studies for which she meets enrollment criteria. The patient was provided with educational material regarding the topics discussed. The patient was referred to our breast clinic nurse for cancer education and psychosocial support. We discussed the role of the Breast Cancer Survivorship Clinic visit after completion of treatments.Follow-up for breast cancer may be completed either at [facility] or locally. The patient was informed that the cancer surveillance schedule will include, at a minimum, six-month clinical breast examsand annual diagnostic mammograms for five years, after which usual cancer screening can be completedthrough their primary care provider. At this point, Ms. Jorge is amenable to the multidisciplinary consultation. After discussing surgical options, she would like to proceed with unilateral mastectomy without reconstruction. We discussedthat we would need to make sure that the CT scans were done prior to her consultation. PATIENT EDUCATION Ready to learn, no apparent learning barriers were identified; learning preferences include listening. Explained diagnosis and treatment plan; patient expressed understanding of the content. documented in this encounter Plan of Treatment Scheduled Referrals Name Type Priority Associated Diagnoses Order S [facility] Breast [facility] - Outpatient Referral Routine Malignant Neoplasm Expected: Education visit Of Breast Female 05/19/20 21 (clinic) Right (HCC) (Approximate), Expires: 05/19/2024 General Surgery - Outpatient Referral Routine Malignant Neopla sm Expected: Breast multi Of Breast Female 05/19/2021 consult (clinic) Right (HCC) (Approximat e), Expires: 05/19/2024 Oncology - Outpatient Referral Routine Malignant Neoplasm Ex pected: Multi-Disiciplinary Of Breast Female 06/2 11/2020 breast clinic Right (HCC) (Approximate), consult (clinic) Expires: 05/19/2024 documented as of this encounter Results CT Chest without IV Contrast (05/19/2021 2:15 PM CDT) Anatomical Region Laterality Modality Chest, Thoracic RST LOS, Thoracic ARZ N/A Co mputed Tomography, Computed LOS, Thoracic FLA LOS Tomography Specimen (Source) Anatomical Collection Method Collection Time Re ceived Time Location / / Volume Laterality 05/19/2021 3:59 PM CDT Impressions 05/19/2021 4:09 PM CDT 1. A few scattered solid noncalcified 1 mm pulmonary nodules are indeterminate, detailed in the body of the report. 2. Patchy ill-defined posterior medial l eft lower lobe opacities, likely of infectious/inflammatory etiology, such a s from aspiration given small sliding esophageal hiatal hernia and patulous es ophagus. 3. Additional peripheral right upper lob e infectious/inflammatory bronchiolitis. 4. Scattered mucous plugs, detailed in t he body of the report. Narrative 05/19/2021 4:09 PM CDT EXAM: CT CHEST WITHOUT IV CONTRAST COMPARISON: None FINDINGS: Clustered nodularities in the peripheral right upper lobe on images 222-253 of series 3 are likely of infectious/inflam matory etiology. Scattered mucous plugs, for example, in the lateral segment righ t middle lobe on series 3 image 364. Curvilinear density in the posterior lat eral right lower lobe on series 3 image 459 likely represent mucoid impacted sma ll airway. Status post left lower lobectomy and partial resection of the p osterior left upper lobe without local recurrence. Posterior medial left upper lobe patchy opacities are likely of infectious/inflammatory etiology, such a s from aspiration given small sliding esophageal hiatal hernia and patulous es ophagus. A few scattered solid noncalcified 1 mm pulmonary nodules are indeterminate, for example in the inferior right upper lobe on series 3 im age 299 and in the right middle lobe on series 3 image 305. Lower lung predomina nt mild cylindrical bronchiectasis. The central tracheal bronchial tree is paten t. No pleural effusion or thickening identified. Shotty subcentimeter nodes without thora cic adenopathy by size criteria. Mild aortic and coronary artery calcific ations. Calcific densities within the left ventricle likely represent sequelae of prior myocardial infarction. Right breast surgical clips, potentially marking a breast soft tissue nodule. Mild generative changes of the spine. No aggressive osseous lesions identified. Thank you for the consultation. 3D maximum intensity projection (MIP) im ages were created on a dependent workstation as ordered by the treating p rovider and reviewed by the radiologist to increase sensitivity for detection of pulmonary nodules. Procedure Note Jose Antonio Ly M.D. - 05/19/2021Formattin g of this note might be different from the original. EXAM: CT CHEST WITHOUT IV CONTRAST COMPARISON: None FINDINGS: Clustered nodularities in the peripheral right upper lobe on images 222-253 of series 3 are likely of infectious/inflam matory etiology. Scattered mucous plugs, for example, in the lateral segment righ t middle lobe on series 3 image 364. Curvilinear density in the posterior lat eral right lower lobe on series 3 image 459 likely represent mucoid impacted sma ll airway. Status post left lower lobectomy and partial resection of the p osterior left upper lobe without local recurrence. Posterior medial left upper lobe patchy opacities are likely of infectious/inflammatory etiology, such a s from aspiration given small sliding esophageal hiatal hernia and patulous es ophagus. A few scattered solid noncalcified 1 mm pulmonary nodules are indeterminate, for example in the inferior right upper lobe on series 3 im age 299 and in the right middle lobe on series 3 image 305. Lower lung predomina nt mild cylindrical bronchiectasis. The central tracheal bronchial tree is paten t. No pleural effusion or thickening identified. Shotty subcentimeter nodes without thora cic adenopathy by size criteria. Mild aortic and coronary artery calcific ations. Calcific densities within the left ventricle likely represent sequelae of prior myocardial infarction. Right breast surgical clips, potentially marking a breast soft tissue nodule. Mild generative changes of the spine. No aggressive osseous lesions identified. Thank you for the consultation. 3D maximum intensity projection (MIP) im ages were created on a dependent workstation as ordered by the treating p rovider and reviewed by the radiologist to increase sensitivity for detection of pulmonary nodules. IMPRESSION: 1. A few scattered solid noncalcified 1 mm pulmonary nodules are indeterminate, detailed in the body of the report. 2. Patchy ill-defined posterior medial l eft lower lobe opacities, likely of infectious/inflammatory etiology, such a s from aspiration given small sliding esophageal hiatal hernia and patulous es ophagus. 3. Additional peripheral right upper lob e infectious/inflammatory bronchiolitis. 4. Scattered mucous plugs, detailed in t he body of the report. Eun LOBO CT PROCEDURES CT Neck Soft Tissue without IV Contrast (05/19/2021 2:15 PM CDT) Anatomical Region Laterality Modality Neck, Neuroradiology RST LOS, N/A Computed T omography, Computed Neuroradiology ARZ LOS, Neuroradiology T omography FLA LOS Specimen (Source) Anatomical Collection Method Collection Time Re ceived Time Location / / Volume Laterality 05/19/2021 2:56 PM CDT Impressions 05/19/2021 4:03 PM CDT 1. ??No convincing cervical adenopathy in the visualized neck. 2. ??Irregular intramedullary right grea ter than left subclavian veins consistent with small varices. Additional suspected varix arising from the lateral right external jugular vein. Narrative 05/19/2021 4:03 PM CDT EXAM: CT NECK SOFT TISSUE WITHOUT IV CONTRAST COMPARISON: Breast MRI with IV contrast from 05/06/2021. FINDINGS: The possible enlarged right internal belle bernard lymph node identified on prior breast MRI is located just below the may ged [id number] on this neck CT. Multiple lobular areas in the left infra clavicular region appear contiguous with the left subclavian vein and should be v enous in nature, some of which are consistent with shallow varices. Additio nal suspected venous varix arising laterally from the lower right external jugular vein (series 5, image 30.. Otherwise, small shoddy cervical lymph n odes are present throughout the bilateral neck, none of which are enlarg ed or appear pathologic. Otherwise soft tissue structures of the neck appear normal with normal major glands and vasculature. There is a subst antially left dominant vertebral artery system with a prominent left vertebral a rtery and diminutive right vertebral artery throughout their cervical course. No substantial contribution from the right vertebral artery to the basilar ar krista. Intracranial contents notable for mild to moderate parenchymal volume loss , partially visualized. Mild to moderate spondylotic changes in the cervical spine with disc osteophyte complexes C5-C7. Slight retrolisthesis o f C5 with respect to C4 and C6. Alignment anterolisthesis of C7 on T1 sp inal canal remains patent. Multilevel facet arthropathy. Uncovertebral spurrin g contributes to moderate right foraminal narrowing at C5-C6. Procedure Note Catalina Lopez M.D. - 05/19/2021Format ting of this note might be different from the original. EXAM: CT NECK SOFT TISSUE WITHOUT IV CON TRAST COMPARISON: Breast MRI with IV contrast from 05/06/2021. FINDINGS: The possible enlarged right internal belle bernard lymph node identified on prior breast MRI is located just below the may ged [id number] on this neck CT. Multiple lobular areas in the left infra clavicular region appear contiguous with the left subclavian vein and should be v enous in nature, some of which are consistent with shallow varices. Additio nal suspected venous varix arising laterally from the lower right external jugular vein (series 5, image 30.. Otherwise, small shoddy cervical lymph n odes are present throughout the bilateral neck, none of which are enlarg ed or appear pathologic. Otherwise soft tissue structures of the neck appear normal with normal major glands and vasculature. There is a subst antially left dominant vertebral artery system with a prominent left vertebral a rtery and diminutive right vertebral artery throughout their cervical course. No substantial contribution from the right vertebral artery to the basilar ar krista. Intracranial contents notable for mild to moderate parenchymal volume loss , partially visualized. Mild to moderate spondylotic changes in the cervical spine with disc osteophyte complexes C5-C7. Slight retrolisthesis o f C5 with respect to C4 and C6. Alignment anterolisthesis of C7 on T1 sp inal canal remains patent. Multilevel facet arthropathy. Uncovertebral spurrin g contributes to moderate right foraminal narrowing at C5-C6. IMPRESSION: 1. No convincing cervical adenopathy in the visualized neck. 2. Irregular intramedullary right greate r than left subclavian veins consistent with small varices. Additional suspected varix arising from the lateral right external jugular vein. Eun Summers M.D. G CT PROCEDURES documented in this encounter Visit Diagnoses Diagnosis Malignant Neoplasm Of Breast Female Righ t (HCC) - Primary Cancer Lung Adenocarcinoma Personal Hist ory Malignant Neoplasm Of Breast Female Righ t (HCC) documented in this encounter
--- OUTSIDE RECORDS SUMMARY | 2022-10-08 09:11 | XMS_ITS | Encounter Summary ---
:[address] [facility] Address [address] [place] [address] Care Team Providers Name Role Phone Unavailable Primary Care Provider Unavailable Encounter Details Date Type Department Care Team Description 05/16/2021 Ancillary Procedure Department of Eun Summers Breast Radiology klaus Terrazas M.D. [place], [place] [address] [facility] [address] [place] [phone] (Wo rk) Social History Tobacco Use Types Packs/Day Years Used Date Smoking Tobacco: Former Smokeless Tobacco: Never Comments: in college years Alcohol Habits Answer Date Recorded How often do you have a drink containing 4 or more times a w [place] 01/01/2022 alcohol? How many drinks containing alcohol [...] or relatives? How often do you attend buddhism or More than 4 times per year 01/01/2022 protestant services? 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 documented in this encounter Results Interpretation of Outside Breast Imaging (05/16/2021 11:10 AM CDT) Anatomical Region Laterality Modality Breast, Breast Imaging RST LOS, Breast Imaging ARZ LOS, [place] N/A Mammography Imaging FLA LOS, Other Specimen (Source) Anatomical Collection Method Collection Time Re ceived Time Location / / Volume Laterality 05/16/2021 11:28 AM CDT Impressions 05/16/2021 12:58 PM CDT Known Malignant Findings: 1. Right breast 2:00 at 4 cm, invasive d uctal carcinoma, with twirl clip in good position. Indeterminate Findings: 1. Calcifications located approximately 1.3 cm anterior to the known malignancy. Of note, there is a greater extend of en hancement in the AP dimension on MRI than expected given the AP measurement o f the mammographic mass, which may reflect enhancement of the area of calci fications. 2. Partially visualized findings in the neck and chest on MRI. RECOMMENDATION: 1. If breast conservation therapy is mark nned and it would affect management, recommend right diagnostic mammogram for further evaluation of the calcifications. Alternatively, the calci fications could be localized along with the mass prior to surgery. 2. Recommend CT of the neck and chest. Narrative 05/16/2021 12:58 PM CDT EXAM: ??INTERPRETATION OF OUTSIDE BREAST IMAGING, INTERPRETATION OF OUTSIDE MR BREAST HISTORY/INDICATION: ??Recent outside ericka gnosis of grade 3 invasive ductal carcinoma in the right breast, [place] pos itive, [place] negative and HER-2 negative. DENSITY: ??b. There are scattered areas of fibroglandular density. FINDINGS: ??Bilateral screening mammogra m with tomosynthesis 04/23/2021. Nothing for malignancy in the left breast. Mass in the upper inner quadrant of the right breast middle to posterior depth. Calcif ications located anterior to the mass appear to have benign characteristics bu t are new, and were not further evaluated with diagnostic mammography. Focused right breast ultrasound 05/01/20 21. Hypoechoic irregular mass in the 2 o'clock position of the right breast 4 c m from the nipple measuring 1.3 x 1.9 x 1.5 cm corresponds with the mammographic mass. Images labeled right axilla show normal lymph nodes. Right ultrasound-guided biopsy and post- clip mammogram 05/01/2021 shows appropriate needle placement within the mass in the 2 o'clock position 4 cm from the nipple under ultrasound guidance. A twirl clip is in good position within the mass in the upper inner right breast on the post-clip mammogram. 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 Bilateral breast MRI without and with IV contrast dated 05/06/2021 includes pre-contrast water-weighted images as we ll as post-contrast dynamic imaging. Exam reviewed without the benefit of CAD . Scattered fibroglandular tissue. Mild background parenchymal enhancement. Right Breast: Non-mass enhancement with associated clip artifact in the upper inner right breast middle depth measurin g 1.7 cm transverse by 3.4 cm AP by 1.3 cm SI. This represents the biopsy-proven malignancy, though by mammography the AP extent is somewhat less (~1.8 cm). No other abnormal enhancement within the right breast. Right Axilla: No lymphadenopathy. Left Breast: No masses or abnormal enhan cement. Left Axilla: No lymphadenopathy. Chest Wall: Possible enlarged right inte rnal mammary lymph node measuring 1.2 cm near the first rib. Possible left suprac lavicular/cervical lymphadenopathy partially included in the [id number] on some series. Questionable left lung nodule anteriorly (series 5, image 79). Procedure Note Salome Yoder M.D. - 05/16/2021Form atting of this note might be different from the original. EXAM: INTERPRETATION OF OUTSIDE BREAST I MAGING, INTERPRETATION OF OUTSIDE MR BREAST HISTORY/INDICATION: Recent outside diagn osis of grade 3 invasive ductal carcinoma in the right breast, ER/[place] pos itive, [place] negative and HER-2 negative. DENSITY: b. There are scattered areas of fibroglandular density. FINDINGS: Bilateral screening mammogram with tomosynthesis 04/23/2021. Nothing for malignancy in the left breast. Mass in the upper inner quadrant of the right breast middle to posterior depth. Calcif ications located anterior to the mass appear to have benign characteristics bu t are new, and were not further evaluated with diagnostic mammography. Focused right breast ultrasound 05/01/20 21. Hypoechoic irregular mass in the 2 o'clock position of the right breast 4 c m from the nipple measuring 1.3 x 1.9 x 1.5 cm corresponds with the mammographic mass. Images labeled right axilla show normal lymph nodes. Right ultrasound-guided biopsy and post- clip mammogram 05/01/2021 shows appropriate needle placement within the mass in the 2 o'clock position 4 cm from the nipple under ultrasound guidance. A twirl clip is in good position within the mass in the upper inner right breast on the post-clip mammogram. 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 Bilateral breast MRI without and with IV contrast dated 05/06/2021 includes pre-contrast water-weighted images as we ll as post-contrast dynamic imaging. Exam reviewed without the benefit of CAD . Scattered fibroglandular tissue. Mild background parenchymal enhancement. Right Breast: Non-mass enhancement with associated clip artifact in the upper inner right breast middle depth measurin g 1.7 cm transverse by 3.4 cm AP by 1.3 cm SI. This represents the biopsy-proven malignancy, though by mammography the AP extent is somewhat less (~1.8 cm). No other abnormal enhancement within the right breast. Right Axilla: No lymphadenopathy. Left Breast: No masses or abnormal enhan cement. Left Axilla: No lymphadenopathy. Chest Wall: Possible enlarged right inte rnal mammary lymph node measuring 1.2 cm near the first rib. Possible left suprac lavicular/cervical lymphadenopathy partially included in the [id number] on some series. Questionable left lung nodule anteriorly (series 5, image 79). IMPRESSION: Known Malignant Findings: 1. Right breast 2:00 at 4 cm, invasive d uctal carcinoma, with twirl clip in good position. Indeterminate Findings: 1. Calcifications located approximately 1.3 cm anterior to the known malignancy. Of note, there is a greater extend of en hancement in the AP dimension on MRI than expected given the AP measurement o f the mammographic mass, which may reflect enhancement of the area of calci fications. 2. Partially visualized findings in the neck and chest on MRI. RECOMMENDATION: 1. If breast conservation therapy is mark nned and it would affect management, recommend right diagnostic mammogram for further evaluation of the calcifications. Alternatively, the calci fications could be localized along with the mass prior to surgery. 2. Recommend CT of the neck and chest. Eun LOBO BI PROCEDURES Interpretation of Outside MR Breast (05/16/2021 11:09 AM CDT) Anatomical Region Laterality Modality Breast, Breast Imaging RST LOS, Breast Imaging ARZ LOS, N/A Magnetic Resonance Breast Imaging FLA LOS, Other Specimen (Source) Anatomical Collection Method Collection Time Re ceived Time Location / / Volume Laterality 05/16/2021 11:28 AM CDT Impressions 05/16/2021 12:58 PM CDT Known Malignant Findings: 1. Right breast 2:00 at 4 cm, invasive d uctal carcinoma, with twirl clip in good position. Indeterminate Findings: 1. Calcifications located approximately 1.3 cm anterior to the known malignancy. Of note, there is a greater extend of en hancement in the AP dimension on MRI than expected given the AP measurement o f the mammographic mass, which may reflect enhancement of the area of calci fications. 2. Partially visualized findings in the neck and chest on MRI. RECOMMENDATION: 1. If breast conservation therapy is mark nned and it would affect management, recommend right diagnostic mammogram for further evaluation of the calcifications. Alternatively, the calci fications could be localized along with the mass prior to surgery. 2. Recommend CT of the neck and chest. Narrative 05/16/2021 12:58 PM CDT EXAM: ??INTERPRETATION OF OUTSIDE BREAST IMAGING, INTERPRETATION OF OUTSIDE MR BREAST HISTORY/INDICATION: ??Recent outside ericka gnosis of grade 3 invasive ductal carcinoma in the right breast, [place] pos itive, [place] negative and HER-2 negative. DENSITY: ??b. There are scattered areas of fibroglandular density. FINDINGS: ??Bilateral screening mammogra m with tomosynthesis 04/23/2021. Nothing for malignancy in the left breast. Mass in the upper inner quadrant of the right breast middle to posterior depth. Calcif ications located anterior to the mass appear to have benign characteristics bu t are new, and were not further evaluated with diagnostic mammography. Focused right breast ultrasound 05/01/20 21. Hypoechoic irregular mass in the 2 o'clock position of the right breast 4 c m from the nipple measuring 1.3 x 1.9 x 1.5 cm corresponds with the mammographic mass. Images labeled right axilla show normal lymph nodes. Right ultrasound-guided biopsy and post- clip mammogram 05/01/2021 shows appropriate needle placement within the mass in the 2 o'clock position 4 cm from the nipple under ultrasound guidance. A twirl clip is in good position within the mass in the upper inner right breast on the post-clip mammogram. 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 Bilateral breast MRI without and with IV contrast dated 05/06/2021 includes pre-contrast water-weighted images as we ll as post-contrast dynamic imaging. Exam reviewed without the benefit of CAD . Scattered fibroglandular tissue. Mild background parenchymal enhancement. Right Breast: Non-mass enhancement with associated clip artifact in the upper inner right breast middle depth measurin g 1.7 cm transverse by 3.4 cm AP by 1.3 cm SI. This represents the biopsy-proven malignancy, though by mammography the AP extent is somewhat less (~1.8 cm). No other abnormal enhancement within the right breast. Right Axilla: No lymphadenopathy. Left Breast: No masses or abnormal enhan cement. Left Axilla: No lymphadenopathy. Chest Wall: Possible enlarged right inte rnal mammary lymph node measuring 1.2 cm near the first rib. Possible left suprac lavicular/cervical lymphadenopathy partially included in the [id number]-[id number] on some series. Questionable left lung nodule anteriorly (series 5, image 79). Procedure Note Salome Yoder M.D. - 05/16/2021Form atting of this note might be different from the original. EXAM: INTERPRETATION OF OUTSIDE BREAST I MAGING, INTERPRETATION OF OUTSIDE MR BREAST HISTORY/INDICATION: Recent outside diagn osis of grade 3 invasive ductal carcinoma in the right breast, ER/[place] pos itive, [place] negative and HER-2 negative. DENSITY: b. There are scattered areas of fibroglandular density. FINDINGS: Bilateral screening mammogram with tomosynthesis 04/23/2021. Nothing for malignancy in the left breast. Mass in the upper inner quadrant of the right breast middle to posterior depth. Calcif ications located anterior to the mass appear to have benign characteristics bu t are new, and were not further evaluated with diagnostic mammography. Focused right breast ultrasound 05/01/20 21. Hypoechoic irregular mass in the 2 o'clock position of the right breast 4 c m from the nipple measuring 1.3 x 1.9 x 1.5 cm corresponds with the mammographic mass. Images labeled right axilla show normal lymph nodes. Right ultrasound-guided biopsy and post- clip mammogram 05/01/2021 shows appropriate needle placement within the mass in the 2 o'clock position 4 cm from the nipple under ultrasound guidance. A twirl clip is in good position within the mass in the upper inner right breast on the post-clip mammogram. 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 Bilateral breast MRI without and with IV contrast dated 05/06/2021 includes pre-contrast water-weighted images as we ll as post-contrast dynamic imaging. Exam reviewed without the benefit of CAD . Scattered fibroglandular tissue. Mild background parenchymal enhancement. Right Breast: Non-mass enhancement with associated clip artifact in the upper inner right breast middle depth measurin g 1.7 cm transverse by 3.4 cm AP by 1.3 cm SI. This represents the biopsy-proven malignancy, though by mammography the AP extent is somewhat less (~1.8 cm). No other abnormal enhancement within the right breast. Right Axilla: No lymphadenopathy. Left Breast: No masses or abnormal enhan cement. Left Axilla: No lymphadenopathy. Chest Wall: Possible enlarged right inte rnal mammary lymph node measuring 1.2 cm near the first rib. Possible left suprac lavicular/cervical lymphadenopathy partially included in the eygkw-[id number] on some series. Questionable left lung nodule anteriorly (series 5, image 79). IMPRESSION: Known Malignant Findings: 1. Right breast 2:00 at 4 cm, invasive d uctal carcinoma, with twirl clip in good position. Indeterminate Findings: 1. Calcifications located approximately 1.3 cm anterior to the known malignancy. Of note, there is a greater extend of en hancement in the AP dimension on MRI than expected given the AP measurement o f the mammographic mass, which may reflect enhancement of the area of calci fications. 2. Partially visualized findings in the neck and chest on MRI. RECOMMENDATION: 1. If breast conservation therapy is mark nned and it would affect management, recommend right diagnostic mammogram for further evaluation of the calcifications. Alternatively, the calci fications could be localized along with the mass prior to surgery. 2. Recommend CT of the neck and chest. Eun LOBO MRI PROCEDURES Interpretation of Outside Breast Imaging (05/16/2021 11:09 AM CDT) Anatomical Region Laterality Modality Breast, Breast Imaging RST LOS, Breast Imaging ARZ LOS, [place] st N/A Mammography Imaging FLA LOS, Other Specimen (Source) Anatomical Collection Method Collection Time Re ceived Time Location / / Volume Laterality 05/16/2021 11:28 AM CDT Impressions 05/16/2021 12:58 PM CDT Known Malignant Findings: 1. Right breast 2:00 at 4 cm, invasive d uctal carcinoma, with twirl clip in good position. Indeterminate Findings: 1. Calcifications located approximately 1.3 cm anterior to the known malignancy. Of note, there is a greater extend of en hancement in the AP dimension on MRI than expected given the AP measurement o f the mammographic mass, which may reflect enhancement of the area of calci fications. 2. Partially visualized findings in the neck and chest on MRI. RECOMMENDATION: 1. If breast conservation therapy is mark nned and it would affect management, recommend right diagnostic mammogram for further evaluation of the calcifications. Alternatively, the calci fications could be localized along with the mass prior to surgery. 2. Recommend CT of the neck and chest. Narrative 05/16/2021 12:58 PM CDT EXAM: ??INTERPRETATION OF OUTSIDE BREAST IMAGING, INTERPRETATION OF OUTSIDE MR BREAST HISTORY/INDICATION: ??Recent outside ericka gnosis of grade 3 invasive ductal carcinoma in the right breast, [place] pos itive, [place] negative and HER-2 negative. DENSITY: ??b. There are scattered areas of fibroglandular density. FINDINGS: ??Bilateral screening mammogra m with tomosynthesis 04/23/2021. Nothing for malignancy in the left breast. Mass in the upper inner quadrant of the right breast middle to posterior depth. Calcif ications located anterior to the mass appear to have benign characteristics bu t are new, and were not further evaluated with diagnostic mammography. Focused right breast ultrasound 05/01/20 21. Hypoechoic irregular mass in the 2 o'clock position of the right breast 4 c m from the nipple measuring 1.3 x 1.9 x 1.5 cm corresponds with the mammographic mass. Images labeled right axilla show normal lymph nodes. Right ultrasound-guided biopsy and post- clip mammogram 05/01/2021 shows appropriate needle placement within the mass in the 2 o'clock position 4 cm from the nipple under ultrasound guidance. A twirl clip is in good position within the mass in the upper inner right breast on the post-clip mammogram. 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 Bilateral breast MRI without and with IV contrast dated 05/06/2021 includes pre-contrast water-weighted images as we ll as post-contrast dynamic imaging. Exam reviewed without the benefit of CAD . Scattered fibroglandular tissue. Mild background parenchymal enhancement. Right Breast: Non-mass enhancement with associated clip artifact in the upper inner right breast middle depth measurin g 1.7 cm transverse by 3.4 cm AP by 1.3 cm SI. This represents the biopsy-proven malignancy, though by mammography the AP extent is somewhat less (~1.8 cm). No other abnormal enhancement within the right breast. Right Axilla: No lymphadenopathy. Left Breast: No masses or abnormal enhan cement. Left Axilla: No lymphadenopathy. Chest Wall: Possible enlarged right inte rnal mammary lymph node measuring 1.2 cm near the first rib. Possible left suprac lavicular/cervical lymphadenopathy partially included in the [id number] on some series. Questionable left lung nodule anteriorly (series 5, image 79). Procedure Note Salome Yoder M.D. - 05/16/2021Form atting of this note might be different from the original. EXAM: INTERPRETATION OF OUTSIDE BREAST I MAGING, INTERPRETATION OF OUTSIDE MR BREAST HISTORY/INDICATION: Recent outside diagn osis of grade 3 invasive ductal carcinoma in the right breast, [place] pos itive, [place] negative and HER-2 negative. DENSITY: b. There are scattered areas of fibroglandular density. FINDINGS: Bilateral screening mammogram with tomosynthesis 04/23/2021. Nothing for malignancy in the left breast. Mass in the upper inner quadrant of the right breast middle to posterior depth. Calcif ications located anterior to the mass appear to have benign characteristics bu t are new, and were not further evaluated with diagnostic mammography. Focused right breast ultrasound 05/01/20 21. Hypoechoic irregular mass in the 2 o'clock position of the right breast 4 c m from the nipple measuring 1.3 x 1.9 x 1.5 cm corresponds with the mammographic mass. Images labeled right axilla show normal lymph nodes. Right ultrasound-guided biopsy and post- clip mammogram 05/01/2021 shows appropriate needle placement within the mass in the 2 o'clock position 4 cm from the nipple under ultrasound guidance. A twirl clip is in good position within the mass in the upper inner right breast on the post-clip mammogram. 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 Bilateral breast MRI without and with IV contrast dated 05/06/2021 includes pre-contrast water-weighted images as we ll as post-contrast dynamic imaging. Exam reviewed without the benefit of CAD . Scattered fibroglandular tissue. Mild background parenchymal enhancement. Right Breast: Non-mass enhancement with associated clip artifact in the upper inner right breast middle depth measurin g 1.7 cm transverse by 3.4 cm AP by 1.3 cm SI. This represents the biopsy-proven malignancy, though by mammography the AP extent is somewhat less (~1.8 cm). No other abnormal enhancement within the right breast. Right Axilla: No lymphadenopathy. Left Breast: No masses or abnormal enhan cement. Left Axilla: No lymphadenopathy. Chest Wall: Possible enlarged right inte rnal mammary lymph node measuring 1.2 cm near the first rib. Possible left suprac lavicular/cervical lymphadenopathy partially included in the [id number] on some series. Questionable left lung nodule anteriorly (series 5, image 79). IMPRESSION: Known Malignant Findings: 1. Right breast 2:00 at 4 cm, invasive d uctal carcinoma, with twirl clip in good position. Indeterminate Findings: 1. Calcifications located approximately 1.3 cm anterior to the known malignancy. Of note, there is a greater extend of en hancement in the AP dimension on MRI than expected given the AP measurement o f the mammographic mass, which may reflect enhancement of the area of calci fications. 2. Partially visualized findings in the neck and chest on MRI. RECOMMENDATION: 1. If breast conservation therapy is mark nned and it would affect management, recommend right diagnostic mammogram for further evaluation of the calcifications. Alternatively, the calci fications could be localized along with the mass prior to surgery. 2. Recommend CT of the neck and chest. Eun LOBO BI PROCEDURES documented in this encounter Visit Diagnoses Diagnosis Symptoms Breast Symptoms Breast Symptoms Breast documented in this encounter
--- OUTSIDE RECORDS SUMMARY | 2022-10-08 09:11 | XMS_ITS | Encounter Summary ---
:1940 Author Organization [facility] Address [address] [place] [address] Care Team Providers Name Role Phone Unavailable Primary Care Provider Unavailable Reason for Visit Reason Comments [facility] Appointment Request (Routine) - Closed Specialty Diagnoses / Procedures Referred By Contact Refer red To Contact Breast Clinic Diagnoses Infiltrating Duct Carcinoma Of Breast Eun Summers M.D. [address] [place], [place] [phone] Referral ID Status Reason Start Date Expiration Date Visits Requ ested Visits Authorized [id number] Closed 05/12/2021 05/12/2022 2 1 Encounter Details Date Type Department Care Team Description 05/13/2021 Clinical Communication [facility] in [place], [place] [address] [place] [phone] Social History Tobacco Use Types Packs/Day Years Used Date Smoking Tobacco: Never Alcohol Habits Answer Date Recorded How often do you have a drink containing 4 or more times a w [place] 01/01/2022 alcohol? How many drinks containing alcohol [...] or relatives? How often do you attend adventist or More than 4 times per year 01/01/2022 restoration services? Do you belong to any clubs or Yes 01/01/2022 organizations such as adventist groups, unions, fraCarbonated Content or athletic groups, or school groups? 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 - 05/13/2021 12:59 PM CDT Rescheduled for a different day. documented in this encounter Plan of Treatment Not on filedocumented as of this encounter Visit Diagnoses Not on filedocumented in this encounter
--- OUTSIDE RECORDS SUMMARY | 2022-10-08 09:11 | XMS_ITS | Encounter Summary ---
:1940 Author Organization [facility] Address [address] [place] [address] Care Team Providers Name Role Phone Unavailable Primary Care Provider Unavailable Encounter Details Date Type Department Care Team Description 05/11/2017 - Hospital Encounter HX [facility] Bhakti Tirado, 10/08/2017 M[address] [place] [address] Social History Tobacco Use Types Packs/Day Years Used Date Smoking Tobacco: Never Alcohol Habits Answer Date Recorded How often do you have a drink containing 4 or more times a w [place] 01/01/2022 alcohol? How many drinks containing alcohol [...] or relatives? How often do you attend yarsanism or More than 4 times per year 01/01/2022 restorationist services? 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 documented as of this encounter Last Filed Vital Signs Vital Sign Reading Time Taken Comments Blood Pressure 116/75 05/11/2017 1:20 PM CDT Pulse 75 05/11/2017 1:20 PM CDT Temperature - - Respiratory Rate 16 05/11/2017 1:20 PM CDT Oxygen Saturation - - Inhaled Oxygen Concentration - - Weight 61.6 kg (135 lb 12.9 oz) 05/11/2017 1:20 PM CDT Height 161 cm (5' 3.39) 05/11/2017 1:20 PM CDT Body Mass Index 23.76 05/11/2017 1:20 PM CDT documented in this encounter Medications at Time of Discharge Medication Sig Dispensed Refills Start Date End Date albuterol 90 mcg/actuation Inhale 2 puffs as 0 inhaler needed. ALPRAZolam (XANAX) 0.25 mg Take 0.25 mg by 0 12/30 tablet mouth as needed. multivitamin tablet Take 1 tablet by 0 01/16/2015 mouth daily. ascorbic acid, vitamin C, Take 1 tablet by 0 12/3008/15/2021 (VITAMIN C) 500 mg tablet mouth daily. calcium carb-magnesium carb Take by mouth. 0 12/3005/29/2021 250-300 mg tablet cholecalciferol (VITAMIN Take 1,000 Units 0 01/1608/15/2021 D3) 25 mcg (1,000 Unit) by mouth daily. capsule cyanocobalamin (VITAMIN Take 1 tablet by 0 201408/15/2021 B12) 1,000 mcg tablet mouth daily. ginkgo biloba 120 mg tablet Take by mouth. 0 12/3005/29/2021 vitamin A-vitamin C-vit Take 1 tablet by 0 201405/29/2021 E-min tablet mouth as needed. documented as of this encounter H&P Notes Bhakti Mccoy M.D. - 05/11/2017 1:39 PM CDT Clinic Full Note CHIEF COMPLAINT/REASON FOR VISIT Pt here for FU with history of lung cancer. Pt here to review recent studies done in [place]. 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 1. December 2013 while living in [place], the patient presented for workup of a gastrointestinalproblem a non chest x-ray was found to have a lung lesion in the left lower lobe measuring 5 x 3 cm. 2. the patient underwent VATS. Pathology returned 5 x 3 cm papillary micro papillary adenocarcinomaof the left lower lobe, moderately differentiated. There was visceral pleural invasion present. All margins were negative in for nodes at level 9 and 2 nodes a level 7 as well as 2 nodes at level 11 were all negative. Final pathologic stage pT2a pN0 stage IB. tumor was epidermal growth factor receptorand KRAS wild-type. Alk mutation was also negative. 3. July 2014 surveillance scan was without evidence of disease except a 5- 6 mm nodule at the right diaphragm which had been previously present on the scan from 02/25/2009. 4. 01/28/2015 seen in [facility] by Dr. Vivek Isaac. 5. 01/30/2015 surveillance scan showed no evidence of recurrent disease. A vague 6.8 mm stable right basilar pulmonary nodule was seen adjacent to the right hemidiaphragm. 6. 02/04/2015 PET-CT done to follow-up on the vague nodule was notable for a small irregular focus of infiltrate or atelectasis in the medial aspect of the left lung base with low-grade uptake, maximum SUV 2.9. The vague nodular focus new diaphragm on the right showed no uptake. 7. 08/14/2015 CT scan was notable for a decrease in the size of the pleural- based opacity identified in the posterior medial left lower lobe, and a 6.8 mm nodule at the right base adjacent to the hemidiaphragm, stable. 8. 02/12/2016 patient was seen in follow-up by Dr. Dwight Vasquez and six-month follow-up was recommended. 9. 02/25/[address] scan was notable for postoperative changes from her prior thoracotomyon the left and a stable 6.8 mm nodule in the right lung base. 10. 09/28/[address] scan was notable for a new 7 mm subpleural nodule in the right lung.There was no significant mediastinal or axillary lymphadenopathy. The pleural nodule at the base of the right lung was felt to be stable but was measures 8 mm on that examination. 11. 09/29/2016 I saw the patient in follow-up in recommended 6 month follow-up with another CT scan. 12. despite a CT having been ordered prior to her return visit with me on 04/29/2017, no CT scan was performed. On physical examination at that time, she was had no evidence of disease, but because there had been a new nodule on her August 2016 scan, I recommended proceeding with the previously ordered CT scan. The patient is here today to go over the results of that scan. It was performed at the [facility]. Please refer to notes from the [place] medical record for additional information. INTERVAL HISTORY The patient is here today for follow-up of her recent CT scan of the chest. This was performed on 04/30/2017. In addition, because of some fine motor issues of her right hand and some subtle weakness of the muscles of the right forearm, a brain MRI was also obtained on 05/03/2017. The patient does endorse some occasional left lower rib pain. This is spasm like pain which occurs very suddenly. It will take her breath away for a very short period of time but then goes away. It is not persistent. She has had some vague difficulties with her right arm, perhaps related to fine motor control. 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 She can't always maker hand do at her mind tells at 2. She has seen her primary care provider about this and has a referral to a neurologist next week. She denies difficulties with balance or gait. She denies blurry vision or symptoms of receptive or expressive aphasia. She occasionally has a little bit of shortness of breath if she goes out into the cold. Otherwise, she has no breathlessness with activity. She has some occasional joint stiffness particularly in the small joints of her hands, and depression for which shetakes mirtazapine. She has some difficulties with insomnia. She tried zolpidem but had a paradoxicalreaction to the drug. If her insomnia is particularly bad, she occasionally takes a half of an alprazolam. The remainder of a 12 system review of systems is negative. MEDICATIONS Protonix, takes generic form, PO, Daily Remeron, PO, Bedtime Xanax, See Instructions, as needed ALLERGIES NKA PAST MEDICAL HISTORY 1. Gastrointestinal bleeding requiring transfusions, 9 years ago PROCEDURES/SURGICAL HISTORY VATS surgery 2013, see HPI Knee surgery many years ago. SOCIAL HISTORY Date Time: 05/11/2017 13:20 Tobacco: Smoking Status: Never smoker Exposure: Other: NEVER Alcohol: Use: No Results Found Recreational Drugs: Use: No Results Found Type: No Results Found The patient was 25 years ago. 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 She moved from [place] in 2013 to be near to friends. She is college educated with 1 son in [place] ; no grandchildren. She is a college smoker only, none since then with 1 glass of wine nightly and 1-2 cups of tea caffeinated coffee daily. She is not physically active but is joining the [employer]. She does notuse recreational drugs. FAMILY HISTORY No qualifying data available. One son in good health. Three brothers ; 1 of liver cancer and another of sepsis. The 3rd is still living. Father of colon cancer in mother of Alzheimer's. SYSTEMS REVIEW See interval history. VITAL SIGNS T: 36.3 ??C (Core) HR: 75 RR: 16 BP: 116 / 75 SpO2: 97% HT: 161 cm WT: 61.6 kg BMI: 23.76 PHYSICAL EXAMINATION GENERAL: Patient is A well-developed well-nourished woman who looks considerably younger than her stated age who is in comfortable and in no respiratory distress. HEENT: Normocephalic. EOMI, PERRLA, sclerae are anicteric. conjunctivae are pink Oropharynx Mucosa is moist andwithout lesions. palate rises symmetrically in the midline and the posterior pharynx is without exudate. NECK: No masses, no thyromegaly. No bruit auscultated. no jugular venous distention. LYMPH: There is no preauricular, anterior or posterior cervical, supraclavicular, infraclavicular, axillary, epitrochlear, inguinal, or femoral adenopathy. HEART: Regular rate and rhythm. No murmurs, gallops or rubs noted. LUNGS: Clear to auscultation bilaterally. No expiratory wheeze. No accessory muscles of respirationnoted. BREASTS: deferred ABDOMEN: Nontender to palpation. No hepato-splenomegaly. No mass. Normal bowel sounds in all 4 quadrants. PELVIS: deferred EXTREMITIES: No neurovascular compromise. No cyanosis, clubbing or edema. No abnormal limb length. NEUROPSYCH Cranial Nerves II through XII are intact To confrontational testing. There is subtle weakness of the right arm muscles especially distally and some subtle weakness of the left quadriceps and biceps femoris. Reflexes are 2+ in the knees bilaterally. Ankle jerks are absent bilaterally. The right upper extremity reflexes are 2+ as is the left brachioradialis reflex. The biceps and triceps reflexes on the left are 3+. Gait is normal. Speech is fluid. Tandem walking is normal. oriented and alert. Capable of full communication without difficulty. Patient is polite and cooperative. Appropriately dressed and normal hygiene. LAB RESULTS no new laboratory studies are available for review. DIAGNOSTIC RESULTS 04/30/2017 CT chest without contrast IMPRESSION: 1. 8 mm nodular density or pleural plaques just above the right hemidiaphragm is stable. 2. The 7 mm subpleural nodule in the right lung has decreased and now has more of an appearance of linear atelectasis or fibrosis. 3. No significant mediastinal or axillary lymphadenopathy. 4. Postsurgical changes on the left without volume loss. 05/03/2017 MRI brain with and without contrast CONCLUSION: 1. No mass lesions, pathologic enhancement, evidence of intracranial metastasis. 2. Mild to moderate cerebral T2 white matter signal changes most likely small vessel ischemic in nature. Some of the lesions are reminiscent of chronic demyelinating disease. Pontine pattern is typical of small vessel disease. 3. Possible small right frontal focus of chronic hemorrhage or calcification not evident on other pulse sequences. Equivocal smaller foci foci in the right anterior frontal lobe, raising the possibility of old trauma. 4. Tiny dot of enhancement in the central nani with susceptibility dropout is compatible with an incidental capillary telangiectasia. 5. Otherwise normal brain exam with no acute or subacute infarct IMPRESSION/REPORT/PLAN #1 history of stage IB adenocarcinoma of the lung status post resection, currently without evidenceof disease. Hashtag 2 resolving subpleural nodule visualized on 09/28/2016 scan #3 History of gastrointestinal bleeding #4 New subtle neurologic findings on examination and difficulty with right hand control With regards to the patient's lung cancer, six-month follow-up with an additional CT scan is appropriate. If she has no new nodules on that exam, I will see her subsequently in [address] exam at that time. She is to call the [place] office to schedule her follow-up appointment. With regards to the patient's new neurologic findings, the she has an appointment with Neurology and will have an MRI of the brain for the neurologist to review at the time of her appointment. There is no evidence of metastatic disease in the brain. Electronically Signed By: BHAKTI MCCOY MD On: 05/12/2017 07:09 AM Source: [place] Document Id: [id number] documented in this encounter Miscellaneous Notes Miscellaneous - Conversion, Historical Provider Ser - 05/27/2017 3:45 PM CDT Coding Summary-Paper Based CODING DATE: 05/27/2017 FINAL [facility] STATUS: Still Patient/Expected to Rtn Oupt [facility] PAYOR: Medicare ADMIT DX: REASON FOR VISIT DX: FINAL DX: PRINCIPAL: R91.8 Other nonspecific abnormal finding of lung field SECONDARY: Z85.118 Personal history of other malignant neoplasm of bronchus and lung Z87.19 Personal history of other diseases of the digestive system M62.81 Muscle weakness (generalized) R29.818 Other symptoms and signs involving the nervous system Z80.0 Family history of malignant neoplasm of digestive organs Z90.2 Acquired absence of lung [part of] PROCEDURES DOCTOR NAME DATE NOTE: The code number assigned matches the documented diagnosis and / or procedure in the patient's chart. However, the narrative phrase printed from the coding software may appear abbreviated, or result in slightly different terminology. Coded By: GILBERT SANABRIA Date Saved: 05/27/2017 03:45 pm Source: [place] Document Id: [id number] Miscellaneous - Kubes, Mckenzie, R.N. - 05/11/2017 1:20 PM CDT Adult Dampener Operator Intake/History Adult Dampener Operator Intake/History Entered On: 05/11/2017 13:22 CDT Performed On: 05/11/2017 13:20 CDT by MCKENZIE DICKERSON head kiln operator Chief Complaint : Pt here for FU with history of lung cancer. Pt here to review recent studies done in [place]. Temperature Core : 36.3 DegC(Converted to: 97.3 DegF) (LOW) Peripheral Pulse Rate : 75 /min Respiratory Rate : 16 /min Systolic Blood Pressure : 116 mmHg Diastolic Blood Pressure : 75 mmHg NIBP Mean : 89 mmHg BP Location : Left upper extremity Blood Pressure Cuff Size : Regular SpO2 : 97 % Oxygen Therapy : Room air Height : 161 cm(Converted to: 5 ft 3 inch(es), 63 inch(es)) Actual Weight : 61.6 kg(Converted to: 135 lb 13 oz) Weight Source : Standing scale Dosing Weight Clinic : 61.6 kg Clinic BSA : 1.66 Body Mass Index : 23.76 kg/m2 MCKENZIE DICKERSON RN - 05/11/2017 13:20 CDT General Info Information Given By : Patient Preferred Communication Mode : Verbal Languages : Ken[place] Is Patient Female and 13-50 no hysterectomy : No MCKENZIE DICKERSON RN - 05/11/2017 13:20 CDT Subjective Pain Symptoms : No MCKENZIE DICKERSON RN - 05/11/2017 13:20 CDT Dependent Habits Exposure to Tobacco Smoke : Other: NEVER Smoking Status : Never smoker Tobacco 2A : No Tobacco Use/Currently Using : No Tobacco Use/Last 30 Days : No Tobacco Use/Last 12 months : No MCKENZIE DICKERSON RN - 05/11/2017 13:20 CDT Source: [employer] POWERCHART Document Id: [id number] CDT!33 Saul - Mckenzie Dickerson R.N. - 05/11/2017 1:20 PM CDT Advance Directive Advance Directive Entered On: 05/11/2017 13:24 CDT Performed On: 05/11/2017 13:20 CDT by MCKENZIE DICKERSON RN Advance Directive Advanced Directives : No Advance Directive Additional Information : No Advance Directive Comments : Pt thinks she may have one and will look into it. MCKENZIE DICKERSON RN - 05/11/2017 13:20 CDT Source: [facility] [employer] Document Id: [id number] CDT!5 documented in this encounter Plan of Treatment Not on filedocumented as of this encounter Visit Diagnoses Not on filedocumented in this encounter
--- OUTSIDE RECORDS SUMMARY | 2022-10-08 09:11 | XMS_ITS | Encounter Summary ---
:1940 Author Organization [facility] Address [address] [place] [address] Care Team Providers Name Role Phone Unavailable Primary Care Provider Unavailable Encounter Details Date Type Department Care Team Description 05/14/2021 Orders Only Breast Diagnostic Marcelina Ren, Karolina darling [facility] [place], [facility] Breast Female Right [place] [address] [facility] (HCC) (Primary Dx) [address] [place] [id number] Social History Tobacco Use Types Packs/Day Years Used Date Smoking Tobacco: Former Smokeless Tobacco: Never Comments: in college years Alcohol Habits Answer Date Recorded How often do you have a drink containing 4 or more times a w [place] 01/01/2022 alcohol? How many drinks containing [...] or relatives? How often do you attend mormon or More than 4 times per year 01/01/2022 alevism services? 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 [id number] 05/19/2021 DTL electronically 9:51 AM signed by CDT I verify that I have examined all relevant slides/materials for the specimen(s) and rendered or confirmed the diagnosis. Material A. [id number]: Right breast 05/19/2021 D TL Received ? 6 stained slides 9:51 AM CDT Addendum REVISION DESCRIPTION 05/22/2021 DTL Due to clerical error, the signing pathologist has been 3:51 PM corrected. CDT Breast, right, 2 o'clock 4 cm from nipple, ultrasound-guided core biopsy ([id number]; 05/01/2021): block [id number] SPECIAL PROCEDURE REPORT Breast Biomarker(s) for: Invasive or metastatic breast carcinoma Result(s): Ki-67 by Immunohistochemistry (IHC): ?? Percentage of positive-staining tumor nuclei: 24% METHOD AND SCORING Ki-67 (MIB-1) Breast Cancer Automated Scoring Method: Ki-67 (MIB-1) proliferation data must be interpreted within the clinical context for which the test was ordered. Recent studies have suggested that Ki-67 (MIB-1) analysis of paraffin-embedded breast cancer tissue specimens may provide useful prognostic information. 1. Nany Terrazas et al. Proliferation marker Ki-67 in early breast cancer 2. Manriquez et al. Ki-67 as prognostic marker in early breast cancer; a meta-analysis of published studies involving 12, 155 patients Immunohistochemical staining of the Ki-67 antigen in formalin-fixed paraffin-embedded tissue sections has been validated by our laboratory, using the MIB-1 clone and a proprietary detection system. External controls show appropriate reactivity. Immunohistochemical stained slides are scanned using the [employer] ScanScope instrument. A technologist views the captured digital image and traces around areas of cancer to include at least 75% of the total invasive cancer within the image. The traced areas are analyzed using Kij[employer]io software that renders the percentage of positive-staining tumor nuclei. The Aperio data and corresponding slide are reviewed by a pathologist for final interpretation. This test was developed and its performance characteristics determined by [facility] in a manner consistent with CLIA requirements. This test has not been cleared or approved by the U.S. Food and Drug Administration. Signed by Henry MccarthyB.S., Ph.D. [id number] 05/22/2021 3:51 PM Comment: REVISED RESULTS ----PREVIOUSLY REPORTED ---- Breast, right, 2 o'clock 4 cm from nipple, ultrasound-guided core biopsy ([id number]; 05/01/2021): block [id number] SPECIAL PROCEDURE REPORT Breast Biomarker(s) for: Invasive or metastatic breast carcinoma Result(s): Ki-67 by Immunohistochemistry (IHC): ?? Percentage of positive-staining tumo r nuclei: 24% METHOD AND SCORING Ki-67 (MIB-1) Breast Cancer Automated Sc oring Method: Ki-67 (MIB-1) proliferation data must be inter preted within the clinical context for which the test was ordered. Recent studies have suggested that Ki-67 (MIB-1 ) analysis of paraffin-embedded breast cancer tissue s pecimens may provide useful prognostic information. 1. Nany Terrazas et al. Proliferation marker Ki-67 in early breast cancer 2. Manriquez et al. Ki-67 as progno stic marker in early breast cancer; a meta-analysis of published studies involving 12, 155 patients Immunohistochemical staining of the Ki-6 7 antigen in formalin-fixed paraffin-embedded tissue sections has been validated by our laboratory, using the M IB-1 clone and a proprietary detection system. External c ontrols show appropriate reactivity. Immunohistochemi tori stained slides are scanned using the [employer] ScanScope i nstrument. A technologist views the captured digital image and traces around areas of cancer to include at mayte st 75% of the total invasive cancer within the image. The tr aced areas are analyzed using Aperio software that rend ers the percentage of positive-staining tumor nuclei. The A perio data and corresponding slide are reviewed by a pa thologist for final interpretation. This test was developed and its performance characteristics determined by [facility] in a manner consistent with CLIA requirements. This test has not been cleared or approved by the U.S. Food and Drug Administration. Signed by Berta Ireland M.D. [id number] 05/22 1:16 PM This test was developed and its performa nce characteristics determined by [facility] in a manner co nsistent with CLIA requirements. This test has not been arthur ared or approved by the U.S. Food and Drug Administration., Flagged as: ??(Reported 05/22/2021 13:16) Interpretation FINAL DIAGNOSIS 05/22/2021 3:51 PM CDT DTL Breast, right, 2 o'clock 4 cm from nipple, ultrasound-guided core biopsy ([id number]; 05/01/2021): Invasive ductal carcinoma, Fely grade III of III. Immunohistochemistry studies were performed at the outside institution, and reviewed at [facility]. ??The neoplastic cells revealed the following: ER status: ??Positive (100%); intensity is strong. [place] status: ??Positive (2%); intensity is moderate HER2 status: ??Negative (1+) Ki-67 stain will be ordered and the result will be reported separately. A comprehensive consult with review of records that included imaging results was performed to assist in the diagnostic assessment of the case. Specimen Anatomical Collection Method Collection Time Receive d Time (Source) Location / / Volume Laterality Varies 05/01/2021 10:55 05/15/2021 1:34 AM CDT PM CDT Narrative This result has an attachment that is no t available. Eun Summers M.D. LAB SURG PATH ORDERABLES Performing Organization Address City/State/ZIP Code Phon e Number [facility] - [address] [place], [place] [address] [facility] [place] [address] [facility] [address] documented in this encounter Visit Diagnoses Diagnosis Malignant Neoplasm Of Breast Female Righ t (HCC) - Primary documented in this encounter
--- OUTSIDE RECORDS SUMMARY | 2022-10-08 09:11 | XMS_ITS | Encounter Summary ---
:1940 Author Organization [facility] Address [address] [place] [address] Care Team Providers Name Role Phone Unavailable Primary Care Provider Unavailable Reason for Visit Reason Comments [facility] Appointment Request (Routine) - Closed Specialty Diagnoses / Procedures Referred By Contact Refer red To Contact Breast Clinic Diagnoses Infiltrating Duct Carcinoma Of Breast Eun Summers M.D. [address] [place], [place] [address] Referral ID Status Reason Start Date Expiration Date Visits Requ ested Visits Authorized [id number] Closed 05/12/2021 05/12/2022 2 1 Encounter Details Date Type Department Care Team Description 05/14/2021 Clinical Communication Breast Diagnostic Clinic in [place], [place] [address] [place] [address] Social History Tobacco Use Types Packs/Day Years Used Date Smoking Tobacco: Former Smokeless Tobacco: Never Comments: in college years Alcohol Habits Answer Date Recorded How often do you have a drink containing 4 or more times a w [place] 01/01/2022 alcohol? 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 Summers Telephone Encounter - Marcelina Ren L.P.N. - 05/14/2021 10:49 AM CDT SUBJECTIVE REFERRAL Self Referred LOCAL CARE PROVIDER Annie Rojas M.D. 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 Patient's expectations of the upcoming visit: Opinion, all treatments and follow-up at [facility]. HISTORY OF PRESENT ILLNESS Screening mammogram: Bilateral, 04/23/2021; Scattered fibroglandular densities are present bilaterally. There is a spiculated mass within the medial right breast 4 cm from the nipple measuring 1.1 cm .Associated architectural distortion is present. Left breast mammogram is normal. Her breast parenchymas is scattered fibroglandular densities. Diagnostic mammogram: No. Ultrasound breast/axilla: Right, 05/01/2021; In the 2:00 position, 4 cm from the nipple there is a solid, hypoechoic, taller than wide, spiculated mass with distal acoustic shadowing measuring 1.5 x 1.3 x 1.9 cm. Normal right axillary lymph node. Biopsy: Core biopsy, Right, 05/01/2021; invasive ductal carcinoma; Grade: 3. Hormone receptor testing: Estrogen positive (100%), Progesterone positive (2%) and HER2 negative. Magnetic resonance imaging (MRI): Bilateral, 05/07/2021; Right Breast: At 1- 2:00, middle depth thereis an irregular mass and heterogeneous non-mass enhancement which spans approximately 2.6 x. 1.5 x 1.6 cm. Worst curve kinetics demonstrate rapid initial enhancement with washout. Artifact from a biopsy marker clip is seen within the mass. There are no additional suspicious areas of enhancement. Left Breast: There are no suspicious areas of enhancement. Lymph Nodes: Ther is no suspicious lymphadenopathy. Positron emission tomography (PET) scan: No. Molecular breast imaging (MBI): No. Breast-specific gamma imaging (BSGI): No. Ultrasound abdomen: No. Additional imaging: No. Genetic testing: None. Past breast surgery/biopsy: None. Chemotherapy: None. Radiation therapy: None. Adjuvant breast hormone/endocrine therapy: None. Medical Devices/Implants reviewed: Yes, flowsheet updated. SOCIAL HISTORY Current living status: Lives alone. Caregivers in the home: Yes. Additional support systems: Yes. Able to return to current living environment: Yes. Transportation to and from appointments/treatments: Yes. 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 Psychosocial: Anxiety. ASSESSMENT/PLAN PATIENT INSTRUCTIONS Patient advised: To bring all medications (prescription, herbal, vitamins, over the counter) to the appointment. Breast images and imaging reports from the past five years will be obtained. Pathology slides will be requested. Patient to sign authorization for release of slides to [facility]. Fees will be charged for the interpretation of outside pathology and radiology reports. Information/Education: patient/caller able to teach back The following references were used: none documented in this encounter Plan of Treatment Not on filedocumented as of this encounter Visit Diagnoses Diagnosis Malignant Neoplasm Of Breast Female Righ t (HCC) - Primary documented in this encounter
--- OUTSIDE RECORDS SUMMARY | 2022-10-08 09:11 | XMS_ITS | Encounter Summary ---
:1940 Author Organization [facility] Address [address] [place] [address] Care Team Providers Name Role Phone Unavailable Primary Care Provider Unavailable Encounter Details Date Type Department Care Team Description 05/16/2021 Ancillary Procedure Department of Eun Summers Breast Radiology klaus Terrazas M.D. [place], [place] [address] [facility] [address] [place] [phone] (Wo rk) Social History Tobacco Use Types Packs/Day Years Used Date Smoking Tobacco: Former Smokeless Tobacco: Never Comments: in college years Alcohol Habits Answer Date Recorded How often do you have a drink containing 4 or more times a w [place] 01/01/2022 alcohol? 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 documented in this encounter Results Interpretation of Outside Breast Imaging (05/16/2021 11:10 AM CDT) Anatomical Region Laterality Modality Breast, Breast Imaging RST LOS, Breast Imaging ARZ LOS, [place] N/A Mammography Imaging FLA LOS, Other [...] invasive ductal carcinoma in the right breast, ER/MA pos itive, MA negative and HER-2 negative. DENSITY: ??b. There [...] suprac lavicular/cervical lymphadenopathy partially included in the crlwh-po-omoy on some series. Questionable left lung nodule anteriorly (series 5, image 79). Procedure Note Salome Yoder M.D. - 05/16/2021Form atting of this note might be different from the original. EXAM: INTERPRETATION OF OUTSIDE BREAST I MAGING, INTERPRETATION OF OUTSIDE MR BREAST HISTORY/INDICATION: Recent outside diagn osis of grade 3 invasive ductal carcinoma in the right breast, ER/MA pos itive, MA negative and HER-2 negative. DENSITY: b. There [...] suprac lavicular/cervical lymphadenopathy partially included in the aeloy-dz-jfbo on some series. Questionable left lung nodule [...] invasive ductal carcinoma in the right breast, ER/MA pos itive, MA negative and HER-2 negative. DENSITY: ??b. There [...] suprac lavicular/cervical lymphadenopathy partially included in the cgqha-qx-rruq on some series. Questionable left lung nodule anteriorly (series 5, image 79). Procedure Note Salome Yoder M.D. - 05/16/2021Form atting of this note might be different from the original. EXAM: INTERPRETATION OF OUTSIDE BREAST I MAGING, INTERPRETATION OF OUTSIDE MR BREAST HISTORY/INDICATION: Recent outside diagn osis of grade 3 invasive ductal carcinoma in the right breast, ER/MA pos itive, MA negative and HER-2 negative. DENSITY: b. There [...] suprac lavicular/cervical lymphadenopathy partially included in the dpwsv-hy-zegf on some series. Questionable left lung nodule [...] Imaging RST LOS, Breast Imaging ARZ LOS, [place] st N/A Mammography Imaging FLA LOS, Other [...] invasive ductal carcinoma in the right breast, ER/MA pos itive, MA negative and HER-2 negative. DENSITY: ??b. There [...] suprac lavicular/cervical lymphadenopathy partially included in the comkq-cb-fokl on some series. Questionable left lung nodule anteriorly (series 5, image 79). Procedure Note Salome Yoder M.D. - 05/16/2021Form atting of this note might be different from the original. EXAM: INTERPRETATION OF OUTSIDE BREAST I MAGING, INTERPRETATION OF OUTSIDE MR BREAST HISTORY/INDICATION: Recent outside diagn osis of grade 3 invasive ductal carcinoma in the right breast, ER/MA pos itive, MA negative and HER-2 negative. DENSITY: b. There [...] suprac lavicular/cervical lymphadenopathy partially included in the ahqpr-pr-hrzs on some series. Questionable left lung nodule [...]
--- OUTSIDE RECORDS SUMMARY | 2022-10-08 09:11 | XMS_ITS | Encounter Summary ---
:1940 Author Organization [facility] Address [address] [place] [address] Care Team Providers Name Role Phone Unavailable Primary Care Provider Unavailable Encounter Details Date Type Department Care Team Description 05/14/2021 Lab RST RO LMP Eun Summers, Malignant Neoplasm Of [address] [facility] M.D. Breast Female Right [place], [place] [address] [facility] [address] [place] [address] (Wo rk) Social History Tobacco Use Types [...] More than 4 times per year 01/01/2022 adventist services? 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 documented in this encounter Results Pathology Review of Outside Material (05/01/2021 10:55 AM CDT) Component Value Ref Test Analysis Performed Pathologis t Range Method Time At Signature 05/19/2021 DTL 9:51 AM CDT Participated in [facility] [place], 05/19/2021 DTL the [facility].-Pathology 9:51 AM Interpretation Resident CDT Report Berta Ireland M.D. [id number] 05/19/2021 DTL electronically 9:51 AM signed by CDT I verify that I have examined all relevant slides/materials for the specimen(s) and rendered or confirmed the diagnosis. Material A. [id number]: Right breast 05/19/2021 D TL Received ? 6 stained slides 9:51 AM CDT Addendum REVISION DESCRIPTION 05/22/2021 DTL Due to clerical error, the signing pathologist has been 3:51 PM corrected. CDT Breast, right, 2 o'clock 4 cm from nipple, ultrasound-guided core biopsy ([id number]; 05/01/2021): block [id number] SPECIAL PROCEDURE REPORT Breast Biomarker(s) for: Invasive [...] may provide useful prognostic information. 1. Nany Terrazas, et al. Proliferation marker Ki-67 in early breast cancer 2. Marniquez, et al. Ki-67 as prognostic marker in early breast cancer; a meta-analysis of published studies involving 12, 155 patients Immunohistochemical staining of the Ki-67 antigen in formalin-fixed paraffin-embedded tissue sections has been validated by our laboratory, using the MIB-1 clone and a proprietary detection system. External controls show appropriate reactivity. Immunohistochemical stained slides are scanned using the MobiscopeeriMowjow ScanScope instrument. A technologist views the captured digital image and traces around areas of cancer to include at least 75% of the total invasive cancer within the image. The traced areas are analyzed using MobiscopeeriMowjow software that renders the percentage of positive-staining tumor nuclei. The Aperio data and corresponding slide are reviewed by a pathologist for final interpretation. This test was developed and its performance characteristics determined by [facility] in a manner consistent with CLIA requirements. This test has not been cleared or approved by the U.S. Food and Drug Administration. Signed by Henry MccarthyB.S., Ph.D. [id number] 05/22/2021 3:51 PM Comment: REVISED RESULTS ----PREVIOUSLY REPORTED ---- Breast, right, 2 o'clock 4 cm from nipple, ultrasound-guided core biopsy ([id number]; 05/01/2021): block [id number] SPECIAL PROCEDURE REPORT Breast Biomarker(s) for: Invasive [...] tori stained slides are scanned using the Mobiscopeerio ScanScope i nstrument. A technologist views the captured digital image and traces around areas of cancer to include at mayte st 75% of the total invasive cancer within the image. The tr aced areas are analyzed using Mobiscopeerio software that rend ers the percentage of positive-staining tumor nuclei. The A perio data and corresponding slide are reviewed by a pa thologist for final interpretation. This test was developed and its performance characteristics determined by [facility] in a manner consistent with CLIA requirements. This test has not been cleared or approved by the U.S. Food and Drug Administration. Signed by Berta Ireland M.D. [phone] 05/22 1:16 PM This test was developed and its performa nce characteristics determined by [facility] in a manner co nsistent with CLIA requirements. This test has not been arthur ared or approved by the U.S. Food and Drug Administration., Flagged as: ??(Reported 05/22/2021 13:16) Interpretation FINAL DIAGNOSIS 05/22/2021 3:51 PM CDT DTL Breast, right, 2 o'clock 4 cm from nipple, ultrasound-guided core biopsy ([id number]; 05/01/2021): Invasive ductal carcinoma, [place] grade III of III. Immunohistochemistry studies were performed at the outside institution, and reviewed at [facility]. ??The neoplastic cells revealed the following: ER status: ??Positive (100%); intensity is strong. VT status: ??Positive (2%); intensity is moderate HER2 [...] LAB SURG PATH ORDERABLES Performing Organization Address City/State/[facility] Code Phon e Number [facility] - [address] [place], [place] [address] [facility] [place] [address] Laboratories-[facility] [address] documented in this encounter Visit Diagnoses Diagnosis Malignant Neoplasm Of Breast Female Righ t (HCC) documented in this encounter
--- OUTSIDE RECORDS SUMMARY | 2022-10-08 09:11 | XMS_ITS | Encounter Summary ---
:1940 Author Organization [facility] Address [address] [place] [address] Care Team Providers Name Role Phone Unavailable Primary Care Provider Unavailable Reason for Referral MRI/CAT/PET Scan (Routine) - Closed Specialty Diagnoses / Procedures Referred By Contact Refer red To Contact Radiology Diagnoses Malignant Neoplasm Of Breast Female Right (HCC) Eun Summers M.D. [facility] Procedures CT Chest without IV Contrast [address] [place], [place] [address] Referral ID Status Reason Start Date Expiration Date Visits Requ ested Visits Authorized [id number] Closed 05/19/2021 05/19/2022 1 1 MRI/CAT/PET Scan (Routine) - Closed Specialty Diagnoses / Procedures Referred By Contact Refer red To Contact Radiology Diagnoses Malignant Neoplasm Of Breast Female Right (HCC) Eun Summers M.D. [facility] Procedures CT Neck Soft Tissue without IV Contrast [address] [place], [place] [address] Referral ID Status Reason Start Date Expiration Date Visits Requ ested Visits Authorized [id number] Closed 05/19/2021 05/19/2022 1 1 Reason for Visit MRI/CAT/PET Scan (Routine) - Closed Specialty Diagnoses / Procedures Referred By Contact Refer red To Contact Radiology Diagnoses Malignant Neoplasm Of Breast Female Right (HCC) Eun Summers M.D. [facility] Procedures CT Chest without IV Contrast [address] [place] [phone] Referral ID Status Reason Start Date Expiration Date Visits Requ ested Visits Authorized [id number] Closed 05/19/2021 05/19/2022 1 1 Encounter Details Date Type Department Care Team Description 05/19/2021 Hospital Encounter Department of Eun Summers ignant Neoplasm Radiology, Cherelle Terrazas M.D. Of Breast Female Building, in [address] [place] [address] Right (HCC) [facility] [address] [place] [address] [place], [place] (Work) [address] [phone] Social History Tobacco Use Types Packs/Day Years Used Date Smoking Tobacco: Former Smokeless Tobacco: Never Comments: in college years Alcohol Use Standard Drinks/Week Comments Yes 1 (1 standard drink = 0.6 oz pure alcoho l) per day Alcohol Habits Answer Date Recorded How often do you have a drink containing 4 or more times a w [place] 01/01/2022 alcohol? How many drinks containing alcohol [...] More than 4 times per year 01/01/2022 hoahaoism services? 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 ALPRAZolam (XANAX) 0.25 mg Take 0.25 mg by 0 12/30 tablet mouth as needed. aspirin [address] tablet Take 81 mg by 0 mouth daily. mirtazapine (REMERON) 30 mg Take 60 mg by 0 05/06 tablet mouth at bedtime. multivitamin tablet Take 1 tablet by 0 01/16/2015 mouth daily. simvastatin (ZOCOR) 20 mg Take 20 mg by 0 021 tablet mouth at bedtime. venlafaxine XR (EFFEXOR-XR) Take 225 mg by 0 04/2021 150 mg 24 hr capsule mouth daily. ascorbic acid, vitamin C, Take [...] mg tablet Take by mouth. 0 12/3005/29/2021 venlafaxine XR (EFFEXOR-XR) Take 75 mg by 0 04/1801/01/2022 75 mg 24 hr capsule mouth daily. vitamin A-vitamin C-vit Take 1 tablet by 0 201405/29/2021 E-min tablet mouth as needed. documented as of this encounter Plan of Treatment Scheduled Orders Name Type Priority Associated Diagnoses Order S chedule Creatinine, POCT Point of Care Routine Routine la b collection Testing-Docked (next collect ion) for Device 1 Occurrences s tarting 05/19/2021 unti l 05/19/2021 documented as of this encounter Procedures Procedure Name Priority Date/Time Associated Comments Diagnosis CT CHEST WITHOUT RAD - Routine 05/19/2021 2:15 Malignant Results for this IV CONTRAST (most inpatients PM CDT Neoplasm Of procedure a re in and all Breast Female the results outpatients) Right (HCC) section. CT NECK SOFT RAD - Routine 05/19/2021 2:15 Malignant Results for this TISSUE WITHOUT IV (most inpatients PM CDT Neoplasm Of proced ure are in CONTRAST and all Breast Female the results outpatients) Right (HCC) section. CREATININE, POCT, Routine 05/19/2021 1:14 Results for this B PM CDT procedure are i n the results section. CREATININE, POCT, Routine 05/19/2021 1:14 Results for this B PM CDT procedure are i n the results section. documented in this encounter Results CT Chest without IV [...] workstation as ordered by the treating p nereida and reviewed by the radiologist to increase [...] is located just below the may ged mwjpl-se-xavk on this neck CT. Multiple lobular areas [...] is located just below the may ged oyaxh-jy-mokt on this neck CT. Multiple lobular areas [...] from the lateral right external jugular vein. uEn Summers M.D. IMG CT PROCEDURES Creatinine, POCT (05/19/2021 1:14 PM CDT) athologist Signature Creatinine, 0.9 0.6 - 1.0 05/19/2021 PCDT POCT, B mg/dL 1:17 PM CDT Comment: ----ADDITIONAL INFORMATION---- Performed at the Point of Care Specimen Anatomical Collection Method Collection Time Receive d Time (Source) Location / / Volume Laterality Blood 05/19/2021 1:14 PM 1:17 CDT PM CDT Unknown Provider LAB POCT ORDERABLES - DEVICE Performing Organization Address City/State/ZIP Code Phon e Number [place]OC [place] PERFORMING [address] [place] [address] LABS PCDT [facility] [place], [place] [id number] [place] [address] Creatinine, POCT (05/19/2021 1:14 PM CDT) athologist Signature eGFR-Black/Afri 70 >=60 05/19/2021 PCMO can Camb[place]ian, mL/min/BSA 1:17 PM CDT POCT Comment: ----ADDITIONAL INFORMATION---- Estimated GFR calculated using the 2009 CKD_EPI creatinine equation. eGFR Non-Black/, 61 >=60 mL/min/BSA 05/19/2021 1:17 PM CDT PCMO POCT Comment: ----ADDITIONAL INFORMATION---- Estimated GFR calculated using the 2009 CKD_EPI creatinine equation. Specimen Anatomical Collection Method Collection Time Receive d Time (Source) Location / / Volume Laterality Blood 05/19/2021 1:14 PM 1:17 CDT PM CDT Unknown Provider LAB POCT ORDERABLES - DEVICE Performing Organization Address City/State/ZIP Code Phon e Number POC [facility] [address] [place] [id number] OUTPATIENT LABS PCMO [facility] [place], [place] [phone] [place] [address] documented in this encounter Visit Diagnoses Diagnosis Malignant Neoplasm Of Breast Female Righ t (HCC) documented in this encounter
--- OUTSIDE RECORDS SUMMARY | 2022-10-08 09:11 | XMS_ITS | Encounter Summary ---
:1940 Author Organization [facility] Address [address] [place] [address] Care Team Providers Name Role Phone Unavailable Primary Care Provider Unavailable Encounter Details Date Type Department Care Team Description 05/16/2021 Ancillary Procedure Department of [facility] Breast Radiology klaus Terrazas M.D. [place], [place] [address] [facility] [address] [place] [id number] (Wo rk) Social History Tobacco Use Types Packs/Day Years Used Date Smoking Tobacco: Former Smokeless Tobacco: Never Comments: in college years Alcohol Habits Answer Date Recorded How often do you have a drink containing 4 or more times a w [place] 01/01/2022 alcohol? How many drinks containing [...] or relatives? How often do you attend muslim or More than 4 times per year 01/01/2022 islam services? 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 documented in this encounter Results Interpretation of Outside Breast Imaging (05/16/2021 11:10 AM CDT) Anatomical Region Laterality Modality Breast, Breast Imaging RST LOS, Breast Imaging ARZ LOS, [place] [facility] N/A Mammography Imaging FLA LOS, Other [...] invasive ductal carcinoma in the right breast, ER/MO pos itive, MO negative and HER-2 negative. DENSITY: ??b. There [...] suprac lavicular/cervical lymphadenopathy partially included in the [id number]-[id number] on some series. Questionable left lung nodule anteriorly (series 5, image 79). Procedure Note Salome Yoder M.D. - 05/16/2021Form atting of this note might be different from the original. EXAM: INTERPRETATION OF OUTSIDE BREAST I MAGING, INTERPRETATION OF OUTSIDE MR BREAST HISTORY/INDICATION: Recent outside diagn osis of grade 3 invasive ductal carcinoma in the right breast, ER/MO pos itive, MO negative and HER-2 negative. DENSITY: b. There [...] suprac lavicular/cervical lymphadenopathy partially included in the [id number]-[id number] on some series. Questionable left lung nodule [...] invasive ductal carcinoma in the right breast, ER/MO pos itive, MO negative and HER-2 negative. DENSITY: ??b. There [...] suprac lavicular/cervical lymphadenopathy partially included in the vkcgt-nf-yjxg on some series. Questionable left lung nodule anteriorly (series 5, image 79). Procedure Note Salome Yoder M.D. - 05/16/2021Form atting of this note might be different from the original. EXAM: INTERPRETATION OF OUTSIDE BREAST I MAGING, INTERPRETATION OF OUTSIDE MR BREAST HISTORY/INDICATION: Recent outside diagn osis of grade 3 invasive ductal carcinoma in the right breast, ER/MO pos itive, MO negative and HER-2 negative. DENSITY: b. There [...] suprac lavicular/cervical lymphadenopathy partially included in the [id number]-[id number] on some series. Questionable left lung nodule [...] Imaging RST LOS, Breast Imaging ARZ LOS, [place] [facility] N/A Mammography Imaging FLA LOS, Other [...] invasive ductal carcinoma in the right breast, ER/MO pos itive, MO negative and HER-2 negative. DENSITY: ??b. There [...] suprac lavicular/cervical lymphadenopathy partially included in the bjetf-ur-knqs on some series. Questionable left lung nodule anteriorly (series 5, image 79). Procedure Note Salome Yoder M.D. - 05/16/2021Form atting of this note might be different from the original. EXAM: INTERPRETATION OF OUTSIDE BREAST I MAGING, INTERPRETATION OF OUTSIDE MR BREAST HISTORY/INDICATION: Recent outside diagn osis of grade 3 invasive ductal carcinoma in the right breast, ER/MO pos itive, MO negative and HER-2 negative. DENSITY: b. There [...] suprac lavicular/cervical lymphadenopathy partially included in the yxrpe-bm-urnz on some series. Questionable left lung nodule [...]
--- NOTE | 2022-10-08 09:15 | CRLHL7_ITS ---
For Patients: As a result of the Century Cures Act, medical imaging exams and procedure reports are released immediately into your electronic medical record. You may view this report before your referring provider. If you have questions, please contact your health care provider. BILATERAL SCREENING MAMMOGRAM WITH COMPUTER-AIDED DETECTION AND TOMOSYNTHESIS TECHNIQUE: CC and MLO views were obtained. These mammographic images have been obtained using full-field digital technique. These mammographic images were interpreted with the benefit of computer-aided detection. Breast Tomosynthesis was used in this interpretation. COMPARISON FILM: 04/23/21, 01/12/19, 12/27/17. FINDINGS: There are scattered areas of fibroglandular density IMPRESSION: There is no radiographic evidence for malignancy. ASSESSMENT: BI-RADS Category 2: Benign RECOMMENDATION: Routine screening mammogram in 1 year. A lay language report of this examination will be provided to the patient. Farhan Martinez M.D. Diagnostic/Nuclear Medicine Radiologist [email or web address] JOYCELYN/Dictated by: Farhan Martinez MD @ 10/08/2022 9:44:00 AM (Electronically Signed)
== END 2022-10-08 09:04 | disposition home or self-care (01) ==
LOC: MAMMO 09:04
PROVIDERS: PCP Internal Medicine; Visit Provider Nurse Practitioner Family
DX: Z12.31 Encounter for screening mammogram for malignant neoplasm of breast (principal)
CPT/HCPCS: 77063; 77067

== ENCOUNTER 2022-12-07 15:02 | Outpatient (CLI) | payer MEDICARE, SELFPAY ==
[2022-12-07 19:10] LABS: Cholesterol* 202 mg/dL (90-199)
[2022-12-07 19:11] LABS: HDL Cholesterol* 90 mg/dL (>=50); LDL Cholesterol Calculated 95 mg/dL (<100); Triglycerides* 86 mg/dL (40-149)
== END 2022-12-07 15:03 | disposition home or self-care (01) ==
LOC: NFLDREF 15:04
PROVIDERS: PCP Internal Medicine; Visit Provider Internal Medicine
DX: I67.9 Cerebrovascular disease, unspecified (principal); E78.5 Hyperlipidemia, unspecified
CPT/HCPCS: 80061

== ENCOUNTER 2023-01-20 13:54 | Outpatient (REF) | payer MEDICARE, SELFPAY ==
[2023-01-20 14:51] LABS: Basophils Absolute Auto 0.07 K/uL (0.00-0.30); Basophils Percent Auto 0.6 % (0.0-3.0); Eosinophils Absolute Auto 0.18 K/uL (0.00-0.50); Eosinophils Percent Auto 1.7 % (0.0-7.0); Hemoglobin* 13.8 gm/dL (12.0-16.0); Immature Granulocytes Abs Auto 0.12 K/uL (0.00-0.30); Immature Granulocytes Pct Auto 1.1 %; Lymphocytes Percent Auto 16.2 % (20-44); Mean Corpuscular HGB Conc 31 gm/dL (32-36); Mean Corpuscular Hemoglobin 32 pg (26-34); Mean Corpuscular Volume 102 fL (80-100); Monocytes Percent Auto 9.3 % (0.0-11.0); Neutrophils Absolute Auto 7.69 K/uL (1.7-7.0); Neutrophils Percent Auto 71.1 % (42.0-72.0); Platelet Count* 326 K/uL (140-440); RDW Coefficient of Variation % 12.7 % (11.5-15.5); Red Blood Count 4.31 m/uL (4.00-5.20); White Blood Count* 10.81 K/uL (4.50-11.00)
[2023-01-20 14:53] LABS: Slide Review Reflex No
[2023-01-20 15:52] LABS: Erythrocyte SedimentationRate* 2 mm/hr (2-20)
== END 2023-01-20 13:55 | disposition home or self-care (01) ==
LOC: NPINS 13:54
PROVIDERS: PCP Internal Medicine; Visit Provider Internal Medicine
DX: M31.6 Other giant cell arteritis (principal)
CPT/HCPCS: 85025; 85651

== ENCOUNTER 2023-03-25 13:33 | Outpatient (RCR) | payer MEDICARE, SELFPAY | END 2023-03-30 23:59 | disposition home or self-care (01) | LOC: CCIC 13:33 | PROVIDERS: PCP Internal Medicine; Visit Provider Internal Medicine Hematology & Oncology | DX: C50.911 Malignant neoplasm of unspecified site of right female breast (principal); Z17.0 Estrogen receptor positive status [ER+]; Z79.810 Long term (current) use of selective estrogen receptor modulators (SERMs); G30.9 Alzheimer's disease, unspecified; F02.80 Dementia in other diseases classified elsewhere, unspecified severity, without behavioral disturbance, psychotic disturbance, mood disturbance, and anxiety | CPT/HCPCS: 99202; 99204; 99205; 99212; 99213; 99214 ==

== ENCOUNTER 2023-07-13 13:25 | Outpatient (REF) | payer MEDICARE, SELFPAY ==
[2023-07-13 14:42] LABS: Erythrocyte SedimentationRate* 5 mm/hr (2-20)
== END 2023-07-13 13:26 | disposition home or self-care (01) ==
LOC: NPINS 13:25
PROVIDERS: PCP Internal Medicine; Visit Provider Nurse Practitioner Gerontology
DX: M31.6 Other giant cell arteritis (principal)
CPT/HCPCS: 85651

== ENCOUNTER 2023-10-05 14:20 | Outpatient (REF) | payer MEDICARE, SELFPAY ==
[2023-10-05 16:40] LABS: Erythrocyte SedimentationRate* 5 mm/hr (2-20)
== END 2023-10-05 14:21 | disposition home or self-care (01) ==
LOC: NPINS 14:20
PROVIDERS: PCP Internal Medicine; Visit Provider Nurse Practitioner Gerontology
DX: M31.6 Other giant cell arteritis (principal)
CPT/HCPCS: 85651

== ENCOUNTER 2023-11-02 15:01 | Outpatient (REF) | payer MEDICARE, SELFPAY ==
[2023-11-02 17:14] LABS: Chloride* 110 mmol/L (96-114); Potassium* 5.3 mmol/L (3.6-5.1); Sodium* 141 mmol/L (135-149)
[2023-11-02 17:17] LABS: Anion Gap 8 mEq/L (7-15); Carbon Dioxide* 23 mmol/L (20-32); Creatinine* 1.4 mg/dL (0.5-1.5); Estimated Glomerular Filt Rate 37 ml/min
[2023-11-02 17:18] LABS: Blood Urea Nitrogen* 20 mg/dL (7-30); Calcium* 9.4 mg/dL (8.4-10.6); Glucose* 78 mg/dL (60-115)
[2023-11-02 18:01] LABS: Erythrocyte SedimentationRate* 7 mm/hr (2-20)
== END 2023-11-02 15:02 | disposition home or self-care (01) ==
LOC: NPINS 15:01
PROVIDERS: PCP Internal Medicine; Visit Provider Family Medicine
DX: M31.6 Other giant cell arteritis (principal)
CPT/HCPCS: 80048; 84443; 85651

== ENCOUNTER 2023-12-23 13:45 | Outpatient (CLI) | payer MEDICARE, SELFPAY ==
--- OUTSIDE RECORDS SUMMARY | 2023-12-23 13:49 | XMS_ITS | Clinical Summary ---
Author Name Unknown Organization [employer] [facility] Address [facility], [place] [address] Care Team Providers Care Skip Operator Name Role Phone Annie Rojas MD Primary Care Provider +1- [phone] Allergies No known active allergies Medications Medication Sig Dispensed Refills Start Date End Date Status ALPRAZolam (XANAX) 0.25 mg tablet Take 1 tablet by mouth at bedtime if needed. 0 01/16/2015 Active mirtazapine (REMERON) 30 mg tablet Take 1 tablet by mouth at bedtime. 0 01/16/2015 Active albuterol HFA (PRO-AIR,VENTOLIN,PROV ENTIL) 90 mcg/actuation inhaler Inhale 2 Puffs by mouth 4 times daily if needed. 0 01/16/2015 Active multivitamin (MULTI-DAY) tablet Take 1 tablet by mouth once daily. 0 01/16/2015 Active vitamin a-vitamin c-vitamin e-minerals (OCUVITE) tablet Take 1 tablet by mouth once daily. 0 01/16/2015 Active Ginkgo Biloba 120 mg tablet Take by mouth. 0 01/16/2015 Active omega-3 fatty acids-vitamin E (FISH OIL) 1,000 mg cap Take by mouth. 0 01/16/2015 Act pema glucosamine-chondroit- vit c-mn (GLUCOSAMINE-CHONDROIT IN COMPLX) cap Take by mouth. 0 01/16/2015 Active Calcium Carb-Magnesium Carb 250-300 mg tab Take by mouth. 0 01/16/2015 A ctive cyanocobalamin (VITAMIN B-12) 1,000 mcg tablet Take 1 tablet by mouth once daily. 0 01/16/2015 Active ascorbic acid (VITAMIN C) 500 mg tablet Take 1 tablet by mouth once daily. 0 01/16/2015 Active cholecalciferol (VITAMIN D) 1,000 unit capsule Take 1 capsule by mouth once daily. 0 01/16/2015 Active alendronate (FOSAMAX) 35 mg tablet TK 1 T PO WEEKLY 0 03/07/2019 Active busPIRone (BUSPAR) 15 mg tablet TK 1 T PO BID 0 08/23/2020 Active Immunizations Name Administration Dates Next Due Influenza, High-dose Inactivated 018,10/15/2016,09/12/2016,2014,01/02/2015 Influenza, Inactivated IIV3 (Age 65+ Years) Preserv Free 10/18/2018 Pneumococcal conj 13-Valent (Prevnar 13) 08/26/2015,01/02/2015 Tdap 08/26/2015 Zoster (Shingrix-RZV, recombinant) 12/14/2018, Social History Tobacco Use Types Packs/Day Years Used Date Smoking Tobacco: Never Smokeless Tobacco: Never Tobacco Cessation:Counseling Given: Yes Alcohol Use Standard Drinks/Week Comments Yes 0 (1 standard drink = 0.6 oz pur e alcohol) occas PHQ-2 Answer Date Recorded PHQ-2 Score 0 04/13/2019 Sex and Gender Information Value Date Recorded Sex Assigned at Not on file Gender Identity Not on file Sexual Orientation Not on file Obstetrics History Last Filed Vital Signs Vital Sign Reading Time Taken Comments Blood Pressure 106/71 10/30/2020 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 Pulse 80 10/30/2020 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 Temperature 36.9 ??C (98.5 ??F) 04/13/2019 8:39 AM CD T Respiratory Rate - - Oxygen Saturation 99% 10/30/2020 10: 44 AM DREDGE RUNNER Inhaled Oxygen Concentration - - Weight 61.1 kg (134 lb 12.8 oz) 020 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 Height 160.5 cm (5' 3.19) 04/13/2019 8:39 AM CD T Body Mass Index 23.74 04/13/2019 8:39 AM CDT Plan of Treatment Health Maintenance Due Date Last Done Comments COVID-19 vaccine series (#1) 1940 DEXA/DXA scan for age 65+ 2005 Medicare Wellness for age 65+ 2005 Pneumococcal series for age 65+ (2 of 2 - PPSV23 or PCV20) 08/26/2016 08/26/2015, 01/02/2015 BMI (ht and wt on same day) for age 18+ 04/13/2020 04/13/2019, 01/01/2017 Depression screening for age 12+ 04/13/2020 04/13/20 19, 01/01/2017 Influenza for age 65+ 07/30/2023 10/18/2018 , 12/11/2017, 10/15/2016, Additional history exists Tetanus booster 08/26/2025 08/26/2015 Tdap Completed 08/26/2015 Zoster (shingles) series for age 50+ Completed 12/14/2018, 08/10/2018 Care Teams Skip Operator Relationship Specialty Start Date End Date Annie Rojas MD [address] [place], [place] [id number] PCP - General Internal Medicine 01/16/15
--- NOTE | 2023-12-23 14:00 | CRLHL7_ITS ---
For Patients: As a result of the Century Cures Act, medical imaging exams and procedure reports are released immediately into your electronic medical record. You may view this report before your referring provider. If you have questions, please contact your health care provider. BILATERAL SCREENING MAMMOGRAM WITH COMPUTER-AIDED DETECTION AND TOMOSYNTHESIS TECHNIQUE: CC and MLO views were obtained. These mammographic images have been obtained using full-field digital technique. These mammographic images were interpreted with the benefit of computer-aided detection. Breast Tomosynthesis was used in this interpretation. COMPARISON FILM: 10/08/22, 04/23/21, 01/12/19. FINDINGS: There are scattered areas of fibroglandular density. IMPRESSION: There is no radiographic evidence for malignancy. ASSESSMENT: BI-RADS Category 1: Negative RECOMMENDATION: Routine screening mammogram in 1 year. A lay language report of this examination will be provided to the patient. Abhishek Cardona M.D. Diagnostic Radiologist [email or web address] SP/Dictated by: Abhishek Cardona MD @ 12/24/2023 11:04:00 AM (Electronically Signed)
== END 2023-12-23 13:46 | disposition home or self-care (01) ==
LOC: MAMMO 13:46
PROVIDERS: PCP Internal Medicine; Visit Provider Nurse Practitioner Gerontology
DX: Z12.31 Encounter for screening mammogram for malignant neoplasm of breast (principal)
CPT/HCPCS: 77063; 77067

== ENCOUNTER 2024-01-11 09:44 | Outpatient (REF) | payer MEDICARE, SELFPAY ==
--- OUTSIDE RECORDS SUMMARY | 2024-01-11 09:48 | XMS_ITS | Clinical Summary ---
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
[2024-01-11 12:08] LABS: Erythrocyte SedimentationRate* 5 mm/hr (2-20)
== END 2024-01-11 09:45 | disposition home or self-care (01) ==
LOC: NPINS 09:44
PROVIDERS: PCP Internal Medicine; Visit Provider Family Medicine
DX: E87.5 Hyperkalemia (principal); E03.9 Hypothyroidism, unspecified; M31.6 Other giant cell arteritis
CPT/HCPCS: 80048; 84443; 85651

== ENCOUNTER 2024-04-14 17:49 | Outpatient (CLI) | payer MEDICARE, SELFPAY ==
--- OUTSIDE RECORDS SUMMARY | 2024-04-19 10:51 | XMS_ITS | Clinical Summary ---
Author Organization [facility] Address [place], [place] [address] Care Team Providers Care Mirror Maker Name Role Phone Annie Rojas MD Primary Care Provider [phone]- [phone] Allergies No known active allergies Medications Medication [...] TK 1 T PO BID 08/23/2020 Active Encounters Date Type Department Care Team Description 04/14/2024 Office Visit [facility] [address] [place] [address] Mckenzie Hyatt MD Telehealth ([facility] - phone consult) from Last 3 Months Immunizations Name Administration Dates Next Due Influenza, [...] Comments Blood Pressure 106/71 10/30/2020 10:44 AM DRUG COORDINATOR Pulse 80 10/30/2020 10:44 AM DRUG COORDINATOR Temperature 36.9 ??C (98.5 ??F) 04/13/2019 8:39 AM CD T Respiratory Rate - - Oxygen Saturation 99% 10/30/2020 10: 44 AM DRUG COORDINATOR Inhaled Oxygen Concentration - - Weight 61.1 kg (134 lb 12.8 oz) 020 10:44 AM DRUG COORDINATOR Height 160.5 cm (5' 3.19) 04/13/2019 8:39 [...] age 50+ Completed 12/14/2018, 08/10/2018 Care Teams Mirror Maker Relationship Specialty Start Date End Date Annie Rojas MD [address] [place] [address] PCP - General Internal Medicine 01/16/15
== END 2024-04-14 17:50 | disposition home or self-care (01) ==
LOC: AMB 04-19 10:49
PROVIDERS: PCP Internal Medicine; Visit Provider Student in an Organized Health Care Education/Training Program
DX: R53.1 Weakness (principal); R41.82 Altered mental status, unspecified
CPT/HCPCS: A0425; A0427

== ENCOUNTER 2024-04-14 18:14 | Observation (INO) | payer MEDICARE, SELFPAY ==
[2024-04-14] VITALS (18 sets, daily range): BP systolic 138–154; BP diastolic 76–87; PULSE 70–88; RESP 16–18; TEMP 36.6–36.8; O2SAT 96–100; BMI 25.2; BMI 24.8
--- NOTE | 2024-04-14 18:18 | ED_ITS ---
HPI - General Adult General Chief complaint: Neuro Symptoms/Altered Deficit Stated complaint: Poss Stroke Time Seen by Provider: 04/14/24 18:17 History of Present Illness HPI narrative: Last known well around 1700 this evening. Baseline dementia, however staff report an increase in cognitive difficulty today. Has baseline aphasia that is also worsened. New slurred speech. Patient reports tension headache. When asked how tall the pt is she responds 60. Unable to appropriately answer questions. 20G IV in hand by EMS. BG 116. 83-year-old woman presenting to the emergency department code stroke brought by EMS after staff at residence noted her to be slurring her words and having difficulty with recall. History of Alzheimer's dementia and aphasia was reported. But this is quite out of the ordinary. On review of records looks as though is taking aspirin. Last known well/onset of symptoms is about an hour 15 minutes prior to arrival; 5:00 p.m. Was otherwise in usual state of health reportedly. I meet Ms. Jorge in [place] anticipating scan. Clarifying events later it was sounds as though was it is reported his last known well at 5 p.m. is more when symptoms were discovered. May have been occurring as early as 10 in the morning. Underlying history of hypothyroid, giant cell arteritis, Alzheimer's dementia, progressive aphasia, neoplasm of the right breast, cerebrovascular disease, hearing loss, anxiety, dyslipidemia, osteopenia, depression Related Data Home Medications ?Medication ?Instructions ?Recorded ?Confirmed venlafaxine 150 mg 150 mg PO QAM 09/22/22 04/14/24 capsule,extended release 24 hr (Effexor XR) venlafaxine 75 mg capsule,extended 75 mg PO QAM 09/22/22 04/14/24 release 24 hr (Effexor XR) cholecalciferol (vitamin D3) 10 10 mcg PO DAILY 04/14/24 04/14/24 mcg (400 unit) tablet (Vitamin D3) levothyroxine 88 mcg tablet 88 mcg PO DAILY 04/14/24 04/14/24 prednisone 1 mg tablet 1 mg PO DAILY 04/14/24 04/14/24 alprazolam 0.25 mg tablet 0.25 mg PO BID PRN 04/15/24 04/15/24 aluminum-mag hydroxide-simethicone 30 ml PO QID PRN 04/15/24 04/15/24 400 mg-400 mg-40 mg/5 mL oral susp (Maalox Maximum Strength) bisacodyl 10 mg rectal suppository 10 mg MA DAILY PRN 04/15/24 04/15/24 (Dulcolax (bisacodyl)) calcium carbonate (Calcium 500) 1,000 mg PO TID PRN 04/15/24 04/15/24 donepezil 5 mg tablet 5 mg PO HS 04/15/24 04/15/24 loperamide 2 mg capsule (Imodium 2 mg PO Q4H PRN loose stool 04/15/24 04/15/24 A-D) magnesium hydroxide 400 mg/5 mL 30 ml PO Q48H PRN 04/15/24 04/15/24 oral suspension (Milk of Magnesia) mirtazapine 30 mg tablet 30 mg PO HS 04/15/24 04/15/24 Previous Rx's ?Medication ?Instructions ?Recorded tamoxifen 20 mg tablet 20 mg PO DAILY #90 tabs 10/11/23 aspirin 81 mg tablet,delayed 81 mg PO DAILY #90 tabs 04/15/24 release rosuvastatin 10 mg tablet 20 mg (2 x 10 mg) PO HS #30 tabs 04/15/24 Allergies Allergy/AdvReac Type Severity Reaction Status Date / Time No Known Allergies Allergy Verified 04/14/24 18:50 Review of Systems Status of ROS: Reports: 6 or more systems reviewed and unremarkable except as noted in History and below [facility] Medical History (Updated 04/15/24 @ 13:00 by Malissa Tabor PA-C) Expressive aphasia ?R47.01 - Aphasia (ICD-10) Dysarthria ?R47.1 - Dysarthria and anarthria (ICD-10) History of lung disease ?Z87.09 - Personal history of other diseases of the respiratory system (ICD- 10) Hypothyroidism ?E03.9 - Hypothyroidism, unspecified (ICD-10) Writers' cramp (2017) ?F48.8 - Other specified nonpsychotic mental disorders (ICD-10) Tubular adenoma of colon (2017) ?D12.6 - Benign neoplasm of colon, unspecified (ICD-10) Sensorineural hearing loss (SNHL) ?H90.5 - Unspecified sensorineural hearing loss (ICD-10) Progressive aphasia ?R47.01 - Aphasia (ICD-10) Physician Orders for Life-Sustaining Treatment (04/23/22) ?Z78.9 - Other specified health status (ICD-10) Panic disorder ?F41.0 - Panic disorder [episodic paroxysmal anxiety] (ICD-10) Osteopenia (2017) ?M85.80 - Other specified disorders of bone density and structure, unspecified site (ICD-10) Moderate anxiety ?F41.9 - Anxiety disorder, unspecified (ICD-10) Malignant neoplasm of right breast (2020) ?C50.911 - Malignant neoplasm of unspecified site of right female breast (ICD-10) Major depressive disorder ?F32.9 - Major depressive disorder, single episode, unspecified (ICD-10) Hyperlipidemia ?E78.5 - Hyperlipidemia, unspecified (ICD-10) History of peptic ulcer (2013) ?Z87.11 - Personal history of peptic ulcer disease (ICD-10) Giant cell arteritis ?M31.6 - Other giant cell arteritis (ICD-10) Gastroesophageal reflux disease ?K21.9 - Gastro-esophageal reflux disease without esophagitis (ICD-10) Chronic insomnia (2016) ?F51.04 - Psychophysiologic insomnia (ICD-10) Cerebrovascular disease ?I67.9 - Cerebrovascular disease, unspecified (ICD-10) Alzheimer's dementia (2021) ?G30.9 - Alzheimer's disease, unspecified (ICD-10) ?F02.80 - Dementia in other diseases classified elsewhere without behavioral disturbance (ICD-10) Surgical History History of arthroscopy of knee ?Z98.890 - Other specified postprocedural states (ICD-10) History of tonsillectomy ?Z90.89 - Acquired absence of other organs (ICD-10) History of lumpectomy of right breast ?Z98.890 - Other specified postprocedural states (ICD-10) History of appendectomy ?Z90.49 - Acquired absence of other specified parts of digestive tract (ICD- 10) Family History Father Colon cancer, Onset Age: 80 Social History (Updated 04/14/24 @ 22:49 by Jose L Caldera MD) Narrative: Lives at [facility]. Contacts are listed as her friend and son. Code status is DNR DNI What is your current living situation?: I presently have a place to live Problems where you live: no known problems Problems where you live details: NA In the past 12 months, utilities in danger of being shut off: no In past 12 months, lack of transportation kept you from medical appts, meetings, work, or getting things needed for daily living: no In the past 12 mos, have been you worried that your food would run out before you had money to buy more?: never true In the past 12 mos, the food you bought just didn't last and you didn't have money to buy more?: never true Highest level of school completed/degree received: Bachelor's degree Smoking Status: Former smoker How often do you have a drink containing alcohol: monthly or less Alcohol type: wine How often do you have six or more drinks on one occasion: Never AUDIT-C Alcohol total score: 1 Non-prescribed substance use: denies use Caffeine: Yes (1 Cup Coffee per day) How often does anyone, including family, friends and others, physically hurt you : never How often does anyone, including family, friends and others, insult or talk down to you: never How often does anyone, including family, friends and others, threaten you with harm: never How often does anyone, including family, friends and others, scream or curse at you: never service: No Exam Narrative: Exam Narrative: Does seem to have some difficulty with recall. I am told that this is worse than baseline. Initially I thought I perceived some subtle slurring to her speech. Further questions of location and time are also difficult to recall. Demonstrating expressive aphasia. Cranial nerves 2-12 are intact. Extraocular movements are full. Pupils are 3 mm and briskly reactive. Accommodating. Head is atraumatic. She is moving all extremities without difficulty with good strength throughout. Intact point point. GCS 15 I would estimate NIH stroke scale between 1 and 2. Breathing easily. Lungs are clear. Abdomen is soft. Nontender. Heart with regular rate and rhythm with some ectopic beats. Extremities are well perfused and without edema. Const: Vital Signs, click to edit/add: Vital Signs - 24 hr 04/14/24 18:21 04/14/24 18:44 Temperature 97.9 F Pulse Rate [Pulse Oximeter] 71 Respiratory Rate 16 Blood Pressure [Ri ght Upper Arm] 139/86 Pulse Oximetry 99 99 Oxygen Delivery Me thod Room Air Documenting provider has reviewed patient's vital signs: yes Course Vital Signs Vital signs: Initial Vital Signs Pulse Oximetry 99 04/14/24 18:21 Vital Signs Pulse Oximetry 99 04/14/24 18:21 Temperature 98.3 F 04/15/24 11:00 Pulse Rate 83 04/15/24 10:37 Respiratory Rate 20 04/15/24 11:00 Blood Pressure 128/82 04/15/24 11:00 Pulse Oximetry 95 04/15/24 11:00 Oxygen Delivery Method Room Air 04/15/24 03:18 Medications Administered Medications: Discontinued Medications Generic Name Dose Route Start Last Admin Trade Name Freq PRN Reason Stop Dose Admin Alprazolam 0.5 mg 04/15/24 07:49 04/15/24 08:44 Alprazolam 0.25 Mg Tablet PO 04/15/24 07:50 0.5 mg ONCE ONE Administration Aspirin 162 mg 04/14/24 22:17 04/14/24 23:52 Aspirin 81 Mg Tab.Chew PO 04/14/24 22:18 162 mg ONCE ONE Administration Aspirin 81 mg 04/15/24 09:00 04/15/24 08:04 Aspirin 81 Mg Tablet Ec PO 81 mg DAILY BETTINA Administration Clopidogrel Bisulfate 300 mg 04/14/24 22:16 04/14/24 23:51 Clopidogrel 75 Mg Tablet PO 04/14/24 22:17 300 mg ONCE ONE Administration Clopidogrel Bisulfate 75 mg 04/15/24 09:00 04/15/24 08:04 Clopidogrel 75 Mg Tablet PO 75 mg DAILY BETTINA Administration Sodium Chloride 1,000 mls @ 1,000 mls/hr 04/14/24 18:31 04/14/24 20:05 0.9 % Sodium Chloride 1000 Ml IV 04/14/24 19:30 Infused .Q1H ONE Infusion Ondansetron HCl 4 mg 04/14/24 22:11 04/14/24 22:46 Ondansetron 2 Mg/Ml Inj IVP 4 mg Q4H PRN Administration Nausea Prochlorperazine 5 mg 04/14/24 23:25 04/14/24 23:51 Prochlorperazine 5 Mg/Ml Vial IV 5 mg Q6H PRN Administration Sodium Chloride 5 ml 04/15/24 09:00 04/15/24 08:06 Sodium Chloride 0.9 % (Flush) 10 Ml Syringe IVF 5 ml BID BETTINA Administration Sodium Chloride 5 ml 04/15/24 09:00 04/15/24 08:52 Sodium Chloride 0.9 % (Flush) 10 Ml Syringe IVF Not Given BID BETTINA Medical Decision Making MDM Narrative Medical decision making narrative: I do contact Stroke Neuro directly. CT head is done. I do review these images personally. Look to be without acute abnormality. Recommendations are to proceed with CTA head and neck. Do not have MRI availability at this time. Suspect that this might be more related to underlying aphasia and dementia however does warrant further evaluation. IV is initiated. Given L normal saline. Study:?CT-Head WITHOUT STROKE CODE-04/14/2024 6:29:49 PM Ordering Physician:EDGAR Final Report: INDICATION: Expressive aphasia and dysarthria TECHNIQUE: Noncontrast axial CT of the head. Coronal and sagittal reformats. Bone and soft tissue algorithms. COMPARISON: CT head report 03/10/2022, MRI brain report 02/05/2021 FINDINGS: Diffuse prominence of the ventricles and cortical sulci, compatible with generalized cerebral volume loss. Confluent hypoattenuation throughout the supratentorial white matter, typical of chronic microangiopathy. Tiny chronic cerebellar lacunar infarcts. No acute intracranial hemorrhage or abnormal extra- axial fluid collection. Preserved buchanan-white matter differentiation. Calcific intracranial atherosclerotic plaquing. Intact calvarium. Clear visualized paranasal sinuses and mastoid air cells. Bilateral lens implants. IMPRESSION: 1. No CT evidence of acute intracranial abnormality. 2. Mild generalized cerebral volume loss, chronic cerebellar lacunar infarcts, and moderately advanced chronic microangiopathy changes. Prior to results of CTA head and neck being available did around 7:00 p.m. I assessed for 3rd time. Ms. Mclaughlin was accompanied by a friend who noted that she was not at baseline. That her speech seemed ?tight?. What I perceive is that Ms. Mclaughlin is with significant and deeper expressive aphasia. Not really able to outer any words at this time. No motor findings otherwise. Preliminary CTA head and neck Study:?CT-Neck Angio W/ 98CC ISOVUE 370 STROKE CODE-04/14/2024 6:39:30 PM Ordering Physician:EDGAR Preliminary Report: Prelim: CTA head: 1. No intracranial large vessel occlusion or critical stenosis. 2. Fusiform ectasia of the right cavernous ICA. 3. Posteromedially directed 2 mm outpouching at the right supraclinoid ICA, suspicious for aneurysm. Outpatient consultation with the [facility] neurointerventional service can be arranged by calling [phone]. CTA neck: 1. No hemodynamically significant stenosis in the neck. 2. Short segment corrugated luminal irregularity of the proximal right cervical ICA at the C3-C4 level, suggestive of fibromuscular dysplasia. 3. Fusiform ectasia of the V3 segment left vertebral artery. 4. 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 Discussed these findings with Stroke Neuro. Recommendation for admission. TPA is not recommended and as clarified later noted in HPI, has unspecified amount of time to discovery. Reassessed again around 9:00 p.m. and articulating clearly, no longer with dysarthria, but having difficulty with word finding intermittently. Will be looking for admission at this facility as should be able to do basic brain MRI in the morning due to cover in spite of it being a Wednesday. Labs reviewed again. Urinalysis lightly positive though in this case I would wait for culture for treatment. Medical Records Medical records reviewed: Yes I reviewed the patient's medical records Lab Data Lab results reviewed: Yes I reviewed the patient's lab results Labs: Lab Results 04/14/24 04/14/24 Range/Units 18:32 20:30 WBC 9.83 (4.50-11.00) K/uL RBC 3.79 L (4.00-5.20) m/uL Hgb 12.0 (12.0-16.0) gm/dL Hct 38.0 (33.0-51.0) % MCV 100 (80-100) fL MCH 32 (26-34) pg MCHC 32 (32-36) gm/dL RDW Coeff of Gail 13.2 (11.5-15.5) % Plt Count 286 (140-440) K/uL Neut % (Auto) 67.3 (42.0-72.0) % Lymph % (Auto) 22.3 (20-44) % [place]ney % (Auto) 8.6 (0.0-11.0) % Eos % (Auto) 1.4 (0.0-7.0) % Baso % (Auto) 0.3 (0.0-3.0) % Neut # (Auto) 6.61 (1.7-7.0) K/uL Lymph # (Auto) 2.19 (0.90-2.90) K/uL [place]ney # (Auto) 0.80 (0.00-0.90) K/UL Eos # (Auto) 0.14 (0.00-0.50) K/uL Baso # (Auto) 0.03 (0.00-0.30) K/uL Abs Immat Gran (auto) 0.01 (0.00-0.30) K/uL Imm/Tot Granulo (auto) 0.1 % INR 0.90 L (0.91-1.10) APTT 31 (23-33) Seconds Sodium 137 (135-149) mmol/L Potassium 3.7 (3.6-5.1) mmol/L Chloride 107 (96-114) mmol/L Carbon Dioxide 23 (20-32) mmol/L Anion Gap 7 (7-15) mEq/L BUN 24 (7-30) mg/dL Creatinine 1.2 (0.5-1.5) mg/dL Estimated Creat Clear 29.38 Estimated GFR 45 ml/min Glucose 89 (60-115) mg/dL Calcium 8.8 (8.4-10.6) mg/dL Urine Color Yellow (Yellow) Urine Appearance Clear (Clear) Urine pH 7.0 (5.0-8.5) Ur Specific [place] 1.015 (1.000-1.030) Urine Protein Negative (Negative) Urine Glucose (UA) Negative (Negative) Urine Ketones 1+ A (Negative) Urine Blood 1+ A (Negative) Urine Nitrite Negative (Negative) Urine Bilirubin Negative (Negative) Urine Urobilinogen 0.2 (0.2-1.0) Ur Leukocyte Esterase 1+ A (Negative) Urine RBC 2-5 A (0-2) Urine WBC 2-5 (0-5) Ur Squamous Epith Cells Few (None-Few) Amorphous Sediment Few A (None) Urine Bacteria Few A (None) ECG Data Attestation: I personally reviewed and interpreted this ECG as follows: (Sinus rhythm some PACs rate of 75) Critical Care Time Critical Care Time Critical Care Time: Yes Attestation: The patient required my highest level preparedness to intervene emergently and I personally spent this critical care time directly and personally managing the patient. This critical care time included: Obtaining a history; Examining the patient; Pulse oximetry; Ordering and reviewing of studies; Arranging urgent treatment with development of a management plan; Evaluation of patients response to treatment; Frequent reassessment discussions with other providers. This critical care time was performed to assess and manage the high probability of imminent life-threatening deterioration that could result in multiorgan failure. It was exclusive of separate billable procedures and treating other patients and teaching time. Total Critical Care Time in Minutes: 80 Discharge Plan Discharge Clinical Impression: Dysarthria, Expressive aphasia Patient Disposition: Admitted As Observation Condition: Improved Activity Level: No Restrictions Discharge Diet: Regular
--- NOTE | 2024-04-14 18:21 | CT_ITS ---
Patient: NURY DHALIWAL Facility:?[facility] R[facility] Patient ID:?[id number] Site Patient ID:?[id number] Site :?[id number] Study:?CT-Head Angio W/ 98CC ISOVUE 370 CODE STROKE-04/14/2024 6:35:35 PM Ordering Physician:EDGAR Final Report: INDICATION: Acute stroke, expressive aphasia, dysarthria. TECHNIQUE: CTA head with contrast bolus tracking, 3D angiographic rendering using maximum intensity projection (MIP) and images permanently archived. FINDINGS: There is normal opacification of the intracranial vasculature. The cavernous right ICA is ectatic. A right PCOM infundibulum is incidentally noted. There is no large vessel occlusion or significant intracranial stenosis. IMPRESSION: No large vessel occlusion or significant intracranial stenosis. Please note that all CT scans at this facility use dose modulation, iterative reconstruction, and/or weight-based dosing when appropriate to reduce radiation dose to as low as reasonably achievable. Dictated by Asa Gonzalez MD @ 04/14/2024 8:55:28 PM Signed by:?Asa Gonzalez MD @04/14/2024 8:55:28 PM (Electronic Signature)
--- NOTE | 2024-04-14 18:21 | CT_ITS ---
Patient: NURY DHALIWAL Facility:?[facility] Patient ID:?[id number] Site Patient ID:?[id number] Site :?[id number] Study:?CT-Neck Angio W/ 98CC ISOVUE 370 STROKE CODE-04/14/2024 6:39:30 PM Ordering Physician:EDGAR Final Report: INDICATION: Acute stroke, expressive aphasia, dysarthria. TECHNIQUE: CTA neck with contrast bolus tracking, 3D angiographic rendering using maximum intensity projection (MIP) and images permanently archived. FINDINGS: There is no significant carotid artery stenosis or dissection. The right vertebral artery is hypoplastic. There is no significant vertebral artery stenosis or dissection. The soft tissues of the neck are within normal limits. Degenerative changes are noted in the cervical spine. IMPRESSION: No significant carotid or vertebral artery stenosis or dissection. Please note that all CT scans at this facility use dose modulation, iterative reconstruction, and/or weight-based dosing when appropriate to reduce radiation dose to as low as reasonably achievable. Dictated by Asa Gonzalez MD @ 04/14/2024 8:57:38 PM Signed by:?Asa Gonzalez MD @04/14/2024 8:57:38 PM (Electronic Signature)
--- NOTE | 2024-04-14 18:21 | CT_ITS ---
Patient: NURY DHALIWAL Facility:?[facility] R[facility] Patient ID:?[id number] Site Patient ID:?[id number] Site :?[id number] Study:?CT-Head WITHOUT STROKE CODE-04/14/2024 6:29:49 PM Ordering Physician:EDGAR Final Report: INDICATION: Expressive aphasia and dysarthria TECHNIQUE: Noncontrast axial CT of the head. Coronal and sagittal reformats. Bone and soft tissue algorithms. COMPARISON: CT head report 03/10/2022, MRI brain report 02/05/2021 FINDINGS: Diffuse prominence of the ventricles and cortical sulci, compatible with generalized cerebral volume loss. Confluent hypoattenuation throughout the supratentorial white matter, typical of chronic microangiopathy. Tiny chronic cerebellar lacunar infarcts. No acute intracranial hemorrhage or abnormal extra- axial fluid collection. Preserved buchanan-white matter differentiation. Calcific intracranial atherosclerotic plaquing. Intact calvarium. Clear visualized paranasal sinuses and mastoid air cells. Bilateral lens implants. IMPRESSION: 1. No CT evidence of acute intracranial abnormality. 2. Mild generalized cerebral volume loss, chronic cerebellar lacunar infarcts, and moderately advanced chronic microangiopathy changes. Please note that all CT scans at this facility use dose modulation, iterative reconstruction, and/or weight-based dosing when appropriate to reduce radiation dose to as low as reasonably achievable. Dictated by Vane Ochoa MD @ 04/14/2024 7:02:31 PM ----- ADDENDUM ----- Open portal no acute findings was communicated to Dr. Hyatt at 7:08 p.m. on 04/14/2024. Dictated by Vane Ochoa MD @ Apr 14 2024 8:03PM Signed by:?Vane Ochoa MD @04/14/2024 7:02:31 PM (Electronic Signature)
[2024-04-14 18:40] LABS: Basophils Absolute Auto 0.03 K/uL (0.00-0.30); Basophils Percent Auto 0.3 % (0.0-3.0); Eosinophils Absolute Auto 0.14 K/uL (0.00-0.50); Eosinophils Percent Auto 1.4 % (0.0-7.0); Immature Granulocytes Abs Auto 0.01 K/uL (0.00-0.30); Immature Granulocytes Pct Auto 0.1 %; Lymphocytes Absolute Auto 2.19 K/uL (0.90-2.90); Lymphocytes Percent Auto 22.3 % (20-44); Mean Corpuscular HGB Conc 32 gm/dL (32-36); Mean Corpuscular Hemoglobin 32 pg (26-34); Mean Corpuscular Volume 100 fL (80-100); Monocytes Percent Auto 8.6 % (0.0-11.0); Neutrophils Absolute Auto 6.61 K/uL (1.7-7.0); Neutrophils Percent Auto 67.3 % (42.0-72.0); Platelet Count* 286 K/uL (140-440); RDW Coefficient of Variation % 13.2 % (11.5-15.5); Red Blood Count 3.79 m/uL (4.00-5.20); White Blood Count* 9.83 K/uL (4.50-11.00)
[2024-04-14 18:42] LABS: Slide Review Reflex No
[2024-04-14] MEDS: 0.9 % SODIUM CHLORIDE 1000 ml 1,000 ML IV (19:04)
[2024-04-14 19:10] LABS: Chloride* 107 mmol/L (96-114); Potassium* 3.7 mmol/L (3.6-5.1); Sodium* 137 mmol/L (135-149)
[2024-04-14 19:11] LABS: Prothrombin Time 12.6 Seconds
[2024-04-14 19:12] LABS: Partial Thromboplastin Time* 31 Seconds (23-33)
[2024-04-14 19:13] LABS: Anion Gap 7 mEq/L (7-15); Blood Urea Nitrogen* 24 mg/dL (7-30); Carbon Dioxide* 23 mmol/L (20-32); Creatinine* 1.2 mg/dL (0.5-1.5); Est. Creatinine Clearance* 29.38; Estimated Glomerular Filt Rate 45 ml/min; Glucose* 89 mg/dL (60-115)
[2024-04-14 19:14] LABS: Calcium* 8.8 mg/dL (8.4-10.6)
--- OUTSIDE RECORDS SUMMARY | 2024-04-14 19:17 | XMS_ITS | Clinical Summary ---
Author Name Unknown Organization [facility] Address [place], [place] [address] Care Team Providers Care Epic [facility] Name Role Phone Annie Rojas MD Primary Care Provider [phone] Allergies No known active allergies Medications Medication [...] mg tablet TK 1 T PO BID 08/23/2020 Active Immunizations Name Administration Dates Next [...] Comments Blood Pressure 106/71 10/30/2020 10:44 AM RADIOCOMMUNICATIONS TECHNICIAN Pulse 80 10/30/2020 10:44 AM RADIOCOMMUNICATIONS TECHNICIAN Temperature 36.9 ??C (98.5 ??F) 04/13/2019 8:39 AM CD T Respiratory Rate - - Oxygen Saturation 99% 10/30/2020 10: 44 AM RADIOCOMMUNICATIONS TECHNICIAN Inhaled Oxygen Concentration - - Weight 61.1 kg (134 lb 12.8 oz) 020 10:44 AM RADIOCOMMUNICATIONS TECHNICIAN Height 160.5 cm (5' 3.19) 04/13/2019 8:39 AM CD T Body Mass Index 23.74 04/13/2019 8:39 AM CDT Plan of Treatment Health Maintenance Due Date Last Done Comments DEXA/DXA scan for age 65+ 2005 Medicare Wellness for age 65+ 2005 Pneumococcal series for age 65+ (2 of 2 - PPSV23 or PCV20) 08/26/2016 08/26/2015, 01/02/2015 BMI (ht and wt on same day) for age 18+ 04/13/2020 04/13/2019, 01/01/2017 Depression screening for age 12+ 04/13/2020 04/13/20 19, 01/01/2017 COVID-19 vaccine series ( season) 2023 Influenza for age 65+ 07/30/2024 10/18/2018 , 12/11/2017, 10/15/2016, Additional history exists Tetanus booster 08/26/2025 08/26/2015 Tdap Completed 08/26/2015 Zoster (shingles) series for age 50+ Completed 12/14/2018, 08/10/2018 Care Teams [facility] Relationship Specialty Start Date End Date Annie Rojas MD [address] [place] [address] PCP - General Internal Medicine 01/16/15
[2024-04-14 20:42] LABS: Appearance Urine Clear (Clear); Bilirubin Urine Negative (Negative); Blood Urine 1+ (Negative); Color Urine Yellow (Yellow); Glucose Urine Negative (Negative); Ketones Urine 1+ (Negative); Leukocyte Esterase Urine 1+ (Negative); Nitrite Urine Negative (Negative); Protein Urine Negative (Negative); Specific Gravity Urine 1.015 (1.000-1.030); Urobilinogen Urine 0.2 (0.2-1.0)
[2024-04-14 20:51] LABS: Amorphous Sediment Urine Few; Bacteria Urine Few; Squamous Epithelial Cell Urine Few (None-Few)
--- NOTE | 2024-04-14 22:03 | P.IMHP_ITS ---
Hospitalist- H&P: HPI History of Present Illness Date Seen: 04/14/24 Chief complaint: Poss Stroke Narrative: Adrienne Jorge is a 83 year old female with history of dementia and aphasia presents to the emergency room with worsening of her mental status and aphasia. She has been diagnosed with Alzheimer's dementia. This evening she was noted to have worsening. Unknown time that she was last well. She was diagnosed over 2 years ago with mild dementia probably Alzheimer's type. At that time she was thought to have a 5-7 year history of amnestic predominant cognitive decline. Due to dementia patient is unable to give me any history today. Review of Systems Narrative: She denies any symptoms of illness, any injury, any pain. [facility] Medical History (Updated 04/14/24 @ 22:54 by Jose L Caldera MD) Expressive aphasia ?R47.01 - Aphasia (ICD-10) Dysarthria ?R47.1 - Dysarthria and anarthria (ICD-10) History of lung disease ?Z87.09 - Personal history of other diseases of the respiratory system (ICD- 10) Hypothyroidism ?E03.9 - Hypothyroidism, unspecified (ICD-10) Writers' cramp (2017) ?F48.8 - Other specified nonpsychotic mental disorders (ICD-10) Tubular adenoma of colon (2017) ?D12.6 - Benign neoplasm of colon, unspecified (ICD-10) Sensorineural hearing loss (SNHL) ?H90.5 - Unspecified sensorineural hearing loss (ICD-10) Progressive aphasia ?R47.01 - Aphasia (ICD-10) Physician Orders for Life-Sustaining Treatment (04/23/22) ?Z78.9 - Other specified health status (ICD-10) Panic disorder ?F41.0 - Panic disorder [episodic paroxysmal anxiety] (ICD-10) Osteopenia (2018) ?M85.80 - Other specified disorders of bone density and structure, unspecified site (ICD-10) Moderate anxiety ?F41.9 - Anxiety disorder, unspecified (ICD-10) Malignant neoplasm of right breast (2020) ?C50.911 - Malignant neoplasm of unspecified site of right female breast (ICD-10) Major depressive disorder ?F32.9 - Major depressive disorder, single episode, unspecified (ICD-10) Hyperlipidemia ?E78.5 - Hyperlipidemia, unspecified (ICD-10) History of peptic ulcer (2013) ?Z87.11 - Personal history of peptic ulcer disease (ICD-10) Giant cell arteritis ?M31.6 - Other giant cell arteritis (ICD-10) Gastroesophageal reflux disease ?K21.9 - Gastro-esophageal reflux disease without esophagitis (ICD-10) Chronic insomnia (2016) ?F51.04 - Psychophysiologic insomnia (ICD-10) Cerebrovascular disease ?I67.9 - Cerebrovascular disease, unspecified (ICD-10) Alzheimer's dementia (2021) ?G30.9 - Alzheimer's disease, unspecified (ICD-10) ?F02.80 - Dementia in other diseases classified elsewhere without behavioral disturbance (ICD-10) Surgical History History of arthroscopy of knee ?Z98.890 - Other specified postprocedural states (ICD-10) History of tonsillectomy ?Z90.89 - Acquired absence of other organs (ICD-10) History of lumpectomy of right breast ?Z98.890 - Other specified postprocedural states (ICD-10) History of appendectomy ?Z90.49 - Acquired absence of other specified parts of digestive tract (ICD- 10) Family History Father Colon cancer, Onset Age: 80 Social History (Updated 04/14/24 @ 22:49 by Jose L Caldera MD) Narrative: Lives at [facility]. Contacts are listed as her friend and son. Code status is DNR DNI What is your current living situation?: I presently have a place to live Problems where you live: no known problems Problems where you live details: NA In the past 12 months, utilities in danger of being shut off: no In past 12 months, lack of transportation kept you from medical appts, meetings, work, or getting things needed for daily living: no In the past 12 mos, have been you worried that your food would run out before you had money to buy more?: never true In the past 12 mos, the food you bought just didn't last and you didn't have money to buy more?: never true Highest level of school completed/degree received: Bachelor's degree Smoking Status: Former smoker How often do you have a drink containing alcohol: monthly or less Alcohol type: wine How often do you have six or more drinks on one occasion: Never AUDIT-C Alcohol total score: 1 Non-prescribed substance use: denies use Caffeine: Yes (1 Cup Coffee per day) How often does anyone, including family, friends and others, physically hurt you : never How often does anyone, including family, friends and others, insult or talk down to you: never How often does anyone, including family, friends and others, threaten you with harm: never How often does anyone, including family, friends and others, scream or curse at you: never service: No Meds Home Medications and Allergies Home Medications Medication Instructions Recorded Confirmed Type venlafaxine 150 mg 150 mg PO QAM 09/22/22 04/14/24 History capsule,extended release 24 hr (Effexor XR) venlafaxine 75 mg capsule,extended 75 mg PO QAM 09/22/22 04/14/24 History release 24 hr (Effexor XR) cholecalciferol (vitamin D3) 10 10 mcg PO DAILY 04/14/24 04/14/24 History mcg (400 unit) tablet (Vitamin D3) levothyroxine 88 mcg tablet 88 mcg PO DAILY 04/14/24 04/14/24 History prednisone 1 mg tablet 1 mg PO DAILY 04/14/24 04/14/24 History Allergies Allergy/AdvReac Type Severity Reaction Status Date / Time No Known Allergies Allergy Verified 04/14/24 18:50 Exam Narrative: Exam Narrative: She is alert and pleasant and appears in no distress. Her speech is relatively fluent though she does have some difficulty with word finding. This is hard to separate from in general her dementia which causes her confabulate. Head is without trauma. Eyes normal. Pupils equal round reactive to light. Extraocular movements are full. Visual ramon are intact. No facial asymmetry. Intact sensation her face. Oropharynx is normal. Tongue is midline. I do observe her to drink water without difficulties of coughing or choking. She does his with ease. Respirations are clear to auscultation. Cardiovascular: S1, S2, regular rate and rhythm. No murmur gallop or rub. Abdomen: Bowel sounds active. Abdomen is soft without tenderness or mass. External genitalia normal. Extremities with intact peripheral pulses. No edema. 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 Lower extremity strength is symmetric and 5/5 in hip flexion, knee flexion and extension, ankle dorsiflexion and plantar flexion and great toe dorsiflexion. She is able to do [id number] relatively fluidly and accurately Const: Vital Signs, click to edit/add: Vital Signs - 24 hr 04/14/24 18:21 04/14/24 18:44 Temperature 97.9 F Pulse Rate [Pulse Oximeter] 71 Respiratory Rate 16 Blood Pressure [Ri ght Upper Arm] 139/86 Pulse Oximetry 99 99 Oxygen Delivery Me thod Room Air Documenting provider has reviewed patient's vital signs: yes Hospitalist - H&P: Result Labs Labs: Short CBC 04/14/24 Range/Units 18:32 WBC 9.83 (4.50-11.00) K/uL Hgb 12.0 (12.0-16.0) gm/dL Hct 38.0 (33.0-51.0) % Plt Count 286 (140-440) K/uL BMP 04/14/24 18:32 Sodium 137 Potassium 3.7 Chloride 107 Carbon Dioxide 23 BUN 24 Creatinine 1.2 Glucose 89 Calcium 8.8 Urine 04/14/24 Range/Units 20:30 Urine Color Yellow (Yellow) Urine Appearance Clear (Clear) Urine pH 7.0 (5.0-8.5) Ur Specific [place] 1.015 (1.000-1.030) Urine Protein Negative (Negative) Urine Glucose (UA) Negative (Negative) Assessment and Plan Assessment and plan (1) Expressive aphasia: Problem comment: Possible new stroke. Obtain MRI. She may be back to baseline Status: Acute (2) Giant cell arteritis: Problem comment: Confirmed with bilateral temporal artery biopsy 01/2022. Presumably this is the reason she is on prednisone 1 mg daily. Check sed rate Status: Chronic (3) Hypothyroidism: Problem comment: on levothyroxine. Check TSH Status: Acute (4) Cerebrovascular disease: Problem comment: Previously was on aspirin and statin. Will now start aspirin and statin again and add clopidogrel for 21 days if stroke is confirmed. Obtain MRI tomorrow Status: Chronic (5) Alzheimer's dementia: Problem comment: Officially dxed at [facility], 12/2021, driving privledges revoked by Dr. Rojas 06/19 Status: Chronic (6) Physician Orders for Life-Sustaining Treatment: Problem comment: POLST completed and signed by physician on 04/23/2022. Reviewed and sent for scanning on 05/06/2022 Status: Acute (7) Dysarthria: Problem comment: Appears back to baseline. Obtain MRI Status: Acute Plan Patient is admitted to the hospital for evaluation and management of stroke and modifying stroke risk factors. Total Time Spent Total Time Spent: Total time spent today is 65 minutes, 40 minutes in coordination of care and discussing other providers stroke plan of care
[2024-04-14] MEDS: ONDANSETRON 2 MG/ML inj 4 MG IVP (22:46)
[2024-04-14] MEDS: CLOPIDOGREL 75 MG TABLET 300 MG PO (23:51)
[2024-04-14] MEDS: PROCHLORPERAZINE 5 MG/ML VIAL IV (23:51)
[2024-04-14] MEDS: ASPIRIN 81 MG TAB.CHEW 162 MG PO (23:52)
[2024-04-15 03:18] VITALS: BP 135/80; PULSE 75; RESP 16; TEMP 36.8; O2SAT 95
--- NOTE | 2024-04-15 05:56 | PC.NURSE ---
Pt confused with history of Dementia. Pt has strong upper and lower body movements. Able to walk IND but is confused. Did miss seat when trying to sit in chair. Lowered self to floor. No injury sustained. Pt impulsive. Disoriented to time, place, surroundings. Un able to find words to answer questions.
[2024-04-15 07:21] LABS: Erythrocyte SedimentationRate* 5 mm/hr (2-20)
[2024-04-15 07:55] VITALS: BP 137/60; PULSE 71; RESP 24; TEMP 36.8; O2SAT 97
[2024-04-15] MEDS: CLOPIDOGREL 75 MG TABLET PO (08:04)
[2024-04-15] MEDS: ASPIRIN 81 MG TABLET EC PO (08:04)
[2024-04-15] MEDS: SODIUM CHLORIDE 0.9 % (FLUSH) 10 ML SYRINGE 5 ML IVF (08:06)
[2024-04-15] MEDS: ALPRAZolam 0.25 MG TABLET 0.5 MG PO (08:44)
--- NOTE | 2024-04-15 09:00 | MR_ITS ---
Patient: NURY DHALIWAL Facility:?[facility] Patient ID:?[id number] Site Patient ID:?[id number]. Site :?[id number] Study:?MRI-Head WITHOUT-04/15/2024 9:56:44 AM Ordering Physician:?DR. STATON Final Report: INDICATION: Worsening aphasia. TECHNIQUE: Brain MRI without contrast. COMPARISON: Head CT from 04/14/2024. FINDINGS: No evidence of acute ischemia. Curvilinear susceptibility artifact within the cerebral hemispheres bilaterally, likely reflecting chronic subarachnoid/extra- axial hemosiderin staining. These are most conspicuous within the right frontal lobe, right posterior temporal lobe, and left occipital lobe, as well as along the left frontal convexity. Patchy FLAIR hyperintensities throughout the supratentorial white matter and brainstem, typical for chronic microvascular ischemic change. A few tiny chronic infarcts within the left cerebellar hemisphere. Overall moderate generalized parenchymal volume loss. No mass effect or herniation. No hydrocephalus or extra-axial collections. The pituitary gland, parasellar structures and optic chiasm are normal. All the major intracranial vascular structures demonstrate normal flow-related signal. The orbital contents are normal. No calvarial or skull base marrow replacing process. No obstructive sinus disease. No extracranial soft tissue findings. IMPRESSION: 1. No acute infarction or other acute intracranial pathology. 2. Multifocal subarachnoid/extra-axial hemosiderin staining within both cerebral hemispheres. This is chronic and most commonly due to amyloid angiopathy. 3. Moderately advanced chronic microvascular ischemic changes as well as a few tiny chronic infarcts within the left cerebellar hemisphere. 4. Overall moderate generalized parenchymal volume loss. Dictated by Julio Mora MD @ 04/15/2024 10:31:42 AM Signed by:?Julio Mora MD @04/15/2024 10:31:42 AM (Electronic Signature)
[2024-04-15 10:37] VITALS: BP 128/82; PULSE 83; RESP 20; TEMP 36.7; O2SAT 95
[2024-04-15 11:00] VITALS: BP 128/82; RESP 20; TEMP 36.8; O2SAT 95
--- NOTE | 2024-04-15 12:55 | PM.DS1 ---
DS: Providers Provider Date Seen: 04/15/24 Date of admission: 04/14/24 22:04 Primary care physician: Annie Rojas MD Admitting Clinician: Jose L Caldera MD Consults: 04/14/24 22:19 Consult to Occupational Therapy [CONS] Routine Comment: Reason(s) for OT Consult:: Evaluate and Treat Any Restrictions?:: No Restrictions Consult to Physical Therapy [CONS] Routine Comment: Reason(s) for PT Consult:: Evaluate and Treat Any Restrictions?:: No Restrictions Consult to Flight Engineer Manager [CONS] Routine Comment: Reason for Consult:: Discharge Planning Needs Attending Physician on discharge: ANGIE Pink, NIURKA [place] [facility] Date of Discharge: 04/15/24 DS: Diagnosis Discharge Diagnosis (1) Expressive aphasia: Status: Resolved Problem details: Possible new stroke vs TIA vs dementia/Alzheimer's CT head and neck shows no evidence of acute intracranial abnormality. no significant carotid or vertebral artery stenosis or dissection MRI shows 1. No acute infarction or other acute intracranial pathology. 2. Multifocal subarachnoid/extra-axial hemosiderin staining within both cerebral hemispheres. This is chronic and most commonly due to amyloid angiopathy. 3. Moderately advanced chronic microvascular ischemic changes as well as a few tiny chronic infarcts within the left cerebellar hemisphere. 4. Overall moderate generalized parenchymal volume loss. UC < 50,000 mixed Gram-positive samm. No evidence bacterial infection currently, no electrolyte abnormality. TSH and sed rate unremarkable. On day of discharge, patient returned to baseline, no further aphasia or dysarthria. PT/OT consulted, back to baseline, no further acute therapies needed. (2) Dysarthria: Status: Resolved Problem details: Appears back to baseline (3) Giant cell arteritis: Status: Chronic Problem details: Confirmed with bilateral temporal artery biopsy 01/2022. Presumably this is the reason she is on prednisone 1 mg daily. Sed rate 5. (4) Hypothyroidism: Status: Acute Problem details: on levothyroxine. TSH 1.570 (5) Cerebrovascular disease: Status: Chronic Problem details: Previously was on aspirin and statin. Discharge with aspirin 81 mg, rosuvastatin. (6) Alzheimer's dementia: Status: Chronic Problem details: Officially dxed at [place] [facility], 12/2021, driving privledges revoked by Dr. Rojas 06/19 (7) Physician Orders for Life-Sustaining Treatment: Status: Acute Problem details: POLST completed and signed by physician on 04/23/2022. Reviewed and sent for scanning on 05/06/2022 DS: Summary Hospital Course Hospital Course: [age] year old female past medical history significant for CVD, hypothyroidism, giant cell arteritis, Alzheimer's dementia was admitted to the medical floor for further workup aphasia, dysarthria. Course of care and details as noted above. Remainder of chronic medical comorbidities were monitored and managed with home medications. Status at Discharge Overall status at discharge: patient is back to baseline Time Spent with Patient Time attestation: Total time spent providing and/or coordinating discharge services: Time spent: Greater than 30 minutes Exam Narrative: Exam Narrative: PHYSICAL EXAM General: Pleasant, conversant, NAD Cardiovascular: RRR Pulmonary: No dyspnea Neurological: Alert, dementia present, appropriate Skin: Warm, dry. Const: Vital Signs, click to edit/add: Vital Signs - 24 hr 04/14/24 18:21 04/14/24 18:42 04/14/24 18:44 Temperature 97.9 F Pulse Rate 70 Pulse Rate [Pulse Oximeter] 71 Pulse Rate [Right Radial] Respiratory Rate 16 16 Blood Pressure 144/87 H Blood Pressure [Ri ght Arm] Blood Pressure [Ri ght Upper Arm] 139/86 Pulse Oximetry 99 100 99 Oxygen Delivery Me thod Room Air 04/14/24 19:00 04/14/24 19:17 04/14/24 19:18 Temperature Pulse Rate 76 79 76 Pulse Rate [Pulse Oximeter] Pulse Rate [Right Radial] Respiratory Rate 18 18 Blood Pressure 138/80 139/77 Blood Pressure [Ri ght Arm] Blood Pressure [Ri ght Upper Arm] Pulse Oximetry 98 96 99 [facility] Room [facility] 04/14/24 19:30 04/14/24 19:32 04/14/24 19:45 Temperature Pulse Rate 81 79 75 Pulse Rate [Pulse Oximeter] Pulse Rate [Right Radial] Respiratory Rate 18 Blood Pressure 143/76 H Blood Pressure [Ri ght Arm] Blood Pressure [Ri ght Upper Arm] Pulse Oximetry 98 97 100 Oxygen Delivery Me thod 04/14/24 19:47 04/14/24 20:00 04/14/24 20:01 Temperature Pulse Rate 74 79 77 Pulse Rate [Pulse Oximeter] Pulse Rate [Right Radial] Respiratory Rate 18 Blood Pressure 145/82 H Blood Pressure [Ri ght Arm] Blood Pressure [Ri ght Upper Arm] Pulse Oximetry 100 100 97 Oxygen Delivery Me thod Room Air 04/14/24 20:05 04/14/24 22:34 04/14/24 22:40 Temperature 98.2 F 98.2 F Pulse Rate 74 Pulse Rate [Pulse Oximeter] Pulse Rate [Right Radial] 82 Respiratory Rate 18 16 16 Blood Pressure 153/82 H Blood Pressure [Ri ght Arm] 154/78 H 154/78 H Blood Pressure [Ri ght Upper Arm] Pulse Oximetry 100 100 100 Oxygen Delivery Me thod Room Air Room Air Room Air 04/14/24 22:57 04/14/24 23:00 04/14/24 23:44 Temperature 98.2 F Pulse Rate 88 Pulse Rate [Pulse Oximeter] Pulse Rate [Right Radial] 82 82 Respiratory Rate 16 16 Blood Pressure Blood Pressure [Ri ght Arm] 154/78 H Blood Pressure [Ri ght Upper Arm] Pulse Oximetry 100 Oxygen Delivery Al thod Room Air 04/15/24 03:18 04/15/24 07:55 04/15/24 10:37 Temperature 98.2 F 98.3 F 98.0 F Pulse Rate Pulse Rate [Pulse Oximeter] Pulse Rate [Right Radial] 75 71 83 Respiratory Rate 16 24 20 Blood Pressure Blood Pressure [Ri ght Arm] 135/80 137/60 128/82 Blood Pressure [Ri ght Upper Arm] Pulse Oximetry 95 97 95 Oxygen Delivery Me thod Room Air 04/15/24 11:00 Temperature 98.3 F Pulse Rate Pulse Rate [Pulse Oximeter] Pulse Rate [Right Radial] Respiratory Rate 20 Blood Pressure Blood Pressure [Ri ght Arm] 128/82 Blood Pressure [Ri ght Upper Arm] Pulse Oximetry 95 Oxygen Delivery Me thod DS: Data Data Completed and Pending Labs on day of discharge: Labs from last 24 hours 04/15/24 04/14/24 04/14/24 05:31 20:30 18:32 WBC 9.83 RBC 3.79 L Hgb 12.0 Hct 38.0 MCV 100 MCH 32 MCHC 32 RDW Coeff of Gail 13.2 Plt Count 286 Neut % (Auto) 67.3 Lymph % (Auto) 22.3 [place] % (Auto) 8.6 Eos % (Auto) 1.4 Baso % (Auto) 0.3 Neut # (Auto) 6.61 Lymph # (Auto) 2.19 [place] # (Auto) 0.80 Eos # (Auto) 0.14 Baso # (Auto) 0.03 Abs Immat Gran (auto) 0.01 Imm/Tot Granulo (auto) 0.1 ESR 5 INR 0.90 L APTT 31 Sodium 137 Potassium 3.7 Chloride 107 Carbon Dioxide 23 Anion Gap 7 BUN 24 Creatinine 1.2 Estimated Creat Clear 29.38 Estimated GFR 45 Glucose 89 Calcium 8.8 TSH 1.570 Urine Color Yellow Urine Appearance Clear Urine pH 7.0 Ur Specific [place] 1.015 Urine Protein Negative Urine Glucose (UA) Negative Urine Ketones 1+ A Urine Blood 1+ A Urine Nitrite Negative Urine Bilirubin Negative Urine Urobilinogen 0.2 Ur Leukocyte Esterase 1+ A Urine RBC 2-5 A Urine WBC 2-5 Ur Squamous Epith Cells Few Amorphous Sediment Few A Urine Bacteria Few A Preliminary micro results at discharge 04/14/24 20:30 Urine Culture - Preliminary Urine,Clean Catch < 50,000 COL/ML MIXED GRAM POSITIVE SAMM ISOLATED NO FURTHER WORKUP Imaging CT scan - head: Attestation: I have reviewed the pertinent imaging results. Radiologist's impression: Noncontrast axial CT of the head. Coronal and sagittal reformats. Bone and soft tissue algorithms. COMPARISON: CT head report 03/10/2022, MRI brain report 02/05/2021 FINDINGS: Diffuse prominence of the ventricles and cortical sulci, compatible with generalized cerebral volume loss. Confluent hypoattenuation throughout the supratentorial white matter, typical of chronic microangiopathy. Tiny chronic cerebellar lacunar infarcts. No acute intracranial hemorrhage or abnormal extra-axial fluid collection. Preserved buchanan-white matter differentiation. Calcific intracranial atherosclerotic plaquing. Intact calvarium. Clear visualized paranasal sinuses and mastoid air cells. Bilateral lens implants. IMPRESSION: 1. No CT evidence of acute intracranial abnormality. 2. Mild generalized cerebral volume loss, chronic cerebellar lacunar infarcts, and moderately advanced chronic microangiopathy changes. CTA head: Attestation: I have reviewed the pertinent imaging results. Radiologist's impression: Acute stroke, expressive aphasia, dysarthria. TECHNIQUE: CTA head with contrast bolus tracking, 3D angiographic rendering using maximum intensity projection (MIP) and images permanently archived. FINDINGS: There is normal opacification of the intracranial vasculature. The cavernous right ICA is ectatic. A right PCOM infundibulum is incidentally noted. There is no large vessel occlusion or significant intracranial stenosis. IMPRESSION: No large vessel occlusion or significant intracranial stenosis. CTA neck: Attestation: I have reviewed the pertinent imaging results. Radiologist's impression: TECHNIQUE: CTA neck with contrast bolus tracking, 3D angiographic rendering using maximum intensity projection (MIP) and images permanently archived. FINDINGS: There is no significant carotid artery stenosis or dissection. The right vertebral artery is hypoplastic. There is no significant vertebral artery stenosis or dissection. The soft tissues of the neck are within normal limits. Degenerative changes are noted in the cervical spine. IMPRESSION: No significant carotid or vertebral artery stenosis or dissection. MR Brain: Attestation: I have reviewed the pertinent imaging results. Radiologist's impression: Brain MRI without contrast. COMPARISON: Head CT from 04/14/2024. FINDINGS: No evidence of acute ischemia. Curvilinear susceptibility artifact within the cerebral hemispheres bilaterally, likely reflecting chronic subarachnoid/extra-axial hemosiderin staining. These are most conspicuous within the right frontal lobe, right posterior temporal lobe, and left occipital lobe, as well as along the left frontal convexity. Patchy FLAIR hyperintensities throughout the supratentorial white matter and brainstem, typical for chronic microvascular ischemic change. A few tiny chronic infarcts within the left cerebellar hemisphere. Overall moderate generalized parenchymal volume loss. No mass effect or herniation. No hydrocephalus or extra-axial collections. The pituitary gland, parasellar structures and optic chiasm are normal. All the major intracranial vascular structures demonstrate normal flow-related signal. The orbital contents are normal. No calvarial or skull base marrow replacing process. No obstructive sinus disease. No extracranial soft tissue findings. IMPRESSION: 1. No acute infarction or other acute intracranial pathology. 2. Multifocal subarachnoid/extra-axial hemosiderin staining within both cerebral hemispheres. This is chronic and most commonly due to amyloid angiopathy. 3. Moderately advanced chronic microvascular ischemic changes as well as a few tiny chronic infarcts within the left cerebellar hemisphere. 4. Overall moderate generalized parenchymal volume loss. Discharge Plan Discharge Disposition: Home, Self-Care Date of Admission: 04/14/24 22:04 Attending Provider on Discharge: Malissa Tabor Primary Care Provider: Annie Rojas Condition: Improved Anticipated Discharge Date/Time: 04/15/24 12:51 Discharge Medications: New aspirin 81 mg Tablet,Delayed Release (Dr/Ec) 81 mg PO DAILY Qty: 90 0RF rosuvastatin 10 mg Tablet 20 mg PO HS Qty: 30 0RF Continued levothyroxine 88 mcg tablet 88 mcg PO DAILY prednisone 1 mg tablet 1 mg PO DAILY cholecalciferol (vitamin D3) [Vitamin D3] 10 mcg (400 unit) tablet 10 mcg PO DAILY donepezil 5 mg tablet 5 mg PO HS loperamide [Imodium A-D] 2 mg capsule 2 mg PO Q4H PRN (Reason: loose stool) Rx Instructions: administer after each loose stool until symptoms controlled; do not exceed 8 mg per 24 hrs mirtazapine 30 mg tablet 30 mg PO HS alprazolam 0.25 mg tablet 0.25 mg PO BID PRN bisacodyl [Dulcolax (bisacodyl)] 10 mg suppository 10 mg MA DAILY PRN alum-mag hydroxide-simeth [Maalox Maximum Strength] 400-400-40 mg/5 mL suspension 30 ml PO QID PRN magnesium hydroxide [Milk of Magnesia] 400 mg/5 mL suspension 30 ml PO Q48H PRN calcium carbonate [Calcium 500] 500 mg calcium (1,250 mg) tablet,chewable 1,000 mg PO TID PRN venlafaxine [Effexor XR] 75 mg capsule,extended release 24hr 75 mg PO QAM Rx Instructions: take 1 cap daily along with 150 mg cap, for total daily dose of 225 mg. Order 75 mg and 150 mg caps due to lower cost vs 225 mg cap venlafaxine [Effexor XR] 150 mg capsule,extended release 24hr 150 mg PO QAM Rx Instructions: Take one cap daily with 75 mg cap for total of 225 mg cap. Cost is less if ordered separately in 75 mg and 150 mg cap, rather than 225 mg cap tamoxifen 20 mg tablet 20 mg PO DAILY Qty: 90 3RF Discharge Orders: Discharge Order (Routine); Ordered 04/15/24 Ordered By: Malissa Tabor Patient Education: Aphasia (GEN) Additional Instructions: Continue to take Aspirin and rosuvastatin daily for cardioprotective effects Activity Level: No Restrictions Discharge Diet: Regular Follow Up Appointments: Annie Rojas MD [Primary Care Provider] - (Post hospital follow up 7-10 days) Forms: [facility] Info Instructions
--- NOTE | 2024-04-15 14:29 | PC.NURSE ---
Discharge: Patient VSS. Alert and oriented to self and situation. Patient tolerated a regular diet. Independent with ambulation. MRI came back negative for a stroke. Patient discharged at 1306 back to assisted living via POA. RN gave discharge instructions and patient signed discharge paperwork.
== END 2024-04-15 13:06 | disposition home or self-care (01) ==
LOC: ED 21:51 → MEDSURG 22:05
PROVIDERS: Admitting Provider Family Medicine; Emergency Provider Family Medicine; PCP Internal Medicine; Visit Provider Physician Assistant
DX: R47.01 Aphasia (principal); M31.6 Other giant cell arteritis; E03.9 Hypothyroidism, unspecified; I67.9 Cerebrovascular disease, unspecified; G30.9 Alzheimer's disease, unspecified; F02.80 Dementia in other diseases classified elsewhere, unspecified severity, without behavioral disturbance, psychotic disturbance, mood disturbance, and anxiety; Z78.9 Other specified health status; R47.1 Dysarthria and anarthria
CPT/HCPCS: 36415; 70450; 70496; 70498; 70551; 80048; 81001; 84443; 85025; 85610; 85651; 85730; 87086; 93005; 94761; 96361; 96374; 96375; 97161; 97165; 99284; 99285; 99291; 99292; G0378; A9270; J0780; J2405; J7030; Q9967

== ENCOUNTER 2024-07-06 09:30 | Outpatient (RCR) | payer MEDICARE, SELFPAY ==
--- NOTE | 2024-12-20 14:55 | ONC.NURNOTE ---
Adrienne is due for a 6 month follow up with [facility] in December. [employer] is unable to reach Adrienne by phone, a letter was written and sent to [facility], asking Adrienne to call and schedule her appointment.
== END 2025-01-02 23:59 | disposition home or self-care (01) ==
LOC: CCIC 09:30
PROVIDERS: Visit Provider Physician Assistant
DX: C50.911 Malignant neoplasm of unspecified site of right female breast (principal); Z17.0 Estrogen receptor positive status [ER+]; Z79.810 Long term (current) use of selective estrogen receptor modulators (SERMs); G30.9 Alzheimer's disease, unspecified; F02.80 Dementia in other diseases classified elsewhere, unspecified severity, without behavioral disturbance, psychotic disturbance, mood disturbance, and anxiety; M85.80 Other specified disorders of bone density and structure, unspecified site
CPT/HCPCS: 99215; G0463

== ENCOUNTER 2024-07-26 11:15 | Outpatient (CLI) | payer MEDICARE, SELFPAY ==
--- OUTSIDE RECORDS SUMMARY | 2024-07-26 11:22 | XMS_ITS | Clinical Summary ---
Author Organization [facility] Address [place], [place] [address] Care Team Providers Care County Surveyor Name Role Phone Annie Rojas MD Primary Care Provider +1- [phone] Allergies No known active allergies Medications Medication [...] Comments Blood Pressure 106/71 10/30/2020 10:44 AM SLAB INSTALLER Pulse 80 10/30/2020 10:44 AM SLAB INSTALLER Temperature 36.9 ??C (98.5 ??F) 04/13/2019 8:39 AM CD T Respiratory Rate - - Oxygen Saturation 99% 10/30/2020 10: 44 AM SLAB INSTALLER Inhaled Oxygen Concentration - - Weight 61.1 kg (134 lb 12.8 oz) 020 10:44 AM SLAB INSTALLER Height 160.5 cm (5' 3.19) 04/13/2019 8:39 [...] age 50+ Completed 12/14/2018, 08/10/2018 Care Teams County Surveyor Relationship Specialty Start Date End Date Annie Rojas MD [address] [place] [address] PCP - General Internal Medicine 01/16/15
[2024-07-26 12:20] LABS: Erythrocyte SedimentationRate* 11 mm/hr (2-20)
== END 2024-07-26 11:16 | disposition home or self-care (01) ==
LOC: NPINS 11:20
PROVIDERS: PCP Family Medicine; Visit Provider Nurse Practitioner Gerontology
DX: M31.6 Other giant cell arteritis (principal); Z79.52 Long term (current) use of systemic steroids
CPT/HCPCS: 85651

== ENCOUNTER 2024-09-26 12:03 | Outpatient (REF) | payer MEDICARE, SELFPAY ==
--- OUTSIDE RECORDS SUMMARY | 2024-09-26 12:06 | XMS_ITS | Clinical Summary ---
Author Organization [facility] Address [place], [place] [address] Care Team Providers Care Hvac Instructor Name Role Phone Annie Rojas MD Primary Care Provider +1- [phone] Allergies No known active allergies Medications Medication [...] Comments Blood Pressure 106/71 10/30/2020 10:44 AM INSTRUMENTATION SUPERVISOR Pulse 80 10/30/2020 10:44 AM INSTRUMENTATION SUPERVISOR Temperature 36.9 ??C (98.5 ??F) 04/13/2019 8:39 AM CD T Respiratory Rate - - Oxygen Saturation 99% 10/30/2020 10: 44 AM INSTRUMENTATION SUPERVISOR Inhaled Oxygen Concentration - - Weight 61.1 kg (134 lb 12.8 oz) 020 10:44 AM INSTRUMENTATION SUPERVISOR Height 160.5 cm (5' 3.19) 04/13/2019 8:39 AM CD T Body Mass Index 23.74 04/13/2019 8:39 AM CDT Plan of Treatment Health Maintenance Due Date Last Done Comments DEXA/DXA scan for age 65+ 2005 Medicare Wellness for age 65+ 2005 RSV vaccine for adults or (1 - 1-dose 75+ series) 2015 Pneumococcal series for age 65+ (2 of 2 - PPSV23 or PCV20) 08/26/2016 08/26/2015, 01/02/2015 BMI (ht and wt on same day) for age 18+ 04/13/2020 04/13/2019, 01/01/2017 Depression screening for age 12+ 04/13/2020 04/13/20 19, 01/01/2017 COVID-19 vaccine series ( season) 2024 Influenza for age 65+ 07/30/2024 10/18/2018 , 12/11/2017, 10/15/2016, Additional history exists Tetanus booster 08/26/2025 08/26/2015 Tdap Completed 08/26/2015 Zoster (shingles) series for age 50+ Completed 12/14/2018, 08/10/2018 Care Teams Hvac Instructor Relationship Specialty Start Date End Date Annie Rojas MD [address] [place] [address] PCP - General Internal Medicine 01/16/15
[2024-09-26 12:57] LABS: C Reactive Protein* < 0.5 mg/dL (0.5-1.0)
[2024-09-26 13:38] LABS: Erythrocyte SedimentationRate* 6 mm/hr (2-20)
== END 2024-09-26 12:04 | disposition home or self-care (01) ==
LOC: NPINS 12:03
PROVIDERS: PCP Family Medicine; Visit Provider Nurse Practitioner Gerontology
DX: M31.6 Other giant cell arteritis (principal)
CPT/HCPCS: 85651; 86140

== ENCOUNTER 2025-01-05 15:26 | Outpatient (REF) | payer MEDICARE, SELFPAY ==
[2025-01-05 17:33] LABS: Thyroid Stimulating Hormone* 0.729 uIU/mL (0.270-4.20)
== END 2025-01-05 15:27 | disposition home or self-care (01) ==
LOC: NPINS 15:26
PROVIDERS: PCP Family Medicine; Referring Provider Nurse Practitioner Gerontology; Visit Provider Nurse Practitioner Gerontology
DX: E03.9 Hypothyroidism, unspecified (principal); M31.6 Other giant cell arteritis
CPT/HCPCS: 84443; 85651

== ENCOUNTER 2025-01-09 11:29 | Outpatient (REF) | payer MEDICARE, SELFPAY ==
[2025-01-09 14:48] LABS: Erythrocyte SedimentationRate* 6 mm/hr (2-20)
== END 2025-01-09 11:30 | disposition home or self-care (01) ==
LOC: NPINS 11:29
PROVIDERS: PCP Family Medicine; Visit Provider Nurse Practitioner Gerontology
DX: M31.6 Other giant cell arteritis (principal)
CPT/HCPCS: 85651

== ENCOUNTER 2025-07-24 12:56 | Outpatient (REF) | payer MEDICARE, SELFPAY ==
[2025-07-24 13:30] LABS: Chloride* 106 mmol/L (96-114)
[2025-07-24 13:31] LABS: Potassium* 4.6 mmol/L (3.6-5.1); Sodium* 138 mmol/L (135-149)
[2025-07-24 13:34] LABS: Anion Gap 6 mEq/L (7-15); Blood Urea Nitrogen* 24 mg/dL (7-30); Calcium* 9.6 mg/dL (8.4-10.6); Carbon Dioxide* 26 mmol/L (20-32); Creatinine* 1.1 mg/dL (0.5-1.5); Estimated Glomerular Filt Rate 49 ml/min; Glucose* 83 mg/dL (60-115)
--- OUTSIDE RECORDS SUMMARY | 2025-07-25 00:18 | XMS_ITS | Clinical Summary ---
Author Organization [facility] Address [facility] [place] [address] Care Team Providers Care Clinic Charge Nurse Name Role Phone Annie Rojas MD Primary Care Provider +1- [phone] Allergies No known active allergies Medications ALPRAZolam (XANAX) 0.25 mg tablet Take 1 tablet by mouth at bedtime if needed. 0 01/16/2015 Active mirtazapine (REMERON) 30 mg tablet Take 1 tablet by mouth at bedtime. 0 01/16/2015 Active albuterol HFA (PRO-AIR,VENTOL IN,PROVENTIL) 90 mcg/actuation inhaler Inhale 2 Puffs by [...] mg cap Take by mouth. 0 01/16/2015 Active glucosamine-cho ndroit-vit c-mn (GLUCOSAMINE-CH ONDROITIN COMPLX) cap Take by mouth. 0 01/16/2015 Active Calcium Carb-Magnesium Carb 250-300 mg tab Take by mouth. 0 01/16/2015 Active cyanocobalamin (VITAMIN B-12) 1,000 mcg tablet Take [...] 1 T PO BID 08/23/2020 Active Immunizations Immunization Administration Dates Next Due Influenza, High-dose Inactivated [...] Answer Date Recorded PHQ-2 Score 0 04/13/2019 Comments No Sex and Gender Information Value Date Recorded Sex Assigned at Not on file Legal Sex Female 11:18 AM MACHINE TESTER Gender Identity Not on file Sexual Orientation Not on file Obstetrics History Last Filed Vital Signs Vital Sign Reading Time Taken Comments Blood Pressure 106/71 10/30/2020 10:44 AM MACHINE TESTER Pulse 80 10/30/2020 10:44 AM MACHINE TESTER Temperature 36.9 C (98.5 F) 04/13/2019 8:39 AM CDT Respiratory Rate - - Oxygen Saturation 99% 10/30/2020 10: 44 AM MACHINE TESTER Inhaled Oxygen Concentration - - Weight 61.1 kg (134 lb 12.8 oz) 020 10:44 AM MACHINE TESTER Height 160.5 cm (5' 3.19) 04/13/2019 8:39 AM CD T Body Mass Index 23.74 04/13/2019 8:39 AM CDT Plan of Treatment Health Maintenance Due Date Last Done Comments DEXA/DXA scan for age 65+ 2005 Medicare Wellness for age 65+ 2005 RSV vaccine for adults or (1 - 1-dose 75+ series) 2015 Pneumococcal series for age 50+ (2 of 2 - PPSV23) 08/26/2016 08/26/2015, 01/02/2015 BMI (ht and wt on same day) for age 18+ 04/13/2020 04/13/2019, 01/01/2017 Depression screening for age 12+ 04/13/2020 04/13/2019, 01/01/2017 COVID-19 vaccine series ( season) 2024 Influenza Vaccine (#1) 2025 8, 12/11/2017, 10/15/2016, Additional history exists Tetanus booster 08/26/2025 08/26/2015 Zoster (shingles) series for age 50+ Completed 12/14/2018, 08/10/2018 Hepatitis B series for 19+ Aged Out N o longer eligible based on patient's age to complete this topic Insurance [employer] Care Teams Clinic Charge Nurse Relationship Specialty Start Date End Date Annie Rojas MD [address] [place] [id number] PCP - General Internal Medicine 01/16/15
== END 2025-07-24 12:57 | disposition home or self-care (01) ==
LOC: NPINS 12:56
PROVIDERS: PCP Family Medicine; Visit Provider Family Medicine
DX: E03.9 Hypothyroidism, unspecified (principal); I67.9 Cerebrovascular disease, unspecified
CPT/HCPCS: 80048; 84443